=== PATIENT | female | born 1985 | race Hispanic/Latino ===

== ENCOUNTER 2018-01-09 19:50 | Emergency (ER) | payer SELFPAY ==
--- NOTE | 2018-01-09 21:42 | ER ---
Nurse's Notes [facility] Name: Sophie Thakkar Age: 32 yrs Sex: Female : 1985 Arrival Date: 01/09/2018 Time: 19:54 Bed Waiting Private MD: Diagnosis: Presentation: 01/09 20:01 Presenting complaint: Patient states: I am scheduled to have a lap band reversal and la1 gastric sleeve very soon and I am on a very particular diet that is causing me to be constipated and have to strain a lot to have a BM and now I am having rectal bleeding. Pt states last BM this morning but just 2 small hard balls. Transition of care: patient was not received from another setting of care. Onset of symptoms was January 09, 2018. Initial Sepsis Screen: Does the patient meet any 2 criteria? No. Patient's initial sepsis screen is negative. Does the patient have a suspected source of infection? No. Patient initial sepsis screen negative. Care prior to arrival: None. 20:01 Method Of Arrival: Ambulatory la1 20:01 Acuity: JERONIMO 3 la1 Historical: - Allergies: 20:03 No Known Allergies; la1 - PMHx: 20:03 None; la1 - Immunization history:: Adult Immunizations up to date. - Social history:: Smoking status: Patient/guardian denies using tobacco. Vital Signs: 20:03 BP 122 / 65; Pulse 106; Resp 19; Temp 98.2(O); Pulse Ox 97% on R/A; Weight 113.4 kg; la1 Height 5 ft. 2 in. (157.48 cm); 20:03 Body Mass Index 45.73 (113.40 kg, 157.48 cm) la1 ED Course: 19:54 Patient arrived in ED. al2 20:02 Triage completed. la1 20:04 Arm band placed on left wrist. la1 21:30 Patient's name was called from ER [employer]. No response. la1 21:41 Patient's name was called from ER [facility]. No response. Unable to locate patient. Will la1 disposition as left without being seen by a provider. Administered Medications: No medications were administered Outcome: 21:41 Patient left the ED. la1 Signatures: Anurag Elise RN RN la1 Cat Ellis
[2018-01-09 21:48] VITALS: BP 122/65; TEMP 98.2; O2SAT 97
== END 2018-01-09 21:41 | disposition left against medical advice (07) ==
LOC: ER 19:50
DX: Z53.21 Procedure and treatment not carried out due to patient leaving prior to being seen by health care provider (principal)
CPT/HCPCS: 99281

== ENCOUNTER 2018-03-24 09:43 | Emergency (ER) | payer SELFPAY ==
--- NOTE | 2018-03-24 10:13 | ER ---
Nurse's Notes [facility] Name: Sophie Thakkar Age: 32 yrs Sex: Female : 1985 Arrival Date: 03/24/2018 Time: 09:46 Bed 6 Private MD: CHECO FONTAINE Diagnosis: Foreign body in vulva and vagina Presentation: 03/24 09:53 Presenting complaint: Patient states: was having sexual intercourse this morning around sv 0300/0400 and the condom remained inside. Pt attempted to get it out but was unsuccessful. Transition of care: patient was not received from another setting of care. Onset of symptoms was March 24, 2018 at 03:00. Risk Assessment: Do you want to hurt yourself or someone else? Patient reports no desire to harm self or others. Initial Sepsis Screen: Does the patient meet any 2 criteria? No. Patient's initial sepsis screen is negative. Does the patient have a suspected source of infection? No. Patient's initial sepsis screen is negative. Care prior to arrival: None. 09:53 Method Of Arrival: Ambulatory sv 09:53 Acuity: JERONIMO 4 sv Triage Assessment: 09:53 General: Appears in no apparent distress. uncomfortable, well developed, Behavior is sv calm, cooperative, appropriate for age. Pain: Complains of pain in pelvis Pain currently is 1 out of 10 on a pain scale. EENT: No signs and/or symptoms were reported regarding the EENT system. Neuro: Level of Consciousness is awake, alert, obeys commands, Oriented to person, place, time, situation, Moves all extremities. Full function Gait is steady. Respiratory: Respiratory effort is even, unlabored, Respiratory pattern is regular, symmetrical. : Reports condom in vagina. Derm: Skin is pink, warm \T\ dry. Musculoskeletal: Range of motion: intact in all extremities. 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 - Social history:: Smoking status: Patient uses tobacco products, smokes one-half pack cigarettes per day. - Ebola Screening: : No symptoms or risks identified at this time. Screenin:04 Abuse screen: Denies threats or abuse. Denies injuries from another. Nutritional sv screening: No deficits noted. Tuberculosis screening: No symptoms or risk factors identified. Fall Risk None identified. Assessment: 10:06 Reassessment: See triage assessment. sv 10:25 Reassessment: Patient appears in no apparent distress at this time. Patient and/or sv family updated on plan of care and expected duration. Pain level reassessed. Patient is alert, oriented x 3, equal unlabored respirations, skin warm/dry/pink. Patient states symptoms have improved. Vital Signs: 10:03 BP 94 / 59; Pulse 67; Resp 18; Temp 98.3; Pulse Ox 99% ; Weight 104.33 kg; Height 5 ft. sv 2 in. (157.48 cm); Pain 1/10; 10:03 Body Mass Index 42.07 (104.33 kg, 157.48 cm) sv ED Course: 09:46 Patient arrived in ED. sb2 09:46 CHECO FONTAINE is Private Physician. sb2 09:50 Radhika Dobbins FNP-C is [facility]. snw 09:50 Ramin Coreas MD is Attending Physician. snw 09:59 Ro Lopez RN is Primary Nurse. sv 10:01 Triage completed. sv 10:04 Arm band placed on right wrist. sv 10:04 Patient has correct armband on for positive identification. Placed in gown. Bed in low sv position. Door closed. Warm blanket given. Head of bed elevated. 10:10 Assist provider with pelvic exam: Set up pelvic tray. Performed by Radhika BREWER Patient tolerated well. Patient did not have IV access during this emergency room visit. Administered Medications: No medications were administered Outcome: 10:12 Discharge ordered by . snw 10:25 Discharged to home ambulatory. sv 10:25 Condition: stable 10:25 Discharge instructions given to patient, Instructed on discharge instructions, follow up and referral plans. Demonstrated understanding of instructions, follow-up care. 10:26 Patient left the ED. sv Signatures: Ro Lopez RN RN sv Therrien, Shelly, FNP-C LEARNING PROGRAM MANAGER-Csnw Collette Zamudio sb2
--- NOTE | 2018-03-24 10:13 | EDPHYS ---
Physician Documentation [facility] Name: Sophie Thakkar Age: 32 yrs Sex: Female : 1985 Arrival Date: 03/24/2018 Time: 09:46 Bed 6 Private MD: CHECO FONTAINE ED Physician Ramin Coreas HPI: 03/24 10:15 This 32 yrs old Female presents to ER via Ambulatory with complaints of snw Foreign body In Vagina - condom. 10:15 The patient presents with foreign body. Onset: The symptoms/episode began/occurred snw suddenly, today. Associated signs and symptoms: Pertinent positives: dyspareunia. Severity of symptoms: At their worst the symptoms were mild. The patient is sexually active, uses protection during intercourse. The patient has not experienced similar symptoms in the past. The patient has not recently seen a physician. 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 - Social history:: Smoking status: Patient uses tobacco products, smokes one-half pack cigarettes per day. - Ebola Screening: : No symptoms or risks identified at this time. ROS: 10:13 Constitutional: Negative for fever, chills, and weight loss, Eyes: Negative for injury, snw pain, redness, and discharge, ENT: Negative for injury, pain, and discharge, Neck: Negative for injury, pain, and swelling, Cardiovascular: Negative for chest pain, palpitations, and edema, Respiratory: Negative for shortness of breath, cough, wheezing, and pleuritic chest pain, Abdomen/GI: Negative for abdominal pain, nausea, vomiting, diarrhea, and constipation, Back: Negative for injury and pain, MS/Extremity: Negative for injury and deformity, Skin: Negative for injury, rash, and discoloration, Neuro: Negative for headache, weakness, numbness, tingling, and seizure. 10:13 : Positive for condom in vaginal vault. Exam: 10:13 Constitutional: This is a well developed, well nourished patient who is awake, alert, snw and in no acute distress. Head/Face: Normocephalic, atraumatic. Eyes: Pupils equal round and reactive to light, extra-ocular motions intact. Lids and lashes normal. Conjunctiva and sclera are non-icteric and not injected. Cornea within normal limits. Periorbital areas with no swelling, redness, or edema. ENT: Nares patent. No nasal discharge, no septal abnormalities noted. Tympanic membranes are normal and external auditory canals are clear. Oropharynx with no redness, swelling, or masses, exudates, or evidence of obstruction, uvula midline. Mucous membranes moist. Neck: Trachea midline, no thyromegaly or masses palpated, and no cervical lymphadenopathy. Supple, full range of motion without nuchal rigidity, or vertebral point tenderness. No Meningismus. Chest/axilla: Normal chest wall appearance and motion. Nontender with no deformity. No lesions are appreciated. Cardiovascular: Regular rate and rhythm with a normal S1 and S2. No gallops, murmurs, or rubs. Normal PMI, no JVD. No pulse deficits. Respiratory: Lungs have equal breath sounds bilaterally, clear to auscultation and percussion. No rales, rhonchi or wheezes noted. No increased work of breathing, no retractions or nasal flaring. Abdomen/GI: Soft, non-tender, with normal bowel sounds. No distension or tympany. No guarding or rebound. No evidence of tenderness throughout. Back: No spinal tenderness. No costovertebral tenderness. Full range of motion. Pelvic Exam: Normal external genitalia. Speculum exam with closed cervical os, condom in vaginal vault, removed with forceps. no discharge or bleeding noted. Bimanual exam with normal adnexa, no adnexal or cervical motion tenderness. Normal uterus. Skin: Warm, dry with normal turgor. Normal color with no rashes, no lesions, and no evidence of cellulitis. MS/ Extremity: Pulses equal, no cyanosis. Neurovascular intact. Full, normal range of motion. Neuro: Awake and alert, GCS 15, oriented to person, place, time, and situation. Cranial nerves II-XII grossly intact. Motor strength 5/5 in all extremities. Sensory grossly intact. Cerebellar exam normal. Normal gait. Psych: Awake, alert, with orientation to person, place and time. Behavior, mood, and affect are within normal limits. Vital Signs: 10:03 BP 94 / 59; Pulse 67; Resp 18; Temp 98.3; Pulse Ox 99% ; Weight 104.33 kg; Height 5 ft. sv 2 in. (157.48 cm); Pain 1/10; 10:03 Body Mass Index 42.07 (104.33 kg, 157.48 cm) sv MDM: 09:56 Patient medically screened. snw 10:14 Data reviewed: vital signs, nurses notes. Data interpreted: Pulse oximetry: on room air snw is 99 %. Interpretation: normal. Counseling: I had a detailed discussion with the patient and/or guardian regarding: the historical points, exam findings, and any diagnostic results supporting the discharge/admit diagnosis, the need for outpatient follow up, to return to the emergency department if symptoms worsen or persist or if there are any questions or concerns that arise at home. Special discussion: Based on the history and exam findings, there is no indication for further emergent testing or inpatient evaluation. I discussed with the patient/guardian the need to see the OB Gyne specialist for further evaluation of the symptoms. Administered Medications: No medications were administered Disposition: 18:16 Co-signature as Attending Physician, Ramin Coreas MD. rn Disposition: 03/24/18 10:12 Discharged to Home. Impression: Foreign body in vulva and vagina. - Condition is Stable. - Discharge Instructions: Dyspareunia, Vaginal Foreign Body. - Medication Reconciliation Form, Thank You Letter, Antibiotic Education, Prescription Opioid Use form. - Follow up: Private Physician; When: 2 - 3 days; Reason: Recheck today's complaints, Continuance of care, Re-evaluation by your physician. Follow up: Emergency Department; When: As needed; Reason: Worsening of condition. - Problem is new. - Symptoms are resolved. Signatures: Ro Lopez RN RN Radhika Larios, WRAPPING MACHINE HELPER-C WRAPPING MACHINE HELPER-Csnw Ramin Coreas MD MD pattern repair person: (The following items were deleted from the chart) 10:26 10:12 03/24/2018 10:12 Discharged to Home. Impression: Foreign body in vulva and sv vagina. Condition is Stable. Forms are Medication Reconciliation Form, Thank You Letter, Antibiotic Education, Prescription Opioid Use. Follow up: Private Physician; When: 2 - 3 days; Reason: Recheck today's complaints, Continuance of care, Re-evaluation by your physician. Follow up: Emergency Department; When: As needed; Reason: Worsening of condition. Problem is new. Symptoms are resolved. snrogelio
[2018-03-24 10:47] VITALS: BP 94/59; TEMP 98.3; O2SAT 99
== END 2018-03-24 10:26 | disposition home or self-care (01) ==
LOC: ER 09:43
DX: T19.2XXA Foreign body in vulva and vagina, initial encounter (principal); F17.210 Nicotine dependence, cigarettes, uncomplicated; X58.XXXA Exposure to other specified factors, initial encounter; Y93.9 Activity, unspecified; Y92.9 Unspecified place or not applicable; Y99.9 Unspecified external cause status; Z91.040 Latex allergy status
CPT/HCPCS: 99283

== ENCOUNTER 2018-09-12 09:09 | Emergency (ER) | payer SELFPAY ==
[2018-09-12] MEDS ORDERED: ACETAMINOPHEN 500 MG TAB ONE (10:08)
[2018-09-12 10:20] LABS: Urine Amorphous Sediment 2+ /HPF (NONE SEEN); Urine Bacteria <20 /HPF (<20); Urine Culture Reflex Order NOT NEEDED; Urine RBC <5 /HPF (NONE SEEN)
[2018-09-12 10:22] LABS: Absolute Lymphocytes (CBC) 2.4 K/uL (0.7-4.9); Absolute Monocytes 0.5 K/uL (0.1-1.3); Absolute Neutrophil 4.4 K/uL (1.8-8.0); Basophils % 0.5 % (0-1.3); Eosinophils % 3.4 % (0-4.4); Hematocrit 39.4 % (36.0-45.0); MPV 8.8 fL (7.6-11.3); Monocytes % 6.9 % (3.3-12.3); RBC Red Blood Cell Count 4.83 M/uL (3.86-4.86)
[2018-09-12 10:30] LABS: Urine Blood 1+ (NEG); Urine Glucose NEGATIVE (NEG); Urine Protein NEGATIVE (NEG)
[2018-09-12 10:42] LABS: ALT/SGPT 29 U/L (12-78); AST/SGOT 13 U/L (15-37); Albumin 3.4 g/dL (3.4-5.0); Alkaline Phosphatase 69 U/L (45-117); BUN Blood Urea Nitrogen 11 mg/dL (7-18); Bicarbonate 26 mmol/L (21-32); Bilirubin Direct 0.2 mg/dL (0-0.2); Bilirubin Total 0.6 mg/dL (0.2-1.0); Glucose Level 89 mg/dL (74-106); Potassium 4.2 mmol/L (3.5-5.1); Protein, Total 7.2 g/dL (6.4-8.2); Sodium Level 139 mmol/L (136-145)
--- NOTE | 2018-09-12 10:46 | RAD REPORT ---
EXAM DESCRIPTION: US - Transvaginal Study Probe - 09/12/2018 10:30 am CLINICAL HISTORY: pelvic pain. abnml vag bleed Pelvic pain. COMPARISON: No comparisons FINDINGS: The uterus is normal in size, shape and echotexture. The uterus measures 8.0 x 4.6 x 3.7 c m. The endometrial stripe measures 5 mm, normal. Both ovaries are normal in size, shape and echotexture. The right ovary measures 2.0 x 2.0 x 1.7 cm. The left ovary measures 3.0 x 2.7 x 2.5 cm. No ovarian or parovarian lesions. No adnexal masses. Normal Doppler blood flow was demonstrated to both ovaries. No significant pelvic ascites. IMPRESSION: Unremarkable study.
[2018-09-12] MEDS ORDERED: KETOROLAC 30 MG/ML INJ ONE (11:24)
--- NOTE | 2018-09-12 11:59 | EDPHYS ---
Physician Documentation [facility] Name: Sophie Thakkar Age: 32 yrs Sex: Female : 1985 Arrival Date: 09/12/2018 Time: 09:15 Bed 5 Private MD: None, None ED Physician Bryson Finn HPI: 09/12 10:45 This 32 yrs old Female presents to ER via Ambulatory with complaints of wa Vaginal Bleeding. 10:45 The patient presents with pelvic pain, vaginal bleeding that is foul-smelling bloody wa discharge. states had a "period" that lasted 2 weeks just 2 weeks ago. has been irregular x 2 years. has a control implant in L upper arm. Onset: The symptoms/episode began/occurred 2 day(s) ago. Modifying factors: The symptoms are alleviated by nothing, the symptoms are aggravated by nothing. Associated signs and symptoms: Pertinent positives: vaginal bleeding, vaginal discharge, Pertinent negatives: diarrhea, dysuria, fever. Severity of symptoms: At their worst the symptoms were moderate, in the emergency department the symptoms are unchanged. The patient has not experienced similar symptoms in the past. The patient has not recently seen a physician. states her FLIGHT ENGINEER HELICOPTER has her scheduled for pelvic US but cannot get in till after the holidays. FLIGHT ENGINEER HELICOPTER: 09:20 LMP 09/12/2018 Historical: - Allergies: 09:20 Latex, Natural Rubber; for long periods of time; - Home Meds: 09:20 control implant-possibly implanon [Active]; ch - PMHx: 09:20 None; ch - PSHx: 09:20 ; Cholecystectomy; Gastric sleeve; - Immunization history:: Adult Immunizations up to date, Flu vaccine is up to date. - Social history:: Smoking status: Patient uses tobacco products, denies chronic smoking, but will smoke occasionally. - Ebola Screening: : Patient negative for fever greater than or equal to 101.5 degrees Fahrenheit, and additional compatible Ebola Virus Disease symptoms Patient denies exposure to infectious person Patient denies travel to an Ebola-affected area in the 21 days before illness onset No symptoms or risks identified at this time. ROS: 10:49 Positive for pelvic pain, vaginal bleeding, vaginal discharge, menstrual wa abnormality, Negative for urinary symptoms, hematuria, burning with urination, difficulty urinating. 10:49 Constitutional: Negative for fever, chills, and weight loss, Eyes: Negative for injury, pain, redness, and discharge, ENT: Negative for injury, pain, and discharge, Neck: Negative for injury, pain, and swelling, Cardiovascular: Negative for chest pain, palpitations, and edema, Respiratory: Negative for shortness of breath, cough, wheezing, and pleuritic chest pain, Back: Negative for injury and pain, MS/Extremity: Negative for injury and deformity, Skin: Negative for injury, rash, and discoloration, Neuro: Negative for headache, weakness, numbness, tingling, and seizure. 10:49 Abdomen/GI: Positive for abdominal pain, of the suprapubic area. 10:50 : Positive for vaginal bleeding, vaginal discharge, menstrual abnormality. wa Exam: 10:50 Constitutional: This is a well developed, well nourished patient who is awake, alert, wa and in no acute distress. Head/Face: Normocephalic, atraumatic. Eyes: Pupils equal round and reactive to light, extra-ocular motions intact. Lids and lashes normal. Conjunctiva and sclera are non-icteric and not injected. Cornea within normal limits. Periorbital areas with no swelling, redness, or edema. ENT: Nares patent. No nasal discharge, no septal abnormalities noted. Tympanic membranes are normal and external auditory canals are clear. Oropharynx with no redness, swelling, or masses, exudates, or evidence of obstruction, uvula midline. Mucous membranes moist. Neck: Trachea midline, no thyromegaly or masses palpated, and no cervical lymphadenopathy. Supple, full range of motion without nuchal rigidity, or vertebral point tenderness. No Meningismus. Chest/axilla: Normal chest wall appearance and motion. Nontender with no deformity. No lesions are appreciated. Cardiovascular: Regular rate and rhythm with a normal S1 and S2. No gallops, murmurs, or rubs. Normal PMI, no JVD. No pulse deficits. Respiratory: Lungs have equal breath sounds bilaterally, clear to auscultation and percussion. No rales, rhonchi or wheezes noted. No increased work of breathing, no retractions or nasal flaring. Back: No spinal tenderness. No costovertebral tenderness. Full range of motion. Skin: Warm, dry with normal turgor. Normal color with no rashes, no lesions, and no evidence of cellulitis. MS/ Extremity: Pulses equal, no cyanosis. Neurovascular intact. Full, normal range of motion. Neuro: Awake and alert, GCS 15, oriented to person, place, time, and situation. Cranial nerves II-XII grossly intact. Motor strength 5/5 in all extremities. Sensory grossly intact. Cerebellar exam normal. Normal gait. Psych: Awake, alert, with orientation to person, place and time. Behavior, mood, and affect are within normal limits. 10:50 Abdomen/GI: Inspection: abdomen appears normal, Palpation: soft, in all quadrants, mild abdominal tenderness, in the suprapubic area. Vital Signs: 09:20 BP 100 / 63; Pulse 59; Resp 16; Temp 98.4; Pulse Ox 99% on R/A; Weight 99.79 kg; Height ch 5 ft. 2 in. (157.48 cm); Pain 8/10; 10:30 BP 110 / 68; Pulse 61; Resp 18; Pulse Ox 99% on R/A; ph 11:22 BP 101 / 70; Pulse 58; Resp 18; Pulse Ox 98% on R/A; ph 12:23 BP 104 / 68; Pulse 59; Resp 18; Temp 97.6; Pulse Ox 99% on R/A; Pain 5/10; ph 09:20 Body Mass Index 40.24 (99.79 kg, 157.48 cm) ch MDM: 09:31 Patient medically screened. wa 10:50 Differential diagnosis: dysfxnal uterine bleeding. will work up. wa 11:56 Data reviewed: vital signs, nurses notes, lab test result(s), radiologic studies. Test wa interpretation: by ED physician or midlevel provider: labs noted within normal limits. pelvic US noted within nml limits. . Response to treatment: the patient's symptoms have markedly improved after treatment. ED course: improved. work up essentially negative. will have f/u with her SEWER PIPE LAYER HELPER.. 09/12 09:49 Order name: Basic Metabolic Panel; Complete Time: 10:51 wa 09/12 09:49 Order name: CBC with Diff; Complete Time: 10:51 wa 09/12 09:49 Order name: Urine Microscopic Only; Complete Time: 10:51 wa 09/12 09:49 Order name: LFT's; Complete Time: 10:51 wa 09/12 09:49 Order name: Wet Prep; Complete Time: 11:52 ct 09/12 09:49 Order name: GC (GONORR/CHLAMYDIA) Probe ct 09/12 09:49 Order name: Urine Test (obtain specimen); Complete Time: 09:57 ct 09/12 09:49 Order name: IV Saline Lock; Complete Time: 10:11 ct 09/12 10:10 Order name: Urine Dipstick--Ancillary (enter results); Complete Time: 10:51 09/12 10:14 Order name: Transvaginal Study Probe; Complete Time: 10:51 EDAK 09/12 10:23 Order name: Urine --Ancillary (enter results); Complete Time: 10:51 09/12 09:49 Order name: Labs collected and sent; Complete Time: 10:11 ct 09/12 09:49 Order name: NPO; Complete Time: 09:57 ct 09/12 09:49 Order name: Urine Dipstick-Ancillary (obtain specimen); Complete Time: 09:57 ct Administered Medications: 10:11 Drug: Tylenol 1000 mg Route: PO; ph 12:24 Follow up: Response: No adverse reaction ph 11:22 Drug: TORadol 30 mg Route: IVP; Site: right antecubital; ph 12:25 Follow up: Response: No adverse reaction ph Disposition: 09/12/18 11:59 Discharged to Home. Impression: Dysfunctional uterine bleeding, Pelvic pain. - Condition is Stable. - Prescriptions for Ibuprofen 600 mg Oral Tablet - take 1 tablet by ORAL route every 6 hours As needed take with food; 30 tablet. - Work release form, Medication Reconciliation Form, Thank You Letter, Antibiotic Education, Prescription Opioid Use form. - Follow up: Private Physician; When: 2 - 3 days; Reason: Re-evaluation by your physician. - Problem is new. - Symptoms have improved. - Notes: follow up with your SEWER PIPE LAYER HELPER for further evaluation as discussed. take tylenol and motrin for pain as needed as discussed. rerturn here immediately for rapidly worsening concerns, such as severe pain aand or bleeding Signatures: Dispatcher [employer] EDMS Krystin Conner RN RN Miriam Linares RN RN Aakash, MD MERCED Massey ct Corrections: (The following items were deleted from the chart) 10:13 09:51 Pelvis Complete+US.RAD.BRZ ordered. EDAK EDMS 12:26 11:59 09/12/2018 11:59 Discharged to Home. Impression: Dysfunctional uterine bleeding; ph Pelvic pain. Condition is Stable. Forms are Medication Reconciliation Form, Thank You Letter, Antibiotic Education, Prescription Opioid Use. Follow up: Private Physician; When: 2 - 3 days; Reason: Re-evaluation by your physician. Problem is new. Symptoms have improved. wa
--- NOTE | 2018-09-12 11:59 | ER ---
Nurse's Notes [facility] Name: Sophie Thakkar Age: 32 yrs Sex: Female : 1985 Arrival Date: 09/12/2018 Time: 09:15 Bed 5 Private MD: None, None Diagnosis: Dysfunctional uterine bleeding;Pelvic pain Presentation: 09/12 09:17 Presenting complaint: Patient states: "I was bleeding two weeks ago, then started ch bleeding again this morning. My period blood smells like , and its really slimy. the color is normal but its very slimy, and i am having braxon baugh contration. pulsing in my lower back. I have an implant but we dont use protection". Transition of care: patient was not received from another setting of care. Onset of symptoms was September 12, 2018 at 07:00. Risk Assessment: Do you want to hurt yourself or someone else? Patient reports no desire to harm self or others. Initial Sepsis Screen: Does the patient meet any 2 criteria? No. Patient's initial sepsis screen is negative. Does the patient have a suspected source of infection? No. Patient's initial sepsis screen is negative. Note triage delayed because pt needed to take a phone call. Care prior to arrival: None. 09:17 Method Of Arrival: Ambulatory 09:17 Acuity: JERONIMO 3 ch Triage Assessment: 09:20 General: Appears in no apparent distress. comfortable, Behavior is calm, cooperative, ch appropriate for age. Pain: Complains of pain in low back area Pain currently is 8 out of 10 on a pain scale. : Reports vaginal bleeding that is bright red, moderate flow. 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 - Social history:: Smoking status: Patient uses tobacco products, denies chronic smoking, but will smoke occasionally. - Ebola Screening: : Patient negative for fever greater than or equal to 101.5 degrees Fahrenheit, and additional compatible Ebola Virus Disease symptoms Patient denies exposure to infectious person Patient denies travel to an Ebola-affected area in the 21 days before illness onset No symptoms or risks identified at this time. Screenin:56 Abuse screen: Denies threats or abuse. Denies injuries from another. Nutritional ph screening: No deficits noted. Tuberculosis screening: No symptoms or risk factors identified. Fall Risk None identified. Assessment: 09:53 General: Appears in no apparent distress. comfortable, obese, well groomed, Behavior is ph calm, cooperative, appropriate for age, Reports fatigue for >3 days, Denies fever, chills. Pain: Complains of pain in suprapubic area and low back area Pain currently is 8 out of 10 on a pain scale. Quality of pain is described as crampy. Neuro: Level of Consciousness is awake, alert, obeys commands, Oriented to person, place, time, situation. Cardiovascular: Capillary refill < 3 seconds in bilateral fingers Patient's skin is warm and dry. Respiratory: Airway is patent Respiratory effort is even, unlabored, Respiratory pattern is regular, symmetrical. GI: Abdomen is round non-distended, Bowel sounds present X 4 quads. Abd is soft X 4 quads Abdomen is tender to palpation in suprapubic area Reports lower abdominal pain, Patient currently denies diarrhea, vomiting. : Reports cramping, lower back pain in suprapubic area in lower back vaginal bleeding that is bright red, moderate flow, w/ foul odor Denies burning with urination, discharge, urinary frequency, Patient is sexually active Method of control is implant. Derm: Skin is intact, is healthy with good turgor, Skin is pink, warm \\T\\ dry. Musculoskeletal: Circulation, motion, and sensation intact. Range of motion: intact in all extremities. 10:05 Reassessment: Patient appears in no apparent distress at this time. Pt taken to US via wheelchair. 11:00 Reassessment: Patient appears in no apparent distress at this time. Patient and/or ph family updated on plan of care and expected duration. Pain level reassessed. Patient is alert, oriented x 3, equal unlabored respirations, skin warm/dry/pink. 12:23 Reassessment: Patient appears in no apparent distress at this time. Patient and/or ph family updated on plan of care and expected duration. Pain level reassessed. Patient is alert, oriented x 3, equal unlabored respirations, skin warm/dry/pink. Pt d/c home w/ SO. Vital Signs: 09:20 BP 100 / 63; Pulse 59; Resp 16; Temp 98.4; Pulse Ox 99% on R/A; Weight 99.79 kg; Height ch 5 ft. 2 in. (157.48 cm); Pain 8/10; 10:30 BP 110 / 68; Pulse 61; Resp 18; Pulse Ox 99% on R/A; ph 11:22 BP 101 / 70; Pulse 58; Resp 18; Pulse Ox 98% on R/A; ph 12:23 BP 104 / 68; Pulse 59; Resp 18; Temp 97.6; Pulse Ox 99% on R/A; Pain 5/10; ph 09:20 Body Mass Index 40.24 (99.79 kg, 157.48 cm) ED Course: 09:15 Patient arrived in ED. mr 09:16 None, None is Private Physician. mr 09:19 Triage completed. ch 09:20 Arm band placed on left wrist. Patient placed in an exam room, on a stretcher. ch 09:31 Bryson Finn MD is Attending Physician. wa 09:36 Miriam Linares, JOSELIN is Primary Nurse. ph 09:56 Patient has correct armband on for positive identification. Placed in gown. Bed in low ph position. Call light in reach. Side rails up X 1. Pulse ox on. NIBP on. Warm blanket given. Pillow given. 09:57 Urine collected: clean catch specimen, cloudy, haile colored. jb1 10:00 Initial lab(s) drawn, by me, sent to lab. Inserted saline lock: 20 gauge in right ph antecubital area, using aseptic technique. Blood collected. 10:15 Patient taken to ultrasound. via wheelchair. aa4 10:28 Transvaginal Study Probe In Process Unspecified. EDMS 10:36 Ultrasound completed. Patient moved back from ultrasound. lc3 11:05 Assist provider with pelvic exam: Set up pelvic tray. Performed by Bryson Finn MD ph Specimens sent to lab. Patient tolerated well. 12:24 IV discontinued, intact, bleeding controlled, No redness/swelling at site. Pressure ph dressing applied. Administered Medications: 10:11 Drug: Tylenol 1000 mg Route: PO; ph 12:24 Follow up: Response: No adverse reaction ph 11:22 Drug: TORadol 30 mg Route: IVP; Site: right antecubital; ph 12:25 Follow up: Response: No adverse reaction ph Outcome: 11:59 Discharge ordered by . tashia 12:23 Discharged to home ambulatory, with significant other. ph 12:23 Condition: good 12:23 Discharge instructions given to patient, Instructed on discharge instructions, follow up and referral plans. medication usage, Demonstrated understanding of instructions, follow-up care, medications, Prescriptions given X 1. 12:26 Patient left the ED. ph Signatures: Dispatcher [employer] EDJohn Frank jb1 Krystin Conner RN RN ch Rivera, Mary mr Frazier, Amanda aa4 Hall, Patricia, RN RN Kelsea Herbert William, MD MD wa
[2018-09-12 12:40] VITALS: BP 104/68; TEMP 97.6; O2SAT 99
[2018-09-15 05:12] LABS: C.trachomatis RNA,TMA Not Detected (Not Detected)
== END 2018-09-12 12:26 | disposition home or self-care (01) ==
LOC: ER 09:09
DX: N93.8 Other specified abnormal uterine and vaginal bleeding (principal); Z72.0 Tobacco use; Z91.040 Latex allergy status; Z91.048 Other nonmedicinal substance allergy status
CPT/HCPCS: 36415; 76830; 80048; 80076; 81003; 81015; 81025; 85025; 87210; 87490; 87590; 96374; 99285

== ENCOUNTER 2018-11-14 10:07 | Emergency (ER) | payer SELFPAY ==
[2018-11-14 12:23] LABS: Urine Blood 2+ (NEG); Urine Glucose NEGATIVE (NEG); Urine Protein NEGATIVE (NEG); Urine Specific Gravity >1.030 (1.005-1.030)
--- NOTE | 2018-11-14 12:28 | RAD REPORT ---
EXAM DESCRIPTION: CT - Head Brain Wo Cont - 11/14/2018 12:19 pm CLINICAL HISTORY: Headache COMPARISON: None. TECHNIQUE: Computed axial tomography of the head was obtained. IV contrast was not requested. All CT scans are performed using dose optimization technique as appropriate and may include automated exposure control or mA/KV adjustment according to patient size. FINDINGS: An intracranial bleed is not seen . The ventricles are normal in caliber. No extra-axial fluid collection is noted. Fluid within the sinuses/ mastoids is not seen. IMPRESSION: No acute intracranial abnormality is seen. If patient's symptoms persist MRI of the bra in would be recommended.
[2018-11-14 12:37] LABS: Barbiturates NEGATIVE (NEGATIVE); Benzodiazepines NEGATIVE (NEGATIVE); Cocaine NEGATIVE (NEGATIVE); METHAMPHETAM NEGATIVE (NEGATIVE); Methadone NEGATIVE (NEGATIVE); Opiates NEGATIVE (NEGATIVE); Phencyclidine NEGATIVE (NEGATIVE); THC Cannibis POSITIVE (NEGATIVE)
[2018-11-14] MEDS ORDERED: NA CHLORIDE 0.9% 1,000 ML ONE (12:38)
[2018-11-14] MEDS ORDERED: KETOROLAC 30 MG/ML INJ ONE (12:38)
[2018-11-14] MEDS ORDERED: ONDANSETRON 4 MG/2 ML VIAL ONE (12:38)
[2018-11-14 12:41] LABS: Absolute Lymphocytes (CBC) 2.2 K/uL (0.7-4.9); Absolute Monocytes 0.4 K/uL (0.1-1.3); Absolute Neutrophil 4.5 K/uL (1.8-8.0); Basophils % 0.7 % (0-1.3); Hematocrit 37.9 % (36.0-45.0); Lymphocytes % 29.5 % (15.3-44.8); MPV 9.4 fL (7.6-11.3); Monocytes % 5.2 % (3.3-12.3); RBC Red Blood Cell Count 4.59 M/uL (3.86-4.86)
[2018-11-14 12:57] LABS: ALT/SGPT 32 U/L (12-78); AST/SGOT 12 U/L (15-37); Albumin 3.2 g/dL (3.4-5.0); Alkaline Phosphatase 71 U/L (45-117); BUN Blood Urea Nitrogen 11 mg/dL (7-18); Bicarbonate 26 mmol/L (21-32); Bilirubin Total 0.3 mg/dL (0.2-1.0); Glucose Level 100 mg/dL (74-106); Protein, Total 7.1 g/dL (6.4-8.2); Sodium Level 141 mmol/L (136-145)
--- NOTE | 2018-11-14 13:08 | EDPHYS ---
Physician Documentation [facility] Name: Sophie Thakkar Age: 33 yrs Sex: Female : 1985 Arrival Date: 11/14/2018 Time: 10:09 Bed 19 Private MD: ED Physician Sai Trinidad HPI: 11/14 12:02 This 33 yrs old Female presents to ER via Ambulatory with complaints of Eye roberto Pain, Headache. 12:02 The patient is experiencing blurred vision, pain, to the right eye. 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 - Social history:: Smoking status: Patient/guardian denies using tobacco. - Ebola Screening: : Patient denies exposure to infectious person Patient denies travel to an Ebola-affected area in the 21 days before illness onset. - Family history:: not pertinent. ROS: 12:02 Constitutional: Negative for fever, chills, and weight loss, ENT: Negative for injury, roberto pain, and discharge, Neck: Negative for injury, pain, and swelling, Cardiovascular: Negative for chest pain, palpitations, and edema, Respiratory: Negative for shortness of breath, cough, wheezing, and pleuritic chest pain, Back: Negative for injury and pain, : Negative for injury, bleeding, discharge, and swelling, MS/Extremity: Negative for injury and deformity, Skin: Negative for injury, rash, and discoloration, Psych: Negative for depression, anxiety, suicide ideation, homicidal ideation, and hallucinations, Allergy/Immunology: Negative for hives, rash, and allergies, Endocrine: Negative for neck swelling, polydipsia, polyuria, polyphagia, and marked weight changes, Hematologic/Lymphatic: Negative for swollen nodes, abnormal bleeding, and unusual bruising. 12:02 Eyes: Positive for 12:02 Abdomen/GI: Positive for nausea. 12:02 Neuro: Positive for dizziness, headache. Exam: 12:02 Constitutional: This is a well developed, well nourished patient who is awake, alert, roberto and in no acute distress. Head/Face: Normocephalic, atraumatic. Eyes: Pupils equal round and reactive to light, extra-ocular motions intact. Lids and lashes normal. Conjunctiva and sclera are non-icteric and not injected. Cornea within normal limits. Periorbital areas with no swelling, redness, or edema. ENT: Nares patent. No nasal discharge, no septal abnormalities noted. Tympanic membranes are normal and external auditory canals are clear. Oropharynx with no redness, swelling, or masses, exudates, or evidence of obstruction, uvula midline. Mucous membranes moist. Neck: Trachea midline, no thyromegaly or masses palpated, and no cervical lymphadenopathy. Supple, full range of motion without nuchal rigidity, or vertebral point tenderness. No Meningismus. Chest/axilla: Normal chest wall appearance and motion. Nontender with no deformity. No lesions are appreciated. Cardiovascular: Regular rate and rhythm with a normal S1 and S2. No gallops, murmurs, or rubs. Normal PMI, no JVD. No pulse deficits. Respiratory: Lungs have equal breath sounds bilaterally, clear to auscultation and percussion. No rales, rhonchi or wheezes noted. No increased work of breathing, no retractions or nasal flaring. Abdomen/GI: Soft, non-tender, with normal bowel sounds. No distension or tympany. No guarding or rebound. No evidence of tenderness throughout. Back: No spinal tenderness. No costovertebral tenderness. Full range of motion. Skin: Warm, dry with normal turgor. Normal color with no rashes, no lesions, and no evidence of cellulitis. MS/ Extremity: Pulses equal, no cyanosis. Neurovascular intact. Full, normal range of motion. Neuro: Awake and alert, GCS 15, oriented to person, place, time, and situation. Cranial nerves II-XII grossly intact. Motor strength 5/5 in all extremities. Sensory grossly intact. Cerebellar exam normal. Normal gait. Psych: Awake, alert, with orientation to person, place and time. Behavior, mood, and affect are within normal limits. 12:02 Eyes: Periorbital structures: appear normal, no acute changes, Pupils: no acute changes, equal, round, and reactive to light and accomodation, Extraocular movements: intact throughout, Conjunctiva: normal, no acute changes, Corneas: are normal, no acute changes, Sclera: no appreciated abnormality, no acute changes, Anterior chamber: normal, no acute changes, Lids and lashes: appear normal, no acute changes, funduscopic exam reveals no obvious abnormalities, no acute changes, discs that are sharp, no appreciated papilledema, no retinal detachment, no enlargement of the optic cup, no appreciated A-V knicking, no evidence of cotton wool exudatates, no flame hemorrhages, no macular valderrama red spot, no afferent papillary defect, Visual garvey: are intact, no acute changes, Nystagmus: is not appreciated. 12:02 Neck: External neck: no acute changes, Trachea: is midline with no obvious abnormalities, ROM/movement: is normal, no acute changes, Meningeal signs: are not present, Kernig's sign is negative, Brudzinski's sign is negative, nuchal rigidity, is not appreciated. Vital Signs: 10:25 BP 92 / 47; Pulse 67; Resp 14; Temp 97.9(TE); Pulse Ox 99% on R/A; Weight 124.74 kg; ss Height 5 ft. 2 in. (157.48 cm); Pain 10/10; 11:42 BP 92 / 55; Pulse 51; Resp 17; Pulse Ox 99% on R/A; tw2 12:51 BP 96 / 53; Pulse 57; Resp 17; Pulse Ox 99% on R/A; tw2 10:25 Body Mass Index 50.30 (124.74 kg, 157.48 cm) ss Visual Acuity: 10:41 Left Eye Visual acuity 20/25, ; Right Eye Visual acuity 20/30, ; Both Eyes Visual tw2 acuity 20/30; Without Lenses; MDM: 10:38 Patient medically screened. [facility] 12:05 Data reviewed: vital signs, nurses notes, lab test result(s), radiologic studies, plain roberto films. 11/14 11:29 Order name: Urine Dipstick--Ancillary (enter results); Complete Time: 13:06 11/14 11:29 Order name: Urine --Ancillary (enter results); Complete Time: 13:06 bd 11/14 12:02 Order name: CBC with Diff [facility] 11/14 12:02 Order name: Comprehensive Metabolic Panel; Complete Time: 13:06 roberto 11/14 12:02 Order name: Test, Serum roberto 11/14 12:02 Order name: UDS; Complete Time: 13:06 [facility] 11/14 12:02 Order name: CT Head Brain wo Cont; Complete Time: 13: [facility] Administered Medications: 12:30 Drug: Zofran 4 mg Route: IVP; Site: right antecubital; tw2 13:13 Follow up: Response: No adverse reaction; Nausea is decreased ss 12:33 Drug: TORadol 30 mg Route: IVP; Site: right antecubital; tw2 13:13 Follow up: Response: No adverse reaction ss 12:34 Drug: NS 0.9% 1000 ml Route: IV; Rate: 1 bolus; Site: right antecubital; tw2 13:27 Follow up: IV Status: Order to discontinue infusion; IV Intake: 250ml tw2 Disposition: 11/14/18 13:07 Discharged to Home. Impression: Ocular pain, right eye, Headache. - Condition is Stable. - Discharge Instructions: General Headache Without Cause, General Headache Without Cause, [id number]. - Prescriptions for Fioricet with Codeine 50- 325-40-30 mg Oral capsule - take 1 capsule by ORAL route every 4 hours as needed not to exceed 6 capsules per 24hrs; 20 capsule. Zofran 4 mg Oral Tablet - take 1 tablet by ORAL route every 12 hours As needed; 14 tablet. - Medication Reconciliation Form, Thank You Letter, Antibiotic Education, Prescription Opioid Use, Work release form, Family Work Release form. - Follow up: Private Physician; When: 2 - 3 days; Reason: Recheck today's complaints, Continuance of care, Re-evaluation by your physician. Follow up: Magno Monique; When: 1 - 2 days; Reason: Recheck today's complaints, Continuance of care, Re-evaluation by your physician. Follow up: Kee Lynch; When: 2 - 3 days; Reason: Recheck today's complaints, Re-evaluation by your physician. - Problem is new. - Symptoms have improved. Signatures: Dispatcher [employer] EDSai Rocha MD MD cha Smirch, Shelby, JOSELIN RN Noemi Harris RN RN tw2 Corrections: (The following items were deleted from the chart) 13:28 13:07 11/14/2018 13:07 Discharged to Home. Impression: Ocular pain, right eye; tw2 Headache. Condition is Stable. Discharge Instructions: General Headache Without Cause, General Headache Without Cause, [id number]. Prescriptions for Fioricet with Codeine 67-272-85-30 mg Oral capsule - take 1 capsule by ORAL route every 4 hours as needed not to exceed 6 capsules per 24hrs; 20 capsule, Zofran 4 mg Oral Tablet - take 1 tablet by ORAL route every 12 hours As needed; 14 tablet. and Forms are Medication Reconciliation Form, Thank You Letter, Antibiotic Education, Prescription Opioid Use. Follow up: Private Physician; When: 2 - 3 days; Reason: Recheck today's complaints, Continuance of care, Re-evaluation by your physician. Follow up: Magno Monique; When: 1 - 2 days; Reason: Recheck today's complaints, Continuance of care, Re-evaluation by your physician. Follow up: Kee Lynch; When: 2 - 3 days; Reason: Recheck today's complaints, Re-evaluation by your physician. Problem is new. Symptoms have improved. roberto
--- NOTE | 2018-11-14 13:08 | ER ---
Nurse's Notes [facility] Name: Sophie Thakkar Age: 33 yrs Sex: Female : 1985 Arrival Date: 11/14/2018 Time: 10:09 Bed 19 Private MD: Diagnosis: Ocular pain, right eye;Headache Presentation: 11/14 10:22 Presenting complaint: Patient states: fatigue, R eye pain, headache and nausea that ss began 5 days ago. Transition of care: patient was not received from another setting of care. Mechanism of Injury: No Mechanism of Injury. The patient denies any loss of vision. Onset of symptoms was November 09, 2018. Risk Assessment: Do you want to hurt yourself or someone else? Patient reports no desire to harm self or others. Initial Sepsis Screen: Does the patient meet any 2 criteria? No. Patient's initial sepsis screen is negative. Does the patient have a suspected source of infection? No. Patient's initial sepsis screen is negative. Care prior to arrival: None. 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 - Social history:: Smoking status: Patient/guardian denies using tobacco. - Ebola Screening: : Patient denies exposure to infectious person Patient denies travel to an Ebola-affected area in the 21 days before illness onset. - Family history:: not pertinent. Screenin:30 Abuse screen: Denies threats or abuse. Nutritional screening: No deficits noted. tw2 Tuberculosis screening: No symptoms or risk factors identified. Fall Risk None identified. Assessment: 10:42 General: Appears in no apparent distress. obese, Behavior is calm, cooperative, tw2 appropriate for age, Smells of marijuana. Pain: Complains of pain in headache. Neuro: Level of Consciousness is awake, alert, obeys commands, Oriented to person, place, time, situation. Cardiovascular: Heart tones S1 S2 Patient's skin is warm and dry. Respiratory: Airway Respiratory effort is even, unlabored, Respiratory pattern is regular, symmetrical, Breath sounds are clear bilaterally. GI: Abdomen is round non-distended, Bowel sounds present X 4 quads. Reports nausea. : No signs and/or symptoms were reported regarding the genitourinary system. EENT: Eyes clear. Sclera/Cornea. Derm: No signs and/or symptoms reported regarding the dermatologic system. Musculoskeletal: Range of motion: intact in all extremities. 11:33 Reassessment: Patient appears in no apparent distress at this time. No changes from tw2 previously documented assessment. Patient and/or family updated on plan of care and expected duration. Pain level reassessed. Patient is alert, oriented x 3, equal unlabored respirations, skin warm/dry/pink. Dr. Trinidad at bedside at this time. 12:51 Reassessment: Patient appears in no apparent distress at this time. No changes from tw2 previously documented assessment. Patient and/or family updated on plan of care and expected duration. Pain level reassessed. Patient is alert, oriented x 3, equal unlabored respirations, skin warm/dry/pink. 13:26 Reassessment: Patient appears in no apparent distress at this time. No changes from tw2 previously documented assessment. Patient and/or family updated on plan of care and expected duration. Pain level reassessed. Patient is alert, oriented x 3, equal unlabored respirations, skin warm/dry/pink. pt request to leave does not want to finish iv fluids at this time. Vital Signs: 10:25 BP 92 / 47; Pulse 67; Resp 14; Temp 97.9(TE); Pulse Ox 99% on R/A; Weight 124.74 kg; ss Height 5 ft. 2 in. (157.48 cm); Pain 10/10; 11:42 BP 92 / 55; Pulse 51; Resp 17; Pulse Ox 99% on R/A; tw2 12:51 BP 96 / 53; Pulse 57; Resp 17; Pulse Ox 99% on R/A; tw2 10:25 Body Mass Index 50.30 (124.74 kg, 157.48 cm) Visual Acuity: 10:41 Left Eye Visual acuity 20/25, ; Right Eye Visual acuity 20/30, ; Both Eyes Visual tw2 acuity 20/30; Without Lenses; ED Course: 10:09 Patient arrived in ED. as 10:14 Bed in low position. Call light in reach. Pulse ox on. NIBP on. tw2 10:24 Triage completed. ss 10:25 Noemi Hilton, RN is Primary Nurse. tw2 10:25 Arm band placed on right wrist. ss 10:38 Sai Trinidad MD is Attending Physician. roberto 12:16 CT completed. Patient tolerated procedure well. Patient moved to CT via wheelchair. sj Patient moved back from CT. 12:21 CT Head Brain wo Cont In Process Unspecified. EDMS 12:37 Initial lab(s) drawn, by nv, sent to lab. Urine collected: clean catch specimen, clear. 5 Inserted saline lock: 22 gauge in right antecubital area, using aseptic technique. Blood collected. 12:38 UDS Sent. 5 12:38 Comprehensive Metabolic Panel Sent. 5 12:38 CBC with Diff Sent. 5 13:07 Magno Monique MD is Referral Physician. [facility] 13:07 Kee Lynch MD is Referral Physician. [facility] 13:08 No provider procedures requiring assistance completed. tw2 13:10 Awaiting: completion of IV fluids prior to discharge. tw2 13:27 IV discontinued, intact, bleeding controlled, No redness/swelling at site. Pressure tw2 dressing applied. Administered Medications: 12:30 Drug: Zofran 4 mg Route: IVP; Site: right antecubital; tw2 13:13 Follow up: Response: No adverse reaction; Nausea is decreased ss 12:33 Drug: TORadol 30 mg Route: IVP; Site: right antecubital; tw2 13:13 Follow up: Response: No adverse reaction 12:34 Drug: NS 0.9% 1000 ml Route: IV; Rate: 1 bolus; Site: right antecubital; tw2 13:27 Follow up: IV Status: Order to discontinue infusion; IV Intake: 250ml tw2 Intake: 13:27 IV: 250ml; Total: 250ml. tw2 Outcome: 13:07 Discharge ordered by . roberto 13:27 Discharged to home ambulatory, with significant other. tw2 13:27 Condition: stable 13:27 Discharge instructions given to patient, significant other, Instructed on discharge instructions, follow up and referral plans. no drinking with medication, no driving heavy equipment, medication usage, Demonstrated understanding of instructions, follow-up care, medications, Prescriptions given X 2. 13:28 Patient left the ED. tw2 Signatures: Dispatcher [employer] EDMS Sai Trinidad, MD MD roberto Thakkar, Yola Mcfarland Shelby, RN RN Noemi Hilton RN RN [address] [facility]
[2018-11-14 13:56] VITALS: TEMP 97.9; O2SAT 99
[2018-11-14 13:58] VITALS: BP 96/53
== END 2018-11-14 13:28 | disposition home or self-care (01) ==
LOC: ER 10:07
DX: H57.11 Ocular pain, right eye (principal); R51 Headache; Z91.040 Latex allergy status
CPT/HCPCS: 36415; 70450; 80053; 80307; 81003; 81025; 84703; 85025; 96361; 96374; 96375; 99284; J2405; J7030

== ENCOUNTER 2018-11-22 09:35 | Emergency (ER) | payer SELFPAY ==
--- NOTE | 2018-11-22 10:50 | RAD REPORT ---
EXAM DESCRIPTION: RAD - Ankle Right 3 View - 11/22/2018 10:25 am CLINICAL HISTORY: Right ankle pain FINDINGS: No fracture or dislocation is seen. No bone or joint abnormality seen
--- NOTE | 2018-11-22 11:24 | ER ---
Nurse's Notes [facility] Name: Sophie Thakkar Age: 33 yrs Sex: Female : 1985 Arrival Date: 11/22/2018 Time: 09:38 Bed 8 Private MD: Diagnosis: Sprain of ankle Presentation: 11/22 10:07 Presenting complaint: Patient states: R ankle pain that radiates up leg, denies known ph injury, states, " I was getting in the car and heard a pop and then my ankle started hurting.". Transition of care: patient was not received from another setting of care. Onset of symptoms was November 22, 2018. Risk Assessment: Do you want to hurt yourself or someone else? Patient reports no desire to harm self or others. Initial Sepsis Screen: Does the patient meet any 2 criteria? No. Patient's initial sepsis screen is negative. Does the patient have a suspected source of infection? No. Patient's initial sepsis screen is negative. Care prior to arrival: None. 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 - Social history:: Smoking status: unknown. - Ebola Screening: : No symptoms or risks identified at this time. Screenin:13 Abuse screen: Denies threats or abuse. Denies injuries from another. Nutritional ph screening: No deficits noted. Tuberculosis screening: No symptoms or risk factors identified. Fall Risk None identified. Assessment: 10:14 General: Appears in no apparent distress. comfortable, well groomed, Behavior is calm, ph cooperative, appropriate for age. Pain: Complains of pain in right ankle Pain radiates to right leg. Neuro: Level of Consciousness is awake, alert, obeys commands, Oriented to person, place, time, situation. Cardiovascular: Capillary refill < 3 seconds in bilateral fingers Patient's skin is warm and dry. Pulses are palpable in right dorsalis pedis artery and left dorsalis pedis artery. Respiratory: Airway is patent Respiratory effort is even, unlabored, Respiratory pattern is regular, symmetrical. GI: No signs and/or symptoms were reported involving the gastrointestinal system. Derm: Skin is intact, is healthy with good turgor, Skin is pink, warm \\T\\ dry. Musculoskeletal: Circulation, motion, and sensation intact. Range of motion: intact in all extremities, Swelling present in right foot. Vital Signs: 10:10 BP 94 / 58; Pulse 75; Resp 18; Temp 97.4; Pulse Ox 99% on R/A; ph 11:00 BP 104 / 62; Pulse 71; Resp 18; Temp 97.9; Pulse Ox 99% on R/A; ph ED Course: 09:38 Patient arrived in ED. as 09:51 Joan Moreno FNP-C is [facility]. kb 09:51 Baltazar Aguirre MD is Attending Physician. kb 10:07 Miriam Linares RN is Primary Nurse. ph 10:10 Triage completed. ph 10:13 Arm band placed on Patient placed in an exam room, on a stretcher. ph 10:13 Patient has correct armband on for positive identification. Bed in low position. Call ph light in reach. Side rails up X 1. Door closed. Noise minimized. Warm blanket given. 10:15 No provider procedures requiring assistance completed. Patient did not have IV access ph during this emergency room visit. 10:18 X-ray completed. Portable x-ray completed in exam room. Patient tolerated procedure mh1 well. 10:18 Ankle Right 3 View XRAY In Process Unspecified. EDMS Administered Medications: No medications were administered Outcome: 11:23 Discharge ordered by . kb 11:47 Patient left the ED. ss 11:47 Discharged to home ambulatory, with crutches. ph 11:47 Condition: good 11:47 Discharge instructions given to patient, Instructed on discharge instructions, follow up and referral plans. medication usage, Demonstrated understanding of instructions, follow-up care, medications, Prescriptions given X 1. Signatures: Dispatcher [employer] EDMS Joan Moreno FNP-C FNP-Jenifer Levy [facility] Yola Garcia Shelby, RN RN Miriam Linares RN RN
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
[2018-11-22 11:59] VITALS: BP 94/58; TEMP 97.4; O2SAT 99
== END 2018-11-22 11:47 | disposition home or self-care (01) ==
LOC: ER 09:35
DX: S93.401A Sprain of unspecified ligament of right ankle, initial encounter (principal); Z91.040 Latex allergy status
CPT/HCPCS: 99283

== ENCOUNTER 2019-01-22 09:03 | Emergency (ER) | payer OTHER, SELFPAY ==
[2019-01-22 10:32] LABS: Urine Blood TRACE (NEG); Urine Glucose NEGATIVE (NEG); Urine Protein NEGATIVE (NEG)
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
--- NOTE | 2019-01-22 11:31 | RAD REPORT ---
EXAM DESCRIPTION: US - Transvaginal OB - 01/22/2019 10:56 am CLINICAL HISTORY: Abdominal pain, cramping, COMPARISON: None. FINDINGS: In the fundal portion of the endometrial cavity there is a 5 week 5 day sized normal shape d gestational sac. This is presumed to be a gestational sac. No pole or yolk sac identifiable. No endometrial hemorrhage. No myometrial mass. Uterus is normal in size. Right ovary is enlarged containing a 2.5 centimeter thin-walled anechoic simple cyst and a 2.5 centim eter heterogeneous complex cystic mass. This is most likely a hemorrhagic ovarian cyst. Ectopic pregn bhaskar is not suspected. This can be monitored on short-term sonography to evaluate for involution. No left ovarian or left adnexal abnormality. No blood or fluid in the cul de sac. IMPRESSION: Anechoic cystic structure in the fundus is believed to be a 5 week 5 day normal shaped g estational sac. There is no pole or yolk sac. Findings may simply reflect very early . Followup sonography and serial HCG values can be pe rformed as warranted. A complex 2.5 centimeter mixed solid and cystic mass of the right ovary is most likely a hemorrhagic cyst. There is an adjacent 2.5 centimeter simple right ovarian cyst. The complex cyst can be monitore d with short-term sonography.
[2019-01-22 11:47] VITALS: BP 104/58; TEMP 97.8; O2SAT 100
== END 2019-01-22 11:28 | disposition home or self-care (01) ==
LOC: ER 09:03
DX: O26.891 Other specified pregnancy related conditions, first trimester (principal); Z3A.01 Less than 8 weeks gestation of pregnancy; Z91.040 Latex allergy status; Z91.048 Other nonmedicinal substance allergy status
CPT/HCPCS: 76817; 81003; 81025

== ENCOUNTER 2019-02-22 06:27 | Emergency (ER) | payer OTHER ==
[2019-02-22 07:12] LABS: Absolute Lymphocytes (CBC) 1.7 K/uL (0.7-4.9); Absolute Monocytes 0.4 K/uL (0.1-1.3); Absolute Neutrophil 4.8 K/uL (1.8-8.0); Basophils % 0.4 % (0-1.3); Eosinophils % 1.7 % (0-4.4); Hematocrit 34.8 % (36.0-45.0); Lymphocytes % 24.3 % (15.3-44.8); MPV 8.9 fL (7.6-11.3); Monocytes % 5.7 % (3.3-12.3); RBC Red Blood Cell Count 4.15 M/uL (3.86-4.86)
[2019-02-22] MEDS ORDERED: ONDANSETRON 4 MG/2 ML VIAL ONE (07:12)
[2019-02-22] MEDS ORDERED: FAMOTIDINE 20 MG/2 ML VIAL IV ONE (07:13)
[2019-02-22] MEDS ORDERED: NA CHLORIDE 0.9% 1,000 ML ONE ×2 (07:13→08:24)
[2019-02-22 07:35] LABS: ALT/SGPT 49 U/L (12-78); AST/SGOT 13 U/L (15-37); Alkaline Phosphatase 64 U/L (45-117); BUN Blood Urea Nitrogen 7 mg/dL (7-18); Bicarbonate 23 mmol/L (21-32); Bilirubin Direct 0.1 mg/dL (0-0.2); Bilirubin Total 0.4 mg/dL (0.2-1.0); Glucose Level 89 mg/dL (74-106); Lipase 55 U/L (73-393); Potassium 3.8 mmol/L (3.5-5.1); Protein, Total 6.8 g/dL (6.4-8.2); Sodium Level 138 mmol/L (136-145)
[2019-02-22 08:59] LABS: Urine Blood TRACE (NEG); Urine Glucose NEGATIVE (NEG); Urine Protein NEGATIVE (NEG); Urine Specific Gravity 1.025 (1.005-1.030)
--- NOTE | 2019-02-22 09:07 | EDPHYS ---
Physician Documentation [facility] Name: Sophie Thakkar Age: 33 yrs Sex: Female : 1985 Arrival Date: 02/22/2019 Time: 06:28 Bed 14 Private MD: Veronica Silverman ED Physician Ramin Coreas HPI: 02/22 06:47 This 33 yrs old Female presents to ER via Ambulatory with complaints of cp Nausea/Vomiting, Abdominal Pain, 11 wks preg. 06:47 The patient presents to the emergency department with nausea and vomiting, that started cp 4 day(s) ago, and is intermittent, described as bilious. The estimated gestational age is 11 weeks. 06:47 course: care: private OB physician, Leakage of Fluid: none cp appreciated. Associated signs and symptoms: Pertinent positives: abdominal pain, Pertinent negatives: chest pain, diarrhea, fever, ruptured membranes, vaginal bleeding, vaginal discharge. FEDERAL JUDGE: 06:30 PT reports being 11 weeks . jb4 06:47 3, Living 0, Verified cp 07:05 LMP-Unknown aa5 Historical: - Allergies: 06:30 Latex, Natural Rubber; for long periods of time; jb4 - Home Meds: 06:30 Vitamin Oral [Active]; jb4 - PMHx: 06:30 "years ago I was diabetic but I lost weight"; jb4 - PSHx: 06:30 ; Cholecystectomy; Gastric sleeve; lap band; jb4 - Immunization history:: Adult Immunizations up to date. - Social history:: Smoking status: Patient/guardian denies using tobacco, Patient/guardian denies using alcohol. - Ebola Screening: : No symptoms or risks identified at this time. ROS: 06:50 Constitutional: Positive for poor PO intake, Negative for body aches, chills, fever. cp 06:50 Eyes: Negative for injury, pain, redness, and discharge. cp 06:50 ENT: Negative for drainage from ear(s), ear pain, sore throat, difficulty swallowing, difficulty handling secretions. 06:50 Cardiovascular: Negative for chest pain, edema, palpitations. 06:50 Respiratory: Negative for cough, shortness of breath, wheezing. 06:50 Abdomen/GI: Positive for abdominal pain, nausea and vomiting, Negative for diarrhea, constipation, dysphagia, hematemesis, black/tarry stool, rectal bleeding. 06:50 Back: Negative for pain at rest, pain with movement, radiated pain. 06:50 : Negative for urinary symptoms, vaginal bleeding, vaginal discharge. 06:50 Skin: Negative for cellulitis, rash. 06:50 Neuro: Negative for altered mental status, headache, weakness. 06:50 All other systems are negative. Exam: 06:57 Constitutional: The patient appears in no acute distress, alert, awake, non-toxic, well cp developed, well nourished. 06:57 Head/Face: Normocephalic, atraumatic. cp 06:57 Eyes: Periorbital structures: appear normal, Conjunctiva: normal, no exudate, no injection, Sclera: no appreciated abnormality, Lids and lashes: appear normal, bilaterally. 06:57 ENT: External ear(s): are unremarkable, Ear canal(s): are normal, clear, TM's: bulging, is not appreciated, bilaterally, dullness, bilaterally, erythema, is not appreciated, bilaterally, Nose: is normal, Mouth: Lips: moist, Oral mucosa: pink and intact, moist, Posterior pharynx: is normal, airway is patent, no erythema, no exudate. 06:57 Chest/axilla: Inspection: normal, Palpation: is normal, no crepitus, no tenderness. 06:57 Cardiovascular: Rate: normal, Rhythm: regular, Edema: is not appreciated, JVD: is not appreciated. 06:57 Respiratory: the patient does not display signs of respiratory distress, Respirations: normal, no use of accessory muscles, no retractions, no splinting, no tachypnea, labored breathing, is not present, Breath sounds: are clear throughout, no decreased breath sounds, no stridor, no wheezing. 06:57 Abdomen/GI: Inspection: abdomen appears normal, Bowel sounds: active, all quadrants, Palpation: soft, in all quadrants, mild abdominal tenderness, in the epigastric area, rebound tenderness, is not appreciated, voluntary guarding, is not appreciated, involuntary guarding, is not appreciated. 06:57 Back: pain, is absent, ROM is normal. 06:57 Skin: no rash present. 06:57 Neuro: Orientation: to person, place \\T\\ time. Mentation: is normal, Cerebellar function: is grossly normal, Motor: moves all fours, strength is normal, Sensation: is normal. Vital Signs: 06:30 BP 97 / 50; Pulse 73; Resp 20; Temp 98.6(O); Pulse Ox 98% on R/A; Weight 102.51 kg (R); jb4 Height 5 ft. 2 in. (157.48 cm) (R); Pain 5/10; 07:05 BP 92 / 46; Pulse 58; Resp 16; Pulse Ox 100% on R/A; aa5 07:43 BP 87 / 45; Pulse 55; Resp 16 S; Pulse Ox 100% on R/A; Pain 0/10; aa5 08:19 BP 82 / 44; Pulse 50; Resp 16 S; Pulse Ox 100% on R/A; Pain 0/10; aa5 09:01 BP 100 / 59; Pulse 57; Resp 18 S; Pulse Ox 100% on R/A; aa5 09:25 BP 103 / 51; Pulse 50; Resp 16 S; Temp 98.0(TE); Pulse Ox 99% on R/A; Pain 0/10; aa5 06:30 Body Mass Index 41.34 (102.51 kg, 157.48 cm) jb4 MDM: 06:33 Patient medically screened. cp 07:00 Differential diagnosis: dehydration, hyperemesis , electrolyte abnormality. cp 09:04 Data reviewed: vital signs, nurses notes, lab test result(s), radiologic studies, cp ultrasound, and as a result, I will discharge patient. 09:04 Counseling: I had a detailed discussion with the patient and/or guardian regarding: the cp historical points, exam findings, and any diagnostic results supporting the discharge/admit diagnosis, lab results, radiology results, the need for outpatient follow up, an OB/Gyne specialist, to return to the emergency department if symptoms worsen or persist or if there are any questions or concerns that arise at home. 09:04 Response to treatment: the patient's symptoms have markedly improved after treatment, cp patient is well hydrated. and as a result, I will discharge patient. 02/22 06:47 Order name: Basic Metabolic Panel; Complete Time: 07:36 cp 02/22 07:36 Interpretation: Normal except: CL 108; CRE 0.42; CA 8.4. cp 02/22 06:47 Order name: CBC with Diff; Complete Time: 07:36 cp 02/22 07:37 Interpretation: Normal except: HGB 11.7; HCT 34.8. 02/22 06:47 Order name: Creatinine for Radiology; Complete Time: 08:03 02/22 08:04 Interpretation: Normal except: CRE 0.34. 02/22 06:47 Order name: Hepatic Function; Complete Time: 08:03 02/22 08:04 Interpretation: Normal except: AST 13; ALB 3.0; GLOB 3.8; A/G 0.8. 02/22 06:47 Order name: Lipase; Complete Time: 08:03 02/22 08:04 Interpretation: LIP 55; Reviewed. 02/22 06:49 Order name: Magnesium; Complete Time: 08:03 02/22 07:10 Order name: Glucose, Ancillary Testing; Complete Time: 07:14 EDOR 02/22 07:15 Interpretation: Reviewed. 02/22 07:40 Order name: Urine Dipstick--Ancillary (enter results); Complete Time: 09:01 02/22 07:40 Order name: Urine --Ancillary (enter results); Complete Time: 09:01 02/22 07:49 Order name: 1St Trimest Single 1St Fetus EDMS 02/22 08:06 Order name: Rh Type 02/22 08:30 Order name: Rh Typing; Complete Time: 09:01 EDOR 02/22 09:01 Interpretation: Reviewed. 02/22 06:47 Order name: IV Saline Lock; Complete Time: 07:07 02/22 06:47 Order name: Labs collected and sent; Complete Time: 07:07 02/22 06:47 Order name: Urine Dipstick-Ancillary (obtain specimen); Complete Time: 07:39 02/22 06:47 Order name: Urine Test (obtain specimen); Complete Time: 07:39 02/22 06:48 Order name: Accucheck Blood Glucose; Complete Time: 07:06 02/22 08:31 Order name: PO challenge; Complete Time: 09:15 cp Administered Medications: 07:00 Drug: NS 0.9% 1000 ml Route: IV; Rate: 1 bolus; Site: right antecubital; jb4 08:17 Follow up: IV Status: Completed infusion; IV Intake: 1000ml aa5 07:01 Drug: Pepcid 20 mg Route: IVP; Site: right antecubital; jb4 07:10 Follow up: Response: No adverse reaction aa5 07:02 Drug: Zofran 4 mg Route: IVP; Site: right antecubital; jb4 07:10 Follow up: Response: No adverse reaction; Nausea is decreased aa5 08:17 Drug: NS 0.9% 1000 ml Route: IV; Rate: 1 bolus; Site: right antecubital; aa5 09:35 Follow up: IV Status: Completed infusion; IV Intake: 1000ml aa5 Point of Care Testing: Blood Glucose: 07:05 Blood Glucose: 90 mg/dL; jb4 Ranges: Critical Glucose Levels:Adult <50 mg/dl or >400 mg/dl <40 mg/dl or >180 mg/dl Disposition: 02/23 00:22 Co-signature as Attending Physician, Ramin Coeras MD. rn Disposition: 02/22/19 09:05 Discharged to Home. Impression: Nausea and vomiting, related conditions, unspecified, first trimester. - Condition is Stable. - Discharge Instructions: Abdominal Pain During , Nausea and Vomiting, Adult, First Trimester of . - Prescriptions for Pepcid 20 mg Oral Tablet - take 1 tablet by ORAL route every 12 hours for 5 days; 10 tablet. Phenergan 25 mg Rectal Suppository - insert 1 suppository by RECTAL route every 6 hours As needed; 12 suppository. promethazine 25 mg Oral Tablet - take 1 tablet by ORAL route every 6 hours As needed; 20 tablet. - Work release form, Medication Reconciliation Form, Thank You Letter, Antibiotic Education, Prescription Opioid Use form. - Follow up: Veronica Silverman; When: 1 - 2 days; Reason: Worsening of condition. - Problem is new. - Symptoms have improved. Signatures: Dispatcher [employer] EDMS Ramin Coreas MD MD rn Calderon, Audri RN RN aa5 Sai Oscar PA PA cp Bryson, James, RN RN jb4 Corrections: (The following items were deleted from the chart) 02/22 07:36 07:36 Normal except: CL 108; CRE 0.42. cp cp 07:49 07:18 Transvaginal Ob+US.RAD.BRZ ordered. EDMS EDMS 09:58 09:05 02/22/2019 09:05 Discharged to Home. Impression: Nausea and vomiting; aa5 related conditions, unspecified, first trimester. Condition is Stable. Forms are Medication Reconciliation Form, Thank You Letter, Antibiotic Education, Prescription Opioid Use. Follow up: Veronica Silverman; When: 1 - 2 days; Reason: Worsening of condition. Problem is new. Symptoms have improved. cp
--- NOTE | 2019-02-22 09:07 | ER ---
Nurse's Notes [facility] Name: Sophie Thakkar Age: 33 yrs Sex: Female : 1985 Arrival Date: 02/22/2019 Time: 06:28 Bed 14 Private MD: Veronica Silverman Diagnosis: Nausea and vomiting; related conditions, unspecified, first trimester Presentation: 02/22 06:30 Presenting complaint: Patient states: I have been having abdominal pain, nausea, and jb4 vomiting for the past 4 days, This morning when I sat up I felt a tearing sensation. 06:30 Transition of care: patient was not received from another setting of care. Onset of jb4 symptoms was February 22, 2019. Risk Assessment: Do you want to hurt yourself or someone else? Patient reports no desire to harm self or others. Initial Sepsis Screen: Does the patient meet any 2 criteria? No. Patient's initial sepsis screen is negative. Does the patient have a suspected source of infection? No. Patient's initial sepsis screen is negative. Care prior to arrival: None. 06:30 Method Of Arrival: Ambulatory jb4 06:30 Acuity: JERONIMO 3 jb4 POND SAWYER: 06:30 PT reports being 11 weeks . jb4 06:47 3, Living 0, Verified cp 07:05 LMP-Unknown aa5 Historical: - Allergies: 06:30 Latex, Natural Rubber; for long periods of time; jb4 - Home Meds: 06:30 Vitamin Oral [Active]; jb4 - PMHx: 06:30 "years ago I was diabetic but I lost weight"; jb4 - PSHx: 06:30 ; Cholecystectomy; Gastric sleeve; lap band; jb4 - Immunization history:: Adult Immunizations up to date. - Social history:: Smoking status: Patient/guardian denies using tobacco, Patient/guardian denies using alcohol. - Ebola Screening: : No symptoms or risks identified at this time. Screenin:05 Abuse screen: Denies threats or abuse. Nutritional screening: No deficits noted. aa5 Tuberculosis screening: No symptoms or risk factors identified. Fall Risk None identified. Assessment: 07:05 General: Appears comfortable, Behavior is calm, cooperative. Pain: Complains of pain in aa5 suprapubic area Pain does not radiate. Pain currently is 0 out of 10 on a pain scale. Quality of pain is described as sharp, Is intermittent. Neuro: Level of Consciousness is awake, alert, obeys commands, Oriented to person, place, time, situation. Cardiovascular: Heart tones S1 S2 present Rhythm is regular. Respiratory: Airway is patent Respiratory effort is even, unlabored, Respiratory pattern is regular, symmetrical, Breath sounds are clear bilaterally. GI: Abdomen is obese, Last BM was February 22, 2019. Bowel sounds present X 4 quads. Abd is soft and non tender X 4 quads. Reports nausea, vomiting. : Denies vaginal bleeding. EENT: No signs and/or symptoms were reported regarding the EENT system. Derm: Skin is pink, warm \\T\\ dry. Musculoskeletal: Range of motion: intact in all extremities. 07:45 Reassessment: Patient is alert, oriented x 3, equal unlabored respirations, skin aa5 warm/dry/pink. Patient denies pain at this time. US completed by Kaboodle. 08:50 Reassessment: Patient is alert, oriented x 3, equal unlabored respirations, skin aa5 warm/dry/pink. Patient denies pain at this time. Pt given water for PO challenge . 09:15 Reassessment: Patient is alert, oriented x 3, equal unlabored respirations, skin aa5 warm/dry/pink. Patient denies pain at this time. Awaiting NS bolus to complete for d/c home. . 09:40 Reassessment: Patient is alert, oriented x 3, equal unlabored respirations, skin aa5 warm/dry/pink. Patient denies pain at this time. Vital Signs: 06:30 BP 97 / 50; Pulse 73; Resp 20; Temp 98.6(O); Pulse Ox 98% on R/A; Weight 102.51 kg (R); jb4 Height 5 ft. 2 in. (157.48 cm) (R); Pain 5/10; 07:05 BP 92 / 46; Pulse 58; Resp 16; Pulse Ox 100% on R/A; aa5 07:43 BP 87 / 45; Pulse 55; Resp 16 S; Pulse Ox 100% on R/A; Pain 0/10; aa5 08:19 BP 82 / 44; Pulse 50; Resp 16 S; Pulse Ox 100% on R/A; Pain 0/10; aa5 09:01 BP 100 / 59; Pulse 57; Resp 18 S; Pulse Ox 100% on R/A; aa5 09:25 BP 103 / 51; Pulse 50; Resp 16 S; Temp 98.0(TE); Pulse Ox 99% on R/A; Pain 0/10; aa5 06:30 Body Mass Index 41.34 (102.51 kg, 157.48 cm) jb4 ED Course: 06:28 Patient arrived in ED. am2 06:28 Veronica Silverman is Private Physician. am2 06:30 Arm band placed on left wrist. jb4 06:32 Sai Oscar PA is PHCP. cp 06:32 Ramin Coreas MD is Attending Physician. cp 06:41 Jose Antonio Galvan, JOSELIN is Primary Nurse. jb4 06:42 Triage completed. jb4 07:05 Patient has correct armband on for positive identification. Bed in low position. Call aa5 light in reach. Side rails up X2. 07:49 1St Trimest Single 1St Fetus In Process Unspecified. EDMS 07:49 No provider procedures requiring assistance completed. aa5 08:55 Warm blanket given. Pillow given. em1 09:05 Veronica Silverman is Referral Physician. cp 09:40 IV discontinued, intact, bleeding controlled, No redness/swelling at site. Pressure aa5 dressing applied. Administered Medications: 07:00 Drug: NS 0.9% 1000 ml Route: IV; Rate: 1 bolus; Site: right antecubital; jb4 08:17 Follow up: IV Status: Completed infusion; IV Intake: 1000ml aa5 07:01 Drug: Pepcid 20 mg Route: IVP; Site: right antecubital; jb4 07:10 Follow up: Response: No adverse reaction aa5 07:02 Drug: Zofran 4 mg Route: IVP; Site: right antecubital; jb4 07:10 Follow up: Response: No adverse reaction; Nausea is decreased aa5 08:17 Drug: NS 0.9% 1000 ml Route: IV; Rate: 1 bolus; Site: right antecubital; aa5 09:35 Follow up: IV Status: Completed infusion; IV Intake: 1000ml aa5 Point of Care Testing: Blood Glucose: 07:05 Blood Glucose: 90 mg/dL; jb4 Ranges: Intake: 08:17 IV: 1000ml; Total: 1000ml. aa5 09:35 IV: 1000ml; Total: 2000ml. aa5 Outcome: 09:05 Discharge ordered by . cp 09:45 Discharged to home ambulatory. aa5 09:45 Condition: stable 09:45 Discharge instructions given to patient, Instructed on discharge instructions, follow up and referral plans. medication usage, Demonstrated understanding of instructions, follow-up care, medications, Prescriptions given X 3. 09:47 Patient left the ED. aa5 Signatures: Dispatcher [employer] EDID Rome Garcia em1 Treva West, RN RN aa5 Sai Oscar PA PA cp Bryson, James, RN RN jb4 Nidia Bernal am2 Corrections: (The following items were deleted from the chart) 10:23 09:58 Patient left the ED. aa5 aa5
[2019-02-22 10:15] VITALS: BP 103/51; TEMP 98; O2SAT 99
--- OUTSIDE RECORDS SUMMARY | 2019-02-22 12:45 | XMS REPORT ---
:1985 Author Organization [facility] Address [address] [place] [address] Dr. Cherry [address] [place] [id number] Care Team Providers Name Role Phone Unavailable Unavailable Unavailable Problems This patient has no known problems. Allergies, Adverse Reactions, Alerts This patient has no known allergies or adverse reactions. Medications This patient has no known medications.
--- NOTE | 2019-02-23 11:38 | RAD REPORT ---
EXAM DESCRIPTION: US - 1St Trimest Single 1St Fetus - 02/22/2019 11:45 am CLINICAL HISTORY: with abdominal pain and vomiting COMPARISON: January 22, 2019 FINDINGS: Uterus measures 10 x 8 x 9 centimeters. Gestational sac is present within the endometrium. Within this is a pole crown-rump length 3.3 centimeters. Cardiac activity 168 beats per minute . 3 x 1 centimeter subchorionic bleed Right ovary 5 x 2.9 x 3.5 centimeters. 3 centimeter right ovarian cyst paragraphs Left ovary not seen . Right and left adnexal unremarkable No significant free fluid IMPRESSION: Single live intrauterine with an estimated gestational age 10 weeks 1 day SANDRA 09/19/2019 3 x 1 centimeter subchorionic 3 centimeter right ovarian cyst. Followup ultrasound in a couple months recommended for re-evaluation
== END 2019-02-22 09:58 | disposition home or self-care (01) ==
LOC: ER 06:27
DX: O26.891 Other specified pregnancy related conditions, first trimester (principal); R11.2 Nausea with vomiting, unspecified; Z91.040 Latex allergy status
CPT/HCPCS: 36415; 76801; 80048; 80076; 81003; 81025; 82962; 83690; 83735; 85025; 86901; 96361; 96374; 96375; 99283; J2405; J7030

== ENCOUNTER 2019-04-04 08:38 | Emergency (ER) | payer OTHER ==
--- OUTSIDE RECORDS SUMMARY | 2019-04-04 08:50 | XMS REPORT ---
:1985 [facility] Address [address] [place] [address] Dr. Cherry [address] [place] [id number] Care Team Providers Name Role Phone Unavailable Unavailable Unavailable Problems This patient has no known problems. Allergies, Adverse Reactions, Alerts This patient has no known allergies or adverse reactions. Medications This patient has no known medications.
--- NOTE | 2019-04-04 09:35 | ER ---
Nurse's Notes [facility] Name: Sophie Thakkar Age: 33 yrs Sex: Female : 1985 Arrival Date: 04/04/2019 Time: 08:41 Bed 20 Private MD: Diagnosis: Sinus congestion Presentation: 04/04 08:48 Presenting complaint: Patient states: im 17 weeks and i started having nasal hj congestion 3 weeks ago and i cant take any medicine because im , now i have headache on the R side of my face, my sinuses, the back of my head and i have cough with clear phelgm; denies SOB; denies fever and chills; took tylenol yesterday; LMP 11/10/18;. Transition of care: patient was not received from another setting of care. Resp Distress? No respiratory distress is noted at this time. Onset of symptoms was April 04, 2019. Risk Assessment: Do you want to hurt yourself or someone else? Patient reports no desire to harm self or others. Initial Sepsis Screen: Does the patient meet any 2 criteria? No. Patient's initial sepsis screen is negative. Does the patient have a suspected source of infection? No. Patient's initial sepsis screen is negative. Care prior to arrival: None. 08:48 Method Of Arrival: Ambulatory 08:48 Acuity: JERONIMO 4 hj Triage Assessment: 08:52 General: Appears in no apparent distress. uncomfortable, Behavior is calm, cooperative, hj appropriate for age. Pain: Complains of pain in right cheek, right judaism, left base of the skull and nose. Respiratory: CLOCK SMITH: 08:54 [facility] 11/10/2018 Historical: - Allergies: 08:51 Latex, Natural Rubber; for long periods of time; - Home Meds: 08:51 Vitamin Oral [Active]; hj - PMHx: 08:51 "years ago I was diabetic but I lost weight"; - PSHx: 08:51 Cholecystectomy; ; lap band; gastric sleeve; hj - Immunization history:: Adult Immunizations up to date. - Social history:: Smoking status: Patient/guardian denies using tobacco, Patient/guardian denies using alcohol. - Ebola Screening: : Patient negative for fever greater than or equal to 101.5 degrees Fahrenheit, and additional compatible Ebola Virus Disease symptoms Patient denies exposure to infectious person Patient denies travel to an Ebola-affected area in the 21 days before illness onset. Screenin:52 Abuse screen: Denies threats or abuse. Denies injuries from another. Nutritional hj screening: No deficits noted. Tuberculosis screening: No symptoms or risk factors identified. Fall Risk None identified. Assessment: 08:52 Cardiovascular: Capillary refill < 3 seconds Patient's skin is warm and dry. hj Respiratory: Airway is patent Respiratory effort is even, unlabored, Respiratory pattern is regular, symmetrical. 08:52 General: Appears in no apparent distress. uncomfortable, Behavior is calm, cooperative, hj appropriate for age. Pain: Complains of pain in nose and face and left base of the skull and right judaism and right cheek. Neuro: Level of Consciousness is awake, alert, obeys commands, Oriented to person, place, time, situation, Appropriate for age. Respiratory: Airway is patent Respiratory effort is even, unlabored, Respiratory pattern is regular, symmetrical. Respiratory: Reports cough that is. GI: No signs and/or symptoms were reported involving the gastrointestinal system. : No signs and/or symptoms were reported regarding the genitourinary system. EENT: No signs and/or symptoms were reported regarding the EENT system. Derm: No signs and/or symptoms reported regarding the dermatologic system. Musculoskeletal: No signs and/or symptoms reported regarding the musculoskeletal system. Vital Signs: 08:53 BP 108 / 61; Pulse 81; Resp 18; Temp 98.0(O); Pulse Ox 100% on R/A; Weight 102.97 kg; hj Height 5 ft. 2 in. (157.48 cm); Pain 5/10; 10:01 BP 110 / 78; Pulse 80; Resp 18; Pulse Ox 100% on R/A; hj 08:53 Body Mass Index 41.52 (102.97 kg, 157.48 cm) ED Course: 08:41 Patient arrived in ED. as 08:41 Kalen Lee, JOSELIN is Primary Nurse. hj 08:45 Radhika Dobbins FNP-C is PHCP. snw 08:45 Baltazar Aguirre MD is Attending Physician. snw 08:50 Triage completed. hj 08:52 Arm band placed on right wrist. hj 08:53 Patient has correct armband on for positive identification. Bed in low position. Call hj light in reach. Side rails up X 1. 10:00 No provider procedures requiring assistance completed. Patient did not have IV access hj during this emergency room visit. Administered Medications: 09:40 Drug: ZyrTEC - Cetirizine 10 mg Route: PO; hj 09:40 Follow up: Response: No adverse reaction hj Outcome: :34 Discharge ordered by MD. de jesus 10:00 Discharged to home ambulatory. hj 10:00 Condition: stable 10:00 Discharge instructions given to patient, Instructed on discharge instructions, follow up and referral plans. medication usage, Demonstrated understanding of instructions, follow-up care, medications, Prescriptions given X 2. 10:01 Patient left the ED. Signatures: Radhika Dobbins, SPEECH COMMUNICATION INSTRUCTOR-C SPEECH COMMUNICATION INSTRUCTOR-Yola Estrada Henry RN RN hj Corrections: (The following items were deleted from the chart) 09:05 08:53 BP 108 / 61; Pulse 81bpm; Resp 18bpm; Pulse Ox 100% RA; Temp 98.0F Oral; 102.97 hj kg; Height 5 ft. 2 in.; BMI: 41.5; hj
--- NOTE | 2019-04-04 09:36 | EDPHYS ---
Physician Documentation [facility] Name: Sophie Thakkar Age: 33 yrs Sex: Female : 1985 Arrival Date: 04/04/2019 Time: 08:41 Bed 20 Private MD: ED Physician Baltazar Aguirre HPI: 04/04 09:37 This 33 yrs old Female presents to ER via Ambulatory with complaints of snw Congestion, Headache. 09:37 Onset: The symptoms/episode began/occurred gradually, and became worse 3 day(s) ago. snw Associated signs and symptoms: Pertinent positives: right facial tenderness, congestion, no fever. Modifying factors: the patient symptoms are aggravated by environment. It is unknown whether or not the patient has had similar symptoms in the past. 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 - Social history:: Smoking status: Patient/guardian denies using tobacco, Patient/guardian denies using alcohol. - Ebola Screening: : Patient negative for fever greater than or equal to 101.5 degrees Fahrenheit, and additional compatible Ebola Virus Disease symptoms Patient denies exposure to infectious person Patient denies travel to an Ebola-affected area in the 21 days before illness onset. ROS: 09:36 Constitutional: Negative for fever, chills, and weight loss, Eyes: Negative for injury, snw pain, redness, and discharge, Neck: Negative for injury, pain, and swelling, Cardiovascular: Negative for chest pain, palpitations, and edema, Respiratory: Negative for shortness of breath, cough, wheezing, and pleuritic chest pain, Abdomen/GI: Negative for abdominal pain, nausea, vomiting, diarrhea, and constipation, Back: Negative for injury and pain, : Negative for injury, bleeding, discharge, and swelling, MS/Extremity: Negative for injury and deformity, Skin: Negative for injury, rash, and discoloration, Neuro: Negative for headache, weakness, numbness, tingling, and seizure, Psych: Negative for depression, anxiety, suicide ideation, homicidal ideation, and hallucinations. 09:36 ENT: Positive for sinus congestion, sinus pain. Exam: 09:36 Constitutional: This is a well developed, well nourished patient who is awake, alert, snw and in no acute distress. Eyes: Pupils equal round and reactive to light, extra-ocular motions intact. Lids and lashes normal. Conjunctiva and sclera are non-icteric and not injected. Cornea within normal limits. Periorbital areas with no swelling, redness, or edema. ENT: Nares patent. No nasal discharge, no septal abnormalities noted. Tympanic membranes are normal and external auditory canals are clear. Oropharynx with no redness, swelling, or masses, exudates, or evidence of obstruction, uvula midline. Mucous membranes moist. Neck: Trachea midline, no thyromegaly or masses palpated, and no cervical lymphadenopathy. Supple, full range of motion without nuchal rigidity, or vertebral point tenderness. No Meningismus. Chest/axilla: Normal chest wall appearance and motion. Nontender with no deformity. No lesions are appreciated. Cardiovascular: Regular rate and rhythm with a normal S1 and S2. No gallops, murmurs, or rubs. Normal PMI, no JVD. No pulse deficits. Respiratory: Lungs have equal breath sounds bilaterally, clear to auscultation and percussion. No rales, rhonchi or wheezes noted. No increased work of breathing, no retractions or nasal flaring. Abdomen/GI: Soft, non-tender, with normal bowel sounds. No distension or tympany. No guarding or rebound. No evidence of tenderness throughout. Back: No spinal tenderness. No costovertebral tenderness. Full range of motion. Skin: Warm, dry with normal turgor. Normal color with no rashes, no lesions, and no evidence of cellulitis. MS/ Extremity: Pulses equal, no cyanosis. Neurovascular intact. Full, normal range of motion. Neuro: Awake and alert, GCS 15, oriented to person, place, time, and situation. Cranial nerves II-XII grossly intact. Motor strength 5/5 in all extremities. Sensory grossly intact. Cerebellar exam normal. Normal gait. Psych: Awake, alert, with orientation to person, place and time. Behavior, mood, and affect are within normal limits. 09:36 Head/face: Sinus tenderness, that is mild, that is moderate, is located over the right frontal sinus, right ethmoid sinus and right maxillary sinus. Vital Signs: 08:53 BP 108 / 61; Pulse 81; Resp 18; Temp 98.0(O); Pulse Ox 100% on R/A; Weight 102.97 kg; hj Height 5 ft. 2 in. (157.48 cm); Pain 5/10; 10:01 BP 110 / 78; Pulse 80; Resp 18; Pulse Ox 100% on R/A; hj 08:53 Body Mass Index 41.52 (102.97 kg, 157.48 cm) hj MDM: 08:45 Patient medically screened. snw 09:37 Data reviewed: vital signs, nurses notes. Data interpreted: Pulse oximetry: on room air snw is 100 %. Interpretation: normal. Counseling: I had a detailed discussion with the patient and/or guardian regarding: the historical points, exam findings, and any diagnostic results supporting the discharge/admit diagnosis, the need for outpatient follow up, to return to the emergency department if symptoms worsen or persist or if there are any questions or concerns that arise at home. Special discussion: Based on the history and exam findings, there is no indication for further emergent testing or inpatient evaluation. I discussed with the patient/guardian the need to see the OB Gyne specialist for further evaluation of the symptoms. I discussed with the patient/guardian the need to see the primary care provider for further evaluation of the symptoms. Administered Medications: 09:40 Drug: ZyrTEC - Cetirizine 10 mg Route: PO; 09:40 Follow up: Response: No adverse reaction Disposition: 10:06 Co-signature as Attending Physician, Baltazar Aguirre MD I agree with the assessment and kdr plan of care. Disposition: 04/04/19 09:34 Discharged to Home. Impression: Sinus congestion. - Condition is Stable. - Discharge Instructions: Sinus Headache, Sinusitis, Adult. - Prescriptions for Flonase Allergy Relief 50 mcg/actuation Nasal spray,suspension - inhale 2 spray by INTRANASAL route once daily; 1 Cartridge. Zyrtec 10 mg Oral Tablet - take 1 tablet by ORAL route once daily As needed; 20 tablet. - Medication Reconciliation Form, Thank You Letter, Antibiotic Education, Prescription Opioid Use form. - Follow up: Private Physician; When: 2 - 3 days; Reason: Recheck today's complaints, Continuance of care, Re-evaluation by your physician. Follow up: Emergency Department; When: As needed; Reason: Worsening of condition. Signatures: Baltazar Aguirre MD MD [facility] Radhika Dobbins, GEOPHYSICAL LABORATORY SUPERVISOR-C GEOPHYSICAL LABORATORY SUPERVISOR-Csnw Kalen Lee RN RN hj Corrections: (The following items were deleted from the chart) 10:01 09:34 04/04/2019 09:34 Discharged to Home. Impression: Sinus congestion. Condition is hj Stable. Forms are Medication Reconciliation Form, Thank You Letter, Antibiotic Education, Prescription Opioid Use. Follow up: Private Physician; When: 2 - 3 days; Reason: Recheck today's complaints, Continuance of care, Re-evaluation by your physician. Follow up: Emergency Department; When: As needed; Reason: Worsening of condition. snw
[2019-04-04] MEDS ORDERED: CETIRIZINE HCL 5 MG TABLET ONE (09:54)
[2019-04-04 10:24] VITALS: TEMP 98; O2SAT 100
[2019-04-04 10:26] VITALS: BP 110/78
== END 2019-04-04 10:01 | disposition home or self-care (01) ==
LOC: ER 08:38
DX: O26.892 Other specified pregnancy related conditions, second trimester (principal); R09.81 Nasal congestion; Z91.040 Latex allergy status; Z91.048 Other nonmedicinal substance allergy status
CPT/HCPCS: 99283

== ENCOUNTER 2019-04-11 21:09 | Emergency (ER) | payer OTHER ==
--- OUTSIDE RECORDS SUMMARY | 2019-04-11 21:12 | XMS REPORT ---
:1985 [facility] Address [address] [place] [address] Dr. Cherry [address] [place] [id number] Care Team Providers Name Role Phone Unavailable Unavailable Unavailable Problems This patient has no known problems. Allergies, Adverse Reactions, Alerts This patient has no known allergies or adverse reactions. Medications This patient has no known medications.
[2019-04-11 23:13] LABS: Urine Culture Reflex Order NOT NEEDED
[2019-04-11 23:17] LABS: Urine Mucus 3+ /HPF (NONE SEEN)
[2019-04-11 23:21] LABS: Urine Bacteria 20-50 /HPF (<20)
[2019-04-11 23:22] LABS: Urine RBC <5 /HPF (NONE SEEN)
--- NOTE | 2019-04-11 23:34 | ER ---
Nurse's Notes [facility] Name: Sophie Thakkar Age: 33 yrs Sex: Female : 1985 Arrival Date: 04/11/2019 Time: 21:13 Bed 13 Private MD: Diagnosis: Urinary tract infection, site not specified Presentation: 04/11 21:22 Presenting complaint: Patient states: Reports vaginal pain for 2 days that has happened aj before. 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 Transition of care: patient was not received from another setting of care. Onset of symptoms was April 11, 2019. Risk Assessment: Do you want to hurt yourself or someone else? Patient reports no desire to harm self or others. Initial Sepsis Screen: Does the patient meet any 2 criteria? No. Patient's initial sepsis screen is negative. Does the patient have a suspected source of infection? No. Patient's initial sepsis screen is negative. Care prior to arrival: None. 21:22 Method Of Arrival: Wheelchair aj 21:22 Acuity: JERONIMO 3 aj Triage Assessment: 21:24 General: Appears in no apparent distress. comfortable, Behavior is calm, cooperative, aj appropriate for age. Pain: Complains of pain in pelvis. Neuro: Level of Consciousness is awake, alert, obeys commands, Oriented to person, place, time, situation, Appropriate for age. Respiratory: Airway is patent Respiratory effort is even, unlabored, Respiratory pattern is regular, symmetrical. : Reports pain in suprapubic area. Derm: Skin is intact, is healthy with good turgor, Skin is pink, warm \\T\\ dry. normal. 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 - Social history:: Smoking status: Patient/guardian denies using tobacco. - Ebola Screening: : Patient negative for fever greater than or equal to 101.5 degrees Fahrenheit, and additional compatible Ebola Virus Disease symptoms Patient denies exposure to infectious person Patient denies travel to an Ebola-affected area in the 21 days before illness onset No symptoms or risks identified at this time. Screenin:41 Abuse screen: Denies threats or abuse. Denies injuries from another. Nutritional mg2 screening: No deficits noted. Tuberculosis screening: No symptoms or risk factors identified. Fall Risk None identified. Assessment: 22:41 General: Appears in no apparent distress. comfortable, Behavior is calm, cooperative. mg2 Pain: Complains of pain in suprapubic area Pain does not radiate. Pain currently is 5 out of 10 on a pain scale. Quality of pain is described as aching, heavy, pressure, Pain began gradually, Is intermittent. Neuro: Level of Consciousness is awake, alert, obeys commands, Oriented to person, place, time, situation. Cardiovascular: Capillary refill < 3 seconds Patient's skin is warm and dry. Respiratory: Airway is patent Respiratory effort is even, unlabored, Respiratory pattern is regular, symmetrical. GI: No signs and/or symptoms were reported involving the gastrointestinal system. : Reports pain in suprapubic area. EENT: No signs and/or symptoms were reported regarding the EENT system. Derm: Skin is intact, is healthy with good turgor, Skin is pink, warm \\T\\ dry. normal. Musculoskeletal: Circulation, motion, and sensation intact. Capillary refill < 3 seconds. 04/12 00:02 Reassessment: No changes from previously documented assessment. mg2 Vital Signs: 04/11 21:24 BP 96 / 40; Pulse 63; Resp 19; Temp 98.5; Pulse Ox 100% on R/A; Weight 102.97 kg; aj Height 5 ft. 2 in. (157.48 cm); 22:33 BP 102 / 58; Pulse 85; Resp 18; Pulse Ox 100% on R/A; mg2 04/12 00:05 BP 102 / 56; Pulse 80; Resp 18; Temp 98.5(O); Pulse Ox 100% on R/A; mg2 04/11 21:24 Body Mass Index 41.52 (102.97 kg, 157.48 cm) aj ED Course: 04/11 21:13 Patient arrived in ED. ag3 21:24 Triage completed. aj 21:24 Arm band placed on left wrist. Patient placed in an exam room. aj 21:33 Radhika Dobbins FNP-C is [facility]. snw 21:33 Rl Silverman MD is Attending Physician. snw 21:39 Vance Ledbetter, RN is Primary Nurse. mg2 22:41 No provider procedures requiring assistance completed. Patient did not have IV access mg2 during this emergency room visit. 22:43 Patient has correct armband on for positive identification. mg2 23:15 US OB Limited In Process Unspecified. EDMS Administered Medications: 23:44 Drug: Rocephin (cefTRIAXone) 1 grams Route: IM; Site: right gluteus; mg2 04/12 00:01 Follow up: Response: No adverse reaction mg2 Outcome: 04/11 23:32 Discharge ordered by MD. snw 04/12 00:06 Discharged to home ambulatory. mg2 Condition: stable Discharge instructions given to patient, Instructed on discharge instructions, follow up and referral plans. medication usage, Demonstrated understanding of instructions, follow-up care, medications, Prescriptions given X 1. 00:07 Patient left the ED. mg2 Signatures: Dispatcher [employer] EDMS Nidia Lunsford RN RN aj Therrien, Shelly, FNP-C RECORDS OFFICER-Csnw Vance Ledbetter RN RN mg2 Jocelyne Roldan ag3 Corrections: (The following items were deleted from the chart) 04/11 21:25 21:22 Presenting complaint: Patient states: Reports vaginal pain for 2 days that has aj happened before. Patient was DX with round ligament pain but is seeking second opinion. aj
--- NOTE | 2019-04-11 23:35 | EDPHYS ---
Physician Documentation [facility] Name: Sophie Thakkar Age: 33 yrs Sex: Female : 1985 Arrival Date: 04/11/2019 Time: 21:13 Bed 13 Private MD: ED Physician Rl Silverman HPI: 04/11 22:35 This 33 yrs old Female presents to ER via Wheelchair with complaints of 18 snw WEEKS , Vaginal Pain. 22:35 Onset: The symptoms/episode began/occurred suddenly, yesterday, and became worse today. snw Associated signs and symptoms: The patient has no apparent associated signs or symptoms. Modifying factors: The patient symptoms are alleviated by nothing, the patient symptoms are aggravated by activity, movement. The patient has not experienced similar symptoms in the past. The patient has been recently seen by a physician: OB, pt is high risk second to intrauterine at "43 weeks", . 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 - Social history:: Smoking status: Patient/guardian denies using tobacco. - Ebola Screening: : Patient negative for fever greater than or equal to 101.5 degrees Fahrenheit, and additional compatible Ebola Virus Disease symptoms Patient denies exposure to infectious person Patient denies travel to an Ebola-affected area in the 21 days before illness onset No symptoms or risks identified at this time. ROS: 22:35 Constitutional: Negative for fever, chills, and weight loss, Eyes: Negative for injury, snw pain, redness, and discharge, ENT: Negative for injury, pain, and discharge, Neck: Negative for injury, pain, and swelling, Cardiovascular: Negative for chest pain, palpitations, and edema, Respiratory: Negative for shortness of breath, cough, wheezing, and pleuritic chest pain, Back: Negative for injury and pain, : Negative for injury, bleeding, discharge, and swelling, MS/Extremity: Negative for injury and deformity, Skin: Negative for injury, rash, and discoloration, Neuro: Negative for headache, weakness, numbness, tingling, and seizure, Psych: Negative for depression, anxiety, suicide ideation, homicidal ideation, and hallucinations. 22:35 Abdomen/GI: Positive for abdominal pain, of the suprapubic area. Exam: 22:34 Head/Face: Normocephalic, atraumatic. Eyes: Pupils equal round and reactive to light, snw extra-ocular motions intact. Lids and lashes normal. Conjunctiva and sclera are non-icteric and not injected. Cornea within normal limits. Periorbital areas with no swelling, redness, or edema. ENT: Nares patent. No nasal discharge, no septal abnormalities noted. Tympanic membranes are normal and external auditory canals are clear. Oropharynx with no redness, swelling, or masses, exudates, or evidence of obstruction, uvula midline. Mucous membranes moist. Neck: Trachea midline, no thyromegaly or masses palpated, and no cervical lymphadenopathy. Supple, full range of motion without nuchal rigidity, or vertebral point tenderness. No Meningismus. Chest/axilla: Normal chest wall appearance and motion. Nontender with no deformity. No lesions are appreciated. Cardiovascular: Regular rate and rhythm with a normal S1 and S2. No gallops, murmurs, or rubs. Normal PMI, no JVD. No pulse deficits. Respiratory: Lungs have equal breath sounds bilaterally, clear to auscultation and percussion. No rales, rhonchi or wheezes noted. No increased work of breathing, no retractions or nasal flaring. Abdomen/GI: Soft, non-tender, with normal bowel sounds. No distension or tympany. No guarding or rebound. No evidence of tenderness throughout. + , Back: No spinal tenderness. No costovertebral tenderness. Full range of motion. Skin: Warm, dry with normal turgor. Normal color with no rashes, no lesions, and no evidence of cellulitis. MS/ Extremity: Pulses equal, no cyanosis. Neurovascular intact. Full, normal range of motion. Neuro: Awake and alert, GCS 15, oriented to person, place, time, and situation. Cranial nerves II-XII grossly intact. Motor strength 5/5 in all extremities. Sensory grossly intact. Cerebellar exam normal. Normal gait. 22:34 Constitutional: The patient appears alert, awake, anxious, uncomfortable. 22:34 Psych: Behavior/mood is anxious. Vital Signs: 21:24 BP 96 / 40; Pulse 63; Resp 19; Temp 98.5; Pulse Ox 100% on R/A; Weight 102.97 kg; aj Height 5 ft. 2 in. (157.48 cm); 22:33 BP 102 / 58; Pulse 85; Resp 18; Pulse Ox 100% on R/A; mg2 04/12 00:05 BP 102 / 56; Pulse 80; Resp 18; Temp 98.5(O); Pulse Ox 100% on R/A; mg2 04/11 21:24 Body Mass Index 41.52 (102.97 kg, 157.48 cm) aj MDM: 04/11 21:48 Patient medically screened. snw 23:33 Data reviewed: vital signs, nurses notes. Data interpreted: Pulse oximetry: on room air snw is 100 %. Interpretation: normal. Counseling: I had a detailed discussion with the patient and/or guardian regarding: the historical points, exam findings, and any diagnostic results supporting the discharge/admit diagnosis, lab results, the need for outpatient follow up, to return to the emergency department if symptoms worsen or persist or if there are any questions or concerns that arise at home. Special discussion: Based on the history and exam findings, there is no indication for further emergent testing or inpatient evaluation. I discussed with the patient/guardian the need to see the OB Gyne specialist for further evaluation of the symptoms. 04/11 22:33 Order name: Urine Culture sn 04/11 22:33 Order name: Urine Microscopic Only; Complete Time: 23:32 snw 04/11 22:54 Order name: OB Limited [facility] 04/11 23:02 Order name: Urine Culture [facility] 04/11 22:33 Order name: Urine Dipstick-Ancillary (obtain specimen); Complete Time: 22:55 snw Administered Medications: 23:44 Drug: Rocephin (cefTRIAXone) 1 grams Route: IM; Site: right gluteus; mg2 04/12 00:01 Follow up: Response: No adverse reaction mg2 Disposition: 00:39 Co-signature as Attending Physician, Rl Silverman MD. pkl Disposition: 04/11/19 23:32 Discharged to Home. Impression: Urinary tract infection, site not specified. - Condition is Stable. - Discharge Instructions: and Urinary Tract Infection, Rehydration, Adult. - Prescriptions for Macrobid 100 mg Oral Capsule - take 1 capsule by ORAL route every 12 hours for 10 days; 20 capsule. - Medication Reconciliation Form, Thank You Letter, Antibiotic Education, Prescription Opioid Use form. - Follow up: Private Physician; When: 2 - 3 days; Reason: Recheck today's complaints, Continuance of care, Re-evaluation by your physician. Follow up: Emergency Department; When: As needed; Reason: Worsening of condition. Signatures: Dispatcher [employer] Nidia Garibay, RN RN Rl Galaviz MD MD pkl Radhika Dobbins, COMPRESSOR REPAIRER-C COMPRESSOR REPAIRER-Csnw Vance Ledbetter RN RN mg2 Corrections: (The following items were deleted from the chart) 04/11 22:34 22:33 Urine Test ordered. snw liza 04/12 00:07 04/11 23:32 04/11/2019 23:32 Discharged to Home. Impression: Urinary tract infection, mg2 site not specified. Condition is Stable. Forms are Medication Reconciliation Form, Thank You Letter, Antibiotic Education, Prescription Opioid Use. Follow up: Private Physician; When: 2 - 3 days; Reason: Recheck today's complaints, Continuance of care, Re-evaluation by your physician. Follow up: Emergency Department; When: As needed; Reason: Worsening of condition. w
[2019-04-11] MEDS ORDERED: LIDOCAINE 1% MPF 2 ML AMPULE ONE (23:56)
[2019-04-11] MEDS ORDERED: CEFTRIAXONE 1000 MG/VIAL ONE (23:56)
[2019-04-12 01:32] VITALS: TEMP 98.5; O2SAT 100
[2019-04-12 01:35] VITALS: BP 102/56
--- NOTE | 2019-04-12 08:23 | RAD REPORT ---
EXAM DESCRIPTION: US - OB Limited - 04/11/2019 11:16 pm CLINICAL HISTORY: ABD PAIN Pelvic pain and pressure. COMPARISON: Transvaginal OB dated 01/22/2019 FINDINGS: Limited examination was requested. Single live intrauterine gestation is identified in cep halic position. Heart rate is 142 BPM, normal. Placenta is anterior without evidence of abruption or previa. Cervix appears long and closed measuring 4.6 cm. Amniotic fluid volume is qualitatively adrienne l.
== END 2019-04-12 00:07 | disposition home or self-care (01) ==
LOC: ER 21:09
DX: O23.42 Unspecified infection of urinary tract in pregnancy, second trimester (principal); O09.292 Supervision of pregnancy with other poor reproductive or obstetric history, second trimester; Z3A.18 18 weeks gestation of pregnancy; Z91.040 Latex allergy status
CPT/HCPCS: 76815; 81015; 87086; 87088; 96372; 99283; J2001

== ENCOUNTER 2019-04-26 16:21 | Emergency (ER) | payer OTHER ==
--- OUTSIDE RECORDS SUMMARY | 2019-04-26 16:24 | XMS REPORT ---
:1985 [facility] Address [address] [place] [address] Dr. Cherry [address] [place] [id number] Care Team Providers Name Role Phone Unavailable Unavailable Unavailable Problems This patient has no known problems. Allergies, Adverse Reactions, Alerts This patient has no known allergies or adverse reactions. Medications This patient has no known medications.
--- NOTE | 2019-04-26 18:24 | ER ---
Nurse's Notes [facility] Name: Sophie Thakkar Age: 33 yrs Sex: Female : 1985 Arrival Date: 04/26/2019 Time: 16:23 Bed 25 Private MD: Diagnosis: Fall on same level from slipping, tripping and stumbling;20 weeks gestation of Presentation: 04/26 16:29 Presenting complaint: Patient states: "I fell right onto my knees about 30 minutes ago aa5 and I am having vaginal pain". Pt reports being 20 weeks and denies abd pain. Pt also reports she is currently taking antibiotics for current UTI, reports urinary frequency. Transition of care: patient was not received from another setting of care. Onset of symptoms was April 26, 2019. Risk Assessment: Do you want to hurt yourself or someone else? Patient reports no desire to harm self or others. Initial Sepsis Screen: Does the patient meet any 2 criteria? No. Patient's initial sepsis screen is negative. Does the patient have a suspected source of infection? No. Patient's initial sepsis screen is negative. Care prior to arrival: None. 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 - Social history:: Smoking status: Patient/guardian denies using tobacco. - Ebola Screening: : No symptoms or risks identified at this time. Screenin:17 Abuse screen: Denies threats or abuse. Nutritional screening: No deficits noted. tw2 Tuberculosis screening: No symptoms or risk factors identified. Fall Risk None identified. Assessment: 17:13 General: Appears in no apparent distress. obese, Behavior is calm, cooperative, tw2 appropriate for age. Pain: Complains of pain in pelvis. Neuro: Level of Consciousness is awake, alert, obeys commands, Oriented to person, place, time, situation. Cardiovascular: Heart tones S1 S2 Capillary refill. Respiratory: Airway is patent Respiratory effort is even, unlabored, Respiratory pattern is regular, symmetrical, Breath sounds are clear bilaterally. GI: No signs and/or symptoms were reported involving the gastrointestinal system. Abdomen is obese, Bowel sounds present X 4 quads. : No signs and/or symptoms were reported regarding the genitourinary system. EENT: No signs and/or symptoms were reported regarding the EENT system. Derm: No signs and/or symptoms reported regarding the dermatologic system. Musculoskeletal: Range of motion: intact in all extremities. 17:51 Reassessment: Patient appears in no apparent distress at this time. No changes from tw2 previously documented assessment. Patient and/or family updated on plan of care and expected duration. Pain level reassessed. Patient is alert, oriented x 3, equal unlabored respirations, skin warm/dry/pink. 18:37 Reassessment: Patient appears in no apparent distress at this time. No changes from tw2 previously documented assessment. Patient and/or family updated on plan of care and expected duration. Pain level reassessed. Patient is alert, oriented x 3, equal unlabored respirations, skin warm/dry/pink. Vital Signs: 16:32 BP 96 / 46; Pulse 72; Resp 16 S; Temp 97.0(TE); Pulse Ox 98% on R/A; Weight 104.33 kg aa5 (R); Height 5 ft. 2 in. (157.48 cm) (R); Pain 8/10; 18:02 BP 103 / 61; Pulse 65; Resp 17; Pulse Ox 100% on R/A; tw2 16:32 Body Mass Index 42.07 (104.33 kg, 157.48 cm) aa5 Vitals: 17:50 Heart Tones 136 bpm, provider notified. tw2 ED Course: 16:23 Patient arrived in ED. as 16:29 Arm band placed on. aa5 16:31 Triage completed. aa5 17:16 Noemi Hilton, RN is Primary Nurse. tw2 17:16 Bed in low position. Call light in reach. Pulse ox on. NIBP on. tw2 17:23 Joan Moreno FNP-C is PHCP. kb 17:23 Baltazar Aguirre MD is Attending Physician. kb 18:36 No provider procedures requiring assistance completed. Patient did not have IV access tw2 during this emergency room visit. Administered Medications: No medications were administered Outcome: 18:24 Discharge ordered by . kb 18:36 Discharged to home ambulatory. tw2 18:36 Condition: stable 18:36 Discharge instructions given to patient, Instructed on discharge instructions, follow up and referral plans. Demonstrated understanding of instructions, follow-up care. 18:37 Patient left the ED. tw2 Signatures: Joan Moreno, AISLINNC VENEER CUTTER-Yola Meza Audri, RN RN aa5 Noemi Hilton, JOSELIN RN tw2
--- NOTE | 2019-04-26 18:24 | EDPHYS ---
Physician Documentation [facility] Name: Sophie Thakkar Age: 33 yrs Sex: Female : 1985 Arrival Date: 04/26/2019 Time: 16:23 Bed 25 Private MD: ED Physician Baltazar Aguirre HPI: 04/27 02:35 This 33 yrs old Female presents to ER via Ambulatory with complaints of Fall kb Injury, Vaginal Pain - 20 wks preg. 02:35 Details of fall: The patient fell from an upright position, while walking. Onset: The kb symptoms/episode began/occurred today. Associated injuries: The patient sustained no obvious injury. Severity of symptoms: At their worst the symptoms were mild, in the emergency department the symptoms are unchanged. The patient has not experienced similar symptoms in the past. The patient has not recently seen a physician. 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 Reports she started feeling an intermittent throbbing in vaginal area so wanted to make sure the baby was ok because she is 20 weeks . Denies any other pain including knees. 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 - Social history:: Smoking status: Patient/guardian denies using tobacco. - Ebola Screening: : No symptoms or risks identified at this time. ROS: 04/27 02:35 Constitutional: Negative for fever, chills, and weight loss, Neck: Negative for injury, kb pain, and swelling, Cardiovascular: Negative for chest pain, palpitations, and edema, Respiratory: Negative for shortness of breath, cough, wheezing, and pleuritic chest pain, Abdomen/GI: Negative for abdominal pain, nausea, vomiting, diarrhea, and constipation, Back: Negative for injury and pain, MS/Extremity: Negative for injury and deformity, Skin: Negative for injury, rash, and discoloration, Neuro: Negative for headache, weakness, numbness, tingling, and seizure. : Positive for vaginal pain, Negative for urinary symptoms, vaginal bleeding, vaginal discharge, vaginal itching. Exam: 02:35 Constitutional: This is a well developed, well nourished patient who is awake, alert, kb and in no acute distress. Head/Face: Normocephalic, atraumatic. ENT: Nares patent. No nasal discharge, no septal abnormalities noted. Tympanic membranes are normal and external auditory canals are clear. Oropharynx with no redness, swelling, or masses, exudates, or evidence of obstruction, uvula midline. Mucous membranes moist. Neck: Trachea midline, no thyromegaly or masses palpated, and no cervical lymphadenopathy. Supple, full range of motion without nuchal rigidity, or vertebral point tenderness. No Meningismus. Chest/axilla: Normal chest wall appearance and motion. Nontender with no deformity. No lesions are appreciated. Cardiovascular: Regular rate and rhythm with a normal S1 and S2. No gallops, murmurs, or rubs. Normal PMI, no JVD. No pulse deficits. Respiratory: Lungs have equal breath sounds bilaterally, clear to auscultation and percussion. No rales, rhonchi or wheezes noted. No increased work of breathing, no retractions or nasal flaring. Abdomen/GI: Soft, non-tender, with normal bowel sounds. No distension or tympany. No guarding or rebound. No evidence of tenderness throughout. Back: No spinal tenderness. No costovertebral tenderness. Full range of motion. Skin: Warm, dry with normal turgor. Normal color with no rashes, no lesions, and no evidence of cellulitis. MS/ Extremity: Pulses equal, no cyanosis. Neurovascular intact. Full, normal range of motion. Neuro: Awake and alert, GCS 15, oriented to person, place, time, and situation. Cranial nerves II-XII grossly intact. Motor strength 5/5 in all extremities. Sensory grossly intact. Cerebellar exam normal. Normal gait. Vital Signs: 04/26 16:32 BP 96 / 46; Pulse 72; Resp 16 S; Temp 97.0(TE); Pulse Ox 98% on R/A; Weight 104.33 kg aa5 (R); Height 5 ft. 2 in. (157.48 cm) (R); Pain 8/10; 18:02 BP 103 / 61; Pulse 65; Resp 17; Pulse Ox 100% on R/A; tw2 16:32 Body Mass Index 42.07 (104.33 kg, 157.48 cm) aa5 MDM: 17:23 Patient medically screened. kb 04/27 02:35 Data reviewed: vital signs, nurses notes. Data interpreted: Pulse oximetry: on room air kb is 100 %. Interpretation: normal. Counseling: I had a detailed discussion with the patient and/or guardian regarding: the historical points, exam findings, and any diagnostic results supporting the discharge/admit diagnosis, lab results, the need for outpatient follow up, an OB/Gyne specialist, to return to the emergency department if symptoms worsen or persist or if there are any questions or concerns that arise at home. 04/26 17:35 Order name: FHT's; Complete Time: 17:50 kb Administered Medications: No medications were administered Disposition: 04/26/19 18:24 Discharged to Home. Impression: Fall on same level from slipping, tripping and stumbling, 20 weeks gestation of . - Condition is Stable. - Discharge Instructions: Second Trimester of , [id number]. - Medication Reconciliation Form, Thank You Letter, Antibiotic Education, Prescription Opioid Use form. - Follow up: Emergency Department; When: As needed; Reason: Worsening of condition. Follow up: Private Physician; When: 2 - 3 days; Reason: Recheck today's complaints, Continuance of care, Re-evaluation by your physician. Addendum: 04/30/2019 08:44 Co-signature as Attending Physician, Baltazar Aguirre MD I agree with the assessment and k dr plan of care. Signatures: Joan Moreno, WATER SYSTEMS ENGINEER-C WATER SYSTEMS ENGINEER-Ckb Baltazar Aguirre MD MD [facility] Treva West RN RN aa5 Noemi Hilton RN RN tw2 Corrections: (The following items were deleted from the chart) 04/26 18:37 18:24 04/26/2019 18:24 Discharged to Home. Impression: Fall on same level from tw2 slipping, tripping and stumbling; 20 weeks gestation of . Condition is Stable. Forms are Medication Reconciliation Form, Thank You Letter, Antibiotic Education, Prescription Opioid Use. Follow up: Emergency Department; When: As needed; Reason: Worsening of condition. Follow up: Private Physician; When: 2 - 3 days; Reason: Recheck today's complaints, Continuance of care, Re-evaluation by your physician. kb
[2019-04-26 19:54] VITALS: TEMP 97
[2019-04-26 19:56] VITALS: BP 103/61; O2SAT 100
== END 2019-04-26 18:37 | disposition home or self-care (01) ==
LOC: ER 16:21
DX: O26.892 Other specified pregnancy related conditions, second trimester (principal); W01.0XXA Fall on same level from slipping, tripping and stumbling without subsequent striking against object, initial encounter; Y93.01 Activity, walking, marching and hiking; Y92.9 Unspecified place or not applicable; Z3A.20 20 weeks gestation of pregnancy; Z91.040 Latex allergy status; Z91.048 Other nonmedicinal substance allergy status
CPT/HCPCS: 99283

== ENCOUNTER 2019-07-08 20:08 | Emergency (ER) | payer OTHER ==
--- NOTE | 2019-07-08 21:17 | EDPHYS ---
Physician Documentation [facility] Name: Sophie Thakkar Age: 33 yrs Sex: Female : 1985 Arrival Date: 07/08/2019 Time: 20:12 Bed 15 Private MD: ED Physician Shen Ernandez HPI: 07/08 20:30 This 33 yrs old Female presents to ER via Ambulatory with complaints of Leg snw Pain. 20:30 The patient presents with pain, that is acute. Context: The problem was sustained at snw home, resulted from increased weight, the patient can fully bear weight, Problem is a result from a previous injury: pt has had a clot to lateral leg in the past, L\\T\\D sent pt down for eval. Onset: The symptoms/episode began/occurred gradually. Associated signs and symptoms: Pertinent positives: pain. Severity of symptoms: At their worst the symptoms were mild. The patient has experienced a previous episode. It is unknown whether or not the patient has recently seen a physician. pt 30 weeks IUP. 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 - Social history:: Smoking status: Patient/guardian denies using tobacco. - Ebola Screening: : No symptoms or risks identified at this time. ROS: 20:30 Constitutional: Negative for fever, chills, and weight loss, Eyes: Negative for injury, snw pain, redness, and discharge, ENT: Negative for injury, pain, and discharge, Neck: Negative for injury, pain, and swelling, Cardiovascular: Negative for chest pain, palpitations, and edema, Respiratory: Negative for shortness of breath, cough, wheezing, and pleuritic chest pain, Abdomen/GI: Negative for abdominal pain, nausea, vomiting, diarrhea, and constipation, Back: Negative for injury and pain, : Negative for injury, bleeding, discharge, and swelling, Skin: Negative for injury, rash, and discoloration, Neuro: Negative for headache, weakness, numbness, tingling, and seizure. 20:30 MS/extremity: Positive for pain, of the right leg. Exam: 20:29 Constitutional: This is a well developed, well nourished patient who is awake, alert, snw and in no acute distress. Head/Face: Normocephalic, atraumatic. Eyes: Pupils equal round and reactive to light, extra-ocular motions intact. Lids and lashes normal. Conjunctiva and sclera are non-icteric and not injected. Cornea within normal limits. Periorbital areas with no swelling, redness, or edema. ENT: Nares patent. No nasal discharge, no septal abnormalities noted. Tympanic membranes are normal and external auditory canals are clear. Oropharynx with no redness, swelling, or masses, exudates, or evidence of obstruction, uvula midline. Mucous membranes moist. Neck: Trachea midline, no thyromegaly or masses palpated, and no cervical lymphadenopathy. Supple, full range of motion without nuchal rigidity, or vertebral point tenderness. No Meningismus. Chest/axilla: Normal chest wall appearance and motion. Nontender with no deformity. No lesions are appreciated. Cardiovascular: Regular rate and rhythm with a normal S1 and S2. No gallops, murmurs, or rubs. Normal PMI, no JVD. No pulse deficits. Respiratory: Lungs have equal breath sounds bilaterally, clear to auscultation and percussion. No rales, rhonchi or wheezes noted. No increased work of breathing, no retractions or nasal flaring. Abdomen/GI: Soft, non-tender, with normal bowel sounds. No distension or tympany. No guarding or rebound. No evidence of tenderness throughout. Back: No spinal tenderness. No costovertebral tenderness. Full range of motion. Skin: Warm, dry with normal turgor. Normal color with no rashes, no lesions, and no evidence of cellulitis. Neuro: Awake and alert, GCS 15, oriented to person, place, time, and situation. Cranial nerves II-XII grossly intact. Motor strength 5/5 in all extremities. Sensory grossly intact. Cerebellar exam normal. Normal gait. Psych: Awake, alert, with orientation to person, place and time. Behavior, mood, and affect are within normal limits. 20:29 Musculoskeletal/extremity: Extremities: grossly normal except: ROM: no acute changes, Perfusion: the patient is normally perfused throughout, pink, warm, Perfusion: the extremity is warm, with brisk capillary refill, varicosities noted to right lateral leg, pt concerned for thrombus, Sensation intact. Vital Signs: 20:22 BP 114 / 65; Pulse 91; Resp 16; Temp 98.1; Pulse Ox 100% on R/A; Weight 113.4 kg; la1 Height 5 ft. 2 in. (157.48 cm); 21:33 BP 95 / 49; Pulse 87; Resp 16; Pulse Ox 98% on R/A; rv 20:22 Body Mass Index 45.73 (113.40 kg, 157.48 cm) la1 MDM: 20:23 Patient medically screened. snw 21:17 Data reviewed: vital signs, nurses notes. Data interpreted: Pulse oximetry: on room air snw is 100 %. Interpretation: normal. Counseling: I had a detailed discussion with the patient and/or guardian regarding: the historical points, exam findings, and any diagnostic results supporting the discharge/admit diagnosis, radiology results, the need for outpatient follow up, to return to the emergency department if symptoms worsen or persist or if there are any questions or concerns that arise at home. Special discussion: Based on the history and exam findings, there is no indication for further emergent testing or inpatient evaluation. I discussed with the patient/guardian the need to see the OB Gyne specialist for further evaluation of the symptoms. I discussed with the patient/guardian the need to see the primary care provider for further evaluation of the symptoms. 07/08 20:28 Order name: US Extremity Venous Unilateral Ltd snw Administered Medications: 21:25 Drug: Tylenol 500 mg Route: PO; rv 21:33 Follow up: Response: Medication administered at discharge. rv Disposition: 22:51 Co-signature as Attending Physician, Shen Ernandez MD. gs Disposition: 07/08/19 21:17 Discharged to Home. Impression: Varicose veins of right lower extremities with pain, state, incidental. - Condition is Stable. - Discharge Instructions: Varicose Veins, Before Baby Comes Home, Heat Therapy. - Medication Reconciliation Form, Thank You Letter, Antibiotic Education, Prescription Opioid Use form. - Follow up: Private Physician; When: 2 - 3 days; Reason: Recheck today's complaints, Continuance of care, Re-evaluation by your physician. Follow up: Emergency Department; When: As needed; Reason: Worsening of condition. Signatures: Dispatcher [employer] EDMS Radhika Dobbins, AFFIRMATIVE ACTION SPECIALIST-C AFFIRMATIVE ACTION SPECIALIST-Csnw Anurag Elise RN RN la1 Shen Ernandez MD MD Chino Lorenz, JOSELIN RN rv Corrections: (The following items were deleted from the chart) 21:34 21:17 07/08/2019 21:17 Discharged to Home. Impression: Varicose veins of right lower rv extremities with pain; state, incidental. Condition is Stable. Forms are Medication Reconciliation Form, Thank You Letter, Antibiotic Education, Prescription Opioid Use. Follow up: Private Physician; When: 2 - 3 days; Reason: Recheck today's complaints, Continuance of care, Re-evaluation by your physician. Follow up: Emergency Department; When: As needed; Reason: Worsening of condition. snw
--- NOTE | 2019-07-08 21:17 | ER ---
Nurse's Notes [facility] Name: Sophie Thakkar Age: 33 yrs Sex: Female : 1985 Arrival Date: 07/08/2019 Time: 20:12 Bed 15 Private MD: Diagnosis: Varicose veins of right lower extremities with pain; state, incidental Presentation: 07/08 20:21 Presenting complaint: Patient states: I am 30weeks and there is a bump on my la1 lower right leg, In the past I have had a clot in that area but I am not sure. Transition of care: patient was not received from another setting of care. Onset of symptoms was July 08, 2019. Risk Assessment: Do you want to hurt yourself or someone else? Patient reports no desire to harm self or others. Initial Sepsis Screen: Does the patient meet any 2 criteria? No. Patient's initial sepsis screen is negative. Does the patient have a suspected source of infection? No. Patient's initial sepsis screen is negative. Care prior to arrival: None. 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 - Social history:: Smoking status: Patient/guardian denies using tobacco. - Ebola Screening: : No symptoms or risks identified at this time. Screenin:47 Abuse screen: Denies threats or abuse. Denies injuries from another. Nutritional rv screening: No deficits noted. Tuberculosis screening: No symptoms or risk factors identified. Fall Risk None identified. Assessment: 20:46 General: Appears in no apparent distress. comfortable, Behavior is calm, cooperative. rv Pain: Complains of pain in right leg. Neuro: Level of Consciousness is awake, alert, obeys commands, Oriented to person, place, time, situation. Cardiovascular: Patient's skin is warm and dry. Respiratory: Airway is patent. GI: No signs and/or symptoms were reported involving the gastrointestinal system. : No signs and/or symptoms were reported regarding the genitourinary system. EENT: No signs and/or symptoms were reported regarding the EENT system. Derm: Bruising that is dark purple, on right knee. Musculoskeletal: Swelling absent Reports pain in right leg. 21:32 Reassessment: Patient appears in no apparent distress at this time. Patient and/or rv family updated on plan of care and expected duration. Pain level reassessed. Patient is alert, oriented x 3, equal unlabored respirations, skin warm/dry/pink. ultrasound was done at bedside and negative for DVT. Radhika explained it to the patient and family. patient agreed. dischraged. Vital Signs: 20:22 BP 114 / 65; Pulse 91; Resp 16; Temp 98.1; Pulse Ox 100% on R/A; Weight 113.4 kg; la1 Height 5 ft. 2 in. (157.48 cm); 21:33 BP 95 / 49; Pulse 87; Resp 16; Pulse Ox 98% on R/A; rv 20:22 Body Mass Index 45.73 (113.40 kg, 157.48 cm) la1 ED Course: 20:12 Patient arrived in ED. cf2 20:22 Triage completed. la1 20:23 Radhika Dobbins F[facility]-C [facility]. snw 20:23 Shen Ernandez MD is Attending Physician. snw 20:23 Arm band placed on right wrist. la1 20:28 Chino Lorenz, JOSELIN is Primary Nurse. rv 20:47 Patient has correct armband on for positive identification. Bed in low position. Call rv light in reach. Side rails up X 1. Pulse ox on. NIBP on. 21:34 No provider procedures requiring assistance completed. Patient did not have IV access rv during this emergency room visit. 21:44 US Extremity Venous Unilateral Ltd In Process Unspecified. EDMS Administered Medications: 21:25 Drug: Tylenol 500 mg Route: PO; rv 21:33 Follow up: Response: Medication administered at discharge. rv Outcome: 21:17 Discharge ordered by . snw 21:34 Discharged to home ambulatory, with family. rv 21:34 Condition: good 21:34 Discharge instructions given to patient, Instructed on discharge instructions, follow up and referral plans. Demonstrated understanding of instructions, follow-up care. 21:34 Patient left the ED. rv Signatures: Dispatcher [employer] EDMS Radhika Dobbins, GUIDANCE CONSULTANT-C GUIDANCE CONSULTANT-Csnw Anurag Elise RN RN la1 Chino Lorenz RN RN rv Ajit Vallecillo2
[2019-07-08] MEDS ORDERED: ACETAMINOPHEN 500 MG TAB ONE (21:25)
[2019-07-08 21:41] VITALS: TEMP 98.1
[2019-07-08 21:42] VITALS: BP 95/49; O2SAT 98
--- NOTE | 2019-07-09 07:13 | RAD REPORT ---
EXAM DESCRIPTION: US - Extremity Venous Uni Ltd - 07/08/2019 9:44 pm CLINICAL HISTORY: Right leg pain and swelling COMPARISON: None. TECHNIQUE: Real-time sonographic evaluation of the right lower extremity deep venous systems was per formed. FINDINGS: Normal compressibility, flow augmentation, phasic flow and spontaneous flow are identified in the right lower extremity common femoral, superficial femoral, popliteal and posterior tibial vei ns. No intraluminal filling defects seen. Non thrombosed varicose veins are present in the area of sw elling IMPRESSION: No DVT in the right lower extremity.
== END 2019-07-08 21:34 | disposition home or self-care (01) ==
LOC: ER 20:08
DX: O26.893 Other specified pregnancy related conditions, third trimester (principal); I83.811 Varicose veins of right lower extremity with pain
CPT/HCPCS: 93971; 99283

== ENCOUNTER 2019-09-05 19:41 | Emergency (ER) | payer OTHER ==
--- OUTSIDE RECORDS SUMMARY | 2019-09-05 19:44 | XMS REPORT ---
:1985 [facility] [address] [place] [address] Care Team Providers Name Role Phone Unavailable Unavailable Unavailable Payers Payer Name Policy Type Policy Number Effective Date Expiration Date Problems This patient has no known problems. Allergies, Adverse Reactions, Alerts Allergy Allergy Status Severity Reaction(s) Onset Inactive Treating Comments Name Type Date Date Clinician latex DA Active LA 2019-07 00:00:0 0 No Known DA Active U 2019-06 00:00:0 0 latex DA Active LA 2019-06 00:00:0 0 Medications This patient has no known medications. Results Test Description Test Time Test Comments Text Results Atomic Results Result Comments [facility] 2019-08-31 RUN DATE: THIRD 17:54:00 09/04/19 [facility] PAGE 1 RUN TIME: 721 TRIMESTER Specimen Inquiry RUN USER : INTERFACE PATIENT: WALTER ROSE LOC: KRISTEN U #: [id number] AGE/SX: ROOM: [facility] RE08/16/19REG DR: Junior Tapia MD : 89 BED: A DIS: 08/26/19 STATUS: DIS IN TLOC: SPEC #: [id number] RECD: 08/22/19 STATUS: ALICIA LISA # : [id number] [place]: 08/22/19- [facility] DR: Junior Tapia MD ENTERED: 08/27/19 SP TYPE: PLACIII OTHR DR: ORDERED: LEVEL V SURGICA CODES: [id number] - PLACENTA, NOS PROCEDURES: LEVEL V SURGICA (Incomplete) TISSUES: PLACENTA, NOS - PLACENTA CLINICAL HISTORY 33 year old, 36 weeks, [id number], section, history of demise, decreased FM, oligo (wpd) FINAL DIAGNOSIS Placenta, section: - placenta with third trimester morphology (370 gms), mean placental weight at 36 weeks - 457 gms (placenta is somewhat small for dates, approximately the 10th percentile for weight at 36 weeks) - mild chronic deciduitis - mural fibrin deposition involving chorionic stem blood vessels, no occlusive thrombi identified - see comment - trivascular umbilical cord and membranes - free of inflammation COMMENT: The presence of mural fibrin deposition involving a chorionic stem blood vessel is a nonspecific finding by itself but could be seen as a component of vascular malperfusion. vascular malperfusion can be associated with intrauterine growth restriction, poor outcome, demise, and neural developmental sequelae. vascular malperfusion is the most recent term applied to a group of placental lesions indicating reduced or absent perfusion of the villous parenchyma by the fetus. The most common etiology of malperfusion is umbilical cord obstruction leading to stasis, ischemia and in some cases thrombosis. Other contributing factors may include maternal diabetes, cardiac insufficiency, or hyperviscosity and inherited or acquired thrombophilias. CPT code(s): 56283 pkg/wpd CONTINUED ON NEXT PAGE RUN DATE: 09/04/19 [facility] PAGE 2 RUN TIME: 721 Specimen Inquiry RUN USER: INTERFACE SPEC #: [id number] PATIENT: WALTER ROSE #[id number] (Continued) GROSS DESCRIPTION The specimen was received in a container, labeled with the patient's name, unit number and designated "placenta". The following attributes are observed: Cord insertion: 2 cm from margin Cord length: 48 cm Number of vessels: 3 Cord color: Dorado Other cord findings : Slightly edematous; less than 12 twists per 10 cm surface findings: Steel blue, wrinkled, glistening with focal subchorionic fibrin deposition Vasculature: Displays unremarkable blood vasculature Membranes rupture site: Marginal Membrane color: Dorado Other membrane findings: Thickened The trimmed placental weight: 370 gm Disk measurement: 18.0 x 16.0 x 3.5 cm in greatest dimension Accessory lobes: None Maternal surface: Lobulated and intact Parenchyma: Red, beefy, and spongy with peripheral fibrosis Parenchyma lesions: None Cassettes: A1 through A4 jm/wpd 08/28/19 @ 0800 MICROSCOPIC DESCRIPTION The placenta is composed of small vascular villi. A stem villous blood vessel contains mural fibrin deposition. No occlusive thrombi are identified. The trivascular umbilical cord and membranes are free of inflammation. mae/patricia 08/31/19 Signed Lucero Vazquez 08/31/19 1754 END OF REPORT HGB HCT 2019-08-24 07:11:00 Test Item Value Reference Range Comments HEMOGLOBIN (test code=HGB) 7.4 g/dL 10.7-13.9 HEMATOCRIT (test code=HCT) 24.6 % 32.1-42.1 CBC W/AUTO [id number] 05:50:00 Test Item Value Reference Range Comments WHITE BLOOD CELL (test code=WBC) 10.9 K/mm3 6.6-12.1 RED BLOOD CELL (test code=RBC) 2.89 M/mm3 3.45-5.01 HEMOGLOBIN (test code=HGB) 7.3 g/dL 10.7-13.9 HEMATOCRIT (test code=HCT) 23.7 % 32.1-42.1 MEAN CELL VOLUME (test code=MCV) 82 fL 84.1-94.8 MEAN CELL HGB (test code=MCH) 25.3 pg 27-35 MEAN CELL HGB CONCETRATION (test code=MCHC) 30.8 gm/dL 32.2-34.1 RED CELL DISTRIBUTION WIDTH (test code=RDW) 13.9 % 12.4-16.5 PLATELET COUNT (test code=PLT) 172 K/mm3 133-385 IMMATURE PLATELET FRACTION (test code=IPF) 0.0 % 0.0-10.8 MEAN PLATELET VOLUME (test code=MPV) 9.7 fl 9.1-12.7 NEUTROPHIL % (test code=NT%) 72.7 % 56.5-79.4 LYMPHOCYTE % (test code=LY%) 18.2 % 14.3-34.3 MONOCYTE % (test code=MO%) 7.2 % 5.1-10.4 EOSINOPHIL % (test code=EO%) 0.3 % 0.1-3.0 BASOPHIL % (test code=BA%) 0.1 % 0.1-1.0 NEUTROPHIL # (test code=NT#) 7.9 K/mm3 LYMPHOCYTE # (test code=LY#) 2.0 K/mm3 MONOCYTE # (test code=MO#) 0.8 K/mm3 EOSINOPHIL # (test code=EO#) 0.03 K/mm3 BASOPHIL # (test code=BA#) 0.0 K/mm3 RBC MORPHOLOGY REQUIRED (test code=RBCM) NORMAL NORMAL PLATELET MORPHOLOGY REQUIRED (test code=PLTMR) NORMAL NORMAL CBC W/AUTO [id number] 05:30:00 Test Item Value Reference Range Comments WHITE BLOOD CELL (test code=WBC) 9.4 K/mm3 6.6-12.1 RED BLOOD CELL (test code=RBC) 3.50 M/mm3 3.45-5.01 HEMOGLOBIN (test code=HGB) 8.7 g/dL 10.7-13.9 HEMATOCRIT (test code=HCT) 28.5 % 32.1-42.1 MEAN CELL VOLUME (test code=MCV) 81 fL 84.1-94.8 MEAN CELL HGB (test code=MCH) 24.9 pg 27-35 MEAN CELL HGB CONCETRATION (test code=MCHC) 30.5 gm/dL 32.2-34.1 RED CELL DISTRIBUTION WIDTH (test code=RDW) 13.9 % 12.4-16.5 PLATELET COUNT (test code=PLT) 189 K/mm3 133-385 IMMATURE PLATELET FRACTION (test code=IPF) 0.0 % 0.0-10.8 MEAN PLATELET VOLUME (test code=MPV) 9.5 fl 9.1-12.7 NEUTROPHIL % (test code=NT%) 69.1 % 56.5-79.4 LYMPHOCYTE % (test code=LY%) 19.9 % 14.3-34.3 MONOCYTE % (test code=MO%) 7.1 % 5.1-10.4 EOSINOPHIL % (test code=EO%) 0.7 % 0.1-3.0 BASOPHIL % (test code=BA%) 0.3 % 0.1-1.0 NEUTROPHIL # (test code=NT#) 6.5 K/mm3 LYMPHOCYTE # (test code=LY#) 1.9 K/mm3 MONOCYTE # (test code=MO#) 0.7 K/mm3 EOSINOPHIL # (test code=EO#) 0.07 K/mm3 BASOPHIL # (test code=BA#) 0.0 K/mm3 RBC MORPHOLOGY REQUIRED (test code=RBCM) NORMAL NORMAL PLATELET MORPHOLOGY REQUIRED (test code=PLTMR) NORMAL NORMAL AMNISURE (ROM) [id number] 01:29:00 Test Item Value Reference Range Comments AMNISURE (ROM) TEST (test code=AMNI) NON-RUPTURED NON-RUPTURE : *Amnisure QC OK? YESAMNISURE (ROM) [id number] 01:19:00 Test Item Value Reference Range Comments AMNISURE (ROM) TEST (test code=AMNI) NON-RUPTURED NON-RUPTURE : *Amnisure QC OK? YESRAPID PLASMA [id number] 18:09:00 Test Item Value Reference Range Comments RAPID PLASMA REAGIN (test code=RPR) NON-REACT IS CONSENT FORM SIGNED FOR HIV TESTING? YAG HEPATITIS B [id number] 18:09: 00 Test Item Value Reference Range Comments AG HEPATITIS B SURFACE (test code=HBSAG) NONREACTIVE NONREACTIVE IS CONSENT FORM SIGNED FOR HIV TESTING? YAB HEPATITIS C [id number] 18:09: 00 Test Item Value Reference Range Comments AB HEPATITIS C (test code=HCVAB) NONREACTIVE NONREACTIVE SIGNAL TO CUTOFF (test code=CUTOFF) <0.02 <0.80 IS CONSENT FORM SIGNED FOR HIV TESTING? YAB [id number] 18:09:00 Test Item Value Reference Range Comments AB TREPONEMA (test code=TREPAB) NONREACTIVE NONREACTIVE IS CONSENT FORM SIGNED FOR HIV TESTING? YAB HIV 1 18:09:00 Test Item Value Reference Range Comments AB HIV 1 2 (test NONREACTIVE NONREACTIVE Done by Ranberry 4th code=MYG24YN) Gen HIV Ag/Ab Combo Screen IS CONSENT FORM SIGNED FOR HIV TESTING? YRAPID PLASMA [id number] 17:45:00 Test Item Value Reference Range Comments RAPID PLASMA REAGIN (test code=RPR) NON-REACT IS CONSENT FORM SIGNED FOR HIV TESTING? YAG HEPATITIS B [id number] 17:45: 00 Test Item Value Reference Range Comments AG HEPATITIS B SURFACE (test code=HBSAG) NONREACTIVE NONREACTIVE IS CONSENT FORM SIGNED FOR HIV TESTING? YAB HEPATITIS C [id number] 17:45: 00 Test Item Value Reference Range Comments AB HEPATITIS C (test code=HCVAB) NONREACTIVE SIGNAL TO CUTOFF (test code=CUTOFF) <0.80 IS CONSENT FORM SIGNED FOR HIV TESTING? YAB [id number] 17:45:00 Test Item Value Reference Range Comments AB TREPONEMA (test code=TREPAB) NONREACTIVE NONREACTIVE IS CONSENT FORM SIGNED FOR HIV TESTING? YAB HIV 1 17:45:00 Test Item Value Reference Range Comments AB HIV 1 2 (test code=QLS74TW) NONREACTIVE IS CONSENT FORM SIGNED FOR HIV TESTING? YCBC W/AUTO [id number] 15:54:00 Test Item Value Reference Range Comments WHITE BLOOD CELL (test code=WBC) 10.0 K/mm3 6.6-12.1 RED BLOOD CELL (test code=RBC) 3.56 M/mm3 3.45-5.01 HEMOGLOBIN (test code=HGB) 9.0 g/dL 10.7-13.9 HEMATOCRIT (test code=HCT) 29.0 % 32.1-42.1 MEAN CELL VOLUME (test code=MCV) 82 fL 84.1-94.8 MEAN CELL HGB (test code=MCH) 25.3 pg 27-35 MEAN CELL HGB CONCETRATION (test code=MCHC) 31.0 gm/dL 32.2-34.1 RED CELL DISTRIBUTION WIDTH (test code=RDW) 13.7 % 12.4-16.5 PLATELET COUNT (test code=PLT) 188 K/mm3 133-385 IMMATURE PLATELET FRACTION (test code=IPF) 0.0 % 0.0-10.8 MEAN PLATELET VOLUME (test code=MPV) 10.3 fl 9.1-12.7 NEUTROPHIL % (test code=NT%) 71.1 % 56.5-79.4 LYMPHOCYTE % (test code=LY%) 18.6 % 14.3-34.3 MONOCYTE % (test code=MO%) 8.0 % 5.1-10.4 EOSINOPHIL % (test code=EO%) 1.0 % 0.1-3.0 BASOPHIL % (test code=BA%) 0.2 % 0.1-1.0 NEUTROPHIL # (test code=NT#) 7.1 K/mm3 LYMPHOCYTE # (test code=LY#) 1.9 K/mm3 MONOCYTE # (test code=MO#) 0.8 K/mm3 EOSINOPHIL # (test code=EO#) 0.10 K/mm3 BASOPHIL # (test code=BA#) 0.0 K/mm3 RBC MORPHOLOGY REQUIRED (test code=RBCM) NORMAL NORMAL PLATELET MORPHOLOGY REQUIRED (test code=PLTMR) NORMAL NORMAL - US PREG UT [id number] 13:50:00 Patient Name: WALTER ROSE Unit No: [id number] EXAMS: CPT CODE: [id number] US PREG UT TRANSVAGINAL [address] [facility] [address], [place] [address] BIOPHYSICAL PROFILE ULTRASOUND REPORT Pat. Name: WALTER ROSE Pat. No: [id number] Study Date: 12:07pm , Age: 01 1985, 33 Pregnancies: 4, Para 2LMP: Unknown GA by 1st: 34w5d GA Selected: 34w5d (From Known E) SANDRA: 09/19/2019 Referring MD: Junior Tapia Manager In Training: Noy Campos RDMS CPT4: USPRUTTRVG Admitting MD: Junior Tapia Hist/Ind: 5TH SCAN DFM Cervical Length: 3.8 cm Heart Rate: 159 bpm Amniotic Fluid Index: 12.0cm (08.0-24.9) Q1: 2.1cm Q2: 6.5cm Q3: 0.0cm Q4: 3.4cm Biophysical Profile: 05/03 Breathin Tone: 2 Movement: 2 AFV : 2 CLINICAL SUMMARY Type of Gestation: Hawkins Intrauterine pregnancyin vertex presentation. motion and organs seen: heart motion seen Placental location: Anterior Placental maturity : Grade 2 There is no evidence of placenta previa. Amniotic fluid volume is normal. Uterus and adnexa: No significant abnormality is seen. Katerina Escobar M.D. Electronic Signature 08/13/2019 01:50pm at 1350 Reported and signed by: Katerina Escobar MD CC: Junior Tapia MD Technologist: Noy Campos RDMS Probe: [id number] Trnscrbd D/ (1356) Wily Orig Print D/T: S: 08/16/2019 (1507) The [facility] NAME: WALTER ROSE JOSE F Radiology Department PHYS: Junior Modi MD [address] : 1985 AGE: 33 SEX: F [place], [place] [address]VSRZ NO: [id number] LOC: EduBRITTANIT PHONE #: [phone] EXAM DATE: 08/13/2019 STATUS: REG RCR FAX #: [phone] RAD NO: Page 1 Signed Report Patient Name: WALTER ROSE Unit No: [id number] EXAMS: CPT CODE: [id number] US PREGUT TRANSVAGINAL [address]7725 < Continued> The [facility] NAME: ROSEWALTER KOHLER Radiology Department PHYS: Junior Modi MD [address] : 1985 AGE: 33 SEX: F [place] [address] : EduLDT PHONE #: [phone] EXAM DATE: 08/13/2019 STATUS: REG RCR FAX #: [phone] RAD NO: Page 2 Signed Report- US FET BIO PH [place] W/O [id number] 13:50:00 Patient Name: WALTER ROSE Unit No: [id number] EXAMS: CPT CODE: [id number] US FET BIO PH [place] W/O NST [address] [facility] [address], [place] [address] BIOPHYSICAL PROFILE ULTRASOUND REPORT Pat. Name: WALTER ROSE Pat. No: [id number] Study Date: 08/13/2019 12:07pm , Age: 01 1985, 33 Pregnancies: 4, Para 2LMP: Unknown GA by 1st: 34w5d GA Selected: 34w5d (From Known E) SANDRA: 09/19/2019 Referring MD: Junior Tapia Manager In Training: Noy Campos RDMS CPT4: USBPPWONST Admitting MD: Junior Tapia Hist/Ind: 5TH SCAN DFM Cervical Length: 3.8 cm Heart Rate: 159 bpm Amniotic Fluid Index: 12.0cm (08.0-24.9) Q1: 2.1cm Q2: 6.5cm Q3: 0.0cm Q4: 3.4cm Biophysical Profile: 05/03 Breathin Tone : 2 Movement: 2 AFV: 2 CLINICAL SUMMARY Type of Gestation: Hawkins Intrauterine pregnancyin vertex presentation. motion and organs seen: heart motion seen Placental location: Anterior Placental maturity : Grade 2 There is no evidence of placenta previa. Amniotic fluid volume is normal. Uterus and adnexa: No significant abnormality is seen. Katerina Escobar M.D. Electronic Signature 08/13/2019 01:50pm at 1350 Reported and signed by: Katerina Escobar MD CC: Junior Tapia MD Technologist: Noy Campos RDMS Probe: Trnscrbd D/ (1350) t.SDR.NMG Orig Print D /T: S: 08/13/2019 (6267) The [facility] NAME: WALTER ROSE KOHLER Radiology Department PHYS: Junior Modi MD [address] : 1985 AGE : 33 SEX: F [place], [place] [address]PIDW NO: [id number] LOC: EduLDT PHONE #: [phone] EXAM DATE: 08/13/2019 STATUS: REG RCR FAX #: [phone] RAD NO: Page 1 Signed Report Patient Name: WALTER ROSE Unit No: [id number] EXAMS: CPT CODE: [id number] US FET BIO PH [place] W/O NST [address] <Continued> The [facility] NAME: WALTER ROSE KOHLER Radiology Department PHYS: Junior Modi MD [address] : 1985 AGE: 33 SEX: F [place], [place] [address] : EduLDT PHONE #: [phone] EXAM DATE: 08/13/2019 STATUS: REG RCR FAX #: [phone] RAD NO: Page 2 Signed Report- US FET BIO PH [place] W/O [id number] 08:39:00 Patient Name: WALTER ROSE Unit No: [id number] EXAMS: CPT CODE: [id number] US FET BIO PH [place] W/O NST [address] [facility] [address], [place] [address] BIOPHYSICAL PROFILE ULTRASOUND REPORT Pat. Name: WALTER ROSE Pat. No: [id number] Study Date: 08/09/2019 7:50am , Age: 01 1985, 33 Pregnancies: 4, Para 2 LMP: Unknown GA by 1st: 34w1d GA Selected: 34w1d (From First S) SANDRA: 2018 Referring MD: Junior Tapia Manager In Training: Ro Le RDMS CPT4: USBPPWONST Admitting MD: Junior Tapia Hist/Ind: DFM SCAN 3 - Cervical Length: 3.6 cm Heart Rate: 141 bpm Amniotic Fluid Index: 13.2cm (08.1-24.8) Q1: 1.0cm Q2: 5.3cm Q3: 1.8cm Q4: 5.1cm Biophysical Profile: 05/03 Breathin Tone: 2 Movement: 2 AFV: 2 CLINICAL SUMMARY Type of Gestation: Hawkins Intrauterine pregnancyin vertex presentation. motion and organs seen: heart motion seen body and limb movements observed tone noted breathing movements observed Placental location: Anterior Placental maturity : Grade 2 There is no evidence of placenta previa. Amniotic fluid volume is normal. Thank you for allowing us to participate in the care of this patient. Beau Farfan M.D. Electronic Signature 2018 08:39am at 0839 Reported and signed by: Beau Farfan MD [facility] NAME: HEIDI ROSE Radiology Department PHYS: Junior Modi MD [address] : 1985 AGE: 33 SEX: F [place], [place] [address] [facility] PHONE #: [phone] EXAM DATE: 08/09/2019 STATUS: REG RCR FAX #: [phone] RAD NO: Page 1 Signed Report (CONTINUED) Patient Name: WALTER ROSE Unit No: [id number] EXAMS: CPT CODE : [id number] US FET BIO PH [place] W/O NST [address] <Continued> CC: Junior Tapia MD Technologist: Ro Le RDMS Probe: Trnscrbd D/ (0839) t.SDR.YOS Orig Print D/T: S: 08/09/2019 (0839) The [facility] NAME: WALTER ROSE Radiology Department PHYS: Junior Modi MD [address] : 1985 AGE: 33 SEX: F [place], [place] [address]RIRY NO: [id number] LOC: EduLDT PHONE #: [phone] EXAM DATE: 08/09/2019 STATUS: REG RCR FAX #: [phone] RAD NO: Page 2 Signed Report Patient Name: WALTER ROSE Unit No: [id number] EXAMS: CPT CODE: [id number] US FET BIO PH [place] W/O NST [address] < Continued> The [facility] NAME: WALTER ROSE Radiology Department PHYS: Junior Modi MD [address] : 1985 AGE: 33 SEX: F [place] [id number] : EduLDT PHONE #: [phone] EXAM DATE: 08/09/2019 STATUS: REG RCR FAX #: [phone] RAD NO: Page 3 Signed ReportAB [id number] 15:51:00 Test Item Value Reference Range Comments AB TREPONEMA (test code=TREPAB) NONREACTIVE NONREACTIVE PLEASE CALL DR.HAIDAR SHARMA W/RESULTS NO NUMBER PROVIDEDAB HIV 1 15 :51:00 Test Item Value Reference Range Comments AB HIV 1 2 (test NONREACTIVE NONREACTIVE Done by Ranberry 4th code=OWW46YJ) Gen HIV Ag/Ab Combo Screen PLEASE CALL DR.HAIDAR SHARMA W/RESULTS NO NUMBER PROVIDEDAB [id number] 15 :39:00 Test Item Value Reference Range Comments AB TREPONEMA (test code=TREPAB) NONREACTIVE NONREACTIVE PLEASE CALL DR.HAIDAR SHARMA W/RESULTS NO NUMBER PROVIDEDAB HIV 1 15 :39:00 Test Item Value Reference Range Comments AB HIV 1 2 (test code=RPD93KH) NONREACTIVE PLEASE CALL DR.HAIDAR SHARMA W/RESULTS NO NUMBER PROVIDEDCBC W/AUTO [id number] 14:37:00 Test Item Value Reference Range Comments WHITE BLOOD CELL (test code=WBC) 8.8 K/mm3 6.6-12.1 RED BLOOD CELL (test code=RBC) 3.79 M/mm3 3.45-5.01 HEMOGLOBIN (test code=HGB) 9.8 g/dL 10.7-13.9 HEMATOCRIT (test code=HCT) 31.8 % 32.1-42.1 MEAN CELL VOLUME (test code=MCV) 84 fL 84.1-94.8 MEAN CELL HGB (test code=MCH) 25.9 pg 27-35 MEAN CELL HGB CONCETRATION (test code=MCHC) 30.8 gm/dL 32.2-34.1 RED CELL DISTRIBUTION WIDTH (test code=RDW) 13.4 % 12.4-16.5 PLATELET COUNT (test code=PLT) 194 K/mm3 133-385 IMMATURE PLATELET FRACTION (test code=IPF) 0.0 % 0.0-10.8 MEAN PLATELET VOLUME (test code=MPV) 10.2 fl 9.1-12.7 NEUTROPHIL % (test code=NT%) 75.2 % 56.5-79.4 LYMPHOCYTE % (test code=LY%) 16.5 % 14.3-34.3 MONOCYTE % (test code=MO%) 6.2 % 5.1-10.4 EOSINOPHIL % (test code=EO%) 0.8 % 0.1-3.0 BASOPHIL % (test code=BA%) 0.3 % 0.1-1.0 NEUTROPHIL # (test code=NT#) 6.6 K/mm3 LYMPHOCYTE # (test code=LY#) 1.5 K/mm3 MONOCYTE # (test code=MO#) 0.6 K/mm3 EOSINOPHIL # (test code=EO#) 0.07 K/mm3 BASOPHIL # (test code=BA#) 0.0 K/mm3 RBC MORPHOLOGY REQUIRED (test code=RBCM) NORMAL NORMAL PLATELET MORPHOLOGY REQUIRED (test code=PLTMR) NORMAL NORMAL PLEASE CALL DR.HAIDAR SHARMA W/RESULTS NO NUMBER PROVIDEDDRUGS OF ABUSE [id number] 18:41:00 Test Item Value Reference Range Comments UR COCAINE (test code=COCAU) NEGATIVE NEGATIVE DETECTION CUT OFF: 150 ng/mL UR CANNABINOIDS (test code=CANU) NEGATIVE NEGATIVE DETECTION CUT OFF: 50 ng/ mL UR AMPHETAMINE (test code=AMPHU) NEGATIVE NEGATIVE DETECTION CUT OFF: 500 ng/mL UR BARBITURATE QUAL (test NEGATIVE NEGATIVE DETECTION CUT OFF: 200 code=BARBQLU) ng/mL UR BENZODIAZEPINE (test NEGATIVE NEGATIVE DETECTION CUT OFF: 150 code=BENZU) ng/mL UR OPIATES QUAL (test NEGATIVE NEGATIVE DETECTION CUT OFF: 100 code=OPIAQLU) ng/mL UR PHENCYCLIDINE (PCP) (test NEGATIVE NEGATIVE DETECTION CUT OFF: 25 ng/mL code=PHENCU) URINALYSIS [id number] 18:10:00 Test Item Value Reference Range Comments UA COLOR (test code=COLU) YELLOW YELLOW UA APPEARANCE (test code=APPU) CLEAR CLEAR UA GLUCOSE DIPSTICK (test code=DGLUU) NEGATIVE NEG UA BILIRUBIN DIPSTICK (test code=BILU) NEGATIVE NEG UA KETONE DIPSTICK (test code=KETU) NEGATIVE NEG UA SPECIFIC GRAVITY (test code=SGU) 1.010 1.001-1.035 UA BLOOD DIPSTICK (test code=VANI) 1+ NEG UA PH DIPSTICK (test code=PIYUSH) 6.0 5-9 UA PROTEIN DIPSTICK (test code=PROU) NEGATIVE NEG UA UROBILINIOGEN DIPSTICK (test code=URO) NEGATIVE mg/dL NEG UA NITRITE DIPSTICK (test code=JUAQUIN) NEG NEG UA LEUKOCYTE ESTERASE DIPSTICK (test NEG NEG code=LEUU) UA WBC (test code=WBCU) 0-2 #/hpf NONE SEEN UA RBC (test code=RBCU) 0-2 #/hpf NONE SEEN UA EPITHELIAL CELLS (test code=EPIU) RARE #/HPF RARE-FEW UA BACTERIA (test code=BACU) RARE /HPF RARE-FEW UA MUCUS (test code=MUCU) RARE NONE SEEN URINE SAMPLE: CLEAN CATCH- US PREG UT [id number] 17:54:00 Patient Name: WALTER ROSE Unit No: [id number] EXAMS: CPT CODE: [id number] US PREG UT TRANSVAGINAL [address] [facility] [address], [place] [address] BIOPHYSICAL PROFILE ULTRASOUND REPORT Pat. Name: WALTER ROSE Pat. No: [id number] Study Date: 08/04/2019 4:30pm , Age: 01 1985, 33 Pregnancies: 4, Para 2 LMP: Unknown GA by 1st: 33w3d GA Selected: 33w3d (From Known E) SANDRA: 09/19/2019 Referring MD: Junior Tapia Manager In Training: Aashish Lovelace RDMS CPT4: USPRUTTRVG Admitting MD: Junior Tapia Hist/Ind: Decreased FM BPP Scan #2 Cervical Length: 4.0 cm Heart Rate:139 bpm Amniotic Fluid Index: 13.8cm (08.2-24.6) Q1: 6.9cm Q2: 4.9cm Q3: 2.0cm Q4: 0.0cm Biophysical Profile: 05/03 Breathin Tone: 2 Movement: 2 AFV: 2 CLINICAL SUMMARY Type of Gestation: Hawkins Intrauterine in vertex presentation. motion and organs seen: somatic activity observed body and limb movements seen Regular cardiac rhythm observed Placental location: Anterior Placental maturity : Grade 2 There is no evidence of placenta previa. Amniotic fluid volume is normal. Uterus and adnexa: No significant abnormality is seen. Thank you for allowing us to participate in the care of this patient. Nita Saleh M.D. --- Electronic Signature 08/04/2019 05:54pm at 1752 Reported and signed by: Lizbet Saleh MD [facility] NAME: WALTER ROSE Radiology Department PHYS: Junior Modi MD [address] : 1985 AGE: 33 SEX: F [place] [address] LOC: Ariel.DENI PHONE #: [phone] EXAM DATE: 08/04/2019 STATUS: DEP ER FAX #: [phone] RAD NO: Page 1 Signed Report(CONTINUED) Patient Name: WALTER ROSE Unit No: [id number] EXAMS: CPT CODE: [id number] US PREG UT TRANSVAGINAL [address] <Continued> CC : Junior Tapia MD Technologist: Aashish Lovelace RDMS Probe: [id number] Trnscrbd D/ (877) tCHRISTOPHE Orig Print D/T: S: 08/07/2019 (1522) [facility] NAME: WALTER ROSE JOSE F Radiology Department PHYS: Junior Modi MD [address] : 1985 AGE: 33 SEX: F [place] [id number] LOC: EduDENI PHONE #: EXAM DATE: 08/04/2019 STATUS: DEP ER FAX #: RAD NO: Page 2 Signed Report Patient Name: WALTER ROSE Unit No: [id number] EXAMS: CPT CODE: [id number] US PREG UT TRANSVAGINAL [address]706 <Continued> [facility] NAME: WALTER ROSE Radiology Department PHYS: Junior Modi MD [address] : 1985 AGE: 33 SEX: F [place] [address] LOC: EduDENI PHONE #: [phone] EXAM DATE: 08/04/2019 STATUS: DEP ER FAX #: [phone] RAD NO: Page 3 Signed Report- US FET BIO PH [place] W/O [id number] 17:54:00 Patient Name: WALTER ROSE Unit No: [id number] EXAMS: CPT CODE: [id number] US FET BIO PH [place] W/O NST [address] [facility] [address] [place] [address] BIOPHYSICAL PROFILE ULTRASOUND REPORT Pat. Name: WALTER ROSE Pat. No: [id number] Study Date: 08/04/2019 4:30pm , Age: 01 1985, 33 Pregnancies: 4, Para 2 LMP: Unknown GA by 1st: 33w3d GA Selected: 33w3d (From Known E) SANDRA: 09/19/2019 Referring MD: Junior Tapia M.D. Manager In Training: Aashish Lovelace RDMS CPT4: [id number] Hist/Ind: Decreased BPP Scan #2 Cervical Length: 4.0 cm Heart Rate: 139 bpm Amniotic Fluid Index: 13.8cm (08.2-24.6) Q1: 6.9cm Q2: 4.9cm Q3: 2.0cm Q4: 0.0cm Biophysical Profile: 8/8Breathin Tone: 2 Movement: 2 AFV: 2 CLINICAL SUMMARY Type of Gestation: Hawkins Intrauterine in vertex presentation. motion and organs seen: somatic activity observed body and limb movements seen Regular cardiac rhythm observed Placental location:Anterior Placental maturity : Grade 2 There is no evidence of placenta previa. Amniotic fluid volume is normal. Uterus and adnexa: No significant abnormality is seen. Thank you forallowing us to participate in the care of this patient. Nita Saleh M.D. Electronic Signature 08/04/2019 05:54pm at 2675 Reported and signed by: Lizbet Saleh MD [facility] NAME: WALTER ROSE Radiology Department PHYS: Jade Levin III, MD [address] : 1985 AGE: 33 SEX: F [place], [place] [address] LOC: EduDENI PHONE #: [phone] EXAM DATE: 08/04/2019 STATUS: REG ER FAX #: [phone] RAD NO: Page 1 Signed Report (CONTINUED) Patient Name: WALTER ROSE Unit No: [id number] EXAMS: CPT CODE: [id number] US FET BIO PH [place] W/O NST 08560 <Continued& gt; CC: Junior Tapia MD; Jade Faustin III, MD Technologist: Aashish Lovelace RDMS Probe: Trnscrbd D/ (7080) t.SDR.CER Orig Print D/T: S: 08/04/2019 (1754) The [facility] NAME: WALTER ROSE Radiology Department PHYS: Jade Levin III, MD [address] : 1985 AGE: 33 SEX: F [place] [address] LOC: EduDENI PHONE #: [phone] EXAM DATE: 08/04/2019 STATUS: REG ER FAX #: [phone] NO: Page 2 Signed Report Patient Name: WALTER ROSE Unit No: [id number] EXAMS: CPT CODE: [id number] FET BIO PH [place] W/O NST [address] <Continued > The [facility] NAME: WALTER ROSE Radiology Department PHYS: Jade Levin III, MD [address] : 1985 AGE: 33 SEX: F [place] [address] LOC: EduDENI PHONE #: [phone] EXAM DATE: 08/04 STATUS: REG ER FAX #: [phone] RAD NO: Page 3 Signed Report- DUP VEIN [id number] 23:45:00 Patient Name: WALTER ROSE Unit No: [id number] EXAMS : CPT CODE: [id number] DUP VEIN [place] [address] PROCEDURE: BILATERAL LOWER EXTREMITY VENOUS ULTRASOUND DATED 07/24/2019. INDICATION: Bilateral lower extremity swelling. COMPARISON: None. TECHNIQUE: Sonographic evaluation of the bilateral lower extremity veins was performed using high resolution B-mode, pulse and color Doppler imaging. FINDINGS: RIGHT: The common femoral , femoral, popliteal and visualized calf veins appear patent with normal compressibility, augmentation and color flow. Normal venous waveforms. The saphenofemoral junction is unremarkable. LEFT: The common femoral, femoral , popliteal and visualized calf veins appear patent with normal compressibility , augmentation and color flow.Normal venous waveforms. The saphenofemoral junction is unremarkable. IMPRESSION: 1. No sonographic evidence of acute lower extremity deep venous thrombosis. SL:131 at 2345 Reported and signed by: Brody Luo MD CC: Junior Tapia MD; Santiago Austin MD Technologist: Ania Verde RDMS, RVT Probe: Trnscrbd D/ (3038) MargaDMM Orig Print D/T: S: 07/24/2019 (1547) [facility] NAME: WALTER ROSE Radiology Department PHYS: Santiago Henriquez MD [address] : 1985 AGE: 33 SEX: F [place] [address] LOC: EduERS PHONE #: EXAM DATE: 07/24/2019 STATUS: DEP ER FAX #: [phone] RAD NO: Page 1 Signed Report Patient Name: WALTER ROSE Unit No: [id number] EXAMS: CPTCODE : [id number] DUP VEIN [place] [address] <Continued> The [facility] NAME: WALTER ROSE Radiology Department PHYS: Santiago Pastrana MD [address] : 1985 AGE: 33 SEX: F [place] [address] LOC: EduERS PHONE #: [phone] EXAM DATE: 07/24/2019 STATUS: DEP ER FAX #: [phone] RAD NO: Page 2 Signed ReportUA RFLX MICR CULT IF [id number] 21:32:00 Test Item Value Reference Range Comments UA COLOR (test code=COLU) YELLOW YELLOW UA APPEARANCE (test code=APPU) CLEAR CLEAR UA GLUCOSE DIPSTICK (test code=DGLUU) NEGATIVE NEGATIVE UA BILIRUBIN DIPSTICK (test code=BILU) NEGATIVE NEGATIVE UA KETONE DIPSTICK (test code=KETU) NEGATIVE NEGATIVE UA SPECIFIC GRAVITY (test code=SGU) <=1.005 1.001-1.035 UA BLOOD DIPSTICK (test code=VANI) TRACE NEGATIVE UA PH DIPSTICK (test code=PIYUSH) 6.5 5-9 UA PROTEIN DIPSTICK (test code=PROU) NEGATIVE NEGATIVE UA UROBILINIOGEN DIPSTICK (test code=URO) 0.2 EU/dL <=1.0 UA NITRITE DIPSTICK (test code=JUAQUIN) NEGATIVE NEGATIVE UA LEUKOCYTE ESTERASE DIPSTICK (test code=LEUU) NEG NEGATIVE UA WBC (test code=WBCU) 0-2 #/hpf NONE SEEN UA RBC (test code=RBCU) 0-2 #/hpf NONE SEEN UA EPITHELIAL CELLS (test code=EPIU) FEW #/hpf NONE SEEN UA BACTERIA (test code=BACU) RARE #/hpf NONE SEEN UA MUCUS (test code=MUCU) 1+ NONE SEEN Indication for culture: Flank PainPROTHROMBIN [id number] 21:00:00 Test Item Value Reference Range Comments PROTHROMBIN TIME PATIENT (test code=PTP) 10.2 secs 10.4-12.4 THROMBOPLASTIN TIME [id number] 21:00:00 Test Item Value Reference Range Comments THROMBOPLASTIN TIME PARTIAL (test code=PTT) 28.0 secs 22-38 [id number] 21:00:00 Test Item Value Reference Range Comments FIBRINOGEN (test code=FIB) 565 mg/dL 309-518 D-DIMER [id number] 21:00:00 Test Item Value Reference Range Comments D-DIMER QUANT (test 336 ng/mLDDU <255 code=DDIMER) Reference Range in : <570 ng/ml A positive test does not provide a definitive diagnosis ofDVT and indicates the need for follow up clinical studies. The predictive value of a negative test is 98% for rulingout DVT. COMPREHENSIVE METABOLIC [id number] 20:38:00 Test Item Value Reference Range Comments SODIUM (test code=NA) 137 mEq/L 135-145 POTASSIUM (test code=K) 4.3 mEq/L 3.5-5.0 CHLORIDE (test code=CL) 105 mEq/L 100-115 CARBON DIOXIDE (test code=CO2) 25 mEq/L 22-31 ANION GAP (test code=GAP) 11.50 10-20 GLUCOSE (test code=GLU) 83 mg/dL 65-110 BLOOD UREA NITROGEN (test code=BUN) 10 mg/dL 7-18 GLOMERULAR FILTRATION RATE (test code=GFR) 144 ml/min >60 CREATININE (test code=CREAT) 0.5 mg/dL 0.5-1.0 TOTAL PROTEIN (test code=PROT) 6.4 gm/dL 6.3-8.2 ALBUMIN (test code=ALB) 2.2 gm/dL 3.4-4.8 CALCIUM (test code=CA) 8.4 mg/dL 8.4-10.2 BILIRUBIN TOTAL (test code=BILT) 0.2 mg/dL 0.2-1.0 SGOT/AST (test code=AST) 16 units/L 15-37 SGPT/ALT (test code=ALT) 35 units/L 12-78 ALKALINE PHOSPHATASE TOTAL (test code=ALKP) 78 units/L 46-116 CBC W/AUTO [id number] 20:23:00 Test Item Value Reference Range Comments WHITE BLOOD CELL (test code=WBC) 9.7 K/mm3 6.6-12.1 RED BLOOD CELL (test code=RBC) 3.71 M/mm3 3.45-5.01 HEMOGLOBIN (test code=HGB) 9.8 g/dL 10.7-13.9 HEMATOCRIT (test code=HCT) 31.2 % 32.1-42.1 MEAN CELL VOLUME (test code=MCV) 84 fL 84.1-94.8 MEAN CELL HGB (test code=MCH) 26.4 pg 27-35 MEAN CELL HGB CONCETRATION (test code=MCHC) 31.4 gm/dL 32.2-34.1 RED CELL DISTRIBUTION WIDTH (test code=RDW) 13.2 % 12.4-16.5 PLATELET COUNT (test code=PLT) 187 K/mm3 133-385 IMMATURE PLATELET FRACTION (test code=IPF) 0.0 % 0.0-10.8 MEAN PLATELET VOLUME (test code=MPV) 10.2 fl 9.1-12.7 NEUTROPHIL % (test code=NT%) 69.2 % 56.5-79.4 LYMPHOCYTE % (test code=LY%) 21.0 % 14.3-34.3 MONOCYTE % (test code=MO%) 7.4 % 5.1-10.4 EOSINOPHIL % (test code=EO%) 1.0 % 0.1-3.0 BASOPHIL % (test code=BA%) 0.3 % 0.1-1.0 NEUTROPHIL # (test code=NT#) 6.7 K/mm3 LYMPHOCYTE # (test code=LY#) 2.0 K/mm3 MONOCYTE # (test code=MO#) 0.7 K/mm3 EOSINOPHIL # (test code=EO#) 0.10 K/mm3 BASOPHIL # (test code=BA#) 0.0 K/mm3 RBC MORPHOLOGY REQUIRED (test code=RBCM) NORMAL NORMAL PLATELET MORPHOLOGY REQUIRED (test code=PLTMR) NORMAL NORMAL CANNABINOIDS CONFIRMATION [id number] 12:33:00 Test Item Value Reference Range Comments DRUG CONFIRMATION BY GC/MS (test POSITIVE NEGATIVE Drug(s) Identified: code=DRUGCON) carboxy-thc amount 94 ng/mL GC/MS Cutoff: 0. - US PREG UT [id number] 13:17:00 Patient Name: WALTER ROSE Unit No: [id number] EXAMS: CPT CODE: [id number] US PREG UT TRANSVAGINAL [address] [facility] [address], [place] [address] LIMITED OBSTETRICAL ULTRASOUND REPORT --- Pat. Name: WALTER ROSE Pat. No: [id number] Study Date: 05/21 12:12pm , Age: 01 1985, 33 Pregnancies: 4, Para 2 LMP: Unknown GA Selected: 22w5d (From Known E) SANDRA: 09/19/2019 Referring MD: Jade Faustin Manager In Training: Paramjit Kohli RDMS, RVT CPT4: USPRUTTRVG Admitting MD: Jade Faustin Hist/Ind: SCAN 1 22.5 WEEKS VAGINAL PAIN/LESTER CERVICAL LENGTH ----- Cervical Length: 4.3 cm Heart Rate: 142 bpm Amniotic Fluid Index: 10.9cm (09.8- 21.7) Q1: 1.6cm Q2: 3.8cm Q3: 2.8cm Q4: 2.7cm CLINICAL SUMMARY Type of Gestation: Hawkins Intrauterine in vertex presentation. motion and organs seen: heart motion seen Placental location: Anterior Placental maturity : Grade 1 There is no evidence of placenta previa. Amniotic fluid volume is normal. Uterus and adnexa: No significant abnormality is seen. Katerina Escobar M.D. ----- Electronic Signature 05/21/2019 01:17pm at 1317 Reported and signed by: Katerina Escobar MD CC: Jade Faustin III, MD Technologist: Paramjit Kohli RDMS, RVT Probe: [id number] Trnscrbd D/ (1317) MargaNMG Orig Print D/T: S: 05/22/2019 (1506) The [facility] NAME : ROSEWALTER Radiology Department PHYS: Jade Levin III, MD [address] : 1985 AGE: 33 SEX: [place], [place] [address] LOC: EduDENI PHONE #: [phone] EXAM DATE: 05/21/2019 STATUS: DEP ER FAX #: [phone] RAD NO: Page 1Signed Report Patient Name: WALTER ROSE Unit No: [id number] EXAMS: CPT CODE: [id number] [facility] TRANSVAGINAL [address] <Continued> The [facility] NAME: WALTER ROSE Radiology Department PHYS: Jade Levin III, MD [address] : 1985 AGE: 33 SEX: [place], [place] [address] LOC: EduDENI PHONE #: [phone] EXAM DATE: 05/21/2019 STATUS: DEP ER FAX #: [phone] RAD NO: Page 2 Signed Report- US [id number] 13:17:00 Patient Name: WALTER ROSE Unit No: [id number] EXAMS: CPT CODE: [id number] [place] L[place] [address] [facility] [address] [place], [place] [address] LIMITED OBSTETRICAL ULTRASOUND REPORT Pat. Name: WALTER ROSE Pat. No: [id number] Study Date: 05/21/2019 12:12pm , Age: 01 1985, 33 Pregnancies: 4, Para 2 LMP: Unknown GA Selected: 22w5d (From Known E) SANDRA: 09/19/2019 Referring MD: JADE FAUSTIN Manager In Training: Paramjit Kohli RDMS, T CPT4: USPREGLTD Admitting MD : JADE FAUSTIN Hist/Ind: SCAN 1 22.5 WEEKS VAGINAL PAIN/LESTER CERVICAL LENGTH Cervical Length: 4.3 cm Heart Rate: 142 bpm Amniotic Fluid Index: 10.9cm (09.8-21.7) Q1: 1.6cm Q2: 3.8cm Q3: 2.8cm Q4: 2.7cm CLINICAL SUMMARY Type of Gestation: Hawkins Intrauterine in vertex presentation. motion and organs seen: heart motion seen Placental location: Anterior Placental maturity : Grade 1 There is no evidence of placenta previa. Amniotic fluid volume is normal. Uterus and adnexa: No significant abnormality is seen. Katerina Escobar M.D. Electronic Signature 05/21/2019 01:17pm at 1317 Reported and signed by: Katerina Escobar MD CC: Jade Faustin III, MD Technologist: Paramjit Kohli RDMS, RVT Probe: Trnscrbd D/ (0217) t.SDR.NMG Orig Print D/T: S: 05/21/2019 ( 9200) The [facility] NAME: WALTER ROSE Radiology Department PHYS: Jade Levin III, MD [address] : 1985 AGE: 33 SEX: [place] [address] LOC: EduDENI PHONE #: EXAM DATE: 05/21/2019STATUS: REG ER FAX #: [phone] RAD NO: Page 1 Signed Report Patient Name: WALTER ROSE Unit No : [id number] EXAMS: CPT CODE: [id number] LTD [address] <Continued> The [facility] NAME: WALTER ROSE Radiology Department PHYS: Jade Levin III, MD [address] : 1985 AGE: 33 SEX: [place] [address] LOC: EduDENI PHONE #: [phone] EXAM DATE: 05/21/2019 STATUS: REG ER FAX#: [phone] RAD NO: Page 2 Signed ReportDRUGS OF ABUSE [id number] 12:31:00 Test Item Value Reference Range Comments UR COCAINE (test code=COCAU) NEGATIVE NEGATIVE DETECTION CUT OFF: 150 ng/mL UR CANNABINOIDS (test code=CANU) POSITIVE NEGATIVE RESULTS CALLED TO JESÚS.READ BACK & CONFIRMED? [facility] [place]. DETECTION CUT OFF: 50 ng/mL UR AMPHETAMINE (test code=AMPHU) NEGATIVE NEGATIVE DETECTION CUT OFF: 500 ng/mL UR BARBITURATE QUAL (test NEGATIVE NEGATIVE DETECTION CUT OFF: 200 code=BARBQLU) ng/mL UR BENZODIAZEPINE (test NEGATIVE NEGATIVE DETECTION CUT OFF: 150 code=BENZU) ng/mL UR OPIATES QUAL (test NEGATIVE NEGATIVE DETECTION CUT OFF: 100 code=OPIAQLU) ng/mL UR PHENCYCLIDINE (PCP) (test NEGATIVE NEGATIVE DETECTION CUT OFF: 25 ng/mL code=PHENCU) URINALYSIS [id number] 12:17:00 Test Item Value Reference Range Comments UA COLOR (test code=COLU) YELLOW YELLOW UA APPEARANCE (test code=APPU) CLEAR CLEAR UA GLUCOSE DIPSTICK (test code=DGLUU) NEGATIVE NEG UA BILIRUBIN DIPSTICK (test code=BILU) NEGATIVE NEG UA KETONE DIPSTICK (test code=KETU) NEGATIVE NEG UA SPECIFIC GRAVITY (test code=SGU) 1.017 1.001-1.035 UA BLOOD DIPSTICK (test code=VANI) 1+ NEG UA PH DIPSTICK (test code=PIYUSH) 6.0 5-9 UA PROTEIN DIPSTICK (test code=PROU) NEGATIVE NEG UA UROBILINIOGEN DIPSTICK (test code=URO) NEGATIVE mg/dL NEG UA NITRITE DIPSTICK (test code=JUAQUIN) NEG NEG UA LEUKOCYTE ESTERASE DIPSTICK (test NEG NEG code=LEUU) UA WBC (test code=WBCU) 0-2 #/hpf NONE SEEN UA RBC (test code=RBCU) 0-2 #/hpf NONE SEEN UA EPITHELIAL CELLS (test code=EPIU) RARE #/HPF RARE-FEW UA BACTERIA (test code=BACU) FEW /HPF RARE-FEW UA MUCUS (test code=MUCU) 1+ NONE SEEN URINE SAMPLE: CLEAN CATCH
[2019-09-05] MEDS ORDERED: KETOROLAC 30 MG/ML INJ ONE (20:32)
[2019-09-05] MEDS ORDERED: ACETAMINOPHEN 500 MG TAB ONE (20:32)
[2019-09-05 20:50] LABS: Absolute Lymphocytes (CBC) 2.1 K/uL (0.7-4.9); Basophils % 0.3 % (0-1.3); Hematocrit 28.3 % (36.0-45.0); MPV 7.3 fL (7.6-11.3); RBC Red Blood Cell Count 3.69 M/uL (3.86-4.86)
[2019-09-05 21:01] LABS: ALT/SGPT 22 U/L (12-78); AST/SGOT 10 U/L (15-37); Albumin 2.8 g/dL (3.4-5.0); Alkaline Phosphatase 99 U/L (45-117); BUN Blood Urea Nitrogen 19 mg/dL (7-18); Bicarbonate 25 mmol/L (21-32); Bilirubin Direct < 0.1 mg/dL (0-0.2); Bilirubin Total 0.3 mg/dL (0.2-1.0); Glucose Level 85 mg/dL (74-106); Protein, Total 7.5 g/dL (6.4-8.2); Sodium Level 143 mmol/L (136-145)
[2019-09-05 21:56] LABS: Urine Bacteria 20-50 /HPF (<20); Urine Culture Reflex Order REFLEXED; Urine Mucus 2+ /HPF (NONE SEEN)
[2019-09-05] MEDS ORDERED: NA CHLORIDE 0.9% 1,000 ML ONE (21:56)
[2019-09-05] MEDS ORDERED: CEFTRIAXONE/SWI 1gm 1 GM/10 ML SYR ONE (22:55)
--- NOTE | 2019-09-05 22:58 | EDPHYS ---
Physician Documentation [facility] Name: Sophie Thakkar Age: 33 yrs Sex: Female : 1985 Arrival Date: 09/05/2019 Time: 19:44 Bed 14 Private MD: ED Physician Bryson Finn HPI: 09/05 21:44 This 33 yrs old Female presents to ER via Wheelchair with complaints of C wa SECTION PROBLEM. 21:44 The patient presents with abdominal pain right lower quadrant. Onset: The wa symptoms/episode began/occurred 2 day(s) ago. The symptoms do not radiate. Associated signs and symptoms: none. The symptoms are described as achy. Modifying factors: The symptoms are alleviated by nothing, the symptoms are aggravated by movement, pressure. Severity of pain: At its worst the pain was moderate in the emergency department the pain is unchanged. The patient has not experienced similar symptoms in the past. The patient has not recently seen a physician. s/p 2 weeks ago. states out of pain meds. area pain worse, especially to the right side. denies fever, dysuria or vomiting. Historical: - Allergies: 20:04 Latex, Natural Rubber; for long periods of time; ak1 - Home Meds: 20:04 Vitamin Oral [Active]; ak1 - PMHx: 20:04 "years ago I was diabetic but I lost weight"; ak1 - PSHx: 20:04 ; lap band; Cholecystectomy; gastric sleeve; ak1 - Immunization history:: Adult Immunizations unknown. - Social history:: Smoking status: Patient/guardian denies using tobacco. - Ebola Screening: : No symptoms or risks identified at this time. - Family history:: not pertinent. - Hospitalizations: : No recent hospitalization is reported. ROS: 21:47 Constitutional: Negative for fever, chills, and weight loss, Eyes: Negative for injury, wa pain, redness, and discharge, ENT: Negative for injury, pain, and discharge, Neck: Negative for injury, pain, and swelling, Cardiovascular: Negative for chest pain, palpitations, and edema, Respiratory: Negative for shortness of breath, cough, wheezing, and pleuritic chest pain, Back: Negative for injury and pain, MS/Extremity: Negative for injury and deformity, Skin: Negative for injury, rash, and discoloration, Neuro: Negative for headache, weakness, numbness, tingling, and seizure. 21:47 Abdomen/GI: Positive for abdominal pain, of the right lower quadrant and left lower quadrant. 21:47 All other systems are negative. 21:47 : Positive for vaginal bleeding. wa Exam: 21:48 Constitutional: This is a well developed, well nourished patient who is awake, alert, wa and in no acute distress. Head/Face: Normocephalic, atraumatic. Eyes: Pupils equal round and reactive to light, extra-ocular motions intact. Lids and lashes normal. Conjunctiva and sclera are non-icteric and not injected. Cornea within normal limits. Periorbital areas with no swelling, redness, or edema. ENT: Nares patent. No nasal discharge, no septal abnormalities noted. Tympanic membranes are normal and external auditory canals are clear. Oropharynx with no redness, swelling, or masses, exudates, or evidence of obstruction, uvula midline. Mucous membranes moist. Neck: Trachea midline, no thyromegaly or masses palpated, and no cervical lymphadenopathy. Supple, full range of motion without nuchal rigidity, or vertebral point tenderness. No Meningismus. Chest/axilla: Normal chest wall appearance and motion. Nontender with no deformity. No lesions are appreciated. Cardiovascular: Regular rate and rhythm with a normal S1 and S2. No gallops, murmurs, or rubs. Normal PMI, no JVD. No pulse deficits. Respiratory: Lungs have equal breath sounds bilaterally, clear to auscultation and percussion. No rales, rhonchi or wheezes noted. No increased work of breathing, no retractions or nasal flaring. Back: No spinal tenderness. No costovertebral tenderness. Full range of motion. Skin: Warm, dry with normal turgor. Normal color with no rashes, no lesions, and no evidence of cellulitis. MS/ Extremity: Pulses equal, no cyanosis. Neurovascular intact. Full, normal range of motion. Neuro: Awake and alert, GCS 15, oriented to person, place, time, and situation. Cranial nerves II-XII grossly intact. Motor strength 5/5 in all extremities. Sensory grossly intact. Cerebellar exam normal. Normal gait. 21:48 Abdomen/GI: Inspection: scar(s), are noted in the scar in the suprapubic area, well-healing. no redness. no exudate. no dehisence . Vital Signs: 19:59 BP 122 / 71; Pulse 66; Resp 16; Temp 98.7; Pulse Ox 99% on R/A; Weight 117.93 kg (R); ak1 Height 5 ft. 2 in. (157.48 cm) (R); Pain 6/10; 20:30 BP 101 / 52; Pulse 63; Resp 19; Temp 98(O); Pulse Ox 99% ; Pain 4/10; fu 21:49 BP 96 / 48; Pulse 55; Pulse Ox 100% on R/A; Pain 5/10; fu 22:30 BP 125 / 60; Pulse 50; Resp 18; Pulse Ox 97% on R/A; Pain 4/10; fu 19:59 Body Mass Index 47.55 (117.93 kg, 157.48 cm) ak1 MDM: 20:01 Patient medically screened. mo 21:50 Differential diagnosis: urinary tract infection, s/p . will r/o abscess with mo CT scan. check labs. pain control. reassess. Data reviewed: vital signs, nurses notes. 22:51 Test interpretation: by ED physician or midlevel provider: labs noted for anemia at wa 9.1/28.3. UA noted for UTI. CT ad/pelvis: no abscess. noted hematomas in surgical cut areas. R lower pole of kidney mass. increase colonic stool burden. Response to treatment: the patient's symptoms have markedly improved after treatment. ED course: significant improvement in pt;s pain with toradol. discussed findings. states has began moving her bowels well so do not need stool softener. Abx given. will d/c with pain meds and abx. will have f/u with urology for R renal pole mass. 09/05 20:13 Order name: Basic Metabolic Panel; Complete Time: 21:52 mo 09/05 20:13 Order name: CBC with Diff; Complete Time: 21:52 mo 09/05 20:13 Order name: Hepatic Function; Complete Time: 21:53 09/05 20:13 Order name: Urine Microscopic Only; Complete Time: 22:46 mo 09/05 20:15 Order name: CT Abd/Pelvis - IV Contrast Only 09/05 21:57 Order name: Urine Culture [facility] 09/05 20:13 Order name: IV Saline Lock; Complete Time: 20:33 mo 09/05 20:13 Order name: Labs collected and sent; Complete Time: 20:33 mo Administered Medications: 20:45 Drug: TORadol 30 mg Route: IVP; Site: right antecubital; fu 21:08 Follow up: Response: Pain is decreased fu 20:45 Drug: Tylenol 1000 mg Route: PO; fu 21:08 Follow up: Response: Pain is decreased fu 21:56 Drug: NS 0.9% 1000 ml Route: IV; Rate: 1 bolus; Site: right antecubital; fu 22:58 Drug: Rocephin - (cefTRIAXone) 1 grams Route: IVPB; Infused Over: 30 mins; Site: right fu antecubital; Disposition: 09/05/19 22:57 Discharged to Home. Impression: Abdominal and pelvic pain, urinary tract infection, right renal mass. - Condition is Stable. - Discharge Instructions: Urinary Tract Infection, Adult, Uhql-jw-Skke. - Prescriptions for Keflex 500 mg Oral Capsule - take 1 capsule by ORAL route every 8 hours for 5 days; 15 capsule. Ibuprofen 600 mg Oral Tablet - take 1 tablet by ORAL route every 6 hours As needed take with food; 30 tablet. - Medication Reconciliation Form, Thank You Letter, Antibiotic Education, Prescription Opioid Use form. - Follow up: Jacinda Morgan MD; When: 1 week; Reason: for evaluation of a mass on your right kidney. - Problem is new. - Symptoms have improved. - Notes: take antibiotics for UTI. take the ibuprofen written for you with 2 extra-strength tylenol as needed 3 times a day for pain. see your doctor for reevaluation of your wound within 2 days. follow up with the urologist Dr. Morgan by calling for appointment. you have a mass on your right kidney that needs to be assessed to make sure it is not cancer Signatures: Dispatcher [employer] [facility] Deann Padilla RN RN ak1 Bryson Finn MD MD mo Attila Hinds RN RN fu Corrections: (The following items were deleted from the chart) 23:28 22:57 09/05/2019 22:57 Discharged to Home. Impression: Abdominal and pelvic pain; fu urinary tract infection; right renal mass. Condition is Stable. Forms are Medication Reconciliation Form, Thank You Letter, Antibiotic Education, Prescription Opioid Use. Follow up: Jacinda Morgan; When: 1 week; Reason: for evaluation of a mass on your right kidney. Problem is new. Symptoms have improved. wa
--- NOTE | 2019-09-05 22:58 | ER ---
Nurse's Notes [facility] Name: Sophie Thakkar Age: 33 yrs Sex: Female : 1985 Arrival Date: 09/05/2019 Time: 19:44 Bed 14 Private MD: Diagnosis: Abdominal and pelvic pain;urinary tract infection;right renal mass Presentation: 09/05 20:00 Presenting complaint: Patient states: right lower quadrant pain 14 days post ak1 at [facility]. pt c/o vaginal bleeding. pt stated she is out of pain medication and she has been unable to reach her [employer]. Transition of care: patient was not received from another setting of care. Onset of symptoms is unknown. Risk Assessment: Do you want to hurt yourself or someone else? Patient reports no desire to harm self or others. Initial Sepsis Screen: Does the patient meet any 2 criteria? No. Patient's initial sepsis screen is negative. Does the patient have a suspected source of infection? No. Patient's initial sepsis screen is negative. Care prior to arrival: None. 20:00 Method Of Arrival: Wheelchair ak1 20:00 Acuity: JERONIMO 3 ak1 Triage Assessment: 20:04 General: Appears in no apparent distress. ak1 Historical: - Allergies: 20:04 Latex, Natural Rubber; for long periods of time; ak1 - Home Meds: 20:04 Vitamin Oral [Active]; ak1 - PMHx: 20:04 "years ago I was diabetic but I lost weight"; ak1 - PSHx: 20:04 ; lap band; Cholecystectomy; gastric sleeve; ak1 - Immunization history:: Adult Immunizations unknown. - Social history:: Smoking status: Patient/guardian denies using tobacco. - Ebola Screening: : No symptoms or risks identified at this time. - Family history:: not pertinent. - Hospitalizations: : No recent hospitalization is reported. Screenin:01 Abuse screen: Denies threats or abuse. Nutritional screening: No deficits noted. fu Tuberculosis screening: No symptoms or risk factors identified. Fall Risk None identified. Assessment: 20:14 General: Appears in no apparent distress. Behavior is calm, cooperative, appropriate fu for age, Reports feeling ill for 8 days ago.. Denies fever, chills. General: Reports. Pain: Complains of pain in lower abdominal pain Pain does not radiate. Pain currently is 10 out of 10 on a pain scale. Quality of pain is described as burning, Pain began Tuesday last week. Is intermittent, Alleviated by repositioning. Pain:. Neuro: Level of Consciousness is awake, alert, obeys commands, Oriented to person, place, time, situation. Cardiovascular: Denies nausea, vomiting. Respiratory: Airway is patent Breath sounds are clear bilaterally. GI: Patient currently denies nausea, vomiting. : Reports vaginal bleeding that is bright red, moderate flow. Derm: Reports post c- section in [facility] last Aug 22, 2019. incision site is healing pinkish in color, no drainage noted. Musculoskeletal: No signs and/or symptoms reported regarding the musculoskeletal system. 20:45 Reassessment: Patient appears in no apparent distress at this time. Patient and/or fu family updated on plan of care and expected duration. Pain level reassessed. Patient is alert, oriented x 3, equal unlabored respirations, skin warm/dry/pink. patient stated pain is less when lying still.. 21:55 Reassessment: Patient appears in no apparent distress at this time. Patient and/or fu family updated on plan of care and expected duration. Pain level reassessed. Patient is alert, oriented x 3, equal unlabored respirations, skin warm/dry/pink. Patient states feeling better. Patient states symptoms have improved. Vital Signs: 19:59 BP 122 / 71; Pulse 66; Resp 16; Temp 98.7; Pulse Ox 99% on R/A; Weight 117.93 kg (R); ak1 Height 5 ft. 2 in. (157.48 cm) (R); Pain 6/10; 20:30 BP 101 / 52; Pulse 63; Resp 19; Temp 98(O); Pulse Ox 99% ; Pain 4/10; fu 21:49 BP 96 / 48; Pulse 55; Pulse Ox 100% on R/A; Pain 5/10; fu 22:30 BP 125 / 60; Pulse 50; Resp 18; Pulse Ox 97% on R/A; Pain 4/10; fu 19:59 Body Mass Index 47.55 (117.93 kg, 157.48 cm) ak1 ED Course: 19:44 Patient arrived in ED. ag3 19:59 Arm band placed on Patient notified of wait time. ak1 20:01 Aakash, Bryson, MD is Attending Physician. wa 20:02 Triage completed. ak1 20:12 Attila Hinds, RN is Primary Nurse. fu 20:20 Inserted saline lock: 20 gauge in right antecubital area, using aseptic technique. ds4 Blood collected. 20:29 Radiology exam delayed due to lab results not completed at this time. (BUN/Creatinine) nj IV insertion attempt and/or patient not having appropriate IV at this time. 20:33 Basic Metabolic Panel Sent. ds4 20:33 CBC with Diff Sent. ds4 20:33 Hepatic Function Sent. ds4 21:35 Urine Microscopic Only Sent. fu 21:41 CT Abd/Pelvis - IV Contrast Only In Process Unspecified. EDMS 22:02 Patient has correct armband on for positive identification. Bed in low position. Call fu light in reach. Side rails up X2. 22:55 Jacinda Morgan MD is Referral Physician. wa 23:25 No provider procedures requiring assistance completed. IV discontinued, bleeding fu controlled, Pressure dressing applied. Administered Medications: 20:45 Drug: TORadol 30 mg Route: IVP; Site: right antecubital; fu 21:08 Follow up: Response: Pain is decreased fu 20:45 Drug: Tylenol 1000 mg Route: PO; fu 21:08 Follow up: Response: Pain is decreased fu 21:56 Drug: NS 0.9% 1000 ml Route: IV; Rate: 1 bolus; Site: right antecubital; fu 22:58 Drug: Rocephin - (cefTRIAXone) 1 grams Route: IVPB; Infused Over: 30 mins; Site: right fu antecubital; Outcome: 22:57 Discharge ordered by . wa 23:25 Discharged to home via wheelchair, with family. fu 23:25 Condition: good 23:25 Discharge instructions given to patient, Instructed on discharge instructions, follow up and referral plans. Demonstrated understanding of instructions, follow-up care, medications, Prescriptions given X 2. 23:28 Patient left the ED. fu Signatures: Dispatcher [employer] EDMS Torito Brock ds4 Deann Padilla, RN RN Avelino Molina William, MD MD wi Attila Hinds, JOSELIN OLIVERA Jocelyne Roldan [facility]
[2019-09-06 08:11] VITALS: TEMP 98
[2019-09-06 08:14] VITALS: BP 125/60; O2SAT 97
--- NOTE | 2019-09-06 10:30 | RAD REPORT ---
EXAM DESCRIPTION: Abdomen Pelvis W Contrast CLINICAL HISTORY: Lower abdominal pain. Recent section 2 weeks ago. TECHNIQUE: CT scan of the abdomen and pelvis was performed with intravenous contrast. 5 mm axial arterial phase images of the abdomen were obtained along with coronal and sagittal reforma tted images. 5 mm venous phase axial images of the abdomen and pelvis were obtained along with coronal and sagitta l reformatted images. DOSE OPTIMIZATION: This facility uses dose optimization techniques as appropriate to perform exams, including at least one of the following techniques: 1. Automated exposure control. 2. Adjustment of the mA and/or kV according to patient size (this includes techniques or standardized protocols for targeted exams where dose is matched to the indication/reason for exam, i.e. extremiti es or head). 3. Use of iterative reconstructive technique. INTRAVENOUS CONTRAST: Not documented. Please refer to medical record. COMPARISON: None. FINDINGS: Lung Bases: Normal. 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 Spleen: Normal. Pancreas: Normal. Gallbladder: Surgically absent. Adrenal Glands: Normal. Kidneys: There is an exophytic solid-appearing mass arising from the lower pole of the right kidney measuring 2.4 x 2.0 x 1.8 cm. This demonstrates a density of 69 Hounsfield units arterial phase image and a density of 59 Hounsfiel d units on the venous phase images. Malignancy should be considered. Nonemergent urological consultation recommended. A dedicated CT urog chasidy may be of benefit. Retroperitoneal Structures: Normal. Bowel Survey: There is evidence of previous gastric sleeve procedure. There is increased stool within the ascending and transverse colon. The distal ileum is unremarkable. The appendix is unremarkable. Uterus and Adnexa: There is evidence of recent section. Urinary Bladder: Normal. Peritoneal Cavity: Normal. Mesenteric Structures: Normal. Abdominal Wall: There is evidence of intramuscular hematomas involving the inferior aspect of the rectus abdominis mu scles bilaterally at the level of section. On the right the intramuscular hematoma measures 3.2 x 4.8 x 4.4 cm in maximal AP, transverse, longit udinal dimensions. On the left the intramuscular hematoma measures 3.2 x 6.0 x 4.9 cm in maximal AP, transverse, longitu dinal dimensions respectively. There is a small loculated fluid collection within the subcutaneous fat of the level of sect ion on the right measuring 1.7 x 6.0 x 3.1 cm. This likely represents a soft tissue hematoma. Bony Structures: No suspicious lesions. There is severe bilateral facet arthropathy at L5-S1. IMPRESSION: 1. Intramuscular hematomas are identified within the rectus abdominis muscles at the lev el of section. 2. Small soft tissue hematoma on the right at the level of recent section. 3. Increased stool within the ascending and transverse colon. 4. Solid-appearing right renal mass. Malignancy should be considered. Nonemergent Urological consulta tion recommended. Electronically signed by: Jered Leija MD 09/05/2019 10:21 PM HI TEACHER Due to temporary technical issues with the PACS/Fluency reporting system, reports are being signed by the in house radiologist as a courtesy to ensure prompt reporting. The interpreting radiologist is f ully responsible for the content of the report.
== END 2019-09-05 23:28 | disposition home or self-care (01) ==
LOC: ER 19:41
DX: O86.20 Urinary tract infection following delivery, unspecified (principal); N28.89 Other specified disorders of kidney and ureter; Z91.040 Latex allergy status; Z91.048 Other nonmedicinal substance allergy status
CPT/HCPCS: 87088; 85025; 87086; 80048; 36415; 80076; 81015; 74177; 96375; 96374; 99284; Q9967; J0696; J7030

== ENCOUNTER 2020-10-21 06:07 | Emergency (ER) | payer OTHER, SELFPAY ==
--- OUTSIDE RECORDS SUMMARY | 2020-10-21 06:10 | XMS REPORT | Continuity of Care Document ---
:1985 Author Organization [facility] t Address [address] [place] [address] Care Team Providers Name Role Phone Dax Silverman MD Attending Clinician Ultrasound, Mfm Attending Clinician Unavailable Doctor Unassigned, Name Attending Clinician Unavailable Cipriano Melchor MD Attending Clinician Payers Payer Name Policy Type Policy Number Effective Date Expiration Date S ource Problems This patient has no known problems. Allergies, Adverse Reactions, Alerts Allergy Allergy Status Severity Reaction(s) Onset Inactive Treating Comm ents Source Name Type Date Date Clinician latex DA Active [place] 2018-09 [facility] [place] No Known DA Active U 2018-09 [facility] Allergie 0-03 [facility] [place] latex DA Active HI 2018-09 [facility] 0[facility] [place] Medications This patient has no known medications. Procedures This patient has no known procedures. Encounters Start End Encounter Admission Attending Care Care Encounter Source Date/Time Date/Time Type Type Clinicians Facility Department ID 2019-05-08 2019-05-08 Routine Veronica Silverman [id number] 15:17:40 16:08:51 Dax Davis 350.1.13.10 Visit Martinez 4.2.7.2.686 Professio [id number] [address] 2019-05-04 2019-05-04 Human Resource Professional Garret, [facility] [[email or web address]] [id number] 14:17:30 15:17:30 Visit Adc Mfm Ryan 350.1.13.10 [place] 4.2.7.2.686 Professio [phone] [address] 2019-05-04 2019-05-04 Orders Doctor MATTIE [id number] 00:00:00 00:00:00 Only Unassigned, ROXY 350.1.13.10 [place] [facility] 4.2.7.2.686 [phone] [id number] 2019-05-02 2019-05-02 Telephone Silverman Veronica [facility] [[email or web address]] 1.2.840.114 [id number] 00:00:00 00:00:00 Cam Ryan 350.1.13.10 [place] 4.2.7.2.686 Professio [id number] [address] 2019-04-18 2019-04-18 [facility] MARTINA Melchor 1.2.840.114 [id number] 13:01:44 23:59:00 Encounter Kaila Holguin 350.1.13.10 Cipriano [facility] 4.2.7.2.686 [id number] Results Test Description Test Time Test Comments Results Result [facility] e Comments [facility] 2019-08-31 TRIMESTER 17:54:00 --------RUN DATE: 09/04/19 [facility] PAGE 1 RUN TIME: 721 Specimen Inquiry RUN USER: INTERFACE --------PATIENT: WALTER ROSE LOC: KRISTEN U #: [id number] AGE/SX: 33/F ROOM: [facility] RE08/16/19REG DR: Junior Tapia MD : 89 BED: A DIS: 08/26/19 STATUS: DIS IN TLOC: -------- SPEC #: [id number] RECD: 08/22/19 STATUS: ALICIA LISA #: [id number] [place]: 08/22/19- [facility] DR: Junior Tapia MD ENTERED: 08/27/19 SP TYPE: PLACIII OTHR : ORDERED: LEVEL V SURGICA CODES: OL5637 - PLACENTA, NOS PROCEDURES: LEVEL V SURGICA (Incomplete) TISSUES: PLACENTA, NOS - PLACENTA CLINICAL HISTORY 33 year old, 36 weeks, [id number], section, history of demise, decreased FM, oligo [...] and inherited or acquired thrombophilias. CPT code(s): 09140 pkg/wpd 08/31/19 CONTINUED ON NEXT PAGE --------RUN DATE: 09/04/19 [facility] PAGE 2 RUN TIME: 721 Specimen Inquiry RUN USER: INTERFACE --------SPEC #: [id number] PATIENT: WALTER ROSE JOSE F #[id number] (Continued) GROSS DESCRIPTION The specimen was received in a container, labeled with the patient's name, unit number and designated "placenta". The following attributes are observed: Cord insertion: 2 cm from margin Cord length: 48 cm Number of vessels: 3 Cord color: Dorado Other cord findings: Slightly edematous; less than 12 twists per [...] mae/patricia 08/31/19 Signed Lucero Vazquez 08/31/19 1754 -------- END OF REPORT HGB HCT 2019-08-24 07:11:00 Test Item Value Reference Range Interpretation Comme nts HEMOGLOBIN (test code = HGB) 7.4 g/dL 10.7-13.9 L HEMATOCRIT (test code = HCT) 24.6 % 32.1-42.1 L CBC W/AUTO [id number] 05:50:00 Test Item Value Reference Range Interpretation Comments WHITE BLOOD CELL (test code = WBC) 10.9 K/mm3 6.6-12.1 N RED BLOOD CELL (test code = RBC) 2.89 M/mm3 3.45-5.01 L HEMOGLOBIN (test code = HGB) 7.3 g/dL 10.7-13.9 L HEMATOCRIT (test code = HCT) 23.7 % 32.1-42.1 L MEAN CELL VOLUME (test code = MCV) 82 fL 84.1-94.8 L MEAN CELL HGB (test code = MCH) 25.3 pg 27-35 L MEAN CELL HGB CONCETRATION (test 30.8 gm/dL 32.2-34.1 L code = MCHC) RED CELL DISTRIBUTION WIDTH (test 13.9 % 12.4-16.5 N code = RDW) PLATELET COUNT (test code = PLT) 172 K/mm3 133-385 N IMMATURE PLATELET FRACTION (test 0.0 % 0.0-10.8 N code = IPF) MEAN PLATELET VOLUME (test code = 9.7 fl 9.1-12.7 N MPV) NEUTROPHIL % (test code = NT%) 72.7 % 56.5-79.4 N LYMPHOCYTE % (test code = LY%) 18.2 % 14.3-34.3 N MONOCYTE % (test code = MO%) 7.2 % 5.1-10.4 N EOSINOPHIL % (test code = EO%) 0.3 % 0.1-3.0 N BASOPHIL % (test code = BA%) 0.1 % 0.1-1.0 N NEUTROPHIL # (test code = NT#) 7.9 K/mm3 LYMPHOCYTE # (test code = LY#) 2.0 K/mm3 MONOCYTE # (test code = MO#) 0.8 K/mm3 EOSINOPHIL # (test code = EO#) 0.03 K/mm3 BASOPHIL # (test code = BA#) 0.0 K/mm3 RBC MORPHOLOGY REQUIRED (test code NORMAL NORMAL = RBCM) PLATELET MORPHOLOGY REQUIRED (test NORMAL NORMAL code = PLTMR) CBC W/AUTO [id number] 05:30:00 Test Item Value Reference Range Interpretation Comments WHITE BLOOD CELL (test code = WBC) 9.4 K/mm3 6.6-12.1 N RED BLOOD CELL (test code = RBC) 3.50 M/mm3 3.45-5.01 N HEMOGLOBIN (test code = HGB) 8.7 g/dL 10.7-13.9 L HEMATOCRIT (test code = HCT) 28.5 % 32.1-42.1 L MEAN CELL VOLUME (test code = MCV) 81 fL 84.1-94.8 L MEAN CELL HGB (test code = MCH) 24.9 pg 27-35 L MEAN CELL HGB CONCETRATION (test 30.5 gm/dL 32.2-34.1 L code = MCHC) RED CELL DISTRIBUTION WIDTH (test 13.9 % 12.4-16.5 N code = RDW) PLATELET COUNT (test code = PLT) 189 K/mm3 133-385 N IMMATURE PLATELET FRACTION (test 0.0 % 0.0-10.8 N code = IPF) MEAN PLATELET VOLUME (test code = 9.5 fl 9.1-12.7 N MPV) NEUTROPHIL % (test code = NT%) 69.1 % 56.5-79.4 N LYMPHOCYTE % (test code = LY%) 19.9 % 14.3-34.3 N MONOCYTE % (test code = MO%) 7.1 % 5.1-10.4 N EOSINOPHIL % (test code = EO%) 0.7 % 0.1-3.0 N BASOPHIL % (test code = BA%) 0.3 % 0.1-1.0 N NEUTROPHIL # (test code = NT#) 6.5 K/mm3 LYMPHOCYTE # (test code = LY#) 1.9 K/mm3 MONOCYTE # (test code = MO#) 0.7 K/mm3 EOSINOPHIL # (test code = EO#) 0.07 K/mm3 BASOPHIL # (test code = BA#) 0.0 K/mm3 RBC MORPHOLOGY REQUIRED (test code NORMAL NORMAL = RBCM) PLATELET MORPHOLOGY REQUIRED (test NORMAL NORMAL code = PLTMR) AMNISURE (ROM) [id number] 01:29:00 Test Item Value Reference Range Interpretation Comments AMNISURE (ROM) TEST (test code = NON-RUPTURED NON-RUPTURE AMNI) : *Amnisure QC OK? YESAMNISURE (ROM) [id number] 01:19:00 Test Item Value Reference Range Interpretation Comments AMNISURE (ROM) TEST (test code = NON-RUPTURED NON-RUPTURE AMNI) : *Amnisure QC OK? YESRAPID PLASMA [id number] 18:09:00 Test Item Value Reference Range Interpretation Comments RAPID PLASMA REAGIN (test code = RPR) NON-REACT IS CONSENT FORM SIGNED FOR HIV TESTING? YAG HEPATITIS B [id number] 18:09:00 Test Item Value Reference Range Interpretation Comments AG HEPATITIS B SURFACE (test code NONREACTIVE NONREACTIVE = HBSAG) IS CONSENT FORM SIGNED FOR HIV TESTING? YAB HEPATITIS C [id number] 18:09:00 Test Item Value Reference Range Interpretation Comments AB HEPATITIS C (test code = NONREACTIVE NONREACTIVE HCVAB) SIGNAL TO CUTOFF (test code = <0.02 <0.80 N CUTOFF) IS CONSENT FORM SIGNED FOR HIV TESTING? YAB [id number] 18:09:00 Test Item Value Reference Range Interpretation Comments AB TREPONEMA (test code = TREPAB) NONREACTIVE NONREACTIVE IS CONSENT FORM SIGNED FOR HIV TESTING? YAB HIV 1 18:09:00 Test Item Value Reference Range Interpretation Comments AB HIV 1 2 (test NONREACTIVE NONREACTIVE Done by Cristina Wrayaur code = [id number]) 4th Gen HIV Ag/Ab Combo Screen IS CONSENT FORM SIGNED FOR HIV TESTING? YRAPID PLASMA [id number] 17:45:00 Test Item Value Reference Range Interpretation Comments RAPID PLASMA REAGIN (test code = RPR) NON-REACT IS CONSENT FORM SIGNED FOR HIV TESTING? YAG HEPATITIS B [id number] 17:45:00 Test Item Value Reference Range Interpretation Comments AG HEPATITIS B SURFACE (test code NONREACTIVE NONREACTIVE = HBSAG) IS CONSENT FORM SIGNED FOR HIV TESTING? YAB HEPATITIS C [id number] 17:45:00 Test Item Value Reference Range Interpretation Comments AB HEPATITIS C (test code = HCVAB) NONREACTIVE SIGNAL TO CUTOFF (test code = CUTOFF) <0.80 IS CONSENT FORM SIGNED FOR HIV TESTING? YAB [id number] 17:45:00 Test Item Value Reference Range Interpretation Comments AB TREPONEMA (test code = TREPAB) NONREACTIVE NONREACTIVE IS CONSENT FORM SIGNED FOR HIV TESTING? YAB HIV 1 17:45:00 Test Item Value Reference Range Interpretation Comments AB HIV 1 2 (test code = [id number]) NONREACTIVE IS CONSENT FORM SIGNED FOR HIV TESTING? YCBC W/AUTO [id number] 15:54:00 Test Item Value Reference Range Interpretation Comments WHITE BLOOD CELL (test code = WBC) 10.0 K/mm3 6.6-12.1 N RED BLOOD CELL (test code = RBC) 3.56 M/mm3 3.45-5.01 N HEMOGLOBIN (test code = HGB) 9.0 g/dL 10.7-13.9 L HEMATOCRIT (test code = HCT) 29.0 % 32.1-42.1 L MEAN CELL VOLUME (test code = MCV) 82 fL 84.1-94.8 L MEAN CELL HGB (test code = MCH) 25.3 pg 27-35 L MEAN CELL HGB CONCETRATION (test 31.0 gm/dL 32.2-34.1 L code = MCHC) RED CELL DISTRIBUTION WIDTH (test 13.7 % 12.4-16.5 N code = RDW) PLATELET COUNT (test code = PLT) 188 K/mm3 133-385 N IMMATURE PLATELET FRACTION (test 0.0 % 0.0-10.8 N code = IPF) MEAN PLATELET VOLUME (test code = 10.3 fl 9.1-12.7 N MPV) NEUTROPHIL % (test code = NT%) 71.1 % 56.5-79.4 N LYMPHOCYTE % (test code = LY%) 18.6 % 14.3-34.3 N MONOCYTE % (test code = MO%) 8.0 % 5.1-10.4 N EOSINOPHIL % (test code = EO%) 1.0 % 0.1-3.0 N BASOPHIL % (test code = BA%) 0.2 % 0.1-1.0 N NEUTROPHIL # (test code = NT#) 7.1 K/mm3 LYMPHOCYTE # (test code = LY#) 1.9 K/mm3 MONOCYTE # (test code = MO#) 0.8 K/mm3 EOSINOPHIL # (test code = EO#) 0.10 K/mm3 BASOPHIL # (test code = BA#) 0.0 K/mm3 RBC MORPHOLOGY REQUIRED (test code NORMAL NORMAL = RBCM) PLATELET MORPHOLOGY REQUIRED (test NORMAL NORMAL code = PLTMR) - US PREG UT [id number] 13:50:00 Patient Name: WALTER ROSE Unit No: [id number] EXAMS: CPT CODE: [id number] US PREG UT TRANSVAGINAL [address] [facility] [address] [place], [place] [address] BIOPHYSICAL PROFILE ULTRASOUND REPORT Pat. Name: WALTER ROSE Pat. No: [id number] Study Date: 08/13/2019 12:07pm , Age: 01 1985, 33 Pregnancies: 4, Para 2LMP: Unknown GA by 1st: 34w5d GA Selected: 34w5d (From Known E) SANDRA: 09/19/2019 Referring MD: Junior Tapia Buckler And Lacer: Noy Campos RDMS CPT4: USPRUTTRVG Admitting MD: [...] CC: Junior Tapia MD Technologist: Noy Campos [facility] Probe: [id number] Trnscrbd D/ (1350) t.SDR.NMG Orig Print D/T: S: 08/16/2019 (3797) [facility] NAME: ROSEWALTER KOHLER Radiology Department PHYS: Junior Modi MD [address] : 1985 AGE: 33 SEX: F [place], [place] [address]ZREZ NO: [id number] LOC: KEIT PHONE #: [phone] EXAM DATE: 08/13/2019 STATUS: REG RCR FAX #: [phone] RAD NO: Page 1 Signed Report Patient Name: WALTER ROSE Unit No: [id number] EXAMS: CPT CODE: [id number] US PREGUT TRANSVAGINAL 91367 <Continued> [facility] NAME: ROSEWALTER KOHLER Radiology Department PHYS: Junior Modi MD [address] : 1985 AGE: 33 SEX: F [place] [address] LOC: KEIT PHONE #: [phone] EXAM DATE: 08/13/2019 STATUS: REG RCR FAX #: [phone] RAD NO: Page 2 Signed Report- US FET BIO PH HI W/O [id number] 13:50:00 Patient Name: WALTER ROSE Unit No: [id number] EXAMS: CPT CODE: [id number] US FET BIO PH HI W/O NST [address] [address] [place], [place] [address] BIOPHYSICAL PROFILE ULTRASOUND REPORT Pat. Name: WALTER ROSE Pat. No: [id number] Study Date: 08/13/2019 12:07pm , Age: 01 1985, 33 Pregnancies: 4, Para 2LMP: Unknown GA by 1st: 34w5d GA Selected: 34w5d (From Known E) SANDRA: 09/19/2019 Referring MD: Junior Tapia Buckler And Lacer: Noy Campos RDMS CPT4: USBPPWONST Admitting MD: [...] Noy Campos RDMS Probe: Trnscrbd D/ (1350) HalinaG Orig Print D/T: S: 08/13/2019 (1350) [facility] [place] NAME: WALTER ROSE Radiology Department PHYS: Junior Modi MD [address] : 1985 AGE: 33 SEX: F [place] [address] LOC: EduBRITTANIT PHONE #: [phone] EXAM DATE: 08/13/2019 STATUS: REG RCR FAX #: [phone] RAD NO: Page 1 Signed Report Patient Name: WALTER ROSE Unit No: [id number] EXAMS: CPT CODE: [id number] US FET B IO PH HI W/O NST [address] <Continued> [facility] [place] NAME: WALTER ROSE KOHLER Radiology Department PHYS: Junior Modi MD [address] : 1985 AGE: 33 SEX: F [place] [address] : EduLDT PHONE #: [phone] EXAM DATE: 08/13/2019 STATUS: REG RCR FAX #: [phone] RAD NO: Page 2 Signed Report- US FET BIO PH HI W/O [id number] 08:39:00 Patient Name: WALTER ROSE Unit No: [id number] EXAMS: CPT CODE: [id number] US FET BIO PH HI W/O NST [address] [address] [place], [place] [address] BIOPHYSICAL PROFILE ULTRASOUND REPORT Pat. Name: WALTER ROSE Pat. No: [id number] Study Date: 08/09/2019 7:50am , Age: 01 1985, 33 Pregnancies: 4, Para 2 LMP: Unknown GA by 1st: 34w1d GA Selected: 34w1d (From First S) SANDRA: 09/19/2019 Referring MD: Junior Tapia Buckler And Lacer: Ro Le RDMS CPT4: USBPPWONST Admitting MD: Junior Tapia Hist/Ind: DFM SCAN 3 Cervical Length: 3.6 cm Heart Rate: 141 [...] this patient. Beau Farfan M.D. Electronic Signature 08/09/2019 08:39am at 0839 Reported and signed by: Beau Farfan MD [facility] NAME: ROLDAN ROSETRIXIE Radiology Department PHYS: Junior Modi MD [address] : 1985 AGE: 33 SEX: F [place], [place] [address] LOC: EduLDT PHONE #: [phone] EXAM DATE: 08/09/2019 S TATUS: REG RCR FAX #: [phone] RAD NO: Page 1 Signed Report (CONTINUED) Patient Name: WALTER ROSE Unit No: [id number] EXAMS: CPT CODE: [id number] US FET BIO PH HI W/O NST 49[address] <Continued> CC: Junior Tapia MD Technologist: Ro Le RDMS Probe: Trnscrbd D/ (0839) t.SDR.YOS Orig Print D/T: S: 08/09/2019 (0839) [facility] NAME: WALTER ROSEZA Radiology Department PHYS: Junior Modi MD [address] : 1985 AGE: 33 SEX: F [place], [place] [address]CFAL NO: [id number] LOC: EduLDT PHONE #: [phone] EXAM DATE: 08/09/2019 STATUS: REG RCR FAX #: [phone] RAD NO: Page 2 Signed Report Patient Name: WALTER ROSE Unit No: [id number] EXAMS: CPT CODE: [id number] US FET BIO PH HI W/O NST 80478 <Continued> [facility] NAME: WALTER ROSE JOSE F Radiology Department PHYS: Junior Modi MD [address] : 1985 AGE: 33 SEX: F [place] [address] LOC: EduLDT PHONE #: [phone] EXAM DATE: 08/09/2019 STATUS: REG RCR FAX #: [phone] RAD NO: Page 3 Signed ReportAB [id number] 15:51:00 Test Item Value Reference Range Interpretation Comments AB TREPONEMA (test code = TREPAB) NONREACTIVE NONREACTIVE PLEASE CALL DR.HAIDAR SHARMA W/RESULTS NO NUMBER PROVIDEDAB HIV 1 15:51:00 Test Item Value Reference Range Interpretation Comments AB HIV 1 2 (test NONREACTIVE NONREACTIVE Done by Cristina Clifton code = [id number]) 4th Gen HIV Ag/Ab Combo Screen PLEASE CALL DR.HAIDAR SHARMA W/RESULTS NO NUMBER PROVIDEDAB [id number] 15:39:00 Test Item Value Reference Range Interpretation Comments AB TREPONEMA (test code = TREPAB) NONREACTIVE NONREACTIVE PLEASE CALL DR.HAIDAR SHARMA W/RESULTS NO NUMBER PROVIDEDAB HIV 1 15:39:00 Test Item Value Reference Range Interpretation Comments AB HIV 1 2 (test code = XTX69ST) NONREACTIVE PLEASE CALL DR.HAIDAR SHARMA W/RESULTS NO NUMBER PROVIDEDCBC W/AUTO [id number] 14:37:00 Test Item Value Reference Range Interpretation Comments WHITE BLOOD CELL (test code = WBC) 8.8 K/mm3 6.6-12.1 N RED BLOOD CELL (test code = RBC) 3.79 M/mm3 3.45-5.01 N HEMOGLOBIN (test code = HGB) 9.8 g/dL 10.7-13.9 L HEMATOCRIT (test code = HCT) 31.8 % 32.1-42.1 L MEAN CELL VOLUME (test code = MCV) 84 fL 84.1-94.8 L MEAN CELL HGB (test code = MCH) 25.9 pg 27-35 L MEAN CELL HGB CONCETRATION (test 30.8 gm/dL 32.2-34.1 L code = MCHC) RED CELL DISTRIBUTION WIDTH (test 13.4 % 12.4-16.5 N code = RDW) PLATELET COUNT (test code = PLT) 194 K/mm3 133-385 N IMMATURE PLATELET FRACTION (test 0.0 % 0.0-10.8 N code = IPF) MEAN PLATELET VOLUME (test code = 10.2 fl 9.1-12.7 N MPV) NEUTROPHIL % (test code = NT%) 75.2 % 56.5-79.4 N LYMPHOCYTE % (test code = LY%) 16.5 % 14.3-34.3 N MONOCYTE % (test code = MO%) 6.2 % 5.1-10.4 N EOSINOPHIL % (test code = EO%) 0.8 % 0.1-3.0 N BASOPHIL % (test code = BA%) 0.3 % 0.1-1.0 N NEUTROPHIL # (test code = NT#) 6.6 K/mm3 LYMPHOCYTE # (test code = LY#) 1.5 K/mm3 MONOCYTE # (test code = MO#) 0.6 K/mm3 EOSINOPHIL # (test code = EO#) 0.07 K/mm3 BASOPHIL # (test code = BA#) 0.0 K/mm3 RBC MORPHOLOGY REQUIRED (test code NORMAL NORMAL = RBCM) PLATELET MORPHOLOGY REQUIRED (test NORMAL NORMAL code = PLTMR) PLEASE CALL DR.HAIDAR SHARMA W/RESULTS NO NUMBER PROVIDEDDRUGS OF ABUSE SCREEN 2019-08-04 18:41:00 Test Item Value Reference Range Interpretation Comments UR COCAINE (test code = NEGATIVE NEGATIVE DETE CTION CUT OFF: COCAU) 150 ng/mL UR CANNABINOIDS (test NEGATIVE NEGATIVE DETECT ION CUT OFF: code = CANU) 50 ng/mL UR AMPHETAMINE (test code NEGATIVE NEGATIVE DE TECTION CUT OFF: = AMPHU) 500 ng/mL UR BARBITURATE QUAL (test NEGATIVE NEGATIVE DE TECTION CUT OFF: code = BARBQLU) 200 ng/mL UR BENZODIAZEPINE (test NEGATIVE NEGATIVE DETE CTION CUT OFF: code = BENZU) 150 ng/mL UR OPIATES QUAL (test NEGATIVE NEGATIVE DETECT ION CUT OFF: code = OPIAQLU) 100 ng/mL UR PHENCYCLIDINE (PCP) NEGATIVE NEGATIVE DETEC TION CUT OFF: (test code = PHENCU) 25 ng/m L URINALYSIS [id number] 18:10:00 Test Item Value Reference Range Interpretation Comments UA COLOR (test code = COLU) YELLOW YELLOW UA APPEARANCE (test code = CLEAR CLEAR APPU) UA GLUCOSE DIPSTICK (test code NEGATIVE NEG = DGLUU) UA BILIRUBIN DIPSTICK (test NEGATIVE NEG code = BILU) UA KETONE DIPSTICK (test code NEGATIVE NEG = KETU) UA SPECIFIC GRAVITY (test code 1.010 1.001-1.035 N = SGU) UA BLOOD DIPSTICK (test code = 1+ NEG A VNAI) UA PH DIPSTICK (test code = 6.0 5-9 PIYUSH) UA PROTEIN DIPSTICK (test code NEGATIVE NEG = PROU) UA UROBILINIOGEN DIPSTICK NEGATIVE mg/dL NEG (test code = URO) UA NITRITE DIPSTICK (test code NEG NEG = JUAQUIN) UA LEUKOCYTE ESTERASE DIPSTICK NEG NEG (test code = LEUU) UA WBC (test code = WBCU) 0-2 #/hpf NONE SEEN UA RBC (test code = RBCU) 0-2 #/hpf NONE SEEN UA EPITHELIAL CELLS (test code RARE #/HPF RARE-FEW = EPIU) UA BACTERIA (test code = BACU) RARE /HPF RARE-FEW UA MUCUS (test code = MUCU) RARE NONE SEEN URINE SAMPLE: CLEAN CATCH- US PREG UT [id number] 17:54:00 Patient Name: WALTER ROSE Unit No: [id number] EXAMS: CPT CODE: [id number] US PREG UT TRANSVAGINAL [address] [facility] [address] [address] BIOPHYSICAL PROFILE ULTRASOUND REPORT Pat. Name: WALTER ROSE Pat. No: [id number] Study Date: 08/04/2019 4:30pm , Age: 01 1985, 33 Pregnancies: 4, Para 2 LMP: Unknown GA by 1st: 33w3d GA Selected: 33w3d (From Known E) SANDRA: 09/19/2019 Referring MD: Junior Tapia Buckler And Lacer: Aashish Lovelace RDMS CPT4: USPRUTTRVG Admitting MD: [...] Saleh M.D. Electronic Signature 08/04/2019 05:54pm at 1754 Reported and signed by: Lizbet Saleh MD The [facility] NAME: WALTER ROSE Radiology Department PHYS: Junior Modi MD [address] : 1985 AGE: 33 SEX: F [place], [place] [address] LOC: EduDENI PHONE #: [phone] EXAM DATE: 08/04/2019 STATUS: DEP ER FAX #: [phone] RAD NO: Page 1 Signed Report(CONTINUED) Patient Name: WALTER ROSE Unit No: [id number] EXAMS: CPT CODE: [id number] US PREG UT TRANSVAGINAL [address] <Continued> CC: Junior Tapia MD Technologist: Aashish Lovelace RDMS Probe: [id number] Trnscrbd D/ (1757) MargaCER Orig Print D/T: S: 08/07/2019 (9071) [facility] NAME: WALTER ROSE Radiology De partment PHYS: Junior Modi MD [address] : 1985 AGE: 33 SEX: [place] [address] LOC: EduDENI PHONE #: [phone] EXAM DATE: 08/04/2019 STATUS: DEP ER FAX #: [phone] RAD NO: Page 2 Signed Report Patient Name: WALTER ROSE Unit No: [id number] EXAMS: CPT CODE: [id number] US PREG UT TRANSVAGINAL [address] <Continued> [facility] NAME: WALTER ROSE Radiology Department PHYS: Junior Modi MD [address] : 1985 AGE: 33 SEX: F [place] [address] LOC: EduDENI PHONE #: [phone] EXAM DATE: 08/04/2019 STATUS: DEP ER FAX #: [phone] RAD NO: Page 3 Signed Report- US FET BIO PH HI W/O [id number] 17:54:00 Patient Name: WALTER ROSE Unit No: [id number] EXAMS: CPT CODE: [id number] US FET BIO PH HI W/O NST [address] [id number] [place], [place] [address] BIOPHYSICAL PROFILE ULTRASOUND REPORT Pat. Name: WALTER ROSE Pat. No: [id number] Study Date: 08/04/2019 4:30pm , Age: 01 1985, 33 Pregnancies: 4, Para 2 LMP: Unknown GA by 1st: 33w3d GA Selected: 33w3d (From Known E) SANDRA: 09/19/2019 Referring MD: Junior Tapia M.D. Buckler And Lacer: Aashish Lovelace RDMS CPT4: USBPPWONST Hist/Ind: Decreased FM BPP Scan #2 Cervical [...] Saleh M.D. Electronic Signature 08/04/2019 05:54pm at 1754 Reported and signed by: Lizbet Saleh MD [facility] NAME: ROSEWALTER Radiology Department PHYS: Jade Levin III, MD [address] : 1985 AGE: 33 SEX: F [place], [place] [address] LOC: F.DENI PHONE #: [phone] EXAM DATE: 08/04/2019 STATUS: REG ER FAX #: [phone] RAD NO: Page 1 Signed Report (CONTINUED) Patient Name: WALTER ROSE Unit No: [id number] EXAMS: CPT CODE: [id number] US FET BIO PH HI W/O NST 87411 <Continued> CC: Junior Tapia MD; Jade Faustin III, MD Technologist: Aashish Lovelace RDMS Probe: Trnscrbd D/ (6311) t.SDR.CER Orig Print D/T: S: 08/04/2019 (2713) [facility] NAME: WALTER ROSE Radiology Department PHYS: Jade Levin III, MD [address] : 1985 AGE: 33 SEX: F [place] [address] LOC: EduDENI PHONE #: [phone] EXAM DATE: 08/04/2019 STATUS: REG ER FAX #: [phone] NO: Page 2 Signed Report Patient Name: WALTER ROSE Unit No: [id number] EXAMS: CPT CODE: [id number] FET BIO PH HI W/O NST 37137 <Continued> [facility] NAME: WALTER ROSE Radiology Department PHYS: Jade Levin III, MD [address] : 1985 AGE: 33 SEX: F [place] [address] LOC: EduDENI PHONE #: [phone] EXAM DATE: 08/04/2019 STATUS: REG ER FAX #: [phone] RAD NO: Page 3 Signed Report- DUP VEIN [id number] 23:45:00 Patient Name: WALTER ROSE Unit No: [id number] EXAMS: CPT CODE: [id number] DUP VEIN IRENA [address] PROCEDURE: BILATERAL LOWER EXTREMITY VENOUS ULTRASOUND DATED 07/24/2019. INDICATION: Bilateral lower extremity swelling. COMPARISON: None. TECHNIQUE: Sonographic evaluation of the bilateral lower extremity veins was performed using high resolution B-mode, pulse and color Doppler imaging. FINDINGS: RIGHT: The common femoral, femoral, popliteal and visualized calf veins appear patent with normal compressibility, augmentation and color flow. Normal venous waveforms. The saphenofemoral junction is unremarkable. LEFT: The common femoral, femoral, popliteal and visualized calf veins appear patent with normal compressibility, augmentation and color flow.Normal venous waveforms. The saphenofemoral junction is unremarkable. IMPRESSION: 1. No sonographic evidence of acute lower extremity deep venous thrombosis. SL:131 at 2345 Reported and signed by: Brody Luo MD CC: Junior Tapia MD; Santiago [place] MD Technologist: Ania Verde RDMS, T Probe: Trnscrbd D/ (2180) t.SDR.DMM Orig Print D/T: S: 07/24/2019 (6622) [facility] NAME: WALTER ROSE Radiology Department PHYS: Santiago Ball MD [address] : 1985 AGE: 33 SEX: F [place] [address] LOC: TASHA PHONE #: [phone] EXAM DATE: 07/24/2019 STATUS: [facility] ER FAX #: [phone] RAD NO: Page 1 Signed Report Patient Name: WALTER ROSE Unit No: [id number] EXAMS: CPTCODE: [id number] DUP VEIN IRENA [address] <Continued> The [facility] NAME: WALTER ROSE Radiology Department PHYS: Santiago Pennington MD [address] : 1985 AGE: 33 SEX: F [place] [address] LOC: TASHA PHONE #: [phone] EXAM DATE: 07/24/2019 STATUS: DEP ER FAX #: [phone] RAD NO: Page 2 Signed ReportUA RFLX MICR CULT IF [id number] 21:32:00 Test Item Value Reference Range Interpretation Comments UA COLOR (test code = COLU) YELLOW YELLOW UA APPEARANCE (test code = APPU) CLEAR CLEAR UA GLUCOSE DIPSTICK (test code = NEGATIVE NEGATIVE DGLUU) UA BILIRUBIN DIPSTICK (test code = NEGATIVE NEGATIVE BILU) UA KETONE DIPSTICK (test code = NEGATIVE NEGATIVE KETU) UA SPECIFIC GRAVITY (test code = <= 1.005 1.001-1.035 N SGU) UA BLOOD DIPSTICK (test code = TRACE NEGATIVE A VANI) UA PH DIPSTICK (test code = PIYUSH) 6.5 5-9 UA PROTEIN DIPSTICK (test code = NEGATIVE NEGATIVE PROU) UA UROBILINIOGEN DIPSTICK (test 0.2 EU/dL <=1.0 code = URO) UA NITRITE DIPSTICK (test code = NEGATIVE NEGATIVE JUAQUIN) UA LEUKOCYTE ESTERASE DIPSTICK NEG NEGATIVE (test code = LEUU) UA WBC (test code = WBCU) 0-2 #/hpf NONE SEEN UA RBC (test code = RBCU) 0-2 #/hpf NONE SEEN UA EPITHELIAL CELLS (test code = FEW #/hpf NONE SEEN EPIU) UA BACTERIA (test code = BACU) RARE #/hpf NONE SEEN UA MUCUS (test code = MUCU) 1+ NONE SEEN Indication for culture: Flank PainPROTHROMBIN [id number] 21:00:00 Test Item Value Reference Range Interpretation Comments PROTHROMBIN TIME PATIENT (test code 10.2 secs 10.4-12.4 L = PTP) THROMBOPLASTIN TIME [id number] 21:00:00 Test Item Value Reference Range Interpretation Comments THROMBOPLASTIN TIME PARTIAL (test 28.0 secs 22-38 N code = PTT) [id number] 21:00:00 Test Item Value Reference Range Interpretation Comments FIBRINOGEN (test code = FIB) 565 mg/dL 309-518 H D-DIMER [id number] 21:00:00 Test Item Value Reference Range Interpretation Comments D-DIMER QUANT 336 ng/mLDDU <255 H (test code = Refere nce DDIMER) Range in : &lt ;570 ng/ml A positive test d oes not provide a defin itive diagnosis ofDVT and indicates the n eed for follow up clini vasu studies. The pr edictive value of a nega tive test is 98% for rulingout DVT. COMPREHENSIVE METABOLIC [id number] 20:38:00 Test Item Value Reference Range Interpretation Comments SODIUM (test code = NA) 137 mEq/L 135-145 N POTASSIUM (test code = K) 4.3 mEq/L 3.5-5.0 N CHLORIDE (test code = CL) 105 mEq/L 100-115 N CARBON DIOXIDE (test code = CO2) 25 mEq/L 22-31 N ANION GAP (test code = GAP) 11.50 10-20 N GLUCOSE (test code = GLU) 83 mg/dL 65-110 N BLOOD UREA NITROGEN (test code = 10 mg/dL 7-18 N BUN) GLOMERULAR FILTRATION RATE (test 144 ml/min >60 N code = GFR) CREATININE (test code = CREAT) 0.5 mg/dL 0.5-1.0 N TOTAL PROTEIN (test code = PROT) 6.4 gm/dL 6.3-8.2 N ALBUMIN (test code = ALB) 2.2 gm/dL 3.4-4.8 L CALCIUM (test code = CA) 8.4 mg/dL 8.4-10.2 N BILIRUBIN TOTAL (test code = BILT) 0.2 mg/dL 0.2-1.0 N SGOT/AST (test code = AST) 16 units/L 15-37 N SGPT/ALT (test code = ALT) 35 units/L 12-78 N ALKALINE PHOSPHATASE TOTAL (test 78 units/L 46-116 N code = ALKP) CBC W/AUTO [id number] 20:23:00 Test Item Value Reference Range Interpretation Comments WHITE BLOOD CELL (test code = WBC) 9.7 K/mm3 6.6-12.1 N RED BLOOD CELL (test code = RBC) 3.71 M/mm3 3.45-5.01 N HEMOGLOBIN (test code = HGB) 9.8 g/dL 10.7-13.9 L HEMATOCRIT (test code = HCT) 31.2 % 32.1-42.1 L MEAN CELL VOLUME (test code = MCV) 84 fL 84.1-94.8 L MEAN CELL HGB (test code = MCH) 26.4 pg 27-35 L MEAN CELL HGB CONCETRATION (test 31.4 gm/dL 32.2-34.1 L code = MCHC) RED CELL DISTRIBUTION WIDTH (test 13.2 % 12.4-16.5 N code = RDW) PLATELET COUNT (test code = PLT) 187 K/mm3 133-385 N IMMATURE PLATELET FRACTION (test 0.0 % 0.0-10.8 N code = IPF) MEAN PLATELET VOLUME (test code = 10.2 fl 9.1-12.7 N MPV) NEUTROPHIL % (test code = NT%) 69.2 % 56.5-79.4 N LYMPHOCYTE % (test code = LY%) 21.0 % 14.3-34.3 N MONOCYTE % (test code = MO%) 7.4 % 5.1-10.4 N EOSINOPHIL % (test code = EO%) 1.0 % 0.1-3.0 N BASOPHIL % (test code = BA%) 0.3 % 0.1-1.0 N NEUTROPHIL # (test code = NT#) 6.7 K/mm3 LYMPHOCYTE # (test code = LY#) 2.0 K/mm3 MONOCYTE # (test code = MO#) 0.7 K/mm3 EOSINOPHIL # (test code = EO#) 0.10 K/mm3 BASOPHIL # (test code = BA#) 0.0 K/mm3 RBC MORPHOLOGY REQUIRED (test code NORMAL NORMAL = RBCM) PLATELET MORPHOLOGY REQUIRED (test NORMAL NORMAL code = PLTMR) CANNABINOIDS CONFIRMATION [id number] 12:33:00 Test Item Value Reference Range Interpretation Comments DRUG CONFIRMATION BY POSITIVE NEGATIVE A Drug(s) Identified: GC/MS (test code = carboxy-t hc amount DRUGCON) 94 ng/mL GC/MS Cutoff: 0. - US PREG UT [id number] 13:17:00 Patient Name: WALTER ROSE Unit No: [id number] EXAMS: CPT CODE: [id number] US PREG UT TRANSVAGINAL [address] [facility] [address], [place] [address] LIMITED OBSTETRICAL ULTRASOUND REPORT Pat. Name: WALTER ROSE Pat. No: [id number] Study Date: 05/21/2019 12:12pm , Age: 01 1985, 33 Pregnancies: 4, Para 2 LMP: Unknown GA Selected: 22w5d (From Known E) SANDRA: 09/19/2019 Referring MD: Jade Faustin Buckler And Lacer: Paramjit Kohli RDMS, RVT CPT4: [facility] RUTTRVG Admitting MD: Jade Faustin Hist/Ind: SCAN 1 [...] MD Technologist: Paramjit Kohli RDMS, RVT Probe: [id number] Trnscrbd D/ (1312) Wily Orig Print D/T: S: 05/22/2019 (1507) [facility] [place] NAME: WALTER ROSE Radiology Department PHYS: Jade Levin III, MD [address] 1985 AGE: 33 SEX: F [place] [address] LOC: EduDENI PHONE #: [phone] EXAM DATE: 05/21/2019 STATUS: DEP ER FAX #: [phone] RAD NO: Page 1Signed Report Patient Name: WALTER ROSE Unit No: [id number] EXAMS: CPT CODE: [id number] US PREG UT TRANSVAGINAL [address] <Continued> [facility] [place] NAME: WALTER ROSE Radiology Department PHYS: Jade Levin III, MD [address] : 1985 AGE: 33 SEX: F [place] [address] LOC: EduDENI PHONE #: [phone] EXAM DATE: 05/21/2019 STATUS: DEP ER FAX #: [phone] RAD NO: Page 2 Signed Report- US [id number] 13:17:00 Patient Name: WALTER ROSE Unit No: [id number] EXAMS: CPT CODE: [id number] [place] LTD [address] [facility] [address], [place] [address] LIMITED OBSTETRICAL ULTRASOUND REPORT Pat. Name: WALTER ROSE Pat. No: [id number] Study Date: 05/21/2019 12:12pm , Age: 01 1985, 33 Pregnancies: 4, Para 2 LMP: Unknown GA Selected: 22w5d (From Known E) SANDRA: 09/19/2019 Referring MD: JADE FAUSTIN Buckler And Lacer: Paramjit Kohli RDMS, RVT CPT4: [facility] REGLTD Admitting MD: JADE FAUSTIN Hist/Ind: SCAN 1 22.5 WEEKS [...] Paramjit Kohli RDMS, RVT Probe: Trnscrbd D/ (1317) Lopez.NMG Orig Print D/T: S: 05/21/2019 (1317) The [facility] NAME: WALTER ROSE Radiology Department PHYS: Jade Levin III, MD [address] : 1985 AGE: 33 SEX: [place], [place] [address] LOC: EduDENI PHONE #: [phone] EXAM DATE: 05/21/2019STATUS: REG ER FAX #: [phone] RAD NO: Page 1 Signed Report Patient Name: WALTER ROSE Unit No: [id number] EXAMS: CPT CODE: [id number] [place] L[place] [address] <Continued> [facility] NAME: WALTER ROSE Radiology Department PHYS: Jade Levin III, MD [address] : 1985 AGE: 33 SEX: [place], [place] [address] LOC: EduDENI PHONE #: [phone] EXAM DATE: 05/21/2019 STATUS: REG ER FAX#: [phone] RAD NO: Page 2 Signed ReportDRUGS OF ABUSE SCREEN 2019-05-21 12:31:00 Test Item Value Reference Range Interpretation Comments UR COCAINE (test code = NEGATIVE NEGATIVE DETE CTION CUT OFF: COCAU) 150 ng/mL UR CANNABINOIDS (test POSITIVE NEGATIVE A RESULT S CALLED TO code = CANU) JESÚS.READ B ACK & CONFIRMED? [facility] 05/21 1231. DETECTION CUT OFF: 50 ng/mL UR AMPHETAMINE (test code NEGATIVE NEGATIVE DE TECTION CUT OFF: = AMPHU) 500 ng/mL UR BARBITURATE QUAL (test NEGATIVE NEGATIVE DE TECTION CUT OFF: code = BARBQLU) 200 ng/mL UR BENZODIAZEPINE (test NEGATIVE NEGATIVE DETE CTION CUT OFF: code = BENZU) 150 ng/mL UR OPIATES QUAL (test NEGATIVE NEGATIVE DETECT ION CUT OFF: code = OPIAQLU) 100 ng/mL UR PHENCYCLIDINE (PCP) NEGATIVE NEGATIVE DETEC TION CUT OFF: (test code = PHENCU) 25 ng/m L URINALYSIS [id number] 12:17:00 Test Item Value Reference Range Interpretation Comments UA COLOR (test code = COLU) YELLOW YELLOW UA APPEARANCE (test code = CLEAR CLEAR APPU) UA GLUCOSE DIPSTICK (test code NEGATIVE NEG = DGLUU) UA BILIRUBIN DIPSTICK (test NEGATIVE NEG code = BILU) UA KETONE DIPSTICK (test code NEGATIVE NEG = KETU) UA SPECIFIC GRAVITY (test code 1.017 1.001-1.035 N = SGU) UA BLOOD DIPSTICK (test code = 1+ NEG A VANI) UA PH DIPSTICK (test code = 6.0 5-9 PIYUSH) UA PROTEIN DIPSTICK (test code NEGATIVE NEG = PROU) UA UROBILINIOGEN DIPSTICK NEGATIVE mg/dL NEG (test code = URO) UA NITRITE DIPSTICK (test code NEG NEG = JUAQUIN) UA LEUKOCYTE ESTERASE DIPSTICK NEG NEG (test code = LEUU) UA WBC (test code = WBCU) 0-2 #/hpf NONE SEEN UA RBC (test code = RBCU) 0-2 #/hpf NONE SEEN UA EPITHELIAL CELLS (test code RARE #/HPF RARE-FEW = EPIU) UA BACTERIA (test code = BACU) FEW /HPF RARE-FEW UA MUCUS (test code = MUCU) 1+ NONE SEEN URINE SAMPLE: CLEAN CATCH
[2020-10-21] MEDS ORDERED: ONDANSETRON 4 MG/2 ML VIAL ONE (06:42)
[2020-10-21 06:45] LABS: Absolute Lymphocytes (CBC) 1.6 K/uL (0.7-4.9); Basophils % 0.3 % (0-1.3); Hematocrit 40.5 % (36.0-45.0); Lymphocytes % 7.3 % (15.3-44.8); RBC Red Blood Cell Count 5.88 M/uL (3.86-4.86)
[2020-10-21 06:54] LABS: Albumin 3.7 g/dL (3.4-5.0); Bilirubin Direct 0.1 mg/dL (0-0.2); Bilirubin Total 0.5 mg/dL (0.2-1.0); Potassium 3.9 mmol/L (3.5-5.1); Protein, Total 8.7 g/dL (6.4-8.2)
--- NOTE | 2020-10-21 07:02 | RAD REPORT ---
EXAM DESCRIPTION: RAD - Chest Single View - 10/21/2020 6:50 am CLINICAL HISTORY: COUGH COMPARISON: Two view chest July 2016 TECHNIQUE: AP portable chest image was obtained 10/21/2020 6:50 am . FINDINGS: Lung volumes are low. Lung garvey are clear. No failure or volume overload suspected. Hear t and vasculature are normal. No measurable pleural effusion and no pneumothorax. No acute bony abnor mality seen. No acute aortic findings suspected. IMPRESSION: No acute cardiopulmonary process. No significant change from comparison.
[2020-10-21 07:28] LABS: Platelet Estimate ADEQ
[2020-10-21 07:29] LABS: Blood Morphology Comment NOTED (NOT SEEN)
[2020-10-21] MEDS ORDERED: PIPER/TAZO/NS 3.375gm 3.375 GM/100 ML BAG ONE (07:35)
[2020-10-21 07:56] LABS: SARS-COV-2 RT PCR NEGATIVE (NEGATIVE)
[2020-10-21] MEDS ORDERED: FAMOTIDINE 20 MG/2 ML VIAL IV ONE (09:19)
[2020-10-21] MEDS ORDERED: NA CHLORIDE 0.9% 1,000 ML ONE ×2 (09:19→10:21)
[2020-10-21 10:01] LABS: Urine Blood 3+ (NEG); Urine Glucose NEGATIVE (NEG); Urine Protein 1+ (NEG); Urine Specific Gravity >1.030 (1.005-1.030); Urine pH 5.5 (5.0-7.0)
--- NOTE | 2020-10-21 10:07 | RAD REPORT ---
EXAM DESCRIPTION: CT - Abdomen Pelvis W Contrast - 10/21/2020 9:41 am CLINICAL HISTORY: ABD PAIN COMPARISON: Abdomen Pelvis W Contrast dated 09/05/2019 TECHNIQUE: Biphasic, helical CT imaging of the abdomen and pelvis was performed following 100 ml non -ionic IV contrast. No oral contrast administered. All CT scans are performed using dose optimization technique as appropriate and may include automated exposure control or mA/KV adjustment according to patient size. FINDINGS: No suspicious findings in the lung bases. The liver, spleen, and pancreas show no suspicious findings. Cholecystectomy clips are present. No bi liary tree dilatation. Symmetric renal function is seen with no hydronephrosis or suspicious renal mass. No pyelonephritis i dentified. In the anterior lower pole right kidney partially exophytic 2.4 centimeter mass is identif ied. Attenuation is similar to the adjacent parenchyma. This matches the August 2019 study. This co uld be an atypical cyst with high protein content. A solid mass is not excluded. The absence of growt h since August 2019 would favor a benign etiology. No bladder abnormalities. No adrenal abnormaliti es. No dilated bowel loops or bowel wall thickening. No free air, free fluid or inflammatory stranding. No hernia, mass or bulky lymphadenopathy. No suspicious bony findings. IMPRESSION: Contrast enhanced CT abdomen and pelvis showing no acute or emergent finding. Small solid mass versus atypical cyst in the lower pole right kidney not clearly different back to 2018. Follow-up outpatient ultrasound may be helpful to try to differentiate atypical cyst fro m solid mass.
--- NOTE | 2020-10-21 10:17 | ER ---
Nurse's Notes [facility] Name: Sophie Thakkar Age: 35 yrs Sex: Female : 1985 Arrival Date: 10/21/2020 Time: 06:14 Bed 5 Private MD: Diagnosis: Vomiting;Diarrhea, unspecified;Abdominal tenderness;Elevated white blood cell count Presentation: 10/21 06:16 Chief complaint: EMS states: ABDOMINAL PAIN WITH NAUSEA AND VOMITING FOR ABOUT TWO rv HOURS DYNAMICS AX SOLUTION ARCHITECT. WITH DIARRHEA. ALSO COMPLAINING OF SOB, 98% ON ROOM AIR. Coronavirus screen: Client denies travel out of the [place] in the last 14 days. At this time, the client does not indicate any symptoms associated with coronavirus-19. Ebola Screen: No symptoms or risks identified at this time. Initial Sepsis Screen: Does the patient meet any 2 criteria? No. Patient's initial sepsis screen is negative. Does the patient have a suspected source of infection? No. Patient's initial sepsis screen is negative. Risk Assessment: Do you want to hurt yourself or someone else? Patient reports no desire to harm self or others. Onset of symptoms was October 21, 2020 at 04:00. 06:16 Method Of Arrival: EMS: [facility] rv 06:16 Acuity: JERONIMO 3 rv Triage Assessment: 06:19 General: Appears uncomfortable, ill, Behavior is calm, cooperative. Pain: Complains of rv pain in abdomen. EENT: No signs and/or symptoms were reported regarding the EENT system. Neuro: Level of Consciousness is awake, alert, obeys commands, Oriented to person, place, time, situation. Cardiovascular: Patient's skin is warm and dry. Respiratory: Reports shortness of breath at rest Breath sounds are clear bilaterally. Onset: The symptoms/episode began/occurred just prior to arrival, the patient has mild shortness of breath. GI: Abdomen is round non-distended, Pt is actively vomiting bile, Bowel sounds present X 4 quads. Derm: Skin is intact. 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 - Social history:: Smoking status: Patient reports the use of cigarette tobacco products, unknown amount. Screenin:20 Abuse screen: Denies threats or abuse. Denies injuries from another. Nutritional rv screening: No deficits noted. Tuberculosis screening: No symptoms or risk factors identified. Fall Risk None identified. Assessment: 06:20 Cardiovascular: Patient's skin is warm and dry. Rhythm is regular. Respiratory: Airway rv is patent Respiratory effort is even, unlabored. 06:44 Reassessment: mother updated- [phone]. mg2 07:36 Reassessment: Patient appears in no apparent distress at this time. Patient and/or tw2 family updated on plan of care and expected duration. Pain level reassessed. Patient is alert, oriented x 3, equal unlabored respirations, skin warm/dry/pink. Patient states feeling better. Patient states symptoms have improved. 11:29 Reassessment: Patient appears in no apparent distress at this time. Patient and/or tw2 family updated on plan of care and expected duration. Pain level reassessed. Patient is alert, oriented x 3, equal unlabored respirations, skin warm/dry/pink. Patient states feeling better. Patient states symptoms have improved. Vital Signs: 06:16 BP 106 / 37; Pulse 91; Resp 18; Temp 98.7; Pulse Ox 100% ; Weight 129.27 kg; Height 5 rv ft. 3 in. (160.02 cm); 09:07 BP 99 / 71; Pulse 87; Resp 17; Pulse Ox 99% on R/A; tw2 11:29 BP 100 / 88; Pulse 82; Resp 17; Pulse Ox 100% on R/A; tw2 06:16 Body Mass Index 50.48 (129.27 kg, 160.02 cm) rv ED Course: 06:14 Patient arrived in ED. cl3 06:18 Triage completed. rv 06:19 Emory Centeno MD is Attending Physician. ps1 06:20 Arm band placed on right wrist. Patient placed in the treatment room, on a stretcher, rv Patient notified of wait time. 06:21 Vance Ledbetter, JOSELIN is Primary Nurse. mg2 06:21 Patient has correct armband on for positive identification. Pulse ox on. NIBP on. rv 06:21 No provider procedures requiring assistance completed. Maintain EMS IV. Dressing mg2 intact. Good blood return noted. Site clean \\T\\ dry. Gauge \\T\\ site: 20 \\T\\LAC. 06:50 CXR XRAY In Process Unspecified. EDMS 07:04 Primary Nurse role handed off by Vance Ledbetter, RN tw2 07:04 Noemi Hilton RN is Primary Nurse. tw2 07:22 Radiology exam delayed due to test not completed at this time. md1 07:49 Attending Physician role handed off by Emory Centeno MD roberto 07:49 Sai Trinidad MD is Attending Physician. roberto 08:39 Radiology exam delayed due to test not completed at this time. md1 09:41 CT Abd/Pelvis - IV Contrast Only In Process Unspecified. EDMS 10:16 Dominik Lr MD is Referral Physician. roberto 10:17 David Saleh MD is Referral Physician. roberto 10:32 Awaiting: completion of IV fluids PRIOR to discharge per Dr. Trinidad. tw2 11:29 IV discontinued, intact, bleeding controlled, No redness/swelling at site. Pressure tw2 dressing applied. Administered Medications: 06:30 Drug: Zofran (Ondansetron) 4 mg Route: IVP; Site: left antecubital; mg2 07:32 Follow up: Response: No adverse reaction; Nausea is decreased tw2 07:20 Drug: Zosyn 3.375 grams Route: IVPB; Infused Over: 60 mins; Site: left antecubital; tw2 08:57 Follow up: Response: No adverse reaction; IV Status: Completed infusion; IV Intake: tw2 100ml 09:06 Drug: Pepcid 20 mg Route: IVP; Site: left antecubital; tw2 09:07 Follow up: Response: No adverse reaction tw2 09:07 Drug: NS 0.9% 1000 ml Route: IV; Rate: 1 bolus; Site: left antecubital; tw2 11:19 Follow up: Response: No adverse reaction; IV Status: Completed infusion; IV Intake: tw2 1000ml 10:16 Drug: NS 0.9% 1000 ml Route: IV; Rate: 1 bolus; Site: left antecubital; tw2 11:28 Follow up: Response: No adverse reaction; IV Status: Completed infusion; IV Intake: tw2 1000ml 11:23 Not Given (Patient Refused): morphine 2 mg IVP once; (PAIN>8) RASS on ADMN: Combtv4, tw2 Very Agttd3, Agttd2, Rstlss1, AlertClm0, Drwsy-1, LtSdtn-2, ModSdtn-3, DpSdtn-4, UnArsble-5 x2 11:24 Not Given (Patient Refused): Zofran (Ondansetron) 4 mg IVP once; over 2 minutes tw2 Point of Care Testing: Blood Glucose: 06:22 Blood Glucose: 181 mg/dL; mg2 Ranges: Intake: 08:57 IV: 100ml; Total: 100ml. tw2 11:19 IV: 1000ml; Total: 1100ml. tw2 11:28 IV: 1000ml; Total: 2100ml. tw2 Outcome: 10:17 Discharge ordered by . roberto 11:29 Discharged to home ambulatory. tw2 11:29 Condition: stable 11:29 Discharge instructions given to patient, Instructed on discharge instructions, follow up and referral plans. no drinking with medication, no driving heavy equipment, medication usage, Demonstrated understanding of instructions, follow-up care, medications, Prescriptions given X 3. 11:30 Patient left the ED. tw2 Signatures: Dispatcher [employer] EDMS Sai Trinidad MD MD cha Wise, Tara RN RN tw2 Emory Centeno MD MD ps1 Gardose, Michele, RN RN mg2 Chino Lorenz RN Ericka Talbert cl3 Pao Guzman
--- NOTE | 2020-10-21 10:17 | EDPHYS ---
Physician Documentation [facility] Name: Sophie Thakkar Age: 35 yrs Sex: Female : 1985 Arrival Date: 10/21/2020 Time: 06:14 Bed 5 Private MD: ED Physician Sai Trinidad HPI: 10/21 06:23 This 35 yrs old Female presents to ER via EMS with complaints of Breathing ps1 Difficulty. 06:23 patient states that she was tested for COVID 2 weeks ago and was negative. Last 24 ps1 hours has a cough, NVD. No fever. Presented tachycardic. No hypoxia. Has non-specific abdominal pain. Actively vomiting in room. . 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 - Social history:: Smoking status: Patient reports the use of cigarette tobacco products, unknown amount. ROS: 06:23 Eyes: Negative for injury, pain, redness, and discharge, ENT: Negative for injury, ps1 pain, and discharge, MS/Extremity: Negative for injury and deformity, Skin: Negative for injury, rash, and discoloration, Neuro: Negative for headache, weakness, numbness, tingling, and seizure. 06:23 Constitutional: Positive for body aches, chills, fatigue. 06:23 Respiratory: Positive for cough, shortness of breath. 06:23 Abdomen/GI: Positive for abdominal pain, nausea, vomiting, and diarrhea. Exam: 06:23 Head/Face: Normocephalic, atraumatic. Eyes: Pupils equal round and reactive to light, ps1 extra-ocular motions intact. Lids and lashes normal. Conjunctiva and sclera are non-icteric and not injected. ENT: Nares patent. No nasal discharge, no septal abnormalities noted. Tympanic membranes are normal and external auditory canals are clear. Oropharynx with no redness, swelling, or masses, exudates, or evidence of obstruction, uvula midline. Mucous membranes moist. 06:23 Constitutional: The patient appears anxious, obese. 06:23 Cardiovascular: Rate: tachycardic, Rhythm: regular. 06:23 Respiratory: the patient does not display signs of respiratory distress, Respirations: normal. 06:23 Abdomen/GI: Inspection: abdomen appears normal, Palpation: abdomen is soft and non-tender, emesis/gastric contents smell of bile. Vital Signs: 06:16 BP 106 / 37; Pulse 91; Resp 18; Temp 98.7; Pulse Ox 100% ; Weight 129.27 kg; Height 5 rv ft. 3 in. (160.02 cm); 09:07 BP 99 / 71; Pulse 87; Resp 17; Pulse Ox 99% on R/A; tw2 11:29 BP 100 / 88; Pulse 82; Resp 17; Pulse Ox 100% on R/A; tw2 06:16 Body Mass Index 50.48 (129.27 kg, 160.02 cm) rv MDM: 06:27 Patient medically screened. ps1 08:35 Differential diagnosis: pneumonia, reactive airway disease. Antibiotic administration: roberto Not indicated. The patient's Wells Deep Vein Thrombosis Score was calculated as follows: Total Score: 0-2 Pts- Low Risk. The patient's pulmonary embolism risk score was calculated as follows: Total Score: 0-2 points. This patient was found to be at low risk for a pulmonary embolism by using the Well's assessment criteria. Immunization status:. Data reviewed: vital signs, nurses notes, lab test result(s), radiologic studies, CT scan, plain films. Data interpreted: timber deadener: rate is 91 beats/min, rhythm is regular, Pulse oximetry: on room air is 100 %. Test interpretation: by ED physician or midlevel provider: plain radiologic studies. 10/21 06:23 Order name: Basic Metabolic Panel; Complete Time: 06:55 ps1 10/21 06:23 Order name: CBC with Diff; Complete Time: 08:33 ps1 10/21 06:23 Order name: Hepatic Function; Complete Time: 06:55 ps1 10/21 06:23 Order name: Lipase; Complete Time: 06:55 ps1 10/21 06:23 Order name: CXR XRAY; Complete Time: 07:08 ps1 10/21 06:23 Order name: CT Abd/Pelvis - IV Contrast Only; Complete Time: 10:15 ps1 10/21 06:32 Order name: Glucose, Ancillary Testing; Complete Time: 06:42 EDMS 10/21 06:56 Order name: Manual Differential; Complete Time: 08:33 EDMS 10/21 07:56 Order name: COVID-19/FLU A+B; Complete Time: 08:33 EDMS 10/21 09:28 Order name: Urine Dipstick--Ancillary (enter results); Complete Time: 10:15 bd 10/21 09:28 Order name: Urine --Ancillary (enter results); Complete Time: 10:15 10/21 06:23 Order name: IV Saline Lock; Complete Time: 06:30 ps1 10/21 06:23 Order name: Labs collected and sent; Complete Time: 06:30 ps1 10/21 08:33 Order name: Urine Test (obtain specimen); Complete Time: 08:57 roberto Administered Medications: 06:30 Drug: Zofran (Ondansetron) 4 mg Route: IVP; Site: left antecubital; mg2 07:32 Follow up: Response: No adverse reaction; Nausea is decreased tw2 07:20 Drug: Zosyn 3.375 grams Route: IVPB; Infused Over: 60 mins; Site: left antecubital; tw2 08:57 Follow up: Response: No adverse reaction; IV Status: Completed infusion; IV Intake: tw2 100ml 09:06 Drug: Pepcid 20 mg Route: IVP; Site: left antecubital; tw2 09:07 Follow up: Response: No adverse reaction tw2 09:07 Drug: NS 0.9% 1000 ml Route: IV; Rate: 1 bolus; Site: left antecubital; tw2 11:19 Follow up: Response: No adverse reaction; IV Status: Completed infusion; IV Intake: tw2 1000ml 10:16 Drug: NS 0.9% 1000 ml Route: IV; Rate: 1 bolus; Site: left antecubital; tw2 11:28 Follow up: Response: No adverse reaction; IV Status: Completed infusion; IV Intake: tw2 1000ml 11:23 Not Given (Patient Refused): morphine 2 mg IVP once; (PAIN>8) RASS on ADMN: Combtv4, tw2 Very Agttd3, Agttd2, Rstlss1, AlertClm0, Drwsy-1, LtSdtn-2, ModSdtn-3, DpSdtn-4, UnArsble-5 x2 11:24 Not Given (Patient Refused): Zofran (Ondansetron) 4 mg IVP once; over 2 minutes tw2 Point of Care Testing: Blood Glucose: 06:22 Blood Glucose: 181 mg/dL; mg2 Ranges: Critical Glucose Levels:Adult <50 mg/dl or >400 mg/dl <40 mg/dl or >180 mg/dl Disposition: 10/21/20 10:17 Discharged to Home. Impression: Vomiting, Diarrhea, unspecified, Abdominal tenderness, Elevated white blood cell count. - Condition is Stable. - Discharge Instructions: Abdominal Pain, Adult, Chronic Diarrhea, Diarrhea, Adult, Nausea and Vomiting, Adult, Abdominal Pain, Adult, Vpws-fy-[id number], Diarrhea, Adult, [id number]. - Prescriptions for Bentyl 20 mg Oral Tablet - take 1 tablet by ORAL route every 6 hours As needed; 20 tablet. Pepcid 20 mg Oral Tablet - take 1 tablet by ORAL route every 12 hours for 10 days; 20 tablet. Zofran 4 mg Oral Tablet - take 1 tablet by ORAL route every 12 hours As needed; 20 tablet. - Medication Reconciliation Form, Thank You Letter, Antibiotic Education, Prescription Opioid Use, Family Work Release form. - Follow up: Private Physician; When: 2 - 3 days; Reason: Recheck today's complaints, Continuance of care, Re-evaluation by your physician. Follow up: Dominik Lr; When: 2 - 3 days; Reason: Recheck today's complaints, Re-evaluation by your physician. Follow up: David Saleh MD; When: 1 week; Reason: Recheck today's complaints, Continuance of care, Re-evaluation by your physician. - Problem is new. - Symptoms have improved. 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 EDMS EDMS 10:16 06:24 Influenza Screen (A \\T\\ B)+BA.LAB.BRZ ordered. EDWV EDMS 11:30 10:17 10/21/2020 10:17 Discharged to Home. Impression: Vomiting; Diarrhea, unspecified; tw2 Abdominal tenderness; Elevated white blood cell count. Condition is Stable. Discharge Instructions: Abdominal Pain, Adult, Chronic Diarrhea, Diarrhea, Adult, Nausea and Vomiting, Adult, Abdominal Pain, Adult, [id number], Diarrhea, Adult, Oflp-cy-Jzek. Prescriptions for Bentyl 20 mg Oral Tablet - take 1 tablet by ORAL route every 6 hours As needed; 20 tablet, Pepcid 20 mg Oral Tablet - take 1 tablet by ORAL route every 12 hours for 10 days; 20 tablet, Zofran 4 mg Oral Tablet - take 1 tablet by ORAL route every 12 hours As needed; 20 tablet. and Forms are Medication Reconciliation Form, Thank You Letter, Antibiotic Education, Prescription Opioid Use. Follow up: Private Physician; When: 2 - 3 days; Reason: Recheck today's complaints, Continuance of care, Re-evaluation by your physician. Follow up: Dominik Lr; When: 2 - 3 days; Reason: Recheck today's complaints, Re-evaluation by your physician. Follow up: David Saleh; When: 1 week; Reason: Recheck today's complaints, Continuance of care, Re-evaluation by your physician. Problem is new. Symptoms have improved. roberto
[2020-10-21 11:35] VITALS: TEMP 98.7
[2020-10-21 11:37] VITALS: BP 100/88; O2SAT 100
== END 2020-10-21 11:30 | disposition home or self-care (01) ==
LOC: ER 06:07
DX: R11.2 Nausea with vomiting, unspecified (principal); R19.7 Diarrhea, unspecified; D72.829 Elevated white blood cell count, unspecified; F17.210 Nicotine dependence, cigarettes, uncomplicated; Z20.822 Contact with and (suspected) exposure to COVID-19; Z91.040 Latex allergy status; Z91.048 Other nonmedicinal substance allergy status
CPT/HCPCS: 0240U; 36415; 71045; 74177; 80048; 80076; 81003; 81025; 82947; 83690; 85025; 96361; 96365; 96366; 96375; 99284; J2405; J2543; J7030; Q9967

== ENCOUNTER 2022-08-26 14:05 | Emergency (ER) | payer OTHER, SELFPAY ==
--- OUTSIDE RECORDS SUMMARY | 2022-08-26 14:10 | XMS REPORT | Continuity of Care Document ---
:1985 Author Organization [facility] t Address [address] [place] [address] Care Team Providers Name Role Phone ANNAMARIE, TITI Primary Care Physician Unavailable Tatyana Adame MD Attending Clinician TATYANA ADAME Attending Clinician Unavailable Only, Tessa Test Attending Clinician Unavailable Gramm Leatha CANTU Attending Clinician Doctor Unassigned, [place] Attending Clinician Unavailable Radiology Attending Clinician Unavailable RADIOLOGY Attending Clinician Unavailable BRENNAN RITCHIE Attending Clinician Unavailable Brennan Ritchie MD Attending Clinician Ultrasound, Adc Mfm Attending Clinician Unavailable Kaila Melchor MD Attending Clinician TATYANA ADAME Admitting Clinician Unavailable Tatyana Adame MD Admitting Clinician Payers Payer Name Policy Type Policy Number Effective Date Expiration Date S vega [facility] ELSIE [id number] 2019 2019 00:00:00 00:00:00 Problems Condition Condition Condition Status Onset Resolution Last Treating Co mments Source Name Details Category Date Date Treatment Clinician Date Neck mass Neck mass Disease Active 2020-09 Overview: Univers 1-30 Formattin ity of 00:00: g of this [place] 00 note Medical might be Branch different from the original. Added automatic ally from request for surgery [id number] Vomiting Vomiting Disease Active Unive rs or nausea or nausea 5-15 ity of of of 00:00: [place] 00 [facility] Branch History of History of Disease Active 2019- U nivers smoking smoking 5-15 ity of 00:00: [place] 00 Medical Branch Obesity, Obesity, Disease Active Unive rs Class III, Class III, 5-15 it y of BMI BMI 00:00: [place] 40-49.9 40-49.9 00 Medical (morbid (morbid Branch obesity) obesity) History of History of Disease Active 2018- U nivers diabetes diabetes 5-15 ity of mellitus mellitus 00:00: [place] 00 Medical Branch History of History of Disease Active U nivers bariatric bariatric 5-15 ity of surgery surgery 00:00: [place] 00 Medical Branch Prior Prior Disease Active 2019-0 Univers 5-15 [place]y of [place] demise 00 Medical [place] Previous Previous Disease Active 2018-0 Unive rs 5-15 ity of section section 00:00: [place] 00 Medical Branch History of History of Disease Active 2018-0 U nivers 5-15 ity of delivery delivery 00:00: [place] 00 Medical Branch Hypokalemi Hypokalemi Disease Active 2015- U nivers a a 2-01 ity of 00:00: [place] 00 Medical Branch Intractabl Intractabl Disease Active 2015- U nivers e nausea e nausea 2-01 ity of and and 00:00: [place] vomiting vomiting 00 Medica l Branch Intractabl Intractabl Disease Active 2016-0 U nivers e vomiting e vomiting 1-31 it y of 00:00: [place] 00 Medical Branch Allergies, Adverse Reactions, Alerts Allergy Allergy Status Severity Reaction(s) Onset Inactive Treating Comm ents Source Name Type Date Date Clinician Niru Doveri Active Intraven ty to 6-28 ous adverse 00:00: reaction 00 to drug latex DA Active DC 2018-09 [facility] 1[facility]18 [facility] [place] No Known DA Active U 2018-09 [facility] Allergie 0-03 [facility] s 00:[facility]: [facility] 00 l of [place] latex DA Active DC 2018-09 [facility] 0-03 [facility] 00:[facility]: [facility] 00 l of [place] Flagyl Propensi Active 2017-09 ty to 05 adverse 00:00: reaction 00 to drug Adhesive Propensi Active Rash Univer s ty to 02-01 ity of adverse 00:00: [place] reaction 00 Medical s Branch ADHESIVE Drug Active Rash Univers Class 02-01 ity of 00:00: [place] 00 Medical Branch LATEX DRUG Active Rash Univers INGREDI 02-01 ity of 00:00: [place] 00 Medical Branch Latex Propensi Active Rash Univers ty to 02-01 ity of adverse 00:00: [place] reaction 00 Medical s Branch Social History Social Habit Start Date Stop Date Quantity Comments Source History SDOH University o f Alcohol Frequency [place] M edical Branch History [facility] o f Alcohol Std [place] Medical Drinks Branch History [facility] o f Alcohol Binge [place] Medic al Branch Exposure to Not sure [place] of SARS-CoV-2 [place] Medical (event) Branch Alcohol intake 2021-09-04 2021-09-04 Current University of 00:00:00 00:00:00 non-drinker of [facility] alcohol (finding) Branch Alcohol Comment 2019-02-06 2019-02-06 rare Universit y of 00:00:00 00:00:00 [facility] Tobacco use and 2019-02-06 2019-02-06 Never used Universit y of exposure 00:00:00 00:00:00 [facility] History of 2019-01-12 Cigarette Smoker Universi ty of tobacco use 00:00:00 [facility] Sex [birth year] At [birth year] Universit y of 00:00:00 00:00:00 [facility] Smoking Status Start Date Stop Date Source Former smoker 2019-02-06 00:00:00 2019-02-06 00:00:00 Universi ty of [facility] Medications Ordered Filled Start Stop Current Ordering Indication Dosage Frequency Signature Comments Components Source Medication Medication Date Date Medication? Clinician (SIG) Name Name APPLY A No [id number] THIN LAYER 7-08 TO AFFECTED 00:00: AREA(S) AND 00 RUB IN WELL TWICE DAILY. 2020-09 Yes Take by Univer s vit 2-06 mouth. ity of calc,iron,f 17:03: [facility] 27 Medical ( Branch VITAMIN ORAL) 2020-09 Yes Take by Univer s vit 2-06 mouth. ity of calc,iron,f 17:03: [facility] 27 Medical ( Branch VITAMIN ORAL) ibuprofen 2020-09 Yes [id number] 800mg Take 1 Univers 800 mg 2-06 tablet by ity of tablet 00:00: mouth [place] 00 every 6 Medical (six) Branch hours as needed for Pain (scale 1-3). acetaminoph 2020-09 Yes [id number] 650mg Take 1 Univers en (TYLENOL 2-06 tablet by ity of 8 HOUR) 650 00:00: mouth [place] mg CR 00 every 8 Medical tablet (eight) Branch hours as needed for Pain. ibuprofen 2020-09 Yes [id number] 800mg Take 1 Univers 800 mg 2-06 tablet by ity of tablet 00:00: mouth [place] 00 every 6 Medical (six) Branch hours as needed for Pain (scale 1-3). acetaminoph 2020-09 Yes [id number] 650mg Take 1 Univers en (TYLENOL 2-06 tablet by ity of 8 HOUR) 650 00:00: mouth [place] mg CR 00 every 8 Medical tablet (eight) Branch hours as needed for Pain. cetirizine 0 Yes 10mg Take 10 mg U nivers 10 mg 7-10 by mouth ity of tablet 00:00: daily. [address] Branch fluticasone Yes TAKE 2 Univ ers propionate 7-10 SPRAYS IN ity of 50 00:00: EACH [place] mcg/actuati 00 NOSTRIL Medic al on nasal EVERY DAY Branch spray cetirizine 2018-0 Yes 10mg Take 10 mg U nivers 10 mg 7-10 by mouth ity of tablet 00:00: daily. [address] fluticasone Yes TAKE 2 Univ ers propionate 7-10 SPRAYS IN ity of 50 00:00: EACH [place] mcg/actuati 00 NOSTRIL Medic al on nasal EVERY DAY Branch spray metoclopram Yes 10mg Take 1 Univ ers cleve HCl 10 5-22 tablet by ity of mg tablet 00:00: mouth [place] 00 every 6 Medical (six) Branch hours as needed for Nausea and Vomiting (N/V). metoclopram 2019-0 Yes 10mg Take 1 Univ ers cleve HCl 10 5-22 tablet by ity of mg tablet 00:00: mouth [place] 00 every 6 Medical (six) Branch hours as needed for Nausea and Vomiting (N/V). clindamycin 2019-0 No 1mg HCl 300 mg 4-01 capsule 00:00: 00 clindamycin 2019-0 No 1mg HCl 300 mg 4-01 capsule 00:00: 00 Xulane 150 2019-0 No 1mcg/24 mcg-35 1-02 hr mcg/24 hr 00:00: transdermal 00 patch Xulane 150 2019-0 No 1mcg/24 mcg-35 1-02 hr mcg/24 hr 00:00: transdermal 00 patch clindamycin 2018-1 No 1mg HCl 300 mg 1-08 capsule 00:00: 00 clindamycin 2018-1 No 1mg HCl 300 mg 1-08 capsule 00:00: 00 Flagyl 500 2018-0 No 1mg mg tablet 9 00:00: 00 Flagyl 500 2017-0 No 1mg mg tablet 9 00:00: 00 Flagyl 500 2017-0 No 1mg mg tablet 3- 00:00: 00 Flagyl 500 2017-0 No 1mg mg tablet 3- 00:00: 00 Flagyl 500 2016-0 No 1mg mg tablet 3 00:00: 00 Flagyl 500 2016-0 No 1mg mg tablet 3 00:00: 00 Flagyl 500 2015-0 No 1mg mg tablet 6- 00:00: 00 Flagyl 500 2015-0 No 1mg mg tablet 6 00:00: 00 fluconazole 2016-0 No 1mg 150 mg 6-29 tablet 00:00: 00 fluconazole 2016-0 No 1mg 150 mg 6-29 tablet 00:00: 00 azithromyci 2016-0 No 2mg n 500 mg 1-11 tablet 00:00: 00 azithromyci 2016-0 No 2mg n 500 mg 1-11 tablet 00:00: 00 Flagyl 500 2016-0 No 1mg mg tablet 1- 00:00: 00 Flagyl 500 2016-0 No 1mg mg tablet 1- 00:00: 00 Vital Signs Vital Name Observation Time Observation Value Comments Source Systolic blood 2021-09-04 20:22:00 106 mm[Hg] Univer sity of pressure [facility] Diastolic blood 2021-09-04 20:22:00 71 mm[Hg] Unive rsity of pressure [facility] Heart rate 2021-09-04 20:22:00 73 /min Universi ty [facility] Body temperature 2021-09-04 20:22:00 36.17 Katie Univ ersity of [facility] Respiratory rate 2021-09-04 20:22:00 18 /min [facility] Body height 2021-09-04 20:22:00 157.5 cm Universi ty [facility] Body weight 2021-09-04 20:22:00 130.908 kg Universi [facility] BMI 2021-09-04 20:22:00 52.79 kg/m2 [facility] Oxygen saturation in 2021-09-04 20:22:00 95 /min [facility] Arterial blood by [facility] Pulse oximetry Branch BP Systolic 2022-04-02 11:30:00 110 mm[Hg] BP Diastolic 2022-04-02 11:30:00 74 mm[Hg] Weight Measured 2022-04-02 11:30:00 273.80 pounds Height Measured 2022-04-02 11:30:00 62.50 inches Body Temperature 2022-04-02 11:30:00 98.60 degrees Heart Rate 2022-04-02 11:30:00 71.00 /min Respiratory Rate 2022-04-02 11:30:00 BP Systolic 2022-03-30 09:49:00 113 mm[Hg] BP Diastolic 2022-03-30 09:49:00 75 mm[Hg] Weight Measured 2022-03-30 09:49:00 270.80 pounds Height Measured 2022-03-30 09:49:00 62.50 inches Body Temperature 2022-03-30 09:49:00 98.00 degrees Heart Rate 2022-03-30 09:49:00 68.00 /min Respiratory Rate 2022-03-30 09:49:00 16.00 /min BP Systolic 2019-12-17 13:38:00 106 mm[Hg] BP Diastolic 2019-12-17 13:38:00 68 mm[Hg] Weight Measured 2019-12-17 13:38:00 298.00 pounds Height Measured 2019-12-17 13:38:00 62.50 inches Body Temperature 2019-12-17 13:38:00 98.00 degrees Heart Rate 2019-12-17 13:38:00 79.00 /min Respiratory Rate 2019-12-17 13:38:00 BP Systolic 2018-12-25 15:14:00 99 mm[Hg] BP Diastolic 2018-12-25 15:14:00 69 mm[Hg] Weight Measured 2018-12-25 15:14:00 219.10 pounds Height Measured 2018-12-25 15:14:00 62.50 inches Body Temperature 2018-12-25 15:14:00 98.00 degrees Heart Rate 2018-12-25 15:14:00 67.00 /min Respiratory Rate 2018-12-25 15:14:00 BP Systolic 2018-09-27 16:10:00 110 mm[Hg] BP Diastolic 2018-09-27 16:10:00 77 mm[Hg] Weight Measured 2018-09-27 16:10:00 215.20 pounds Height Measured 2018-09-27 16:10:00 62.50 inches Body Temperature 2018-09-27 16:10:00 97.90 degrees Heart Rate 2018-09-27 16:10:00 65.00 /min Respiratory Rate 2018-09-27 16:10:00 BP Diastolic 2018-07-31 16:23:00 59 mm[Hg] Weight Measured 2018-07-31 16:23:00 217.40 pounds Height Measured 2018-07-31 16:23:00 62.50 inches Body Temperature 2018-07-31 16:23:00 98.20 degrees Heart Rate 2018-07-31 16:23:00 75.00 /min Respiratory Rate 2018-07-31 16:23:00 BP Systolic 2018-07-31 16:23:00 95 mm[Hg] BP Systolic 2018-06-15 16:58:00 98 mm[Hg] BP Diastolic 2018-06-15 16:58:00 47 mm[Hg] Weight Measured 2018-06-15 16:58:00 222.20 pounds Height Measured 2018-06-15 16:58:00 62.50 inches Body Temperature 2018-06-15 16:58:00 98.60 degrees Heart Rate 2018-06-15 16:58:00 84.00 /min Respiratory Rate 2018-06-15 16:58:00 BP Systolic 2018-02-02 16:10:00 91 mm[Hg] BP Diastolic 2018-02-02 16:10:00 60 mm[Hg] Weight Measured 2018-02-02 16:10:00 248.40 pounds Height Measured 2018-02-02 16:10:00 62.50 inches Body Temperature 2018-02-02 16:10:00 98.10 degrees Heart Rate 2018-02-02 16:10:00 77.00 /min Respiratory Rate 2018-02-02 16:10:00 BP Systolic 2017-12-20 16:22:00 98 mm[Hg] BP Diastolic 2017-12-20 16:22:00 67 mm[Hg] Weight Measured 2017-12-20 16:22:00 266.40 pounds Height Measured 2017-12-20 16:22:00 62.50 inches Body Temperature 2017-12-20 16:22:00 98.10 degrees Heart Rate 2017-12-20 16:22:00 86.00 /min Respiratory Rate 2017-12-20 16:22:00 BP Systolic 2017-08-03 09:12:00 103 mm[Hg] BP Diastolic 2017-08-03 09:12:00 63 mm[Hg] Weight Measured 2017-08-03 09:12:00 267.40 pounds Height Measured 2017-08-03 09:12:00 62.50 inches Body Temperature 2017-08-03 09:12:00 98.50 degrees Heart Rate 2017-08-03 09:12:00 65.00 /min Respiratory Rate 2017-08-03 09:12:00 19.00 /min BP Systolic 2017-04-20 11:33:00 92 mm[Hg] BP Diastolic 2017-04-20 11:33:00 58 mm[Hg] Weight Measured 2017-04-20 11:33:00 252.80 pounds Height Measured 2017-04-20 11:33:00 62.50 inches Body Temperature 2017-04-20 11:33:00 98.20 degrees Heart Rate 2017-04-20 11:33:00 70.00 /min Respiratory Rate 2017-04-20 11:33:00 Procedures This patient has no known procedures. Plan of Care Planned Activity Planned Date Details Comments Source Goal Plan of Care Note [code = 84444-4] Goal Plan of Care Note [code = 58230-2] Goal Plan of Care Note [code = 30619-7] Goal Plan of Care Note [code = 70013-6] Goal Plan of Care Note [code = 23840-6] Goal Plan of Care Note [code = 67478-7] Goal Plan of Care Note [code = 24719-2] Goal Plan of Care Note [code = 48520-7] Goal Plan of Care Note [code = 34466-8] Goal Plan of Care Note [code = 39319-1] Goal Plan of Care Note [code = 24260-0] Goal Plan of Care Note [code = 20555-5] Goal Plan of Care Note [code = 58022-1] Goal Plan of Care Note [code = 24995-5] Goal Plan of Care Note [code = 00232-7] Goal Plan of Care Note [code = 72280-1] Goal Plan of Care Note [code = 99761-2] Goal Plan of Care Note [code = 59895-9] Goal Plan of Care Note [code = 68749-5] Goal Plan of Care Note [code = 64070-4] Goal Plan of Care Note [code = 90623-7] Goal Plan of Care Note [code = 53514-8] Goal Plan of Care Note [code = 63266-3] Goal Plan of Care Note [code = 01056-6] Goal Plan of Care Note [code = 85417-6] Goal Plan of Care Note [code = 17156-8] Goal Plan of Care Note [code = 52101-5] Goal Plan of Care Note [code = 17668-1] Goal Plan of Care Note [code = 13460-1] Goal Plan of Care Note [code = 96521-3] Goal Plan of Care Note [code = 35944-1] Goal Plan of Care Note [code = 22317-9] Goal Plan of Care Note [code = 09128-5] Goal Plan of Care Note [code = 62901-9] Goal Plan of Care Note [code = 23851-8] Goal Plan of Care Note [code = 95104-9] Goal Plan of Care Note [code = 86738-6] Goal Plan of Care Note [code = 87064-7] Goal Plan of Care Note [code = 45330-6] Goal Plan of Care Note [code = 18933-6] Goal Plan of Care Note [code = 37691-3] Goal Plan of Care Note [code = 54445-4] Goal Plan of Care Note [code = 81457-1] Goal Plan of Care Note [code = 28500-2] Goal Plan of Care Note [code = 84597-1] Goal Plan of Care Note [code = 67852-6] Goal Plan of Care Note [code = 12868-1] Goal Plan of Care Note [code = 12056-9] Goal Plan of Care Note [code = 26254-3] Encounters Start End Encounter Admission Attending Care Care Encounter Source Date/Time Date/Time Type Type Clinicians Facility Department ID 2022-04-02 2022-04-02 Outpatient [id number] 00:00:00 00:00:00 Visit [id number] 038-4c8b-a -nx03-6e2 u57-4q4zoq tpgrjmo4d bdfc3a 2022-03-30 2022-03-30 Outpatient [id number] 00:00:00 00:00:00 Visit 85fa-4740 5fa-4740-a -u83r-tij [id number] [id number] 2021-09-04 2021-09-04 [facility] [id number] [facility] 14:07:27 15:00:35 Visit Tatyana EUBANKS 350.1.13.10 benita Benoit 4.2.7.2.686 Az mckeon [facility] [phone] Ok dic[address] 2021-09-04 2021-09-04 Outpatient Ryan ADAME [facility] [id number] [facility] 14:00:00 15:00:35 TATYANA vergara [facility] 2021-09-04 2021-09-04 [facility] [id number] [facility] 14:00:00 14:00:00 TATYANA vergara [facility] 2021-09-04 2021-09-04 Telephone [facility] [id number] Univers 00:00:00 00:00:00 Tatyana EUBANKS 350.1.13.10 i ty of [place] [phone] Ok dical NAL [address] [facility] 2021-08-31 2021-08-31 Outpatient R [facility] GIORGIO [id number] Univers 12:46:00 17:03:00 TATYANA vergara [facility] 2021-08-31 2021-08-31 Hospital [facility] 1.2.840.114 [id number] Univers 12:46:00 17:03:00 Encounter Tatyana EUBANKS 350.1.13.10 ity of [place] 4[place]2.7.2.[place] SUR[place]ICAL [id number] [facility] [address] 2021-08-31 2021-08-31 Surgery [facility] 1.2.156.326 [id number] Univers 14:15:00 16:10:00 Tatyana EUBANKS 350.1.13.10 i ty of [place] 4.2.7.2.[place] [id number] [facility] 020 Branch 2021-08-28 2021-08-28 Laboratory Only, Adc Test [facility] 1.2.840. 114 [id number] Univers 10:48:44 11:03:44 Only Tatyana Adame 350.1.13.10 ity of [place] 4.2.[place] [id number] [facility] 353 Branch 2021-08-28 2021-08-28 [facility] [id number] Univers 08:30:00 08:30:00 TATYANA vergara [facility] 2021-08-25 2021-08-25 Prep [facility] 1.2.840.114 [id number] Univers 00:00:00 00:00:00 Surgery Leatha EUBANKS 350.1.13.10 ity of [place] 4.[place].2.[place] [id number] Ok dical NAL [address] [facility] 2021-08-18 2021-08-18 Office [facility] 1.2.099.871 [id number] Univers 13:35:01 14:22:15 Visit Tatyana RAIMUNDO 350.1.13.10 i ty of [place] 4.2.7.2.686 [place] [facility] [phone] Ok dical NAL 188 [facility] 2021-08-18 2021-08-18 Outpatient R DEEP, [facility] [id number] Univers 13:15:00 14:22:15 TATYANA vergara [facility] 2021-08-18 2021-08-18 Outpatient R DEEP, [facility] [id number] Univers 13:15:00 14:22:15 TATYANA ursula [facility] 2021-08-18 2021-08-18 Outpatient R DEEP, [facility] [id number] Univers 13:15:00 13:15:00 TATYANA vergara [facility] 2021-08-18 2021-08-18 Orders Doctor PHELPS 1.2.840.114 [id number] Univers 00:00:00 00:00:00 Only Unassigned, ROXY 350.1.13.10 ity of [place] [facility] 4.2.7.2.686 Jacinto as [id number] [facility] [address] [place] 2021-07-27 2021-07-27 Orders Doctor MATTIE 1.2.840.114 [id number] Univers 00:00:00 00:00:00 Only Unassigned, ROXY 350.1.13.10 ity of [place] [facility] 4.2.7.2.686 Jacinto as [phone] [facility] [address] [place] 2021-07-23 2021-07-23 Hospital Radiology [facility] 1.2.840.114 [id number] Univers 13:52:13 23:59:00 Encounter RAIMUNDO 350.1.13.10 [place]y of [place] 4.2.[place].2.[place] KEMP [id number] [facility] [address] 2021-07-23 2021-07-23 Outpatient R RADIOLOGY [facility] [id number] Univers 13:47:32 13:51:00 ity of [facility] 2021-07-23 2021-07-23 Hospital Radiology [facility] 1.2.840.114 [id number] Univers 13:30:00 13:51:00 Encounter [place] 350.1.13.10 [facility]y [facility] 4.2.7.2.[place] [id number] [facility] [address] 2021-07-23 2021-07-23 Orders Doctor MATTIE 1.2.840.114 [id number] Univers 00:00:00 00:00:00 Only Unassigned, ROXY 350.1.13.10 ity of [place] [facility] 4.2.7.2.686 Jacinto as [id number] [facility] [address] Branch 2019-06-06 2019-06-06 Outpatient R BRENNAN RITCHIE [facility] [id number] Univers 16:15:00 16:15:00 ity of 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 Ultrasound, Adc [facility] 1.2 .840.114 [id number] Univers 14:17:30 15:17:30 Visit Herrera Brennanjesusita Verduzco [place] 350.1.13.10 ity of [place] 4.2.7.2.[place] Profess[place] [id number] [address] 2019-05-04 2019-05-04 [employer] Sales Representative Ultrasound, [facility] 1.2.840.114 [id number] 14:17:30 15:17:30 Visit Adc [facility] [place] 350.1.13.10 [place] 4.2.7.2.[address] Professio [phone] [address] 2019-05-04 2019-05-04 Orders Doctor MATTIE 1.2.840.114 [id number] Univers 00:00:00 00:00:00 Only Unassigned, ROXY 350.1.13.10 ity of [place] [facility] 4.2.7.2.686 Jacinto as [phone] [facility] [address] [place] 2019-05-04 2019-05-04 Orders Doctor MATTIE 1.2.840.114 [id number] 00:00:00 00:00:00 Only Unassigned, ROXY 350.1.13.10 [place] [facility] 4.2.7.2.686 [id number] [facility] [facility] 2019-05-02 2019-05-02 Telephone Brennan Ritchie [facility] 1.2.840.114 [id number] Univers 00:00:00 00:00:00 [place] 350.1.13.10 i ty of [place] [phone] Ok dical [address] 2019-05-02 2019-05-02 Telephone Brennan Ritchie [facility] 1.2.840.114 [id number] 00:00:00 00:00:00 [place] 350.1.13.10 [place] 4.2.7.2.686 Professio [phone] [address] 2019-04-18 2019-04-18 [facility] RuizMARTINA 1.2.840.114 [id number] [facility] 13:01:44 23:59:00 Encounter Kaila Holguin 350.1.13.10 ity of [facility] 4.2.7.2.686 [place] as [id number] [address] 2019-04-18 2019-04-18 [facility] 1.2.840.114 [id number] 13:01:44 23:59:00 Encounter Kaila Holguin 350.1.13.10 [facility] 4.2.7.2.686 [id number] Results Test Description Test Time Test Comments Results Result Comments Source [facility]ENS DNA PANEL 2022-03-31 12:57:32 Test Item Value Reference Range Interpretation Comme nts DALTON SPECIES (test code = NEGATIVE NEGATIVE ) G. VAGINALIS (test code = NEGATIVE NEGATIVE ) T. VAGINALIS (test code = NEGATIVE NEGATIVE U NLESS OTHERWISE INDICATED, ALL ) TESTING PERFORM ED ATCLINICAL PATHOLOGY [facility], [facility]. [address] [place] [address] LABORATORY DIRE CTOR: MIREYA PEDRAZA M.D. [place] NUMBER [id number] [facility] [place]. [id number] VAGINAL PATHOGENS DNA [id number] 00:00:00 Test Item Value Reference Range Interpretation Comments DALTON SPECIES (test code = ) NEGATIVE G. VAGINALIS (test code = ) NEGATIVE T. VAGINALIS (test code = ) NEGATIVE PLACENTA THIRD [id number] 17:54:00 RUN DATE: 09/04/19 [facility] - Laboratory PAGE 1 RUN TIME: 721 Specimen Inquiry RUN USER: INTERFACE --PATIENT: WALTER ROSE LOC: KRISTEN U #: [id number] AGE/SX: ROOM: [facility] RE08/16/19REGDR: Junior Tapia MD : 89 BED: A DIS: 08/26/19 STATUS: DIS IN TLOC: SPEC #: [id number] RECD: 08/22/19 STATUS: ALICIA GONZALEZ #: [id number] [place]: 08/22/19- [facility] DR: Junior Tapia MD ENTERED: 08/27/19SP TYPE: PLACIII OTHR DR: ORDERED: LEVEL V SURGICA CODES: [id number] - PLACENTA, NOS PROCEDURES: LEVEL VSURGICA (Incomplete) TISSUES: PLACENTA, NOS - PLACENTA CLINICAL HISTORY 33 year old, 36 weeks, [id number], section, history of demise, decreased FM, oligo (wpd) FINAL DIAGNOSIS Placenta, section: - placenta with third trimester morphology (370 gms), mean placental weight at 36 weeks - 457 gms (placenta is somewhat small for dates, approximately the 10th percentile for weight at 36 weeks) - mild chronic deciduitis - mural fibrin deposition involving chorionic stem blood vessels,no occlusive thrombi identified - see comment - [...] and inherited or acquired thrombophilias. CPT code(s): 10778 pkg/wpd 08/31/19 CONTINUED ON NEXT PAGE RUN DATE: 09/04/19 [facility] PAGE 2 RUN TIME: 721 Specimen Inquiry RUN USER: INTERFACE SPEC #: [id number] PATIENT: WALTER ROSE #[id number] (Continued) GROSS DESCRIPTION The specimen was received [...] Parenchyma lesions: None Cassettes: A1 through A4 ramos/wpd 08/28/19 @ 0800 MICROSCOPIC DESCRIPTION The placenta is composed of small vascular villi. A stem villous blood vessel contains mural fibrin deposition. No occlusive thrombi are identified. The trivascular umbilical cord and membranes are free of inflammation. mae/wpd 08/31/19 Signed TaylorLucero 08/31/19 1754 ----- ------- END OF REPORT HGB [id number] 07:11:00 Test Item Value Reference Range Interpretation Comments HEMOGLOBIN (test code = HGB) 7.4 g/dL 10.7-13.9 L HEMATOCRIT (test code = HCT) 24.6 % 32.1-42.1 L CBC W/AUTO [id number] 05:50:00 Test Item Value Reference Range Interpretation [...] NORMAL NORMAL code = PLTMR) CBC W/AUTO [id number] 05:30:00 Test Item Value Reference Range Interpretation [...] NORMAL NORMAL code = PLTMR) AMNISURE (ROM) [id number] 01:29:00 Test Item Value Reference Range Interpretation Comments AMNISURE (ROM) TEST (test code = NON-RUPTURED NON-RUPTURE AMNI) : *Amnisure QC OK? YESAMNISURE (ROM) [id number] 01:19:00 Test Item Value Reference Range Interpretation Comments AMNISURE (ROM) TEST (test code = NON-RUPTURED NON-RUPTURE AMNI) : *Amnisure QC OK? YESRAPID PLASMA [id number] 18:09:00 Test Item Value Reference Range Interpretation Comments RAPID PLASMA REAGIN (test code = RPR) NON-REACT IS CONSENT FORM SIGNED FOR HIV TESTING? YAG HEPATITIS B [id number] 18:09:00 Test Item Value Reference Range Interpretation Comments AG HEPATITIS B SURFACE (test code NONREACTIVE NONREACTIVE = HBSAG) IS CONSENT FORM SIGNED FOR HIV TESTING? YAB HEPATITIS C [id number] 18:09:00 Test Item Value Reference Range Interpretation Comments AB HEPATITIS C (test code = NONREACTIVE NONREACTIVE HCVAB) SIGNAL TO CUTOFF (test code = <0.02 <0.80 N CUTOFF) IS CONSENT FORM SIGNED FOR HIV TESTING? YAB [id number] 18:09:00 Test Item Value Reference Range Interpretation Comments AB TREPONEMA (test code = TREPAB) NONREACTIVE NONREACTIVE IS CONSENT FORM SIGNED FOR HIV TESTING? YAB HIV 1 18:09:00 Test Item Value Reference Range Interpretation Comments AB HIV 1 2 (test NONREACTIVE NONREACTIVE Done by [facility] code = [id number]) 4th Gen HIV Ag/Ab Combo Screen IS CONSENT FORM SIGNED FOR HIV TESTING? YRAPID PLASMA [id number] 17:45:00 Test Item Value Reference Range Interpretation Comments RAPID PLASMA REAGIN (test code = RPR) NON-REACT IS CONSENT FORM SIGNED FOR HIV TESTING? YAG HEPATITIS B [id number] 17:45:00 Test Item Value Reference Range Interpretation Comments AG HEPATITIS B SURFACE (test code NONREACTIVE NONREACTIVE = HBSAG) IS CONSENT FORM SIGNED FOR HIV TESTING? YAB HEPATITIS C [id number] 17:45:00 Test Item Value Reference Range Interpretation Comments AB HEPATITIS C (test code = HCVAB) NONREACTIVE SIGNAL TO CUTOFF (test code = CUTOFF) <0.80 IS CONSENT FORM SIGNED FOR HIV TESTING? YAB [id number] 17:45:00 Test Item Value Reference Range Interpretation Comments AB TREPONEMA (test code = TREPAB) NONREACTIVE NONREACTIVE IS CONSENT FORM SIGNED FOR HIV TESTING? YAB HIV 1 17:45:00 Test Item Value Reference Range Interpretation Comments AB HIV 1 2 (test code = NER06LJ) NONREACTIVE IS CONSENT FORM SIGNED FOR HIV TESTING? YCBC W/AUTO [id number] 15:54:00 Test Item Value Reference Range Interpretation [...] code = PLTMR) - US PREG UT [id number] 13:50:00 Patient Name: WALTER ROSE Unit No: [id number] EXAMS: CPT CODE: [id number] US PREG UT TRANSVAGINAL [address] [facility] [address] [address] BIOPHYSICAL PROFILE ULTRASOUNDREPORT Pat. Name: WALTER ROSE Pat. No: [id number] Study Date: 08/13/2019 12:07pm , Age: 01 1985, 33 Pregnancies: 4, Para 2 LMP: Unknown GA by 1st: 34w5d GA Selected: 34w5d (From Known E) SANDRA: 09/19/2019 Referring MD: Junior Tapia Medical Office Coordinator: Noy Campos RDMS CPT4: USPRUTTRVG Admitting MD: Junior Tapia Hist/Ind: 5TH SCAN DFM Cervical Length: 3.8 cm Heart Rate: 159 bpm Amniotic Fluid Index: 12.0cm (08.0- 24.9) Q1: 2.1cm Q2: 6.5cm Q3: 0.0cm Q4: 3.4cm Biophysical Profile: 05/03 Breathin Tone: 2 Movement: 2 AFV: 2 CLINICAL SUMMARY Type of Gestation: Hawkins Intrauterine in vertex presentation. motion and organs seen: heart motion seen Placental location: Anterior Placental maturity : Grade 2 There is no evidence of placenta previa.Amniotic fluid volume is normal. Uterus and adnexa: No significant abnormality is seen. Katerina avery M.D. Electronic Signature 08/13/2019 01:50pm at 1350 Reported and signed by: Katerina Escobar MD CC: Junior Tapia MD Technologist: Noy Campos RDMS Probe: [id number] Trnscrbd D/ (2350) HalinaG Orig Print D/T: S: 08/16/2019 (7615) [facility] NAME: WALTER ROSE Radiology Department PHYS: Junior Modi MD [address] : 1985 AGE: 33 SEX: [place] [address] LOC: EduLDT PHONE #: [phone] EXAM DATE: 08/13/2019 STATUS: REG RCR FAX #: [phone] RAD NO: Page 1 Signed Report Patient Name: WALTER ROSE Unit No: [id number] EXAMS: CPT CODE: [id number] US PREG UT TRANSVAGINAL [address] (Continued) [facility] NAME: WALTER ROSE Radiology Department PHYS: Junior Modi MD [address] : 1985 AGE: 33 SEX: [place] [address] LOC: EduLDT PHONE #: [phone] EXAM DATE: 08/13/2019STATUS: REG RCR FAX #: [phone] RAD NO: Page 2 Signed Report- US FET BIO PH LA W/O [id number] 13:50:00 Patient Name: WALTER ROSE Unit No: [id number] EXAMS: CPT CODE: [id number] US FET BIO PH LA W/O NST [address] [address] BIOPHYSICAL PROFILE ULTRASOUND REPORT Pat. Name: WALTER ROSE Pat. No: [id number] Study Date: 08/13/2019 12:07pm , Age: 01 1985, 33 Pregnancies: 4, Para 2 LMP: Unknown GA by 1st: 34w5d GA Selected: 34w5d (From Known E) SANDRA: 09/19/2019 Referring MD: Junior Tapia Medical Office Coordinator: Noy Campos RDMS CPT4: USBPPWONST Admitting MD: Junior Tapia Hist/Ind: 5TH SCAN DFM Cervical Length: 3.8 cm Heart Rate: 159 bpm Amniotic Fluid Index: 12.0cm (08.0- 24.9) Q1: 2.1cm Q2: 6.5cm Q3: 0.0cm Q4: [...] Technologist: Noy Campos RDMS Probe: Trnscrbd D/ (7920) Wily Orig Print D/T: S: 08/13/2019 (1690) [facility] NAME: WALTER ROSE KOHLER Radiology Department PHYS: Junior Modi MD [address] : 1985 AGE: 33 SEX: F [place], [place] [address] LOC: EduLDT PHONE #: [phone] EXAM DATE: 08/13/2019 STATUS: REG RCR FAX #: [phone] RADNO: Page 1 Signed Report Patient Name: WALTER ROSE Unit No: [id number] EXAMS: CPT CODE: [id number] US FET BIO PH LA W/O NST [address] (Continued) [facility] NAME: WALTER ROSE Radiology Department PHYS: Junior Modi MD [address] : 1985 AGE: 33 SEX: F [place] [address] LOC: EduLDT PHONE #: [phone] EXAM DATE: 08/13/2019 STATUS: REG RCR FAX #: [phone] RAD NO: Page 2 Signed Report- US FET BIO PH LA W/O [id number] 08:39:00 Patient Name: WALTER ROSE Unit No: [id number] EXAMS: CPT CODE: [id number] US FET BIO PH LA W/O NST [address] [address] [place], [place] [address] BIOPHYSICAL PROFILE ULTRASOUNDREPORT Pat. Name: WALTER ROSE Pat. No: [id number] Study Date: 08/09/2019 7:50am , Age: 01 1985, 33 Pregnancies: 4, Para 2 LMP: Unknown GA by 1st: 34w1d GA Selected: 34w1d (From First S) SANDRA: 09/19/2019 Referring MD: Junior Tapia Medical Office Coordinator: Ro Le RDMS CPT4: USBPPWONST Admitting MD: Junior Tapia Hist/Ind: DFM SCAN 3 Cervical Length: 3.6 cm Heart Rate: 141 bpm Amniotic Fluid Index: 13.2cm (08.1- 24.8) Q1: 1.0cm Q2: 5.3cmQ3: 1.8cm Q4: 5.1cm Biophysical Profile: 05/03 Breathin Tone: 2 Movement: 2 AFV: 2 CLINICAL SUMMARY Type of Gestation: SingletonIntrauterine in vertex presentation. motion and organs seen: heart motion seenFetal body and limb movements observed tone noted breathing movements observed Placental location: Anterior Placental maturity : Grade 2 There is no evidence of placenta previa. Amniotic fluid volume is normal. Thank you for allowing us to participate in the care of this patient. Beau Farfan M.D. Electronic Signature 08/09/2019 08:39am at 0839 Reported and signed by: Beau Farfan MD [facility] NAME: ROSEWALTER Radiology Department PHYS: Junior Modi MD [address] : 1985 AGE: 33 SEX: F [place], [place] [address] LOC: EduLDPhoebe PHONE #: [phone] EXAM DATE: 08/09/2019 STATUS: REG RCR FAX #: [phone] RAD NO: Page 1 Signed Report (CONTINUED) PatientName: WALTER ROSE Unit No: [id number] EXAMS: CPT CODE: [id number] US FET BIO PH LA W/O NST [address] (Continued) CC: Junior Tapia MD Technologist: Ro Le RDMS Probe: Trnscrbd D/ (0839) Suha Orig Print D/T: S: 08/09/2019 (0839) [facility] NAME: WALTER ROSE Radiology Department PHYS: Junior Modi MD [address] : 1985 AGE: 33 S EX: F [place] [address] LOC: EduLDT PHONE #: [phone] EXAM DATE: 08/09/2019 STATUS: REG RCR FAX #: [phone] RAD NO: Page 2 Signed Report Patient Name: WALTER ROSE Unit No: [id number] EXAMS: CPT CODE: [id number] [facility] BIO PH LA W/O NST [address] (Continued) [facility] NAME: WALTER ROSE Radiology Department PHYS: Junior Modi MD [address] : 1985 AGE: 33 SEX: F [place], [place] [address] LOC: EduLDT PHONE #: [phone] EXAM DATE: 08/09/2019 STATUS: REG RCR FAX #: [phone] RAD NO: Page 3 Signed ReportAB TREPONEMA 2019-08-06 15:51:00 Test Item Value Reference Range Interpretation Comments AB TREPONEMA (test code = TREPAB) NONREACTIVE NONREACTIVE PLEASE CALL DR.HAIDAR SHARMA W/RESULTS NO NUMBER PROVIDEDAB HIV 1 15:51:00 Test Item Value Reference Range Interpretation Comments AB HIV 1 2 (test NONREACTIVE NONREACTIVE Done by [facility] code = [id number]) 4th Gen HIV Ag/Ab Combo Screen PLEASE CALL DR.HAIDAR SHARMA W/RESULTS NO NUMBER PROVIDEDAB [id number] 15:39:00 Test Item Value Reference Range Interpretation Comments AB TREPONEMA (test code = TREPAB) NONREACTIVE NONREACTIVE PLEASE CALL DR.HAIDAR SHARMA W/RESULTS NO NUMBER PROVIDEDAB HIV 1 15:39:00 Test Item Value Reference Range Interpretation Comments AB HIV 1 2 (test code = FSQ70MX) NONREACTIVE PLEASE CALL DR.HAIDAR SHARMA W/RESULTS NO NUMBER [facility] W/AUTO [id number] 14:37:00 Test Item Value Reference Range Interpretation [...] code = PHENCU) 25 ng/m L URINALYSIS [id number] 18:10:00 Test Item Value Reference Range Interpretation [...] URINE SAMPLE: CLEAN CATCH- US PREG UT [id number] 17:54:00 Patient Name: WALTER ROSE Unit No: [id number] EXAMS: CPT CODE: [id number] US PREG PA TRANSVAGINAL [address] [facility] [address] [place], [place] [address] BIOPHYSICAL PROFILE ULTRASOUND REPORT Pat. Name: WALTER ROSE Pat. No: [id number] Study Date: 08/04/2019 4:30pm , Age: 01 1985, 33 Pregnancies: 4,Para 2 LMP: Unknown GA by 1st: 33w3d GA Selected: 33w3d (From Known E) SANDRA: 09/19/2019 Referring MD:Junior Tapia Medical Office Coordinator: Aashish Lovelace RDMS CPT4: USPRUTTRVG Admitting MD: Junior Tapia Hist/Ind: Decreased FM BPP Scan #2 Cervical Length: 4.0 cm Heart Rate: 139 bpm Amniotic Fluid Index: 13.8cm (08.2- 24.6) Q1: 6.9cm Q2:4.9cm Q3: 2.0cm Q4: 0.0cm Biophysical Profile: 05/03 Breathin Tone: 2 Movement: 2 AFV: 2 CLINICAL SUMMARY Type of Gestation: Hawkins Intrauterine in vertex presentation. motion and organs seen: somatic activity observed body and limb movements seen Regular cardiac rhythm observed Placental location:Anterior Placental maturity : Grade 2 There is no evidence of placenta previa. Amniotic fluid volumeis normal. Uterus and adnexa: No significant abnormality is seen. Thank you for allowing us to participate in the care of this patient. Nita Saleh M.D. Electronic Signature 08/04/2019 05:54pm at 1754 Reported and signed by: Lizbet Saleh MD [facility] NAME: ROSEWALTER KOHLER Radiology Department PHYS: Junior Modi MD [address] : 1985 AGE: 33 SEX: F [place] [address] LOC: EduDENI PHONE #: [phone] EXAM DATE: 08/04/2019 STATUS: DEP ER FAX #: [phone] RAD NO: Page 1 Signed Report (CONTINUED) Patient Name: WALTER ROSE Unit No: [id number] EXAMS: CPT CODE: [id number] US PREG UT TRANSVAGINAL [address] (Continued) CC: Junior Tapia MD Technologist: Aashish Lovelace, [facility] Probe: [id number] Trnscrbd D/ (1754) t.CER Orig Print D/T: S: 08/07/2019 (1522) [facility] NAME: ROSEWALTER Radiology Department PHYS: Junior Modi MD [address] : 1985 AGE: 33 SEX: F [place] [address] LOC: EduDENI PHONE #: [phone] EXAM DATE: 08/04/2019 STATUS: DEP ER FAX #: [phone] RAD NO: Page 2 Signed Report Patient Name: WALTER ROSE Unit No: [id number] EXAMS: CPT CODE: [id number] US PREG UT TRANSVAGINAL [address] (Continued) [facility] NAME: WALTER ROSE [facility] Radiology Department PHYS: Junior Mdoi MD [address] : 1985 AGE: 33 SEX: [place] [address] LOC: LEWIS PHONE #: [phone] EXAM DATE: 08/04/2019 STATUS: DEP ER FAX #: [phone] RAD NO: Page 3 Signed Report- US FET BIO PH LA W/O [id number] 17:54:00 Patient Name: WALTER ROSE Unit No: [id number] EXAMS: CPT CODE: [id number] US FET BIO PH LA W/O NST [address] [facility] [address] [place], [place] [address] BIOPHYSICAL PROFILE ULTRASOUND REPORT Pat. Name: Gia ROSE. No: [id number] Study Date: 08/04/2019 4:30pm , Age: 01 1985, 33 Pregnancies: 4, Para 2 LMP: Unknown GA by 1st: 33w3d GA Selected: 33w3d (From Known E) SANDRA: 09/19/2019 Referring MD: Junior Tapia M.D. Medical Office Coordinator: Aashish Lovelace RDMS CPT4: USBPPWONST Hist/Ind: Decreased [...] Reported and signed by: Lizbet Saleh MD [facility] NAME: WALTER ROSE Radiology Department PHYS: Jade Levin III, MD [address] : 1985 AGE: 33 SEX: [place] [address] LOC: LEWIS PHONE #: [phone] EXAM DATE: 08/04/2019 STATUS: REG ER FAX #: [phone] RAD NO: Page 1 Signed Report (CONTINUED) Patient Name: WALTER ROSE Unit No: [id number] EXAMS: CPT CODE: [id number] FET BIO PH LA W/O NST [address] (Continued) CC: Junior Tapia MD; Jade Faustin III, MD Technologist: Aashish Sosa RDMS Probe: Trnscrbd D/ (1753) Hayde Orig Print D/T: S: 08/04/2019 (1753)[facility] NAME: WALTER ROSE Radiology Department PHYS: Jade Levin III, MD [address] : 1985 AGE: 33 SEX: F [place], [place] [address] LOC: EduDENI PHONE #: [phone] EXAM DATE: 08/04/2019 STATUS: REG ER FAX #: [phone] RAD NO: Page 2 Signed Report Patient Name: WALTER ROSE Unit No: [id number] EXAMS: CPT CODE: [id number] US FET BIO PH LA W/O NST [address]388 (Continued) [facility] NAME: WALTER ROSE Radiology Department PHYS: Jade Levin III, MD [address] : 1985 AGE: 33 SEX: [place] [address] ACCT NO: [place] [id number] LOC: EduDENI PHONE #: [phone] EXAM DATE: 08/04/2019 STATUS: REG ER FAX #: [phone] RAD NO: Page 3 Signed Report- DUP VEIN [id number] 23:45:00 Patient Name: WALTER ROSE Unit No: [id number] EXAMS: CPT CODE: [id number] [facility] VEIN [place]RE[place] [address] PROCEDURE: BILATERAL LOWER EXTREMITY VENOUS ULTRASOUND DATED [...] flow. Normal venous waveforms. The saphenofemoral junction isunremarkable. IMPRESSION: 1. No sonographic evidence of acute lower extremity deep venous thrombosis. SL:131 at 6864 Reported and signed by: Brody Luo MD CC: Junior Tapia MD; Santiago Austin MD Technologist: Ania Verde RDMS, RVT Probe: Trnscrbd D/ (5643) t.SDR.DMM Orig Print D/T: S: 07/24/2019 (2349) [facility] NAME: WALTER ROSE Radiology Department PHYS: Santiago Pastrana MD [address] : 1985 AGE: 33 SEX: F [place], [place] [address] LOC: TASHA PHONE #: [phone] EXAM DATE: 07/24/2019 STATUS: DEP ER FAX #: [phone] RAD NO: Page 1 Signed Report P atient Name: WALTER ROSE Unit No: [id number] EXAMS: CPT CODE: [id number] DUP VEIN IRENA [address] (Continued) [facility] NAME: WALTER ROSE Radiology Department PHYS: Santiago Pastrana MD [address] : 1985 AGE: 33 SEX: F [place], [place] [address] LOC: EduERS PHONE #: [phone] EXAM DATE: 07/24/2019 STATUS: DEP ER FAX #: [phone] RAD NO: Page 2Signed ReportUA RFLX MICR CULT IF [id number] 21:32:00 Test Item Value Reference Range Interpretation [...] NONE SEEN Indication for culture: Flank PainPROTHROMBIN [id number] 21:00:00 Test Item Value Reference Range Interpretation Comments PROTHROMBIN TIME PATIENT (test code 10.2 secs 10.4-12.4 L = PTP) THROMBOPLASTIN TIME [id number] 21:00:00 Test Item Value Reference Range Interpretation Comments THROMBOPLASTIN TIME PARTIAL (test 28.0 secs 22-38 N code = PTT) [id number] 21:00:00 Test Item Value Reference Range Interpretation Comments FIBRINOGEN (test code = FIB) 565 mg/dL 309-518 H D-DIMER [id number] 21:00:00 Test Item Value Reference Range Interpretation Comments D-DIMER QUANT 336 ng/mLDDU <255 H Reference Ran ge in (test code = : <570 DDIMER) ng/ml A positive test d oes not provide a defin itive diagnosis ofDVT and indicates the n eed for follow up clini vasu studies. The pr edictive value of a nega tive test is 98% for rulingout DVT. COMPREHENSIVE METABOLIC [id number] 20:38:00 Test Item Value Reference Range Interpretation [...] 46-116 N code = ALKP) CBC W/AUTO [id number] 20:23:00 Test Item Value Reference Range Interpretation [...] NORMAL NORMAL code = PLTMR) CANNABINOIDS CONFIRMATION [id number] 12:33:00 Test Item Value Reference Range Interpretation Comments DRUG CONFIRMATION BY POSITIVE NEGATIVE A Drug(s) Identified: GC/MS (test code = carboxy-t hc amount DRUGCON) 94 ng/mL GC/MS Cutoff: 0. - US PREG UT [id number] 13:17:00 Patient Name: WALTER ROSE Unit No: [id number] EXAMS: CPT CODE: [id number] US PREG UT [id number] [facility] [address] [place], [place] [address] LIMITED OBSTETRICAL ULTRASOUND REPORT Pat. Name: WALTER ROSE Pat. No: [id number] Study Date: 05/21/2019 12:12pm , Age: 01 1985, 33 Pregnancies: 4, Para 2 LMP: Unknown GA Selected: 22w5d (From Known E) SANRDA: 09/19/2019 Referring MD: Jade Faustin Medical Office Coordinator: Paramjit Kohli RDMS, T CPT4: USPRUTTRVG Admitting MD: Jade Faustin Hist/Ind: [...] MD Technologist: Paramjit Kohli RDMS, RVT Probe: [id number] Trnscrbd D/ (1317) Lopez.NMG Orig Print D/T: S: 05/22/2019 (1501) [facility] NAME: ROSEWALTER Radiology Department PHYS: Jade Levin III, MD [address] : 1985 AGE: 33 SEX: F [place], [place] [address] LOC: LEWIS PHONE #: [phone] EXAM DATE: 05/21/2019 STATUS: DEP ER FAX #: [phone] RAD NO: Page 1 Signed Report Patient Name: WALTER ROSE Unit No: [id number] EXAMS: CPT CODE: [id number] US PREG UT TRANSVAGINAL [address] (Continued) [facility] NAME: WALTER ROSE Radiology Department PHYS: Jade Levin III, MD [address] : 1985 AGE: 33 SEX: [place] [id number] LOC: LEWIS PHONE #: [phone] EXAM DATE: 05/21/2019 STATUS: DEP ER FAX #: [phone] RAD NO: Page 2 Signed Report- US [id number] 13:17:00 Patient Name: WALTER ROSE Unit No: [id number] EXAMS: CPT CODE: [id number] [place] [address] [facility] [address] [place], [place] [address] LIMITED OBSTETRICAL ULTRASOUND REPORT ------ Pat. Name: WALTER ROSE Pat. No: [id number] Study Date: 05/21/2019 12:12pm , Age: 01 1985, 33 Pregnancies: 4, Para 2 LMP: Unknown GA Selected: 22w5d (From Known E) SANDRA: 09/19/2019 Referring MD: JADE FAUSTIN Medical Office Coordinator: Paramjit Kohli RDMS, T CPT4: USPREGLTD Admitting MD: JADE FAUSTIN Hist/Ind: SCAN 1 22.5 WEEKS VAGINALPAIN/LESTER CERVICAL LENGTH Cervical Length: 4.3 cm Heart Rate: 142 bpm Amniotic Fluid Index: 10.9cm (09.8- 21.7) Q1: 1.6cm Q2: 3.8cm Q3: 2.8cm Q4: 2.7cm CLINICAL SUMMARY Type of Gestation: Hawkins Intrauterine in vertex presentation. motion and organs seen: heart motion seen Placental location: Anterior Placental maturity : Grade 1There is no evidence of placenta previa. Amniotic fluid volume is normal. Uterus and adnexa: No significant abnormality is seen. Katerina Escobar M.D. Electronic Signature 05/21/2019 01:17pm at 1317 Reported and signed by:Katerina Escobar MD CC: Jade Faustin III, MD Technologist: Paramjit Kohli RDMS, RVT Probe: Trnscrbd D/ (1567) t.ALIDA.NMG Orig Print D/T: S: 05/21/2019 (7462) [facility] NAME: ROSEWALTER Radiology Department PHYS: Jade Levin III, MD [address] : 1985 AGE: 33SEX: [place] [address] LOC: EduDENI PHONE #: [phone] EXAM DATE: 05/21/2019 STATUS: REG ER FAX #: [phone] RAD NO: Page 1 Signed Report Patient Name: WALTER ROSE Unit No: [id number] EXAMS: CPT CODE: [id number] LTD [address] (Continued) [facility] NAME: ROSEWALTER Radiology Department PHYS: Jade Levin III, MD [address] : 1985 AGE: 33 SEX: [place] [address] LOC: EduDENI PHONE #: [phone] EXAM DATE: 05/21/2019 STATUS: REG ER FAX #: [phone] RAD NO: Page 2 Signed ReportDRUGS OF ABUSE [id number] 12:31:00 Test Item Value Reference Range Interpretation Comments UR COCAINE (test code = NEGATIVE NEGATIVE DETE CTION CUT OFF: COCAU) 150 ng/mL UR CANNABINOIDS (test POSITIVE NEGATIVE A RESULT S CALLED TO code = CANU) JESÚS.READ B ACK & CONFIRMED? [facility] [place]. DETECTION CUT OFF: 50 ng/mL [...] code = PHENCU) 25 ng/m L URINALYSIS [id number] 12:17:00 Test Item Value Reference Range Interpretation [...] MUCU) 1+ NONE SEEN URINE SAMPLE: CLEAN CATCHHCG, [id number] 00:00:00 Test Item Value Reference Range Interpretation Comments HCG, QUANTITATIVE (test code = <5 MIU/ML 2506) VAGINAL PATHOGENS DNA [id number] 00:00:00 Test Item Value Reference Range Interpretation Comments DALTON SPECIES (test code = ) NEGATIVE G. VAGINALIS (test code = 52296) POSITIVE T. VAGINALIS (test code = 14327) NEGATIVE HCG, [id number] 00:00:00 Test Item Value Reference Range Interpretation Comments HCG, QUANTITATIVE (test code = <5 MIU/ML 2506) HCG, [id number] 00:00:00 Test Item Value Reference Range Interpretation Comments HCG, QUANTITATIVE (test code = <5 MIU/ML 2506) HCG, [id number] 00:00:00 Test Item Value Reference Range Interpretation Comments HCG, QUANTITATIVE (test code = <5 MIU/ML 2506) VAGINAL PATHOGENS DNA [id number] 00:00:00 Test Item Value Reference Range Interpretation Comments DALTON SPECIES (test code = 83239) NEGATIVE G. VAGINALIS (test code = 01379) POSITIVE T. VAGINALIS (test code = 88302) NEGATIVE VAGINAL PATHOGENS DNA [id number] 00:00:00 Test Item Value Reference Range Interpretation Comments DALTON SPECIES (test code = 67801) NEGATIVE G. VAGINALIS (test code = 38644) POSITIVE T. VAGINALIS (test code = 33413) NEGATIVE VAGINAL PATHOGENS DNA [id number] 00:00:00 Test Item Value Reference Range Interpretation Comments DALTON SPECIES (test code = 36236) NEGATIVE G. VAGINALIS (test code = 80007) POSITIVE T. VAGINALIS (test code = 10484) NEGATIVE PAP TEST, THINPREP, [id number] 00:00:00 Test Item Value Reference Range Interpretation Comments SOURCE: (test code = Cervical/Endocervical 8001) SLIDES: (test code = 1 8011) LMP: (test code = 06/01/2018 8021) SPECIMEN ADEQUACY: (NOTE) (test code = 45279) INTERPRETATION: (test NO EPITHELIAL code = 99764) ABNORMALITY SEE BELOW OTHER COMMENTS: (test (NOTE) code = 8081) SITE SAFETY REPRESENTATIVE: Shreya (test code = 8101) JUNIOR Galicia(ASCP)IAC LOCATION: (test code (NOTE) = 90629) CPT: (test code = (NOTE) 8140) PAP TEST, THINPREP, [id number] 00:00:00 Test Item Value Reference Range Interpretation Comments SOURCE: (test code = Cervical/Endocervical 8001) SLIDES: (test code = 1 8011) LMP: (test code = 06/01/2018 8021) SPECIMEN ADEQUACY: (NOTE) (test code = 72197) INTERPRETATION: (test NO EPITHELIAL code = 30594) ABNORMALITY SEE BELOW OTHER COMMENTS: (test (NOTE) code = 8081) SITE SAFETY REPRESENTATIVE: Shreya (test code = 8101) JUNIOR Galicia(ASCP)IAC LOCATION: (test code (NOTE) = 33735) CPT: (test code = (NOTE) 8140) VAGINAL PATHOGENS DNA [id number] 00:00:00 Test Item Value Reference Range Interpretation Comments DALTON SPECIES (test code = 42639) NEGATIVE G. VAGINALIS (test code = 74898) POSITIVE T. VAGINALIS (test code = 35804) NEGATIVE HPV HIGH RISK WITH GENOTYPE, [id number] 00:00:00 Test Item Value Reference Range Interpretation Comments HPV HIGH RISK INTERP (test code = NEGATIVE 33763) HPV 16 (test code = 36339) NEGATIVE HPV 18 (test code = 45912) NEGATIVE HPV, HR, OTHER GENOTYPES (test code NEGATIVE = 82514) HIV AB/AG COMBO RFLX [id number] 00:00:00 Test Item Value Reference Range Interpretation Comments HIV 1/2 4TH GEN, RFLX CONF (test NON-REACTIVE code = 3514) GC AND CHLAMYDIA AMPLIFIED, [id number] 00:00:00 Test Item Value Reference Range Interpretation Comments GONORRHEA, TMA (test code = 43180) NEGATIVE CHLAMYDIA, TMA (test code = 38496) NEGATIVE [id number] 00:00:00 Test Item Value Reference Range Interpretation Comments RPR RESULT (test code = NON-REACTIVE 3501) RPR TITER (test code = 3500) NOT INDIC. TITER [id number] 00:00:00 Test Item Value Reference Range Interpretation Comments RPR RESULT (test code = NON-REACTIVE 3501) RPR TITER (test code = 3500) NOT INDIC. TITER HEPATITIS PROFILE (A,B,C)2018-06-16 00:00:00 Test Item Value Reference Range Interpretation Comments HEPATITIS A TOTAL AB (test code REACTIVE = 2725) HEPATITIS B SURF AG (test code = NON-REACTIVE 2739) HEP B CORE TOTAL AB (test code = NON-REACTIVE 2729) HEPATITIS B SURFACE AB (test REACTIVE code = 2737) HEPATITIS C ANTIBODY (test code NON-REACTIVE = 4675) INTERPRETATION HEPATITIS A: (NOTE) (test code = 2552) INTERPRETATION HEPATITIS B: (NOTE) (test code = 92233) INTERPRETATION HEPATITIS C: (NOTE) (test code = 85974) HEPATITIS A IgM [REFLEX]2018-06-16 00:00:00 Test Item Value Reference Range Interpretation Comments HEPATITIS A IgM (test code = NON-REACTIVE 2727) VAGINAL PATHOGENS DNA [id number] 00:00:00 Test Item Value Reference Range Interpretation Comments DALTON SPECIES (test code = ) NEGATIVE G. VAGINALIS (test code = ) POSITIVE T. VAGINALIS (test code = ) NEGATIVE HIV AB/AG COMBO RFLX [id number] 00:00:00 Test Item Value Reference Range Interpretation Comments HIV 1/2 4TH GEN, RFLX CONF (test NON-REACTIVE code = 3514) HPV HIGH RISK WITH GENOTYPE, [id number] 00:00:00 Test Item Value Reference Range Interpretation Comments HPV HIGH RISK INTERP (test code = NEGATIVE 61891) HPV 16 (test code = 11658) NEGATIVE HPV 18 (test code = 14533) NEGATIVE HPV, HR, OTHER GENOTYPES (test code NEGATIVE = 40211) [id number] 00:00:00 Test Item Value Reference Range Interpretation Comments RPR RESULT (test code = NON-REACTIVE 3501) RPR TITER (test code = 3500) NOT INDIC. TITER [id number] 00:00:00 Test Item Value Reference Range Interpretation Comments RPR RESULT (test code = NON-REACTIVE 3501) RPR TITER (test code = 3500) NOT INDIC. TITER GC AND CHLAMYDIA AMPLIFIED, [id number] 00:00:00 Test Item Value Reference Range Interpretation Comments GONORRHEA, TMA (test code = 58350) NEGATIVE CHLAMYDIA, TMA (test code = 88301) NEGATIVE HEPATITIS PROFILE (A,B,C)2018-06-16 00:00:00 Test Item Value Reference Range Interpretation Comments HEPATITIS A TOTAL AB (test code REACTIVE = 2725) HEPATITIS B SURF AG (test code = NON-REACTIVE 2739) HEP B CORE TOTAL AB (test code = NON-REACTIVE 2729) HEPATITIS B SURFACE AB (test REACTIVE code = 2737) HEPATITIS C ANTIBODY (test code NON-REACTIVE = 4675) INTERPRETATION HEPATITIS A: (NOTE) (test code = 2552) INTERPRETATION HEPATITIS B: (NOTE) (test code = 25937) INTERPRETATION HEPATITIS C: (NOTE) (test code = 15808) HEPATITIS A IgM [REFLEX]2018-06-16 00:00:00 Test Item Value Reference Range Interpretation Comments HEPATITIS A IgM (test code = NON-REACTIVE 2728) HERPES SIMPLEX CULTURE AND TYPING [ADDED]2017-12-23 00:00:00 Test Item Value Reference Range Interpretation Comments SPECIMEN SOURCE (test code (NOTE) = 01222) HERPES CULTURE (test code NEGATIVE = 3533) HERPES SIMPLEX TYPE I TEST NOT PERFORMED (test code = 98058) HERPES SIMPLEX TYPE II TEST NOT PERFORMED (test code = 20574) HERPES SIMPLEX CULTURE AND TYPING [ADDED]2017-12-23 00:00:00 Test Item Value Reference Range Interpretation Comments SPECIMEN SOURCE (test code (NOTE) = 89409) HERPES CULTURE (test code NEGATIVE = 3533) HERPES SIMPLEX TYPE I TEST NOT PERFORMED (test code = 98100) HERPES SIMPLEX TYPE II TEST NOT PERFORMED (test code = 92103) VAGINAL PATHOGENS DNA [id number] 00:00:00 Test Item Value Reference Range Interpretation Comments DALTON SPECIES (test code = ) NEGATIVE G. VAGINALIS (test code = 67385) POSITIVE T. VAGINALIS (test code = 63488) NEGATIVE VAGINAL PATHOGENS DNA [id number] 00:00:00 Test Item Value Reference Range Interpretation Comments DALTON SPECIES (test code = 82863) NEGATIVE G. VAGINALIS (test code = 33487) POSITIVE T. VAGINALIS (test code = 87870) NEGATIVE [id number] 00:00:00 Test Item Value Reference Range Interpretation Comments RPR RESULT (test code = NON-REACTIVE 3501) RPR TITER (test code = 3500) NOT INDIC. TITER [id number] 00:00:00 Test Item Value Reference Range Interpretation Comments RPR RESULT (test code = NON-REACTIVE 3501) RPR TITER (test code = 3500) NOT INDIC. TITER HIV AB/AG COMBO RFLX [id number] 00:00:00 Test Item Value Reference Range Interpretation Comments HIV 1/2 4TH GEN, RFLX CONF (test NON-REACTIVE code = 3514) GC AND CHLAMYDIA, AMPLIFIED, [id number] 00:00:00 Test Item Value Reference Range Interpretation Comments GONORRHEA, TMA (test code = 20863) NEGATIVE CHLAMYDIA, TMA (test code = 34152) NEGATIVE [id number] 00:00:00 Test Item Value Reference Range Interpretation Comments RPR RESULT (test code = NON-REACTIVE 3501) RPR TITER (test code = 3500) NOT INDIC. TITER [id number] 00:00:00 Test Item Value Reference Range Interpretation Comments RPR RESULT (test code = NON-REACTIVE 3501) RPR TITER (test code = 3500) NOT INDIC. TITER HIV AB/AG COMBO RFLX [id number] 00:00:00 Test Item Value Reference Range Interpretation Comments HIV 1/2 4TH GEN, RFLX CONF (test NON-REACTIVE code = 3514) GC AND CHLAMYDIA, AMPLIFIED, [id number] 00:00:00 Test Item Value Reference Range Interpretation Comments GONORRHEA, TMA (test code = 96841) NEGATIVE CHLAMYDIA, TMA (test code = 07315) NEGATIVE HCG, [id number] 00:00:00 Test Item Value Reference Range Interpretation Comments HCG, QUANTITATIVE (test code = <5 MIU/ML 2506) HCG, [id number] 00:00:00 Test Item Value Reference Range Interpretation Comments HCG, QUANTITATIVE (test code = <5 MIU/ML 2506) HCG, [id number] 00:00:00 Test Item Value Reference Range Interpretation Comments HCG, QUANTITATIVE (test code = <5 MIU/ML 2506) HCG, [id number] 00:00:00 Test Item Value Reference Range Interpretation Comments HCG, QUANTITATIVE (test code = <5 MIU/ML 2506) PAP TEST, THINPREP, [id number] 00:00:00 Test Item Value Reference Range Interpretation Comments SOURCE: (test code = Cervical/Endocervical 8001) SLIDES: (test code = 1 8011) LMP: (test code = 8021) SPECIMEN ADEQUACY: (NOTE) (test code = 58631) INTERPRETATION: (test NO EPITHELIAL code = 97464) ABNORMALITY SEE BELOW OTHER COMMENTS: (test (NOTE) code = 8081) SITE SAFETY REPRESENTATIVE: Uzma Huffman (test code = 8101) BautistaCT(ASCP)IAC QC TECHNOLOGIST: GIA (test code = 8111) JUNIOR SAMSON(ASCP)IAC LOCATION: (test code (NOTE) = 83007) CPT: (test code = (NOTE) 8140) PAP TEST, THINPREP, [id number] 00:00:00 Test Item Value Reference Range Interpretation Comments SOURCE: (test code = Cervical/Endocervical 8001) SLIDES: (test code = 1 8011) LMP: (test code = 8021) SPECIMEN ADEQUACY: (NOTE) (test code = 93568) INTERPRETATION: (test NO EPITHELIAL code = 83409) ABNORMALITY SEE BELOW OTHER COMMENTS: (test (NOTE) code = 8081) SITE SAFETY REPRESENTATIVE: Uzma Huffman (test code = 8101) LilyCT(ASCP)IAC QC TECHNOLOGIST: GIA (test code = 8111) JUNIOR SAMSON(ASCP)IAC LOCATION: (test code (NOTE) = 61582) CPT: (test code = (NOTE) 8140) GC AND CHLAMYDIA AMPLIFIED, [id number] 00:00:00 Test Item Value Reference Range Interpretation Comments GONORRHEA, TMA (test code = 60293) NEGATIVE CHLAMYDIA, TMA (test code = 24957) NEGATIVE LIPID [id number] 00:00:00 Test Item Value Reference Range Interpretation Comments CHOLESTEROL (test code = 2210) 166 MG/DL TRIGLYCERIDES (test code = 2232) 79 MG/DL HDL CHOLESTEROL (test code = 2220) 44 MG/DL CALC LDL CHOL (test code = 2237) 106 MG/DL RISK RATIO LDL/HDL (test code = 2.41 RATIO 2238) GC AND CHLAMYDIA AMPLIFIED, [id number] 00:00:00 Test Item Value Reference Range Interpretation Comments GONORRHEA, TMA (test code = 73982) NEGATIVE CHLAMYDIA, TMA (test code = 06284) NEGATIVE CBC W/AUTO [id number] 00:00:00 Test Item Value Reference Range Interpretation Comments WBC (test code = 1001) 9.1 K/UL RBC (test code = 1002) 4.96 M/UL HEMOGLOBIN (test code = 1003) 13.0 G/DL HEMATOCRIT (test code = 1004) 40.1 % MCV (test code = 1005) 80.8 fL MCH (test code = 1006) 26.2 PG MCHC (test code = 1007) 32.4 G/DL RDW (test code = 1038) 14.9 % NEUTROPHILS (test code = 1008) 66.8 % LYMPHOCYTES (test code = 1010) 23.9 % MONOCYTES (test code = 1011) 5.6 % EOSINOPHILS (test code = 1012) 3.3 % BASOPHILS (test code = 1013) 0.4 % PLATELET COUNT (test code = 1015) 214 K/UL CBC W/AUTO [id number] 00:00:00 Test Item Value Reference Range Interpretation Comments WBC (test code = 1001) 9.1 K/UL RBC (test code = 1002) 4.96 M/UL HEMOGLOBIN (test code = 1003) 13.0 G/DL HEMATOCRIT (test code = 1004) 40.1 % MCV (test code = 1005) 80.8 fL MCH (test code = 1006) 26.2 PG MCHC (test code = 1007) 32.4 G/DL RDW (test code = 1038) 14.9 % NEUTROPHILS (test code = 1008) 66.8 % LYMPHOCYTES (test code = 1010) 23.9 % MONOCYTES (test code = 1011) 5.6 % EOSINOPHILS (test code = 1012) 3.3 % BASOPHILS (test code = 1013) 0.4 % PLATELET COUNT (test code = 1015) 214 K/UL HPV HIGH RISK WITH GENOTYPE, [id number] 00:00:00 Test Item Value Reference Range Interpretation Comments HPV HIGH RISK INTERP (test code = NEGATIVE 38488) HPV 16 (test code = 31330) NEGATIVE HPV 18 (test code = 97064) NEGATIVE HPV, HR, OTHER GENOTYPES (test code NEGATIVE = 83952) HEMOGLOBIN [id number] 00:00:00 Test Item Value Reference Range Interpretation Comments HEMOGLOBIN A1c (test code = 41190) 5.5 % HEMOGLOBIN [id number] 00:00:00 Test Item Value Reference Range Interpretation Comments HEMOGLOBIN A1c (test code = 23813) 5.5 % THYROID II PROFILE (T3U, T4, T7, TSH)2017-04-21 00:00:00 Test Item Value Reference Range Interpretation Comments T3 UPTAKE (test code = 2817) 30.4 % T4 (THYROXINE) (test code = 5.9 UG/DL 2819) CALCULATED T7 (FTI) (test code = 1.79 2820) TSH (test code = 2821) 3.100 UIU/ML HIV AB/AG COMBO RFLX [id number] 00:00:00 Test Item Value Reference Range Interpretation Comments HIV 1/2 4TH GEN, RFLX CONF (test NON-REACTIVE code = 3514) HEPATITIS B SURFACE [id number] 00:00:00 Test Item Value Reference Range Interpretation Comments HEPATITIS B SURFACE AB (test code = REACTIVE 2737) [id number] 00:00:00 Test Item Value Reference Range Interpretation Comments RPR RESULT (test code = NON-REACTIVE 3501) RPR TITER (test code = 3500) NOT INDIC. TITER [id number] 00:00:00 Test Item Value Reference Range Interpretation Comments RPR RESULT (test code = NON-REACTIVE 3501) RPR TITER (test code = 3500) NOT INDIC. TITER RUBELLA ANTIBODY [id number] 00:00:00 Test Item Value Reference Range Interpretation Comments RUBELLA ANTIBODY SCREEN (test code 376 IU/ML = 4600) RUBELLA IgG INTERP (test code = REACTIVE 81508) HEPATITIS C REFLEX [id number] 00:00:00 Test Item Value Reference Range Interpretation Comments HEPATITIS C ANTIBODY (test code NON-REACTIVE = 4675) LIPID [id number] 00:00:00 Test Item Value Reference Range Interpretation Comments CHOLESTEROL (test code = 2210) 166 MG/DL TRIGLYCERIDES (test code = 2232) 79 MG/DL HDL CHOLESTEROL (test code = 2220) 44 MG/DL CALC LDL CHOL (test code = 2237) 106 MG/DL RISK RATIO LDL/HDL (test code = 2.41 RATIO 2238) CBC W/AUTO [id number] 00:00:00 Test Item Value Reference Range Interpretation Comments WBC (test code = 1001) 9.1 K/UL RBC (test code = 1002) 4.96 M/UL HEMOGLOBIN (test code = 1003) 13.0 G/DL HEMATOCRIT (test code = 1004) 40.1 % MCV (test code = 1005) 80.8 fL MCH (test code = 1006) 26.2 PG MCHC (test code = 1007) 32.4 G/DL RDW (test code = 1038) 14.9 % NEUTROPHILS (test code = 1008) 66.8 % LYMPHOCYTES (test code = 1010) 23.9 % MONOCYTES (test code = 1011) 5.6 % EOSINOPHILS (test code = 1012) 3.3 % BASOPHILS (test code = 1013) 0.4 % PLATELET COUNT (test code = 1015) 214 K/UL CBC W/AUTO [id number] 00:00:00 Test Item Value Reference Range Interpretation Comments WBC (test code = 1001) 9.1 K/UL RBC (test code = 1002) 4.96 M/UL HEMOGLOBIN (test code = 1003) 13.0 G/DL HEMATOCRIT (test code = 1004) 40.1 % MCV (test code = 1005) 80.8 fL MCH (test code = 1006) 26.2 PG MCHC (test code = 1007) 32.4 G/DL RDW (test code = 1038) 14.9 % NEUTROPHILS (test code = 1008) 66.8 % LYMPHOCYTES (test code = 1010) 23.9 % MONOCYTES (test code = 1011) 5.6 % EOSINOPHILS (test code = 1012) 3.3 % BASOPHILS (test code = 1013) 0.4 % PLATELET COUNT (test code = 1015) 214 K/UL HEMOGLOBIN [id number] 00:00:00 Test Item Value Reference Range Interpretation Comments HEMOGLOBIN A1c (test code = 76280) 5.5 % HPV HIGH RISK WITH GENOTYPE, [id number] 00:00:00 Test Item Value Reference Range Interpretation Comments HPV HIGH RISK INTERP (test code = NEGATIVE 03049) HPV 16 (test code = 71409) NEGATIVE HPV 18 (test code = 39876) NEGATIVE HPV, HR, OTHER GENOTYPES (test code NEGATIVE = 53057) HEMOGLOBIN [id number] 00:00:00 Test Item Value Reference Range Interpretation Comments HEMOGLOBIN A1c (test code = 23390) 5.5 % THYROID II PROFILE (T3U, T4, T7, TSH)2017-04-21 00:00:00 Test Item Value Reference Range Interpretation Comments T3 UPTAKE (test code = 2817) 30.4 % T4 (THYROXINE) (test code = 5.9 UG/DL 2819) CALCULATED T7 (FTI) (test code = 1.79 2820) TSH (test code = 2821) 3.100 UIU/ML HIV AB/AG COMBO RFLX [id number] 00:00:00 Test Item Value Reference Range Interpretation Comments HIV 1/2 4TH GEN, RFLX CONF (test NON-REACTIVE code = 3514) HEPATITIS B SURFACE [id number] 00:00:00 Test Item Value Reference Range Interpretation Comments HEPATITIS B SURFACE AB (test code = REACTIVE 2737) [id number] 00:00:00 Test Item Value Reference Range Interpretation Comments RPR RESULT (test code = NON-REACTIVE 3501) RPR TITER (test code = 3500) NOT INDIC. TITER [id number] 00:00:00 Test Item Value Reference Range Interpretation Comments RPR RESULT (test code = NON-REACTIVE 3501) RPR TITER (test code = 3500) NOT INDIC. TITER RUBELLA ANTIBODY [id number] 00:00:00 Test Item Value Reference Range Interpretation Comments RUBELLA ANTIBODY SCREEN (test code 376 IU/ML = 4600) RUBELLA IgG INTERP (test code = REACTIVE 66700) HEPATITIS C REFLEX [id number] 00:00:00 Test Item Value Reference Range Interpretation Comments HEPATITIS C ANTIBODY (test code NON-REACTIVE = 4675) GC AND CHLAMYDIA, AMPLIFIED, [id number] 00:00:00 Test Item Value Reference Range Interpretation Comments GONORRHEA, TMA (test code = 91383) NEGATIVE CHLAMYDIA, TMA (test code = 80588) NEGATIVE GC AND CHLAMYDIA, AMPLIFIED, [id number] 00:00:00 Test Item Value Reference Range Interpretation Comments GONORRHEA, TMA (test code = 35943) NEGATIVE CHLAMYDIA, TMA (test code = 77340) NEGATIVE HEPATITIS PROFILE (A,B,C)2016-11-26 00:00:00 Test Item Value Reference Range Interpretation Comments HEPATITIS A TOTAL AB (test code REACTIVE = 2725) HEPATITIS B SURF AG (test code = NON-REACTIVE 2739) HEP B CORE TOTAL AB (test code = NON-REACTIVE 2729) HEPATITIS B SURFACE AB (test REACTIVE code = 2737) HEPATITIS C ANTIBODY (test code NON-REACTIVE = 4675) INTERPRETATION HEPATITIS A: (NOTE) (test code = 2552) INTERPRETATION HEPATITIS B: (NOTE) (test code = 69683) INTERPRETATION HEPATITIS C: (NOTE) (test code = 23980) [id number] 00:00:00 Test Item Value Reference Range Interpretation Comments RPR RESULT (test code = NON-REACTIVE 3501) RPR TITER (test code = 3500) NOT INDIC. TITER [id number] 00:00:00 Test Item Value Reference Range Interpretation Comments RPR RESULT (test code = NON-REACTIVE 3501) RPR TITER (test code = 3500) NOT INDIC. TITER HIV AB/AG COMBO RFLX [id number] 00:00:00 Test Item Value Reference Range Interpretation Comments HIV 1/2 4TH GEN, RFLX CONF (test NON-REACTIVE code = 3514) HEPATITIS A IgM [REFLEX]2016-11-26 00:00:00 Test Item Value Reference Range Interpretation Comments HEPATITIS A IgM (test code = NON-REACTIVE 2728) HEPATITIS PROFILE (A,B,C)2016-11-26 00:00:00 Test Item Value Reference Range Interpretation Comments HEPATITIS A TOTAL AB (test code REACTIVE = 2725) HEPATITIS B SURF AG (test code = NON-REACTIVE 2739) HEP B CORE TOTAL AB (test code = NON-REACTIVE 2729) HEPATITIS B SURFACE AB (test REACTIVE code = 2737) HEPATITIS C ANTIBODY (test code NON-REACTIVE = 4675) INTERPRETATION HEPATITIS A: (NOTE) (test code = 2552) INTERPRETATION HEPATITIS B: (NOTE) (test code = 47044) INTERPRETATION HEPATITIS C: (NOTE) (test code = 04520) [id number] 00:00:00 Test Item Value Reference Range Interpretation Comments RPR RESULT (test code = NON-REACTIVE 3501) RPR TITER (test code = 3500) NOT INDIC. TITER [id number] 00:00:00 Test Item Value Reference Range Interpretation Comments RPR RESULT (test code = NON-REACTIVE 3501) RPR TITER (test code = 3500) NOT INDIC. TITER HIV AB/AG COMBO RFLX [id number] 00:00:00 Test Item Value Reference Range Interpretation Comments HIV 1/2 4TH GEN, RFLX CONF (test NON-REACTIVE code = 3514) HEPATITIS A IgM [REFLEX]2016-11-26 00:00:00 Test Item Value Reference Range Interpretation Comments HEPATITIS A IgM (test code = NON-REACTIVE 8397) VAGINAL PATHOGENS DNA [id number] 00:00:00 Test Item Value Reference Range Interpretation Comments DALTON SPECIES (test code = 73857) POSITIVE G. VAGINALIS (test code = 12179) POSITIVE T. VAGINALIS (test code = 71931) NEGATIVE VAGINAL PATHOGENS DNA [id number] 00:00:00 Test Item Value Reference Range Interpretation Comments DALTON SPECIES (test code = 44201) POSITIVE G. VAGINALIS (test code = 00243) POSITIVE T. VAGINALIS (test code = 53123) NEGATIVE VAGINAL PATHOGENS DNA [id number] 00:00:00 Test Item Value Reference Range Interpretation Comments DALTON SPECIES (test code = 80096) NEGATIVE G. VAGINALIS (test code = 01802) NEGATIVE T. VAGINALIS (test code = 30130) NEGATIVE VAGINAL PATHOGENS DNA [id number] 00:00:00 Test Item Value Reference Range Interpretation Comments DALTON SPECIES (test code = 54487) NEGATIVE G. VAGINALIS (test code = 32238) NEGATIVE T. VAGINALIS (test code = 01204) NEGATIVE TEST, [id number] 00:00:00 Test Item Value Reference Range Interpretation Comments TEST, SERUM (test code = NEGATIVE 2507) TEST, [id number] 00:00:00 Test Item Value Reference Range Interpretation Comments TEST, SERUM (test code = NEGATIVE 2507) TEST, [id number] 00:00:00 Test Item Value Reference Range Interpretation Comments TEST, SERUM (test code = NEGATIVE 2507) TEST, [id number] 00:00:00 Test Item Value Reference Range Interpretation Comments TEST, SERUM (test code = NEGATIVE 2507) GC AND CHLAMYDIA, AMPLIFIED, [id number] 00:00:00 Test Item Value Reference Range Interpretation Comments GONORRHEA, AMPLIFIED (test code = NEGATIVE 15630) CHLAMYDIA, AMPLIFIED (test code = POSITIVE 85252) GC AND CHLAMYDIA, AMPLIFIED, [id number] 00:00:00 Test Item Value Reference Range Interpretation Comments GONORRHEA, AMPLIFIED (test code = NEGATIVE 37663) CHLAMYDIA, AMPLIFIED (test code = POSITIVE 20075) VAGINAL PATHOGENS DNA [id number] 00:00:00 Test Item Value Reference Range Interpretation Comments DALTON SPECIES (test code = ) NEGATIVE G. VAGINALIS (test code = 41091) POSITIVE T. VAGINALIS (test code = 80484) NEGATIVE VAGINAL PATHOGENS DNA [id number] 00:00:00 Test Item Value Reference Range Interpretation Comments DALTON SPECIES (test code = ) NEGATIVE G. VAGINALIS (test code = 61345) POSITIVE T. VAGINALIS (test code = 79262) NEGATIVE CHLAMYDIA, AMPLIFIED, [id number] 00:00:00 Test Item Value Reference Range Interpretation Comments CHLAMYDIA, AMPLIFIED (test code = NEGATIVE 08809) GC, AMPLIFIED, [id number] 00:00:00 Test Item Value Reference Range Interpretation Comments GONORRHEA, AMPLIFIED (test code = NEGATIVE 50849) HEPATITIS PROFILE (A,B,C)2015-08-01 00:00:00 Test Item Value Reference Range Interpretation Comments HEPATITIS A TOTAL AB (test code REACTIVE = 2725) HEPATITIS B SURF AG (test code = NON-REACTIVE 2739) HEP B CORE TOTAL AB (test code = NON-REACTIVE 2729) HEPATITIS B SURFACE AB (test REACTIVE code = 2737) HEPATITIS C ANTIBODY (test code NON-REACTIVE = 4675) INTERPRETATION HEPATITIS A: (NOTE) (test code = 2552) INTERPRETATION HEPATITIS B: (NOTE) (test code = 71048) INTERPRETATION HEPATITIS C: (NOTE) (test code = 64803) TRICHOMONAS, URINE, [id number] 00:00:00 Test Item Value Reference Range Interpretation Comments TRICHOMONAS, URINE, AMP (test code = NEGATIVE 70546) HIV AB/AG COMBO RFLX [id number] 00:00:00 Test Item Value Reference Range Interpretation Comments HIV AB/AG COMBO RFLX CONF (test NON-REACTIVE code = 3514) [id number] 00:00:00 Test Item Value Reference Range Interpretation Comments RPR RESULT (test code = NON-REACTIVE 3501) RPR TITER (test code = 3500) NOT INDIC. TITER [id number] 00:00:00 Test Item Value Reference Range Interpretation Comments RPR RESULT (test code = NON-REACTIVE 3501) RPR TITER (test code = 3500) NOT INDIC. TITER HEPATITIS A IgM [REFLEX]2015-08-01 00:00:00 Test Item Value Reference Range Interpretation Comments HEPATITIS A IgM (test code = NON-REACTIVE 2728) CHLAMYDIA, AMPLIFIED, [id number] 00:00:00 Test Item Value Reference Range Interpretation Comments CHLAMYDIA, AMPLIFIED (test code = NEGATIVE 52793) GC, AMPLIFIED, [id number] 00:00:00 Test Item Value Reference Range Interpretation Comments GONORRHEA, AMPLIFIED (test code = NEGATIVE 83427) HEPATITIS PROFILE (A,B,C)2015-08-01 00:00:00 Test Item Value Reference Range Interpretation Comments HEPATITIS A TOTAL AB (test code REACTIVE = 2725) HEPATITIS B SURF AG (test code = NON-REACTIVE 2739) HEP B CORE TOTAL AB (test code = NON-REACTIVE 2729) HEPATITIS B SURFACE AB (test REACTIVE code = 2737) HEPATITIS C ANTIBODY (test code NON-REACTIVE = 4675) INTERPRETATION HEPATITIS A: (NOTE) (test code = 2552) INTERPRETATION HEPATITIS B: (NOTE) (test code = 67385) INTERPRETATION HEPATITIS C: (NOTE) (test code = 67531) TRICHOMONAS, URINE, [id number] 00:00:00 Test Item Value Reference Range Interpretation Comments TRICHOMONAS, URINE, AMP (test code = NEGATIVE 76753) HIV AB/AG COMBO RFLX [id number] 00:00:00 Test Item Value Reference Range Interpretation Comments HIV AB/AG COMBO RFLX CONF (test NON-REACTIVE code = 3514) [id number] 00:00:00 Test Item Value Reference Range Interpretation Comments RPR RESULT (test code = NON-REACTIVE 3501) RPR TITER (test code = 3500) NOT INDIC. TITER [id number] 00:00:00 Test Item Value Reference Range Interpretation Comments RPR RESULT (test code = NON-REACTIVE 3501) RPR TITER (test code = 3500) NOT INDIC. TITER HEPATITIS A IgM [REFLEX]2015-08-01 00:00:00 Test Item Value Reference Range Interpretation Comments HEPATITIS A IgM (test code = NON-REACTIVE 2728)
--- NOTE | 2022-08-26 15:49 | RAD REPORT ---
EXAM DESCRIPTION: US - [facility] - 08/26/2022 3:19 pm CLINICAL HISTORY: PAIN Leg swelling and edema. COMPARISON: [facility] dated 07/08/2019 FINDINGS: Right lower extremity venous system was interrogated with Doppler technique. Normal flow, compressibility and augmentation was noted. There is no DVT present. IMPRESSION: No evidence of right lower extremity deep venous thrombosis.
--- NOTE | 2022-08-26 16:10 | RAD REPORT ---
EXAM DESCRIPTION: RAD - Hip Right 2 View - 08/26/2022 3:29 pm CLINICAL HISTORY: PAIN COMPARISON: No comparisons FINDINGS: Mild arthritic changes affect the right hip. No fracture, dislocation or AVN.
--- NOTE | 2022-08-26 16:45 | RAD REPORT ---
EXAM DESCRIPTION: RAD - Foot Right 3 View - 08/26/2022 3:29 pm CLINICAL HISTORY: PAIN COMPARISON: No comparisons FINDINGS: Mild soft tissue swelling is evident. No fracture or dislocation seen.
[2022-08-26] MEDS ORDERED: IBUPROFEN 400 MG TAB ONE (17:22)
--- NOTE | 2022-08-26 17:30 | EDPHYS ---
Physician Documentation [facility] Name: Sophie Thakkar Age: 36 yrs Sex: Female : 1985 Arrival Date: 08/26/2022 Time: 14:06 Bed DIS3 Private MD: Florinda Skinner ED Physician Sai Trinidad HPI: 08/26 14:35 This 36 yrs old Female presents to ER via Ambulatory with complaints of Leg cp Pain, right foot swelling. 14:35 The patient presents with pain, that is chronic. The complaints affect the right foot. cp Treatment prior to arrival includes: no previous treatment. 14:35 Onset: The symptoms/episode began/occurred 1 year(s) ago. Associated signs and cp symptoms: Pertinent positives: right hip pain. 14:35 Modifying factors: the symptoms are aggravated by weight bearing. cp Historical: - Allergies: 14:26 Latex, Natural Rubber; for long periods of time; ld1 - PMHx: 14:26 "years ago I was diabetic but I lost weight"; ld1 - PSHx: 14:26 None; ld1 - Immunization history:: Adult Immunizations up to date, Client reports having NOT received the Covid vaccine. - Social history:: Smoking status: Patient denies any tobacco usage or history of. Patient/guardian denies using alcohol. ROS: 14:40 MS/extremity: Positive for pain, swelling, tenderness, of the right foot, Negative for cp injury or acute deformity, decreased range of motion. 14:40 Constitutional: Negative for body aches, chills, fever, poor PO intake. cp 14:40 Cardiovascular: Negative for chest pain, edema, palpitations. 14:40 Respiratory: Negative for cough, shortness of breath, wheezing. 14:40 Abdomen/GI: Negative for abdominal pain, nausea, vomiting, and diarrhea. 14:40 Neuro: Negative for altered mental status, dizziness, headache, weakness. 14:40 All other systems are negative. Exam: 14:45 Constitutional: The patient appears in no acute distress, alert, awake, non-toxic, well cp developed, well nourished, obese, uncomfortable. 14:45 Head/Face: Normocephalic, atraumatic. cp 14:45 Eyes: Periorbital structures: appear normal, Conjunctiva: normal, no exudate, no injection, Sclera: no appreciated abnormality, Lids and lashes: appear normal, bilaterally. 14:45 ENT: External ear(s): are unremarkable, Nose: is normal, Mouth: Lips: moist, Oral mucosa: moist, Posterior pharynx: Airway: no evidence of obstruction, patent. 14:45 Chest/axilla: Inspection: normal. 14:45 Cardiovascular: Rate: bradycardic, Rhythm: regular, Edema: is not appreciated. 14:45 Respiratory: the patient does not display signs of respiratory distress, Respirations: normal, no use of accessory muscles, no retractions, labored breathing, is not present, Breath sounds: are clear throughout, no decreased breath sounds, no stridor, no wheezing. 14:45 Abdomen/GI: Exam negative for discomfort, distension, guarding, Inspection: abdomen appears normal. 14:45 Musculoskeletal/extremity: Extremities: grossly normal except: noted in the right foot: pain, swelling, tenderness, noted in the right hip: pain, tenderness, no evidence of decreased ROM, ROM: full active range of motion, in the right foot and right leg, Pulses: noted to be 2+ in the right dorsalis pedis artery, the right leg and right foot Sensation intact. 14:45 Neuro: Orientation: to person, place \\T\\ time. Mentation: is normal. 14:45 Skin: cellulitis, is not appreciated, no rash present. cp Vital Signs: 14:25 BP 116 / 89; Pulse 59; Resp 18; Temp 98.6(TE); Pulse Ox 98% on R/A; Weight 122.47 kg; ld1 Height 5 ft. 2 in. (157.48 cm); Pain 6/10; 14:25 Body Mass Index 49.38 (122.47 kg, 157.48 cm) ld1 MDM: 14:07 Patient medically screened. [facility] 15:00 Differential diagnosis: closed fracture, contusion, dvt, cellulitis. cp 17:15 Data reviewed: vital signs, nurses notes, radiologic studies, plain films, ultrasound. cp 17:30 Counseling: I had a detailed discussion with the patient and/or guardian regarding: the cp historical points, exam findings, and any diagnostic results supporting the discharge/admit diagnosis, radiology results, the need for outpatient follow up, a family practitioner, to return to the emergency department if symptoms worsen or persist or if there are any questions or concerns that arise at home. 17:30 Response to treatment: the patient's symptoms have mildly improved after treatment, and cp as a result, I will discharge patient. 08/26 14:30 Order name: Extremity Venous Uni Ltd US; Complete Time: 16:59 ld1 08/26 17:00 Interpretation: Report reviewed. cp 08/26 14:30 Order name: XRAY Hip RIGHT 2 view; Complete Time: 16:59 ld1 08/26 17:00 Interpretation: Report reviewed. cp 08/26 14:30 Order name: XRAY Foot RIGHT 3 View; Complete Time: 16:59 ld1 08/26 17:01 Interpretation: Report reviewed. cp Administered Medications: 17: Drug: Ibuprofen 800 mg Route: PO; iw Disposition Summary: 08/26/22 17:30 Discharge Ordered Location: Home cp Problem: an ongoing problem cp Symptoms: have improved cp Condition: Stable cp Diagnosis - Pain in right foot cp - Pain in right hip cp Followup: cp - With: Joshua Jane DPM - When: 1 week - Reason: Recheck today's complaints Discharge Instructions: - Discharge Summary Sheet cp - Hip Pain cp - Foot Pain cp Forms: - Medication Reconciliation Form cp - Thank You Letter cp - Antibiotic Education cp - Prescription Opioid Use cp Prescriptions: - Diclofenac Sodium 75 mg Oral Tablet Sustained Release - take 1 tablet by ORAL route 2 times per day; 30 tablet; Refills: 0, Product cp Selection Permitted - methocarbamol 500 mg Oral Tablet - take 1 tablet by ORAL route 3 times per day for 5 days; 15 tablet; Refills: 0, cp Product Selection Permitted Addendum: 08/29/2022 08:00 Co-signature as Attending Physician, Sai Trinidad MD I agree with the assessment and c ernandez plan of care. Signatures: Dispatcher [employer] Sai Soto MD MD cha Williams, Irene RN JOSELIN iw Sai Oscar PA PA cp Marietta Pool RN RN ld1 Alize Wise FNP RN ORTHO jh7 Corrections: (The following items were deleted from the chart) 08/27 17:30 08/26 14:40 MS/extremity: Positive for erythema, pain, paresthesias, swelling, cp tenderness, warmth, of the right foot, cp 08/27 17:08/26 14:45 Constitutional: The patient appears in no acute distress, alert, awake, cp non-toxic, well developed, well nourished, uncomfortable, cp 08/27 17:32 08/26 14:45 Musculoskeletal/extremity: Extremities: noted in the right foot: erythema, cp pain, swelling, tenderness, amputation deformity of right great toe, mild drainage from amputation site, noted in the right lower leg: pain, tenderness, weak, palpable right dorsalis pedis pulse. the right foot numbness, cp 08/27 17:08/26 14:35 The patient presents with pain, that is acute, cp cp 08/27 17:08/26 14:35 Onset: The symptoms/episode began/occurred 1 week(s) ago, cp cp 08/27 17:33 08/26 14:35 Associated signs and symptoms: Pertinent positives: calf tenderness, cp swelling, warmth, Pertinent negatives fever, vomiting, cp
--- NOTE | 2022-08-26 17:30 | ER ---
Nurse's Notes [facility] Name: Sophie Thakkar Age: 36 yrs Sex: Female : 1985 Arrival Date: 08/26/2022 Time: 14:06 Bed DIS3 Private MD: Florinda Skinner Diagnosis: Pain in right foot;Pain in right hip Presentation: 08/26 14:25 Chief complaint: Patient states: Right foot pain - red and swollen. Reports pain to ld1 right foot for 1 year. Coronavirus screen: At this time, the client does not indicate any symptoms associated with coronavirus-19. Ebola Screen: No symptoms or risks identified at this time. Initial Sepsis Screen: Does the patient meet any 2 criteria? No. Patient's initial sepsis screen is negative. Does the patient have a suspected source of infection? No. Patient's initial sepsis screen is negative. Risk Assessment: Do you want to hurt yourself or someone else? Patient reports no desire to harm self or others. Onset of symptoms was August 26, 2022. 14:25 Method Of Arrival: Ambulatory ld1 14:25 Acuity: JERONIMO 3 ld1 Triage Assessment: 14:26 General: Appears in no apparent distress. comfortable, Behavior is calm, cooperative, ld1 appropriate for age. Pain: Complains of pain in right foot Pain does not radiate. Pain currently is 7 out of 10 on a pain scale. EENT: No signs and/or symptoms were reported regarding the EENT system. Neuro: Level of Consciousness is awake, alert, obeys commands, Oriented to person, place, time, situation. Cardiovascular: Capillary refill < 3 seconds Patient's skin is warm and dry. Respiratory: Airway is patent Respiratory effort is even, unlabored. GI: Abdomen is round non-distended. : No signs and/or symptoms were reported regarding the genitourinary system. Derm: No signs and/or symptoms reported regarding the dermatologic system. Historical: - Allergies: 14:26 Latex, Natural Rubber; for long periods of time; ld1 - PMHx: 14:26 "years ago I was diabetic but I lost weight"; ld1 - PSHx: 14:26 None; ld1 - Immunization history:: Adult Immunizations up to date, Client reports having NOT received the Covid vaccine. - Social history:: Smoking status: Patient denies any tobacco usage or history of. Patient/guardian denies using alcohol. Vital Signs: 14:25 BP 116 / 89; Pulse 59; Resp 18; Temp 98.6(TE); Pulse Ox 98% on R/A; Weight 122.47 kg; ld1 Height 5 ft. 2 in. (157.48 cm); Pain 6/10; 14:25 Body Mass Index 49.38 (122.47 kg, 157.48 cm) ld1 ED Course: 14:06 Patient arrived in ED. am2 14:06 Florinda Skinner is Private Physician. am2 14:07 [facility] j[facility] 14:07 Sai Trinidad MD is Attending Physician. 7 14:26 Triage completed. ld1 14:26 Arm band placed on right wrist. ld1 14:32 Sai Oscar PA is PHCP. jh7 15:14 Extremity Venous Uni Ltd US In Process Unspecified. EDMS 15:31 XRAY Hip RIGHT 2 view In Process Unspecified. EDMS 15:31 XRAY Foot RIGHT 3 View In Process Unspecified. EDMS 17:17 Zuleima Kohli, RN is Primary Nurse. iw 17:29 Joshua Jane DPM is Referral Physician. cp Administered Medications: 17:22 Drug: Ibuprofen 800 mg Route: PO; iw Outcome: 17:30 Discharge ordered by MD. cp 17:41 Patient left the ED. iw Signatures: Dispatcher [employer] EDMS Zuleima Kohli RN JOSELIN iw Sai Oscar PA PA cp Nidia Bernal am2 Marietta Pool RN RN ld1 Alize Wise FNP [employer] [facility]
[2022-08-26 18:04] VITALS: BP 116/89; TEMP 98.6; O2SAT 98
== END 2022-08-26 17:41 | disposition home or self-care (01) ==
LOC: ER 14:05
DX: M79.671 Pain in right foot (principal); M25.551 Pain in right hip; Z91.040 Latex allergy status; Z91.048 Other nonmedicinal substance allergy status
CPT/HCPCS: 93971; 99283

== ENCOUNTER 2023-01-21 10:05 | Emergency (ER) | payer OTHER ==
--- OUTSIDE RECORDS SUMMARY | 2023-01-21 10:11 | XMS REPORT | Continuity of Care Document ---
:1985 Author Organization [facility] t Address [address] [place] [address] [address] [place] [address] Care Team Providers Name Role Phone Ronnie Shelley Primary Care Physician [phone] Jarrett BOYKIN Attending Clinician Unavailable Jarrett Mitchell Attending Clinician RADIOLOGY Attending Clinician Unavailable Radiology Attending Clinician Unavailable Doctor Unassigned, [place] Attending Clinician Unavailable Tatyana Adame MD Attending Clinician TATYANA ADAME Attending Clinician Unavailable Only, Adc Test Attending Clinician Unavailable Leatha David Attending Clinician BRENNAN RITCHIE Attending Clinician Unavailable Brennan Ritchie MD Attending Clinician Ultrasound, Adc Mfm Attending Clinician Unavailable Kaila Melchor MD Attending Clinician TITI DE LUNA Admitting Clinician Unavailable TATYANA ADAME Admitting Clinician Unavailable Tatyana Adame MD Admitting Clinician Payers Payer Name Policy Type Policy Number Effective Date Expiration Date S vega [place] [employer] [id number] 2022 00:00:00 [facility] STAR [id number] 2019 2019 00:00:00 00:00:00 Problems Condition Condition Condition Status Onset Resolution Last Treating Co mments Source Name Details Category Date Date Treatment Clinician Date Neck mass Neck mass Disease Active 2020-09 Overview: Univers 1-30 Formattin ity of 00:00: g of this [place] 00 note Medical might be Branch different from the original. Added automatic ally from request for surgery [id number] History of History of Disease Active U nivers diabetes diabetes 5-15 ity of mellitus mellitus 00:00: [place] 00 Medical Branch History of History of Disease Active U nivers bariatric bariatric 5-15 ity of surgery surgery 00:00: [place] 00 Medical Branch Prior Prior Disease Active Univers 5-15 ity of with with 00:00: ken demise demise 00 Medical Branch Previous Previous Disease Active Unive rs 5-15 ity of section section 00:00: [place] 00 Medical Branch History of History of Disease Active U nivers 5-15 ity of delivery delivery 00:00: [place] 00 Medical Branch Vomiting Vomiting Disease Active Unive rs or nausea or nausea 5-15 ity of of of 00:00: [place] 00 [facility] Branch History of History of Disease Active U nivers smoking smoking 5-15 ity of 00:00: [place] 00 Medical Branch Obesity, Obesity, Disease Active Unive rs Class III, Class III, 5-15 it y of BMI BMI 00:00: [place] 40-49.9 40-49.9 00 Medical (morbid (morbid Branch obesity) obesity) Hypokalemi Hypokalemi Disease Active U nivers a a 2-01 ity of 00:00: [place] 00 Medical Branch Intractabl Intractabl Disease Active U nivers e nausea e nausea 2-01 ity of and and 00:00: [place] vomiting vomiting 00 Medica l Branch Intractabl Intractabl Disease Active U nivers e vomiting e vomiting 1-31 it y of 00:00: [place] 00 Medical Branch Allergies, Adverse Reactions, Alerts Allergy Allergy Status Severity Reaction(s) Onset Inactive Treating Comm ents Source Name Type Date Date Clinician Niru - Propensi Active 0 Intraven ty to 6-28 ous adverse 00:00: reaction 00 to drug latex DA Active SD 2018- [facility]18 [facility] [place] No Known DA Active U 2018- [facility] Allergie 0-03 [facility] 00:[facility] [place] latex DA Active SD 2018- [facility] 0-03 [facility] 00:[facility] [place] Flagyl Propensi Active 2017- ty to 1-05 adverse 00:00: reaction 00 to drug Adhesive Propensi Active Rash 2018-0 Univer s ty to 5-09 ity of adverse 00:00: [place] reaction 00 Medical s Branch ADHESIVE Drug Active Rash 2018-0 Univers Class 5-09 ity of 00:00: [place] 00 Medical Branch LATEX DRUG Active Rash 2018-0 Univers INGREDI 5-09 ity of 00:00: [place] 00 Medical Branch Latex Propensi Active Rash 2018-0 Univers ty to 5-09 ity of adverse 00:00: [place] reaction 00 Medical s Branch Adhesive Propensi Active Rash 2018-0 Univer s ty to 5-09 ity of adverse 00:00: [place] reaction 00 Medical s Branch Social History Social Habit Start Date Stop Date Quantity Comments Source History SDOH University o f Alcohol Frequency [facility] edical Branch History SDHI University o f Alcohol Std [place] Medical Drinks Branch History [facility] o f Alcohol Binge [place] Medic al Branch Exposure to 2022-11-13 2022-11-23 Not sure University of SARS-CoV-2 00:00:00 20:23:00 [place] Medical (event) Branch Alcohol intake 2021-09-04 2021-09-04 Current University of 00:00:00 00:00:00 non-drinker of [facility] alcohol (finding) Branch Alcohol Comment 2019-02-06 2019-02-06 rare Universit y of 00:00:00 00:00:00 [place] [facility] Tobacco use and 2019-02-06 2019-02-06 Smokeless tobacco Un iversity of exposure 00:00:00 00:00:00 non-user [facility] History of 2019-01-12 Cigarette Smoker Universi ty of tobacco use 00:00:00 [facility] Sex [birth year] At [birth year] Universit y of 00:00:00 00:00:00 [facility] Smoking Status Start Date Stop Date Source Ex-smoker 2019-02-06 00:00:00 2019-02-06 00:00:00 Universi ty of [place] [facility] Medications Ordered Filled Start Stop Current Ordering Indication Dosage Frequency Signature Comments Components Source Medication Medication Date Date Medication? Clinician (SIG) Name Name methylpredn No 125mg 125 mg, U nivers isolone sod 11-24 Intramuscu i ty of succ 05:00: 04:14 lar, ONCE, [place] (SOLU-MEDRO 00 :00 1 dose, On Me dical L) Tue Branch injection 11/23/22 at 125 mg 2300, LEONARD predniSONE Yes [id number] 1 PO BID x Univers 20 mg -28 4 days ity of tablet 00:00: [address] APPLY A No [id number] THIN LAYER 7-08 TO AFFECTED 00:00: AREA(S) AND 00 RUB IN WELL TWICE DAILY. 2020-09 Yes Take by [facility] [employer] vit 2-06 mouth. ity of calc,iron,f 17:03: [place] [address] Medical ( Branch VITAMIN ORAL) 2020-09 Yes Take by [facility] [employer] vit 2-06 mouth. ity of calc,iron,f 17:03: [place] [address] Medical ( Branch VITAMIN ORAL) 2020-09 Yes Take by [facility] [employer] vit 2-06 mouth. ity of calc,iron,f 17:03: [place] [address] Medical ( Branch VITAMIN ORAL) 2020-09 Yes Take by [facility] [employer] vit 2-06 mouth. ity of calc,iron,f 17:03: [place] [address] Medical ( Branch VITAMIN ORAL) 2020-09 Yes Take by [facility] [employer] vit 2-06 mouth. ity of calc,iron,f 17:03: [place] [address] Medical ( Branch VITAMIN ORAL) ibuprofen 2020-09 Yes [id number] 800mg Take 1 Univers 800 mg 2-06 tablet by ity of tablet 00:00: mouth [place] 00 every 6 Medical (six) Branch hours as needed for Pain (scale 1-3). acetaminoph 2020-09 Yes [id number] 650mg Take 1 Univers en (TYLENOL 2-06 tablet by ity of 8 HOUR) 650 00:00: mouth [place] mg CR 00 every 8 Medical tablet (eight) Branch hours as needed for Pain. ibuprofen 2020-09 Yes [id number] 800mg Take 1 Univers 800 mg 2-06 tablet by ity of tablet 00:00: mouth [place] 00 every 6 Medical (six) Branch hours as needed for Pain (scale 1-3). acetaminoph 2020-09 Yes [id number] 650mg Take 1 Univers en (TYLENOL 2-06 tablet by ity of 8 HOUR) 650 00:00: mouth [place] mg CR 00 every 8 Medical tablet (eight) Branch hours as needed for Pain. ibuprofen 2020-09 Yes [id number] 800mg Take 1 Univers 800 mg 2-06 tablet by ity of tablet 00:00: mouth [place] 00 every 6 Medical (six) Branch hours as needed for Pain (scale 1-3). acetaminoph 2020-09 Yes [id number] 650mg Take 1 Univers en (TYLENOL 2-06 tablet by ity of 8 HOUR) 650 00:00: mouth [place] mg CR 00 every 8 Medical tablet (eight) Branch hours as needed for Pain. ibuprofen 2020-09 Yes [id number] 800mg Take 1 Univers 800 mg 2-06 tablet by ity of tablet 00:00: mouth [place] 00 every 6 Medical (six) Branch hours as needed for Pain (scale 1-3). acetaminoph 2020-09 Yes [id number] 650mg Take 1 Univers en (TYLENOL 2-06 tablet by ity of 8 HOUR) 650 00:00: mouth [place] mg CR 00 every 8 Medical tablet (eight) Branch hours as needed for Pain. ibuprofen 2020-09 Yes [id number] 800mg Take 1 Univers 800 mg 2-06 tablet by ity of tablet 00:00: mouth [place] 00 every 6 Medical (six) Branch hours as needed for Pain (scale 1-3). acetaminoph 2020-09 Yes [id number] 650mg Take 1 Univers en (TYLENOL 2-06 tablet by ity of 8 HOUR) 650 00:00: mouth [place] mg CR 00 every 8 Medical tablet (eight) Branch hours as needed for Pain. cetirizine 2019-0 Yes 10mg Take 10 mg U nivers 10 mg 7-10 by mouth ity of tablet 00:00: daily. Medical Branch fluticasone 2018-0 Yes TAKE 2 Univ ers propionate 7-10 SPRAYS IN ity of 50 00:00: EACH [place] mcg/actuati NOSTRIL Medic al on nasal EVERY DAY Branch spray cetirizine Yes 10mg Take 10 mg U nivers 10 mg 7-10 by mouth ity of tablet 00:00: daily. [place] Medical Branch fluticasone Yes TAKE 2 Univ ers propionate 7-10 SPRAYS IN ity of 50 00:00: EACH [place] mcg/actuati NOSTRIL Medic al on nasal EVERY DAY Branch spray cetirizine Yes 10mg Take 10 mg U nivers 10 mg 7-10 by mouth ity of tablet 00:00: daily. [place] Medical Branch fluticasone Yes TAKE 2 Univ ers propionate 7-10 SPRAYS IN ity of 50 00:00: EACH [place] mcg/actuati NOSTRIL Medic al on nasal EVERY DAY Branch spray cetirizine Yes 10mg Take 10 mg U nivers 10 mg 7-10 by mouth ity of tablet 00:00: daily. [place] Medical Branch fluticasone Yes TAKE 2 Univ ers propionate 7-10 SPRAYS IN ity of 50 00:00: EACH [place] mcg/actuati NOSTRIL Medic al on nasal EVERY DAY Branch spray cetirizine 0 Yes 10mg Take 10 mg U nivers 10 mg 7-10 by mouth ity of tablet 00:00: daily. [place] Medical Branch fluticasone Yes TAKE 2 Univ ers propionate 7-10 SPRAYS IN ity of 50 00:00: EACH [place] mcg/actuati NOSTRIL Medic al on nasal EVERY DAY Branch spray metoclopram 0 Yes 10mg Take 1 Univ ers cleve HCl 10 5-22 tablet by ity of mg tablet 00:00: mouth [place] [id number] every 6 Medical (six) Branch hours as needed for Nausea and Vomiting (N/V). metoclopram 2019-0 Yes 10mg Take 1 Univ ers cleve HCl 10 5-22 tablet by ity of mg tablet 00:00: mouth [place] [address] every 6 Medical (six) Branch hours as [...] Flagyl 500 2018-0 No 1mg mg tablet 06-15 00:00: 00 Flagyl 500 2018-0 No 1mg mg tablet 06-15 00:00: 00 Flagyl 500 2018-0 No 1mg mg tablet 3 00:00: 00 Flagyl 500 2017-0 No 1mg mg tablet 12-24 00:00: 00 Flagyl 500 2016-0 No 1mg mg tablet 11-25 00:00: 00 Flagyl 500 2016-0 No 1mg mg tablet 11-25 00:00: 00 Flagyl 500 2015-0 No 1mg mg tablet 6 00:00: 00 Flagyl 500 2015-0 No 1mg mg tablet 6 00:00: 00 fluconazole 2016-0 No 1mg 150 mg 6-29 tablet 00:00: 00 fluconazole 2016-0 No 1mg 150 mg 6-29 tablet 00:00: 00 azithromyci 2015-0 No 2mg n 500 mg 1-11 tablet 00:00: 00 azithromyci 2016-0 No 2mg n 500 mg 11 tablet 00:00: 00 Flagyl 500 2015-0 No 1mg mg tablet 10-01 00:00: 00 Flagyl 500 2015-0 No 1mg mg tablet 10-01 00:00: 00 Vital Signs Vital Name Observation Time Observation Value Comments Source Systolic blood 2022-11-24 02:26:00 113 mm[Hg] Univer sity of pressure [place] [facility] Diastolic blood 2022-11-24 02:26:00 60 mm[Hg] Unive rsity of pressure [facility] Heart rate 2022-11-24 02:26:00 77 /min Universi ty of [place] [facility] [place] Body temperature 2022-11-24 02:26:00 37.11 Katie Univ ersity of [place] [facility] Respiratory rate 2022-11-24 02:26:00 18 /min Univ ersity of [place] [facility] [place] Body height 2022-11-24 02:26:00 162.6 cm Universi ty of [place] [facility] [place] Body weight 2022-11-24 02:26:00 123.514 kg Universi ty of [place] [facility] [place] BMI 2022-11-24 02:26:00 46.74 kg/m2 Universi ty of [place] [facility] Oxygen saturation in 2022-11-24 02:26:00 100 /min [facility] Arterial blood by [facility] Pulse oximetry Branch Systolic blood 2021-09-04 20:22:00 106 mm[Hg] Univer sity of pressure [facility] Diastolic blood 2021-09-04 20:22:00 71 mm[Hg] Unive rsity of pressure [facility] Heart rate 2021-09-04 20:22:00 73 /min Universi ty of [place] [facility] [place] Body temperature 2021-09-04 20:22:00 36.17 Katie Univ ersity of [facility] Branch Respiratory rate 2021-09-04 20:22:00 18 /min Univ ersity of [place] [facility] [place] Body height 2021-09-04 20:22:00 157.5 cm Universi ty of [place] [facility] Body weight 2021-09-04 20:22:00 130.908 kg Universi ty of [place] [facility] [place] BMI 2021-09-04 20:22:00 52.79 kg/m2 Universi ty of [place] [facility] Oxygen saturation in 2021-09-04 20:22:00 95 /min University of Arterial blood by [facility] Pulse oximetry Branch BP Systolic 2022-04-02 11:30:00 [...] 70.00 /min Respiratory Rate 2017-04-20 11:33:00 Procedures Procedure Date / Time Performed Performing Clinician Sour e RAPID STREP SCREEN 2022-11-24 02:34:00 Jarrett Boykin [facility] FOR GROUP A Medical Branch COVID-19 (ID NOW 2022-11-24 02:34:00 Jarrett Boykin [facility] RAPID TESTING) Medical Branch NOTICE OF PRIVACY 2022-11-24 02:15:39 Doctor Unassigned, No [facility] [place] PRACTICES Name Medical Branch CONSENT/REFUSAL FOR 2022-11-24 02:15:18 Doctor Unassigned, No Un iversity of [place] DIAGNOSIS AND Name Medical Branch TREATMENT DEXA AXIAL (HIP AND 2022-09-08 16:51:00 [facility] Branch CONSENT/REFUSAL FOR 2022-09-08 16:34:51 Doctor Unassigned, No Un iversity of [place] DIAGNOSIS AND Name Medical Branch TREATMENT Plan of Care Planned Activity Planned Date Details Comments Source Goal Plan of Care Note [code = 64627-1] Goal Plan of Care Note [code = 32421-2] Goal Plan of Care Note [code = 75900-3] Goal Plan of Care Note [code = 41345-3] Goal Plan of Care Note [code = 47624-9] Goal Plan of Care Note [code = 70880-4] Goal Plan of Care Note [code = 17176-4] Goal Plan of Care Note [code = 64099-4] Goal Plan of Care Note [code = 93128-6] Goal Plan of Care Note [code = 22644-8] Goal Plan of Care Note [code = 64118-0] Goal Plan of Care Note [code = 71174-1] Goal Plan of Care Note [code = 93429-5] Goal Plan of Care Note [code = 59171-9] Goal Plan of Care Note [code = 72387-3] Goal Plan of Care Note [code = 51927-6] Goal Plan of Care Note [code = 67816-3] Goal Plan of Care Note [code = 94230-7] Goal Plan of Care Note [code = 73730-7] Goal Plan of Care Note [code = 76577-5] Goal Plan of Care Note [code = 93061-4] Goal Plan of Care Note [code = 12322-7] Goal Plan of Care Note [code = 27442-7] Goal Plan of Care Note [code = 54819-6] Goal Plan of Care Note [code = 00699-1] Goal Plan of Care Note [code = 88399-4] Goal Plan of Care Note [code = 45710-0] Goal Plan of Care Note [code = 60279-1] Goal Plan of Care Note [code = 14783-6] Goal Plan of Care Note [code = 26134-4] Goal Plan of Care Note [code = 86578-4] Goal Plan of Care Note [code = 81221-8] Goal Plan of Care Note [code = 67149-3] Goal Plan of Care Note [code = 18827-8] Goal Plan of Care Note [code = 17316-9] Goal Plan of Care Note [code = 61470-2] Goal Plan of Care Note [code = 92647-7] Goal Plan of Care Note [code = 23960-3] Goal Plan of Care Note [code = 53453-9] Goal Plan of Care Note [code = 54249-5] Goal Plan of Care Note [code = 92125-0] Goal Plan of Care Note [code = 06267-6] Goal Plan of Care Note [code = 02744-3] Goal Plan of Care Note [code = 31929-2] Goal Plan of Care Note [code = 63875-7] Goal Plan of Care Note [code = 66716-0] Goal Plan of Care Note [code = 53599-7] Goal Plan of Care Note [code = 64618-9] Goal Plan of Care Note [code = 85898-7] Encounters Start End Encounter Admission Attending Care Care Encounter Source Date/Time Date/Time Type Type Clinicians Facility Department ID 2022-11-23 2022-11-23 Emergency X Jarrett BOYKIN [facility] ERT [id number] Univers 20:37:00 22:29:00 ity of [place] [facility] 2022-11-23 2022-11-23 Emergency Jarrett Boykin [facility] 1.2.840.114 [id number] Univers 20:37:00 22:29:00 Alma RAIMUNDO [id number] i ty of [place] 4.2.7.2.686 [facility] [id number] [facility] 084 Branch 2022-09-08 2022-09-08 Outpatient R RADIOLOGY [facility] [id number] Univers 10:36:09 23:59:00 ity of [place] [facility] 2022-09-08 2022-09-08 Hospital Radiology [facility] 1.2.840.114 [id number] Univers 10:10:00 23:59:00 Encounter ANGLEMARC[place] [id number] ity of [place] 4.2.7.2.686 [facility] [id number] [facility] 800 Branch 2022-09-08 2022-09-08 Orders Doctor PHELPS 1.2.840.114 [id number] Univers 00:00:00 00:00:00 Only Unassigned, ROXY 350.1.13.10 ity of [place] [facility] 4.2.7.2.686 [facility] [id number] [facility] 009 Branch 2022-04-02 2022-04-02 Outpatient [id number] 00:00:00 00:00:00 Visit [id number] [id number] 2022-03-30 2022-03-30 Outpatient [id number] 00:00:00 00:00:00 Visit [id number] [id number] 2021-09-04 2021-09-04 Office [facility] [id number] [id number] Univers 14:07:27 15:00:35 Visit Tatyana EUBANKS 350.1.13.10 i ty [place] 4.2.[place].2.686 [place] [id number] Fl dical NAL [address] [place] [address] 2021-09-04 2021-09-04 Outpatient R [facility] [id number] Univers 14:00:00 15:00:35 [facility] 2021-09-04 2021-09-04 Outpatient R [facility] [id number] Univers 14:00:00 14:00:00 [facility] 2021-09-04 2021-09-04 Telephone [facility] 1.2.840.114 [id number] Univers 00:00:00 00:00:00 Tatyana JUANMARCOS 350.1.13.10 i ty [place] 4[place]2.[place].2.686 [place] [id number] Fl dical NAL [address] [place] [address] 2021-08-31 2021-08-31 Outpatient R [facility] GIORGIO [id number] Univers 12:46:00 17:03:00 TATYANA [facility] 2021-08-31 2021-08-31 [facility] 1.2.840.114 [id number] Univers 12:46:00 17:03:00 Encounter Tatyana EUBANKS 350.1.13.10 ity of [place] 4.2.7.2.686 [place]ICAL [id number] [facility] 071 Branch 2021-08-31 2021-08-31 Surgery Deep [facility] 1.2.403.128 [id number] Univers 14:15:00 16:10:00 Tatyana RAIMUNDO 350.1.13.10 i ty [place] 4.2.7.2.686 [place] [id number] [facility] 020 Branch 2021-08-28 2021-08-28 Laboratory Only, Adc Test [facility] 1.2.840. 114 [id number] Univers 10:48:44 11:03:44 Only Tatyana Adame 350.1.13.10 it[place]2.7.2.[place] [id number] [facility] 353 [place] 2021-08-28 2021-08-28 Outpatient R DEEP [facility] [id number] Univers 08:30:00 08:30:00 TATYANA [facility] 2021-08-25 2021-08-25 Prep For [facility] 1.2.840.114 [id number] Univers 00:00:00 00:00:00 Surgery Leatha Qureshi RAIMUNDO 350.1.13.10 [place]y [place] [id number] Fl dical NAL 204 [facility] 2021-08-18 2021-08-18 [facility] 1.2.935.851 [id number] Univers 13:35:01 14:22:15 Visit Tatyana RAIMUNDO 350.1.13.10 i ty [place] 4[place]2.[place].2.[place] [id number] Fl dical NAL 188 [facility] 2021-08-18 2021-08-18 Outpatient R DEEP [facility] [id number] Univers 13:15:00 14:22:15 TATYANA [facility] 2021-08-18 2021-08-18 Outpatient R DEEP [facility] [id number] Univers 13:15:00 14:22:15 TATYANA [facility] 2021-08-18 2021-08-18 Outpatient R DEEP, [facility] [id number] Univers 13:15:00 13:15:00 TATYANA [facility] 2021-08-18 2021-08-18 Orders Doctor MATTIE 1.2.840.114 [id number] Univers 00:00:00 00:00:00 Only Unassigned, ROXY 350.1.13.10 ity of [place] [facility] 4.2.7.2.686 [place] as [id number] [address] 2021-07-27 2021-07-27 Orders Doctor MATTIE 1.2.840.114 [id number] Univers 00:00:00 00:00:00 Only Unassigned, ROXY 350.1.13.10 ity of [place] [facility]OSPITAL 4.2.7.2.686 [place] as [id number] [address] 2021-07-23 2021-07-23 Hospital Radiology [facility] 1.2.840.114 [id number] Univers 13:52:13 23:59:00 Encounter [place] 350.1.13.10 ity of [place] 4.2.7.2.686 [place] [id number] [place] [address] [place] 2021-07-23 2021-07-23 Outpatient R RADIOLOGY [facility] [id number] Univers 13:47:32 13:51:00 ity of [place] [facility] 2021-07-23 2021-07-23 Hospital Radiology [facility] 1.2.840.114 [id number] Univers 13:30:00 13:51:00 Encounter [place] 350.1.13.10 ity of [place] 4.2.7.2.686 [place] [id number] [place] [address] [place] 2021-07-23 2021-07-23 Orders Doctor MATTIE 1.2.840.114 [id number] Univers 00:00:00 00:00:00 Only Unassigned, ROXY 350.1.13.10 ity of [place] [facility] 4.2.7.2.686 [place] as [id number] [address] 2019-06-06 2019-06-06 Outpatient R BRENNAN RITCHIE [facility] [id number] [facility] 16:15:00 16:15:00 ity of [facility] 2019-05-08 2019-05-08 Routine Brennan Ritchie [facility] 1.2.106.328 [id number] [facility] 15:17:40 16:08:51 [place] 350.1.13.10 ity of Visit [place] 4.2.7.2.686 [place] Profess[place] [id number] [address] 2019-05-08 2019-05-08 Routine Brennan Ritchie [facility] 1.2.314.546 [id number] 15:17:40 16:08:51 [place] 350.1.13.10 Visit [place] 4.2.7.2.686 Professio [id number] [address] 2019-05-04 2019-05-04 Ladle Mechanic Ultrasound, [facility] 1.2 .840.114 [id number] [facility] 14:17:30 15:17:30 Visit Brennan Ritchie [place] 350.1.13.10 ity of [place] 4.2.7.2.686 [place] [id number] [address] 2019-05-04 2019-05-04 Ladle Mechanic Ultrasound, [facility] 1.2.840.114 [id number] 14:17:30 15:17:30 Visit Adc [facility] [place] 350.1.13.10 [place] 4.2.7.2.686 Professio [id number] [address] 2019-05-04 2019-05-04 Orders Doctor MATTIE 1.2.840.114 [id number] Univers 00:00:00 00:00:00 Only Unassigned, ROXY 350.1.13.10 ity of [place] [facility] 4.2.7.2.686 [place] as [id number] [address] 2019-05-04 2019-05-04 Orders Doctor MATTIE 1.2.840.114 [id number] 00:00:00 00:00:00 Only Unassigned, [place] 350.1.13.10 [place] [facility] 4.2.7.[id number] [facility] 2019-05-02 2019-05-02 Telephone Brennan Ritchie [facility] 1.2.840.114 [id number] [facility] 00:00:00 00:00:00 [place] 350.1.13.10 i ty of [place] 4.2.[place].2.[place] [id number] Fl dical [facility] 134 [facility] 2019-05-02 2019-05-02 Telephone Brennan Ritchie [facility] 1.2.840.114 [id number] 00:00:00 00:00:00 [place] 350.1.13.10 [place] 4.2.7.2.686 Professio [id number] [address] 2019-04-18 2019-04-18 [facility] 1.2.840.114 [id number] [facility] 13:01:44 23:59:00 Encounter Kaila Holguin 350.1.13.10 ity brittanie [facility] 4.2.7.2.686 [place] [id number] [address] 2019-04-18 2019-04-18 [facility] 1.2.840.114 [id number] 13:01:44 23:59:00 Encounter Kaila Holguin 350.1.13.10 [facility] 4.2.7.2.686 [id number] Results Test Description Test Time Test Comments Results Result Comments Source VAGINAL PATHOGENS DNA PANEL 2022-03-31 12:57:32 Test Item Value Reference Range Interpretation Comme nts DALTON SPECIES (test code = NEGATIVE NEGATIVE ) G. VAGINALIS (test code = NEGATIVE NEGATIVE ) T. VAGINALIS (test code = NEGATIVE NEGATIVE U NLESS OTHERWISE INDICATED, ALL ) TESTING PERFORM ED ATCLINICAL PATHOLOGY LABOR [facility] [address] [facility] [place] [address] LABORATORY DIRE CTOR: MIREYA PEDRAZA M.D. CLIA NUMBER [id number] COMMUNITY [facility] [place] [id number] VAGINAL PATHOGENS DNA [id number] 00:00:00 Test Item Value Reference Range Interpretation Comments DALTON SPECIES (test code = ) NEGATIVE G. VAGINALIS (test code = 08763) NEGATIVE T. VAGINALIS (test code = 98777) NEGATIVE PLACENTA THIRD [id number] 17:54:00 RUN DATE: 09/04/19 [facility] PAGE 1 RUN TIME: 721 Specimen Inquiry RUN USER: INTERFACE --PATIENT: WALTER ROSE LOC: KRISTEN U #: [id number] AGE/SX: 33/F ROOM: [facility] RE08/16/19REG DR: Junior Tapia MD : 87 BED: A DIS: 08/26/19 STATUS: DIS IN TLOC: SPEC #: [id number] RECD: 08/22/19 STATUS: ALICIA GONZALEZ #: [id number] LAY[place]: 08/22/19- SUBM DR: Junior Tapia MD ENTERED: 08/27/19 SP TYPE: PLACIII OTHR DR: ORDERED: LEVEL V SURGICA CODES: QT6286 - PLACENTA, NOS PROCEDURES: LEVEL V SURGICA (Incomplete) TISSUES: PLACENTA, NOS - PLACENTA CLINICAL HISTORY 33 year old, 36 weeks, K4L5S9P7, section, history of demise, decreased FM, oligo (wpd) FINAL DIAGNOSIS Placenta, section: - placenta with third trimester morphology (370 gms), mean placental weight at 36weeks - 457 gms (placenta is somewhat small [...] and inherited or acquired thrombophilias. CPT code(s): 64688 pkg/wpd 08/31/19 CONTINUED ON NEXT PAGE RUN DATE: 09/04/19 [facility] PAGE 2 RUN TIME: 721 Specimen Inquiry RUN USER: INTERFACE SPEC #: [id number] PATIENT: WALTER ROSE #[id number] (Continued) GROSS DESCRIPTION The specimen was received [...] identified. The trivascular umbilical cord and membranes arefree of inflammation. mae/patricia 08/31/19 Signed Lucero Vazquez 08/31/19 1754 -- END OFREPORT HGB [id number] 07:11:00 Test Item Value Reference Range Interpretation Comments HEMOGLOBIN (test code = HGB) 7.4 g/dL 10.7-13.9 L HEMATOCRIT (test code = HCT) 24.6 % 32.1-42.1 L CBC W/AUTO [id number] 05:50:00 Test Item Value Reference Range Interpretation [...] NORMAL NORMAL code = PLTMR) CBC W/AUTO [id number] 05:30:00 Test Item Value Reference Range Interpretation [...] NORMAL NORMAL code = PLTMR) AMNISURE (ROM) [id number] 01:29:00 Test Item Value Reference Range Interpretation Comments AMNISURE (ROM) TEST (test code = NON-RUPTURED NON-RUPTURE AMNI) : *Amnisure QC OK? YESAMNISURE (ROM) [id number] 01:19:00 Test Item Value Reference Range Interpretation Comments AMNISURE (ROM) TEST (test code = NON-RUPTURED NON-RUPTURE AMNI) : *Amnisure QC OK? YESRAPID PLASMA [id number] 18:09:00 Test Item Value Reference Range Interpretation Comments RAPID PLASMA REAGIN (test code = RPR) NON-REACT IS CONSENT FORM SIGNED FOR HIV TESTING? YAG HEPATITIS B [id number] 18:09:00 Test Item Value Reference Range Interpretation Comments AG HEPATITIS B SURFACE (test code NONREACTIVE NONREACTIVE = HBSAG) IS CONSENT FORM SIGNED FOR HIV TESTING? YAB HEPATITIS C [id number] 18:09:00 Test Item Value Reference Range Interpretation Comments AB HEPATITIS C (test code = NONREACTIVE NONREACTIVE HCVAB) SIGNAL TO CUTOFF (test code = <0.02 <0.80 N CUTOFF) IS CONSENT FORM SIGNED FOR HIV TESTING? YAB [id number] 18:09:00 Test Item Value Reference Range Interpretation Comments AB TREPONEMA (test code = TREPAB) NONREACTIVE NONREACTIVE IS CONSENT FORM SIGNED FOR HIV TESTING? YAB HIV 1 18:09:00 Test Item Value Reference Range Interpretation Comments AB HIV 1 2 (test NONREACTIVE NONREACTIVE [facility] code = [id number]) 4th Gen HIV Ag/Ab Combo Screen IS CONSENT FORM SIGNED FOR HIV TESTING? YRAPID PLASMA [id number] 17:45:00 Test Item Value Reference Range Interpretation Comments RAPID PLASMA REAGIN (test code = RPR) NON-REACT IS CONSENT FORM SIGNED FOR HIV TESTING? YAG HEPATITIS B [id number] 17:45:00 Test Item Value Reference Range Interpretation Comments AG HEPATITIS B SURFACE (test code NONREACTIVE NONREACTIVE = HBSAG) IS CONSENT FORM SIGNED FOR HIV TESTING? YAB HEPATITIS C [id number] 17:45:00 Test Item Value Reference Range Interpretation Comments AB HEPATITIS C (test code = HCVAB) NONREACTIVE SIGNAL TO CUTOFF (test code = CUTOFF) <0.80 IS CONSENT FORM SIGNED FOR HIV TESTING? YAB [id number] 17:45:00 Test Item Value Reference Range Interpretation Comments AB TREPONEMA (test code = TREPAB) NONREACTIVE NONREACTIVE IS CONSENT FORM SIGNED FOR HIV TESTING? YAB HIV 1 17:45:00 Test Item Value Reference Range Interpretation Comments AB HIV 1 2 (test code = JTG41EV) NONREACTIVE IS CONSENT FORM SIGNED FOR HIV TESTING? YCBC W/AUTO [id number] 15:54:00 Test Item Value Reference Range Interpretation [...] code = PLTMR) - US PREG UT [id number] 13:50:00 Patient Name: WALTER ROSE Unit No: [id number] EXAMS: CPT CODE: [id number] US PREG UT TRANSVAGINAL [address] [facility] [address], [place] [address] BIOPHYSICAL PROFILE ULTRASOUND REPORT Pat. Name: WALTER ROSE Pat. No: [id number] Study Date: 08/13/2019 12:07pm , Age: 01 1985, 33 Pregnancies: 4, Para 2 LMP: Unknown GA by 1st: 34w5d GA Selected: 34w5d (From Known E) SANDRA: 09/19/2019 Referring MD: Junior Tapia Emergency Vehicle Dispatcher: Noy Campos RDMS CPT4: USPRUTTRVG Admitting MD: [...] Tapia MD Technologist: Noy Campos RDMS Probe: [id number] Trnscrbd D/ (1350) Wily Orig Print D/T: S: 08/16/2019 (1505) [facility] NAME: ROSEWALTER Radiology Department PHYS: Junior Modi MD [address] : 1985 AGE: 33 SEX: F [place], [place] [address] LOC: KEI PHONE #: [phone] EXAM DATE: 08/13/2019 STATUS: REG RCR FAX #: [phone] RAD NO: Page 1 Signed Report Patient Name: WALTER ROSE Unit No: [id number] EXAMS: CPT CODE: [id number] PREG UT TRANSVAGINAL 18260 (Continued) [facility] NAME: ROSEWALTER KOHLER Radiology Department PHYS: Junior Modi MD [address] : 1985 AGE: 33 SEX: Ari[place], [place] [address] LOC: DEANNE PHONE #: [phone] EXAM DATE: 08/13/2019 STATUS: DANII MALCOLM FAX #: [phone] RAD NO: Page 2 Signed Report- US FET BIO PH RI W/O [id number] 13:50:00 Patient Name: WALTER ROSE Unit No: [id number] EXAMS: CPT CODE: [id number] US FET BIO PH RI W/O NST [address] [facility] [address] [place], [place] [address] BIOPHYSICAL PROFILE ULTRASOUND REPORT Pat. Name: WALTER ROSE Pat. No: [id number] Study Date: 08/13/2019 12:07pm , Age: 01 1985, 33 Pregnancies: 4, Para 2 LMP: Unknown GA by 1st: 34w5d GA Selected: 34w5d (From Known E) SANDRA: 09/19/2019 Referring MD: Junior Tapia Emergency Vehicle Dispatcher: Noy Campos RDMS CPT4: USBPPWONST Admitting MD: [...] Noy Campos RDMS Probe: Trnscrbd D/ (1350) t.MUSAR.NMG Orig Print D/T: S: 08/13/2019 (1350) [facility] NAME: ROSEWALTER KOHLER Radiology Department PHYS: Junior Simmons MD [address] : 1985 AGE: 33 SEX: F [place] [address] LOC: EduCHENTE PHONE #: [phone] EXAM DATE: 08/13/2019 STATUS: REG RCR FAX #: [phone] RAD NO:Page 1 Signed Report Patient Name: WALTER ROSE Unit No: [id number] EXAMS: CPT CODE: [id number] FET BIO PH RI W/O NST 25220 (Continued) [facility] NAME: ROSEWALTER KOHLER Radiology Department PHYS: Junior Modi MD [address] : 1985 AGE: 33 SEX: F [place] [address] LOC: Ariel.LDT PHONE #: [phone] EXAM DATE: 08/13/2019 STATUS: DANII RCR FAX #: [phone] RAD NO: Page 2 Signed Report- US FET BIO PH RI W/O NST 2019-08-09 08:39:00 Patient Name: WALTER ROSE Unit No: [id number] EXAMS: CPT CODE: [id number] US FET BIO PH RI W/O NST [address] [facility] [address], [place] [address] BIOPHYSICAL PROFILE ULTRASOUND REPORT Pat. Name: WALTER ROSE Pat. No: [id number] Study Date: 08/09/2019 7:50am , Age: 01 1985, 33 Pregnancies: 4, Para 2 LMP: Unknown GA by 1st: 34w1d GA Selected: 34w1d (From First S) SANDRA: 09/19/2019 Referring MD: Junior Tapia Emergency Vehicle Dispatcher: Ro Le RDMS CPT4: USBPPWONST Admitting MD: Junior Tapia Hist/Ind: DFM SCAN 3 Cervical Length: 3.6 cm Heart Rate: 141 bpm Amniotic Fluid Index: 13.2cm (08.1- 24.8) Q1: 1.0cm Q2: 5.3cm Q3: 1.8cm Q4: [...] Reported and signed by: Beau Farfan MD [facility] NAME: WALTER ROSE Radiology Department PHYS: Junior Modi MD [address] : 1985 AGE: 33 SEX: F [place] [address] LOC: EduLDT PHONE #: [phone] EXAMDATE: 08/09/2019 STATUS: REG RCR FAX #: [phone] RAD NO: Page 1 Signed Report (CONTINUED) Patient Name: WALTER ROSE Unit No: [id number] EXAMS: CPT CODE: [id number] FET BIO PH RI W/O NST 13044 (Continued) CC: Junior Tapia MD Technologist: Ro Le RDMS Probe: Trnscrbd D/ (0839) LauraS Orig Print D/T: S: 08/09/2019 (0839) [facility] NAME: WALTER ROSE KOHLER Radiology Department PHYS: Junior Modi MD [address] : 1985 AGE: 33 SEX: [place] [address] LOC: EduLDT PHONE #: [phone] EXAM DATE: 08/09/2019 STATUS: REG RCR FAX #: [phone] RAD NO: Page 2 Signed Report Patient Name: WALTER ROSE Unit No: [id number] EXAMS: CPT CODE: [id number] US FET BIO PH RI W/O NST 74884 (Continued) [facility] NAME: WALTER ROSE Radiology Department PHYS: Junior Modi MD [address] : 1985 AGE: 33 SEX: F [place], [place] [address] LOC: EduLDT PHONE #: [phone] EXAM DATE: 08/09/2019 STATUS: REG RCR FAX #: [phone] RAD NO: Page 3 Signed ReportAB TREPONEMA 2019-08-06 15:51:00 Test Item Value Reference Range Interpretation Comments AB TREPONEMA (test code = TREPAB) NONREACTIVE NONREACTIVE PLEASE CALL DR.HAIDAR SHARMA W/RESULTS NO NUMBER PROVIDEDAB HIV 1 15:51:00 Test Item Value Reference Range Interpretation Comments AB HIV 1 2 (test NONREACTIVE NONREACTIVE Done by [facility] code = [id number]) 4th Gen HIV Ag/Ab Combo Screen PLEASE CALL DR.HAIDAR SHARMA W/RESULTS NO NUMBER PROVIDEDAB [id number] 15:39:00 Test Item Value Reference Range Interpretation Comments AB TREPONEMA (test code = TREPAB) NONREACTIVE NONREACTIVE PLEASE CALL DR.HAIDAR SHARMA W/RESULTS NO NUMBER PROVIDEDAB HIV 1 15:39:00 Test Item Value Reference Range Interpretation Comments AB HIV 1 2 (test code = JNU81EZ) NONREACTIVE PLEASE CALL DR.HAIDAR SHARMA W/RESULTS NO NUMBER PROVIDEDCBC W/AUTO [id number] 14:37:00 Test Item Value Reference Range Interpretation [...] NORMAL code = PLTMR) PLEASE CALL DR.HAIDAR HSARMA W/RESULTS NO NUMBER PROVIDEDDRUGS OF ABUSE SCREEN [...] code = PHENCU) 25 ng/m L URINALYSIS [id number] 18:10:00 Test Item Value Reference Range Interpretation [...] URINE SAMPLE: CLEAN CATCH- US PREG UT [id number] 17:54:00 Patient Name: WATLER ROSE Unit No: [id number] EXAMS: CPT CODE: [id number] US PREG UT TRANSVAGINAL [address] [facility] [address], [place] [address] BIOPHYSICAL PROFILE ULTRASOUND REPORT Pat. Name: WALTER ROSE Annie. No: [id number] Study Date: 08/04/2019 4:30pm , Age: 01 1985, 33 Pregnancies: 4, Para 2 LMP: Unknown GA by 1st: 33w3d GA Selected: 33w3d (From Known E) SANDRA: 09/19/2019 Referring MD: Junior Tapia Emergency Vehicle Dispatcher: Aashish Lovelace RDMS CPT4: USPRUTTRVG Admitting MD: Junior Tapia Hist/Ind: Decreased FM BPP Scan #2 Cervical Length: 4.0 cm Heart Rate: 139 bpm Amniotic Fluid Index: 13.8cm (08.2- 24.6) Q1: 6.9cm Q2: 4.9cm Q3: 2.0cm Q4: 0.0cm Biophysical Profile: 05/03 Breathin Tone: 2 Movement: 2 AFV: 2 --------- CLINICAL SUMMARY Type of Gestation: Hawkins Intrauterine [...] Electronic Signature 08/04/2019 05:54pm at 1754 Reported andsigned by: Lizbet Saleh MD [facility] NAME: WALTER ROSE KOHLER Radiology Department PHYS: Junior Modi MD [address] : 1985 AGE: 33 SEX: F [place] [address] LOC: EduDENI PHONE #: [phone] EXAM DATE: 08/04/2019 STATUS: DEP ER FAX #: RAD NO: Page 1 Signed Report (CONTINUED) Patient Name: WALTER ROSE Unit No: [id number] EXAMS: CPT CODE: [id number] US PREG UT TRANSVAGINAL [address] (Continued) CC: Junior Tapia MD Technologist: Aashish Lovelace, RDMS Probe: [id number] Trnscrbd D/ (1754) t.CER Orig Print D/T: S: 08/07/2019 (1522) [facility] NAME: WALTER ROSE KOHLER Radiology DepartmentPHYS: Junior Modi MD [address] : 1985 AGE: 33 SEX: F [place] [address] LOC: EduDENI PHONE #: [phone] EXAM DATE: 08/04/2019 STATUS: DEP ER FAX #: [phone] RAD NO: Page 2 Signed Report Patient Name: WALTER ROSE Unit No: [id number] EXAMS: CPT CODE: [id number] US PREG UT TRANSVAGINAL [address]63 (Continued) [facility] NAME: WALTER ROSE JOSE F Radiology Department PHYS: Junior Modi MD [address] : 1985 AGE: 33 SEX:F [place] [address] LOC: EduDENI PHONE #: [phone] EXAM DATE: 08/04/2019 STATUS: DEP ER FAX #: [phone] RAD NO: Page 3 Signed Report- US FET BIO PH RI W/O [id number] 17:54:00 Patient Name: WALTER ROSE Unit No: [id number] EXAMS: CPT CODE: [id number] US FET BIO PH RI W/O NST [address] [facility] [address] [place], [place] [address] BIOPHYSICAL PROFILE ULTRASOUND REPORT Pat. Name: WALTER ROSE Pat. No: [id number] Study Date: 08/04/2019 4:30pm , Age: 01 1985, 33 Pregnancies: 4, Para 2 LMP: Unknown GA by 1st: 33w3d GA Selected: 33w3d (From Known E) SANDRA: 09/19/2019 Referring MD: Junior Tapia M.D. Emergency Vehicle Dispatcher: Aashish Lovelace RDMS CPT4: USBPPWONST Hist/Ind: Decreased FM BPP Scan #2 Cervical Length: 4.0 cm Heart Rate: 139 bpm Amniotic Fluid Index: 13.8cm (08.2- 24.6) Q1: 6.9cm Q2: 4.9cm Q3: 2.0cm Q4: [...] Reported and signed by: Lizbet Saleh MD [facility] NAME: WALTER ROSE Radiology Department PHYS: Jade Levin III, MD [address] : 1985 AGE: 33 SEX: F [place] [address] LOC: dEuDENI PHONE #: [phone] EXAM DATE: 08/04/2019 STATUS: REG ER FAX #: [phone] RAD NO: Page 1 Signed Report (CONTINUED) Patient Name: WALTER ROSE Unit No: [id number] EXAMS: CPT CODE: [id number] USFET BIO PH RI W/O NST 93188 (Continued) CC: Junior Tapia MD; Jade Faustin III, MD Technologist: Aashish Sosa RDMS Probe: Trnscrbd D/ (1753) t.SDR.CER Orig Print D/T: S: 08/04/2019 (1753)[facility] NAME: WALTER ROSE Radiology Department PHYS: Jade Levin III, MD [address] : 1985 AGE: 33 SEX: F [place] [address] LOC: EduDENI PHONE #: [phone] EXAM DATE: 08/04/2019 STATUS: REG ER FAX #: [phone] RAD NO: Page 2 Signed Report Patient Name: WALTER ROSE Unit No: [id number] EXAMS: CPT CODE: [id number] US FET BIO PH RI W/O NST 48447 (Continued) [facility] NAME: WALTER ROSE Radiology Department PHYS: Jade Levin III, MD [address] : 1985 AGE: 33 SEX: [place] [address] LOC: EduDENI PHONE #: [phone] EXAM DATE: 08/04/2019 STATUS: REG ER FAX #: [phone] NO: Page 3 Signed Report- DUP VEIN [id number] 23:45:00 Patient Name: WALTER ROSE Unit No: [id number] EXAMS: CPT CODE: [id number] DUP VEIN IRENA [address] PROCEDURE: BILATERAL LOWER EXTREMITY VENOUS ULTRASOUND DATED [...] Ania Verde RDMS, T Probe: Trnscrbd D/ (2948) t.SDR.DMM Orig Print D/T: S: 07/24/2019 (3023) [facility] NAME: ROSEWALTER Radiology Department PHYS: CAMILO Santiago Austin MD [address] : 1985 AGE: 33 SEX: F [place], [place] [address] LOC: TASHA PHONE #: [phone] EXAM DATE: 07/24/2019 STATUS: DEP ER FAX #: [phone] RAD NO: Page 1 Signed Report Patient Name: WALTER ROSE Unit No: [id number] EXAMS: CPT CODE: [id number] DUP VEIN IRENA [address] (Continued) [facility] NAME: [place] Radiology Department PHYS: Santiago Pastrana MD [address] : 1985 AGE: 33 SEX: F [place], [place] [address] LOC: TASHA PHONE #: [phone] EXAM DATE: 07/24/2019 STATUS: DEP ER FAX #: [phone] RAD NO: Page2 Signed ReportUA RFLX MICR CULT IF [id number] 21:32:00 Test Item Value Reference Range Interpretation [...] NONE SEEN Indication for culture: Flank PainPROTHROMBIN [id number] 21:00:00 Test Item Value Reference Range Interpretation Comments PROTHROMBIN TIME PATIENT (test code 10.2 secs 10.4-12.4 L = PTP) THROMBOPLASTIN TIME [id number] 21:00:00 Test Item Value Reference Range Interpretation Comments THROMBOPLASTIN TIME PARTIAL (test 28.0 secs 22-38 N code = PTT) [id number] 21:00:00 Test Item Value Reference Range Interpretation Comments FIBRINOGEN (test code = FIB) 565 mg/dL 309-518 H D-DIMER [id number] 21:00:00 Test Item Value Reference Range Interpretation [...] is 98% for rulingout DVT. COMPREHENSIVE METABOLIC [id number] 20:38:00 Test Item Value Reference Range Interpretation [...] 46-116 N code = ALKP) CBC W/AUTO [id number] 20:23:00 Test Item Value Reference Range Interpretation [...] NORMAL NORMAL code = PLTMR) CANNABINOIDS CONFIRMATION [id number] 12:33:00 Test Item Value Reference Range Interpretation Comments DRUG CONFIRMATION BY POSITIVE NEGATIVE A Drug(s) Identified: GC/MS (test code = carboxy-t hc amount DRUGCON) 94 ng/mL GC/MS Cutoff: 0. - US PREG UT [id number] 13:17:00 Patient Name: WALTER ROSE Unit No: [id number] EXAMS: CPT CODE: [id number] US PREG UT TRANSVAGINAL [address] [facility] [address] [place], [place] [address] LIMITED OBSTETRICAL ULTRASOUND REPORT Pat. Name: WALTER ROSE Pat. No: [id number] Study Date: 05/21/2019 12:12pm , Age: 01 1985, 33 Pregnancies: 4, Para 2 LMP: Unknown GA Selected: 22w5d (From Known E) SANDRA: 09/19/2019 Referring MD: Jade Faustin Emergency Vehicle Dispatcher: Paramjit Kohli RDMS, RVT CPT4: USPRUTTRVG Admitting [...] MD Technologist: Paramjit Kohli RDMS, RVT Probe: [id number] Trnscrbd D/ (1316) t.ARELISG Orig Print D/T: S: 05/22/2019 (6181) [facility] NAME: WALTER ROSE Radiology Department PHYS: Jade Levin III, MD [address] : 1985 AGE: 33 SEX: F [place] [address] LOC: EduDENI PHONE #: [phone] EXAM DATE: 05/21/2019 STATUS: [facility] ER FAX #: [phone] RAD NO: Page 1 Signed Report Patient Name: WALTER ROSE Unit No: [id number] EXAMS: CPT CODE: [id number] US PREG UT TRANSVAGINAL [address]97 (Continued) [facility] NAME: WALTER ROSE Radiology Department PHYS: Jade Levin III, MD [address] : 1985 AGE: 33 SEX: F [place] [address] LOC: EduDENI PHONE #: [phone] EXAM DATE: 05/21/2019 STATUS: [facility] ER FAX #: [phone] RAD NO: Page 2 Signed Report- US [id number] 13:17:00 Patient Name: WALTER ROSE Unit No: [id number] EXAMS: CPT CODE: [id number] [place] [address] [place] [address] [place], [place] [address] LIMITED OBSTETRICAL ULTRASOUND REPORT ---- Pat. Name: WALTER ROSE Pat. No: [id number] Study Date: 05/21/2019 12:12pm , Age: 01 1985, 33 Pregnancies: 4, Para 2 LMP: Unknown GA Selected: 22w5d (From Known E) SANDRA: 09/19/2019 Referring MD: JADE FAUSTIN Emergency Vehicle Dispatcher: Paramjit Kohli RDMS, RVT CPT4: USPREGLTD Admitting MD: JADE FAUSTIN Hist/Ind: [...] Kohli RDMS, RVT Probe: Trnscrbd D/ (1317) Wily Orig Print D/T: S: 05/21/2019 (1317) [facility] NAME: WALTER ROSE Radiology Department PHYS: Jade Levin III, MD [address] : 1985 AGE: 33SEX: F [place] [address] LOC: EduDENI PHONE #: [phone] EXAM DATE: 05/21/2019 STATUS: REG ER FAX #: [phone] RAD NO: Page 1 Signed Report Patient Name: WALTER ROSE Unit No: [id number] EXAMS: CPT CODE: [id number] LTD [address] (Continued) [facility] NAME: WALTER ROSE Radiology Department PHYS: Jade Levin III, MD [address] : 1985 AGE: 33 SEX: F [place] [address] LOC: EduDENI PHONE #: [phone] EXAM DATE: 05/21/2019 STATUS: REG ER FAX #: [phone] RAD NO: Page 2 Signed ReportDRUGS OF ABUSE [id number] 12:31:00 Test Item Value Reference Range Interpretation Comments UR COCAINE (test code = NEGATIVE NEGATIVE DETE CTION CUT OFF: COCAU) 150 ng/mL UR CANNABINOIDS (test POSITIVE NEGATIVE A RESULT S CALLED TO code = CANU) JESÚS.READ B ACK & CONFIRMED? Y.BY [facility]LAB[facility] 1231. DETECTION CUT OFF: 50 ng/mL [...] code = PHENCU) 25 ng/m L URINALYSIS [id number] 12:17:00 Test Item Value Reference Range Interpretation [...] MUCU) 1+ NONE SEEN URINE SAMPLE: CLEAN CATCHVAGINAL PATHOGENS DNA [id number] 00:00:00 Test Item Value Reference Range Interpretation Comments DALTON SPECIES (test code = ) NEGATIVE G. VAGINALIS (test code = ) POSITIVE T. VAGINALIS (test code = ) NEGATIVE HCG, [id number] 00:00:00 Test Item Value Reference Range Interpretation Comments HCG, QUANTITATIVE (test code = <5 MIU/ML 2506) VAGINAL PATHOGENS DNA [id number] 00:00:00 Test Item Value Reference Range Interpretation Comments DALTON SPECIES (test code = ) NEGATIVE G. VAGINALIS (test code = 20276) POSITIVE T. VAGINALIS (test code = 90236) NEGATIVE HCG, [id number] 00:00:00 Test Item Value Reference Range Interpretation Comments HCG, QUANTITATIVE (test code = <5 MIU/ML 2506) HCG, [id number] 00:00:00 Test Item Value Reference Range Interpretation Comments HCG, QUANTITATIVE (test code = <5 MIU/ML 2506) HCG, [id number] 00:00:00 Test Item Value Reference Range Interpretation Comments HCG, QUANTITATIVE (test code = <5 MIU/ML 2506) VAGINAL PATHOGENS DNA [id number] 00:00:00 Test Item Value Reference Range Interpretation Comments DALTON SPECIES (test code = ) NEGATIVE G. VAGINALIS (test code = 54357) POSITIVE T. VAGINALIS (test code = 34050) NEGATIVE VAGINAL PATHOGENS DNA [id number] 00:00:00 Test Item Value Reference Range Interpretation Comments DALTON SPECIES (test code = ) NEGATIVE G. VAGINALIS (test code = 61017) POSITIVE T. VAGINALIS (test code = ) NEGATIVE PAP TEST, THINPREP, [id number] 00:00:00 Test Item Value Reference Range Interpretation Comments SOURCE: (test code = Cervical/Endocervical 8001) SLIDES: (test code = 1 8011) LMP: (test code = 06/01/2018 8021) SPECIMEN ADEQUACY: (NOTE) (test code = 65194) INTERPRETATION: (test NO EPITHELIAL code = 41982) ABNORMALITY SEE BELOW OTHER COMMENTS: (test (NOTE) code = 8081) CORPORATE TRUST OFFICER: Shreya (test code = 8101) JUNIOR [place](ASCP)IAC LOCATION: (test code (NOTE) = 46500) CPT: (test code = (NOTE) 8140) PAP TEST, THINPREP, [id number] 00:00:00 Test Item Value Reference Range Interpretation Comments SOURCE: (test code = Cervical/Endocervical 8001) SLIDES: (test code = 1 8011) LMP: (test code = 06/01/2018 8021) SPECIMEN ADEQUACY: (NOTE) (test code = 14928) INTERPRETATION: (test NO EPITHELIAL code = 13687) ABNORMALITY SEE BELOW OTHER COMMENTS: (test (NOTE) code = 8081) CORPORATE TRUST OFFICER: Shreya (test code = 8101) JUNOIR [place](ASCP)IAC LOCATION: (test code (NOTE) = 87969) CPT: (test code = (NOTE) 8140) HIV AB/AG COMBO RFLX [id number] 00:00:00 Test Item Value Reference Range Interpretation Comments HIV 1/2 4TH GEN, RFLX CONF (test NON-REACTIVE code = 3514) GC AND CHLAMYDIA AMPLIFIED, [id number] 00:00:00 Test Item Value Reference Range Interpretation Comments GONORRHEA, TMA (test code = 08820) NEGATIVE CHLAMYDIA, TMA (test code = 29329) NEGATIVE [id number] 00:00:00 Test Item Value Reference Range Interpretation Comments RPR RESULT (test code = NON-REACTIVE 3501) RPR TITER (test code = 3500) NOT INDIC. TITER [id number] 00:00:00 Test Item Value Reference Range Interpretation [...] INTERPRETATION HEPATITIS B: (NOTE) (test code = 79933) INTERPRETATION HEPATITIS C: (NOTE) (test code = 79921) HEPATITIS A IgM [REFLEX][id number] 00:00:00 Test Item Value Reference Range Interpretation Comments HEPATITIS A IgM (test code = NON-REACTIVE 2728) VAGINAL PATHOGENS DNA [id number] 00:00:00 Test Item Value Reference Range Interpretation Comments DALTON SPECIES (test code = ) NEGATIVE G. VAGINALIS (test code = 78146) POSITIVE T. VAGINALIS (test code = 49061) NEGATIVE HIV AB/AG COMBO RFLX [id number] 00:00:00 Test Item Value Reference Range Interpretation Comments HIV 1/2 4TH GEN, RFLX CONF (test NON-REACTIVE code = 3514) HPV HIGH RISK WITH GENOTYPE, [id number] 00:00:00 Test Item Value Reference Range Interpretation Comments HPV HIGH RISK INTERP (test code = NEGATIVE 59733) HPV 16 (test code = 59523) NEGATIVE HPV 18 (test code = 76247) NEGATIVE HPV, HR, OTHER GENOTYPES (test code NEGATIVE = 75842) [id number] 00:00:00 Test Item Value Reference Range Interpretation Comments RPR RESULT (test code = NON-REACTIVE 3501) RPR TITER (test code = 3500) NOT INDIC. TITER [id number] 00:00:00 Test Item Value Reference Range Interpretation Comments RPR RESULT (test code = NON-REACTIVE 3501) RPR TITER (test code = 3500) NOT INDIC. TITER GC AND CHLAMYDIA AMPLIFIED, [id number] 00:00:00 Test Item Value Reference Range Interpretation Comments GONORRHEA, TMA (test code = 85961) NEGATIVE CHLAMYDIA, TMA (test code = 76802) NEGATIVE HEPATITIS PROFILE (A,B,C)2018-06-16 00:00:00 Test Item [...] INTERPRETATION HEPATITIS B: (NOTE) (test code = 27649) INTERPRETATION HEPATITIS C: (NOTE) (test code = 63391) HEPATITIS A IgM [REFLEX]2018-06-16 00:00:00 Test Item Value Reference Range Interpretation Comments HEPATITIS A IgM (test code = NON-REACTIVE 8) VAGINAL PATHOGENS DNA [id number] 00:00:00 Test Item Value Reference Range Interpretation Comments DALTON SPECIES (test code = ) NEGATIVE G. VAGINALIS (test code = 41022) POSITIVE T. VAGINALIS (test code = 33484) NEGATIVE HPV HIGH RISK WITH GENOTYPE, [id number] 00:00:00 Test Item Value Reference Range Interpretation Comments HPV HIGH RISK INTERP (test code = NEGATIVE 21052) HPV 16 (test code = 30033) NEGATIVE HPV 18 (test code = 87500) NEGATIVE HPV, HR, OTHER GENOTYPES (test code NEGATIVE = 80944) HERPES SIMPLEX CULTURE AND TYPING [ADDED]2017-12-23 00:00:00 Test Item Value Reference Range Interpretation Comments SPECIMEN SOURCE (test code (NOTE) = 43635) HERPES CULTURE (test code NEGATIVE = 3533) HERPES SIMPLEX TYPE I TEST NOT PERFORMED (test code = 95952) HERPES SIMPLEX TYPE II TEST NOT PERFORMED (test code = 67820) HERPES SIMPLEX CULTURE AND TYPING [ADDED]2017-12-23 00:00:00 Test Item Value Reference Range Interpretation Comments SPECIMEN SOURCE (test code (NOTE) = 19864) HERPES CULTURE (test code NEGATIVE = 3533) HERPES SIMPLEX TYPE I TEST NOT PERFORMED (test code = 62847) HERPES SIMPLEX TYPE II TEST NOT PERFORMED (test code = 40971) HIV AB/AG COMBO RFLX [id number] 00:00:00 Test Item Value Reference Range Interpretation Comments HIV 1/2 4TH GEN, RFLX CONF (test NON-REACTIVE code = 3514) GC AND CHLAMYDIA, AMPLIFIED, [id number] 00:00:00 Test Item Value Reference Range Interpretation Comments GONORRHEA, TMA (test code = 71903) NEGATIVE CHLAMYDIA, TMA (test code = 26100) NEGATIVE [id number] 00:00:00 Test Item Value Reference Range Interpretation Comments RPR RESULT (test code = NON-REACTIVE 3501) RPR TITER (test code = 3500) NOT INDIC. TITER [id number] 00:00:00 Test Item Value Reference Range Interpretation Comments RPR RESULT (test code = NON-REACTIVE 3501) RPR TITER (test code = 3500) NOT INDIC. TITER HIV AB/AG COMBO RFLX [id number] 00:00:00 Test Item Value Reference Range Interpretation Comments HIV 1/2 4TH GEN, RFLX CONF (test NON-REACTIVE code = 3514) GC AND CHLAMYDIA, AMPLIFIED, [id number] 00:00:00 Test Item Value Reference Range Interpretation Comments GONORRHEA, TMA (test code = 74482) NEGATIVE CHLAMYDIA, TMA (test code = 58214) NEGATIVE VAGINAL PATHOGENS DNA [id number] 00:00:00 Test Item Value Reference Range Interpretation Comments DALTON SPECIES (test code = 76625) NEGATIVE G. VAGINALIS (test code = 79864) POSITIVE T. VAGINALIS (test code = ) NEGATIVE VAGINAL PATHOGENS DNA [id number] 00:00:00 Test Item Value Reference Range Interpretation Comments DALTON SPECIES (test code = ) NEGATIVE G. VAGINALIS (test code = ) POSITIVE T. VAGINALIS (test code = ) NEGATIVE [id number] 00:00:00 Test Item Value Reference Range Interpretation Comments RPR RESULT (test code = NON-REACTIVE 3501) RPR TITER (test code = 3500) NOT INDIC. TITER [id number] 00:00:00 Test Item Value Reference Range Interpretation Comments RPR RESULT (test code = NON-REACTIVE 3501) RPR TITER (test code = 3500) NOT INDIC. TITER HCG, [id number] 00:00:00 Test Item Value Reference Range Interpretation Comments HCG, QUANTITATIVE (test code = <5 MIU/ML 2506) HCG, [id number] 00:00:00 Test Item Value Reference Range Interpretation Comments HCG, QUANTITATIVE (test code = <5 MIU/ML 2506) HCG, [id number] 00:00:00 Test Item Value Reference Range Interpretation Comments HCG, QUANTITATIVE (test code = <5 MIU/ML 2506) HCG, [id number] 00:00:00 Test Item Value Reference Range Interpretation Comments HCG, QUANTITATIVE (test code = <5 MIU/ML 2506) PAP TEST, THINPREP, [id number] 00:00:00 Test Item Value Reference Range Interpretation Comments SOURCE: (test code = Cervical/Endocervical 8001) SLIDES: (test code = 1 8011) LMP: (test code = 8021) SPECIMEN ADEQUACY: (NOTE) (test code = 43931) INTERPRETATION: (test NO EPITHELIAL code = 44633) ABNORMALITY SEE BELOW OTHER COMMENTS: (test (NOTE) code = 8081) CORPORATE TRUST OFFICER: Uzma Huffman (test code = 8101) JUNIOR Bautista(ASCP)IAC QC TECHNOLOGIST: GIA (test code = 8111) JUNIOR SAMSON(ASCP)IAC LOCATION: (test code (NOTE) = 14607) CPT: (test code = (NOTE) 8140) PAP TEST, THINPREP, [id number] 00:00:00 Test Item Value Reference Range Interpretation Comments SOURCE: (test code = Cervical/Endocervical 8001) SLIDES: (test code = 1 8011) LMP: (test code = 8021) SPECIMEN ADEQUACY: (NOTE) (test code = 17334) INTERPRETATION: (test NO EPITHELIAL code = 92378) ABNORMALITY SEE BELOW OTHER COMMENTS: (test (NOTE) code = 8081) CORPORATE TRUST OFFICER: Uzma Huffman (test code = 8101) JUNIOR Bautista(ASCP)IAC QC TECHNOLOGIST: GIA (test code = 8111) JUNIOR SAMSON(ASCP)IAC LOCATION: (test code (NOTE) = 98938) CPT: (test code = (NOTE) 8140) CBC W/AUTO [id number] 00:00:00 Test Item Value Reference Range Interpretation [...] 214 K/UL HPV HIGH RISK WITH GENOTYPE, [id number] 00:00:00 Test Item Value Reference Range Interpretation Comments HPV HIGH RISK INTERP (test code = NEGATIVE 81194) HPV 16 (test code = 10562) NEGATIVE HPV 18 (test code = 03369) NEGATIVE HPV, HR, OTHER GENOTYPES (test code NEGATIVE = 24474) HEMOGLOBIN [id number] 00:00:00 Test Item Value Reference Range Interpretation Comments HEMOGLOBIN A1c (test code = 67652) 5.5 % HEMOGLOBIN [id number] 00:00:00 Test Item Value Reference Range Interpretation Comments HEMOGLOBIN A1c (test code = 30968) 5.5 % THYROID II PROFILE (T3U, T4, T7, TSH)2017-04-21 00:00:00 Test Item Value Reference Range Interpretation Comments T3 UPTAKE (test code = 2817) 30.4 % T4 (THYROXINE) (test code = 5.9 UG/DL 281) CALCULATED T7 (FTI) (test code = 1.79 2820) TSH (test code = 2821) 3.100 UIU/ML HIV AB/AG COMBO RFLX [id number] 00:00:00 Test Item Value Reference Range Interpretation Comments HIV 1/2 4TH GEN, RFLX CONF (test NON-REACTIVE code = 3514) HEPATITIS B SURFACE [id number] 00:00:00 Test Item Value Reference Range Interpretation Comments HEPATITIS B SURFACE AB (test code = REACTIVE 2737) [id number] 00:00:00 Test Item Value Reference Range Interpretation Comments RPR RESULT (test code = NON-REACTIVE 3501) RPR TITER (test code = 3500) NOT INDIC. TITER [id number] 00:00:00 Test Item Value Reference Range Interpretation Comments RPR RESULT (test code = NON-REACTIVE 3501) RPR TITER (test code = 3500) NOT INDIC. TITER RUBELLA ANTIBODY [id number] 00:00:00 Test Item Value Reference Range Interpretation Comments RUBELLA ANTIBODY SCREEN (test code 376 IU/ML = 4600) RUBELLA IgG INTERP (test code = REACTIVE 77993) HEPATITIS C REFLEX [id number] 00:00:00 Test Item Value Reference Range Interpretation Comments HEPATITIS C ANTIBODY (test code NON-REACTIVE = 4675) LIPID [id number] 00:00:00 Test Item Value Reference Range Interpretation Comments CHOLESTEROL (test code = 2210) 166 MG/DL TRIGLYCERIDES (test code = 2232) 79 MG/DL HDL CHOLESTEROL (test code = 2220) 44 MG/DL CALC LDL CHOL (test code = 2237) 106 MG/DL RISK RATIO LDL/HDL (test code = 2.41 RATIO 2238) CBC W/AUTO [id number] 00:00:00 Test Item Value Reference Range Interpretation [...] code = 1015) 214 K/UL CBC W/AUTO [id number] 00:00:00 Test Item Value Reference Range Interpretation [...] (test code = 1015) 214 K/UL HEMOGLOBIN [id number] 00:00:00 Test Item Value Reference Range Interpretation Comments HEMOGLOBIN A1c (test code = 24458) 5.5 % HPV HIGH RISK WITH GENOTYPE, [id number] 00:00:00 Test Item Value Reference Range Interpretation Comments HPV HIGH RISK INTERP (test code = NEGATIVE 38794) HPV 16 (test code = 80452) NEGATIVE HPV 18 (test code = 47093) NEGATIVE HPV, HR, OTHER GENOTYPES (test code NEGATIVE = 37923) HEMOGLOBIN [id number] 00:00:00 Test Item Value Reference Range Interpretation Comments HEMOGLOBIN A1c (test code = 07463) 5.5 % THYROID II PROFILE (T3U, T4, T7, TSH)2017-04-21 00:00:00 Test Item Value Reference Range Interpretation Comments T3 UPTAKE (test code = 2817) 30.4 % T4 (THYROXINE) (test code = 5.9 UG/DL 2819) CALCULATED T7 (FTI) (test code = 1.79 2820) TSH (test code = 2821) 3.100 UIU/ML HIV AB/AG COMBO RFLX [id number] 00:00:00 Test Item Value Reference Range Interpretation Comments HIV 1/2 4TH GEN, RFLX CONF (test NON-REACTIVE code = 3514) HEPATITIS B SURFACE [id number] 00:00:00 Test Item Value Reference Range Interpretation Comments HEPATITIS B SURFACE AB (test code = REACTIVE 2737) [id number] 00:00:00 Test Item Value Reference Range Interpretation Comments RPR RESULT (test code = NON-REACTIVE 3501) RPR TITER (test code = 3500) NOT INDIC. TITER [id number] 00:00:00 Test Item Value Reference Range Interpretation Comments RPR RESULT (test code = NON-REACTIVE 3501) RPR TITER (test code = 3500) NOT INDIC. TITER RUBELLA ANTIBODY [id number] 00:00:00 Test Item Value Reference Range Interpretation Comments RUBELLA ANTIBODY SCREEN (test code 376 IU/ML = 4600) RUBELLA IgG INTERP (test code = REACTIVE 85986) HEPATITIS C REFLEX [id number] 00:00:00 Test Item Value Reference Range Interpretation Comments HEPATITIS C ANTIBODY (test code NON-REACTIVE = 4675) GC AND CHLAMYDIA AMPLIFIED, [id number] 00:00:00 Test Item Value Reference Range Interpretation Comments GONORRHEA, TMA (test code = 29456) NEGATIVE CHLAMYDIA, TMA (test code = 87610) NEGATIVE LIPID [id number] 00:00:00 Test Item Value Reference Range Interpretation Comments CHOLESTEROL (test code = 2210) 166 MG/DL TRIGLYCERIDES (test code = 2232) 79 MG/DL HDL CHOLESTEROL (test code = 2220) 44 MG/DL CALC LDL CHOL (test code = 2237) 106 MG/DL RISK RATIO LDL/HDL (test code = 2.41 RATIO 2238) GC AND CHLAMYDIA AMPLIFIED, [id number] 00:00:00 Test Item Value Reference Range Interpretation Comments GONORRHEA, TMA (test code = 85297) NEGATIVE CHLAMYDIA, TMA (test code = 36431) NEGATIVE CBC W/AUTO [id number] 00:00:00 Test Item Value Reference Range Interpretation [...] COUNT (test code = 1015) 214 K/UL GC AND CHLAMYDIA, AMPLIFIED, [id number] 00:00:00 Test Item Value Reference Range Interpretation Comments GONORRHEA, TMA (test code = 90615) NEGATIVE CHLAMYDIA, TMA (test code = 32979) NEGATIVE GC AND CHLAMYDIA, AMPLIFIED, [id number] 00:00:00 Test Item Value Reference Range Interpretation Comments GONORRHEA, TMA (test code = 98168) NEGATIVE CHLAMYDIA, TMA (test code = 27581) NEGATIVE [id number] 00:00:00 Test Item Value Reference Range Interpretation Comments RPR RESULT (test code = NON-REACTIVE 3501) RPR TITER (test code = 3500) NOT INDIC. TITER [id number] 00:00:00 Test Item Value Reference Range Interpretation Comments RPR RESULT (test code = NON-REACTIVE 3501) RPR TITER (test code = 3500) NOT INDIC. TITER HIV AB/AG COMBO RFLX [id number] 00:00:00 Test Item Value Reference Range Interpretation Comments HIV 1/2 4TH GEN, RFLX CONF (test NON-REACTIVE code = 3514) HEPATITIS A IgM [REFLEX]2016-11-26 00:00:00 Test Item Value Reference Range Interpretation Comments HEPATITIS A IgM (test code = NON-REACTIVE 2791) HEPATITIS PROFILE (A,B,C)2016-11-26 00:00:00 Test Item Value [...] INTERPRETATION HEPATITIS B: (NOTE) (test code = 76469) INTERPRETATION HEPATITIS C: (NOTE) (test code = 29809) [id number] 00:00:00 Test Item Value Reference Range Interpretation Comments RPR RESULT (test code = NON-REACTIVE 3501) RPR TITER (test code = 3500) NOT INDIC. TITER [id number] 00:00:00 Test Item Value Reference Range Interpretation Comments RPR RESULT (test code = NON-REACTIVE 3501) RPR TITER (test code = 3500) NOT INDIC. TITER HIV AB/AG COMBO RFLX [id number] 00:00:00 Test Item Value Reference Range Interpretation [...] INTERPRETATION HEPATITIS B: (NOTE) (test code = 80365) INTERPRETATION HEPATITIS C: (NOTE) (test code = 96922) VAGINAL PATHOGENS DNA [id number] 00:00:00 Test Item Value Reference Range Interpretation Comments DALTON SPECIES (test code = ) POSITIVE G. VAGINALIS (test code = ) POSITIVE T. VAGINALIS (test code = ) NEGATIVE VAGINAL PATHOGENS DNA [id number] 00:00:00 Test Item Value Reference Range Interpretation Comments DALTON SPECIES (test code = ) POSITIVE G. VAGINALIS (test code = 93413) POSITIVE T. VAGINALIS (test code = ) NEGATIVE TEST, [id number] 00:00:00 Test Item Value Reference Range Interpretation Comments TEST, SERUM (test code = NEGATIVE 2507) TEST, [id number] 00:00:00 Test Item Value Reference Range Interpretation Comments TEST, SERUM (test code = NEGATIVE 2507) VAGINAL PATHOGENS DNA [id number] 00:00:00 Test Item Value Reference Range Interpretation Comments DALTON SPECIES (test code = ) NEGATIVE G. VAGINALIS (test code = 50779) NEGATIVE T. VAGINALIS (test code = 51554) NEGATIVE VAGINAL PATHOGENS DNA [id number] 00:00:00 Test Item Value Reference Range Interpretation Comments DALTON SPECIES (test code = ) NEGATIVE G. VAGINALIS (test code = 93751) NEGATIVE T. VAGINALIS (test code = 61651) NEGATIVE TEST, [id number] 00:00:00 Test Item Value Reference Range Interpretation Comments TEST, SERUM (test code = NEGATIVE 2507) TEST, [id number] 00:00:00 Test Item Value Reference Range Interpretation Comments TEST, SERUM (test code = NEGATIVE 2507) GC AND CHLAMYDIA, AMPLIFIED, [id number] 00:00:00 Test Item Value Reference Range Interpretation Comments GONORRHEA, AMPLIFIED (test code = NEGATIVE 98305) CHLAMYDIA, AMPLIFIED (test code = POSITIVE 67160) GC AND CHLAMYDIA, AMPLIFIED, [id number] 00:00:00 Test Item Value Reference Range Interpretation Comments GONORRHEA, AMPLIFIED (test code = NEGATIVE 17686) CHLAMYDIA, AMPLIFIED (test code = POSITIVE 41483) VAGINAL PATHOGENS DNA [id number] 00:00:00 Test Item Value Reference Range Interpretation Comments DALTON SPECIES (test code = ) NEGATIVE G. VAGINALIS (test code = 83638) POSITIVE T. VAGINALIS (test code = 63664) NEGATIVE VAGINAL PATHOGENS DNA [id number] 00:00:00 Test Item Value Reference Range Interpretation Comments DALTON SPECIES (test code = 48138) NEGATIVE G. VAGINALIS (test code = 14908) POSITIVE T. VAGINALIS (test code = 54998) NEGATIVE GC, AMPLIFIED, [id number] 00:00:00 Test Item Value Reference Range Interpretation Comments GONORRHEA, AMPLIFIED (test code = NEGATIVE 93203) HEPATITIS PROFILE (A,B,C)2015-08-01 00:00:00 Test Item Value [...] INTERPRETATION HEPATITIS B: (NOTE) (test code = 29562) INTERPRETATION HEPATITIS C: (NOTE) (test code = 30839) TRICHOMONAS, URINE, [id number] 00:00:00 Test Item Value Reference Range Interpretation Comments TRICHOMONAS, URINE, AMP (test code = NEGATIVE 74838) HIV AB/AG COMBO RFLX [id number] 00:00:00 Test Item Value Reference Range Interpretation Comments HIV AB/AG COMBO RFLX CONF (test NON-REACTIVE code = 3514) [id number] 00:00:00 Test Item Value Reference Range Interpretation Comments RPR RESULT (test code = NON-REACTIVE 3501) RPR TITER (test code = 3500) NOT INDIC. TITER [id number] 00:00:00 Test Item Value Reference Range Interpretation Comments RPR RESULT (test code = NON-REACTIVE 3501) RPR TITER (test code = 3500) NOT INDIC. TITER HEPATITIS A IgM [REFLEX]2015-08-01 00:00:00 Test Item Value Reference Range Interpretation Comments HEPATITIS A IgM (test code = NON-REACTIVE 2728) CHLAMYDIA, AMPLIFIED, [id number] 00:00:00 Test Item Value Reference Range Interpretation Comments CHLAMYDIA, AMPLIFIED (test code = NEGATIVE 08416) GC, AMPLIFIED, [id number] 00:00:00 Test Item Value Reference Range Interpretation Comments GONORRHEA, AMPLIFIED (test code = NEGATIVE 54715) HEPATITIS PROFILE (A,B,C)2015-08-01 00:00:00 Test Item Value Reference Range Interpretation Comments HEPATITIS A TOTAL AB (test code REACTIVE = 2725) HEPATITIS B SURF AG (test code = NON-REACTIVE 2739) HEP B CORE TOTAL AB (test code = NON-REACTIVE 9149) HEPATITIS B SURFACE AB (test REACTIVE code = 2737) HEPATITIS C ANTIBODY (test code NON-REACTIVE = 4675) INTERPRETATION HEPATITIS A: (NOTE) (test code = 2552) INTERPRETATION HEPATITIS B: (NOTE) (test code = 64484) INTERPRETATION HEPATITIS C: (NOTE) (test code = 50580) TRICHOMONAS, URINE, [id number] 00:00:00 Test Item Value Reference Range Interpretation Comments TRICHOMONAS, URINE, AMP (test code = NEGATIVE 72052) HIV AB/AG COMBO RFLX [id number] 00:00:00 Test Item Value Reference Range Interpretation Comments HIV AB/AG COMBO RFLX CONF (test NON-REACTIVE code = 3514) [id number] 00:00:00 Test Item Value Reference Range Interpretation Comments RPR RESULT (test code = NON-REACTIVE 3501) RPR TITER (test code = 3500) NOT INDIC. TITER [id number] 00:00:00 Test Item Value Reference Range Interpretation Comments RPR RESULT (test code = NON-REACTIVE 3501) RPR TITER (test code = 3500) NOT INDIC. TITER HEPATITIS A IgM [REFLEX]2015-08-01 00:00:00 Test Item Value Reference Range Interpretation Comments HEPATITIS A IgM (test code = NON-REACTIVE 090) CHLAMYDIA, AMPLIFIED, [id number] 00:00:00 Test Item Value Reference Range Interpretation Comments CHLAMYDIA, AMPLIFIED (test code = NEGATIVE 22529)
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
[2023-01-21 11:21] VITALS: BP 100/46; TEMP 98; O2SAT 98
== END 2023-01-21 11:16 | disposition home or self-care (01) ==
LOC: ER 10:05
DX: O26.891 Other specified pregnancy related conditions, first trimester (principal); M79.601 Pain in right arm; Z3A.14 14 weeks gestation of pregnancy; V43.53XA Car driver injured in collision with pick-up truck in traffic accident, initial encounter

== ENCOUNTER 2023-03-31 21:09 | Emergency (ER) | payer OTHER ==
--- OUTSIDE RECORDS SUMMARY | 2023-03-31 21:15 | XMS REPORT | Continuity of Care Document ---
:1985 Author Organization [facility] t Address [address] [place] [address] [address] [place] [address] Care Team Providers Name Role Phone Ronnie Shelley Primary Care Physician [phone] Junior Tapia Attending Clinician Unavailable ANA TRINIDAD Attending Clinician Unavailable Logan Rashid MD Attending Clinician Ana Trinidad MD Attending Clinician LOGAN RASHID Attending Clinician Unavailable Doctor Unassigned, [place] Attending Clinician Unavailable Jarrett BOYKIN Attending Clinician Unavailable Jarrett Mitchell Attending Clinician RADIOLOGY Attending Clinician Unavailable Radiology Attending Clinician Unavailable Tatyana Adame MD Attending Clinician TATYANA ADAME Attending Clinician Unavailable Only, Adc Test Attending Clinician Unavailable Leatha David Attending Clinician BRENNAN RITCHIE Attending Clinician Unavailable Brennan Ritchie MD Attending Clinician Ultrasound, Adc Mfm Attending Clinician Unavailable Kaila Melchor MD Attending Clinician ANA TRINIDAD Admitting Clinician Unavailable Junior Tapia Admitting Clinician Unavailable Ana Trinidad MD Admitting Clinician TITI DE LUNA Admitting Clinician Unavailable TATYANA ADAME Admitting Clinician Unavailable Tatyana Adame MD Admitting Clinician Payers Payer Name Policy Type Policy Number Effective Date Expiration Date S [place] [employer] [employer] [id number] 2022 00:00:00 [facility] [id number] 2019 2019 00:00:00 00:00:00 Problems Condition Condition Condition Status Onset Resolution Last Treating Co mments Source Name Details Category Date Date Treatment Clinician Date Neck mass Neck mass Disease Active 2020-09 Overview: Univers 10-25 Formattin ity of 00:00: g of this [place] 00 note Medical might be Branch different from the original. Added automatic ally from request for surgery [id number] History of History of Disease Active 2019-0 U nivers diabetes diabetes 5-15 ity of mellitus mellitus 00:00: [place] 00 Medical Branch History of History of Disease Active 2019-0 U nivers bariatric bariatric 5-15 ity of surgery surgery 00:00: [place] 00 Medical Branch Prior Prior Disease Active 2019-0 Univers 5-15 [place]y of [place] demise 00 [place] Previous Previous Disease Active 2019-0 Unive rs 5-15 ity of section section 00:00: [place] 00 Medical Branch History of History of Disease Active 2019-0 U nivers 5-15 ity of delivery delivery 00:00: [place] 00 Medical Branch Vomiting Vomiting Disease Active 2019-0 Unive rs or nausea or nausea 5-15 ity of of of 00:00: [place] 00 [facility] Branch History of History of Disease Active 2019-0 U nivers smoking smoking 5-15 ity of 00:00: [place] 00 Medical Branch Obesity, Obesity, Disease Active 2019-0 Unive rs Class III, Class III, 5-15 it y of BMI BMI 00:00: [place] 40-49.9 40-49.9 Medical (morbid (morbid Branch obesity) obesity) Hypokalemi Hypokalemi Disease Active U nivers a a 2- ity of 00:00: [place] 00 Medical Branch Intractabl Intractabl Disease Active U nivers e nausea e nausea 2- ity of and and 00:00: [place] vomiting vomiting 00 Medica l Branch Intractabl Intractabl Disease Active U nivers e vomiting e vomiting 10-26 it y of 00:00: [place] 00 Medical Branch Allergies, Adverse Reactions, Alerts Allergy Allergy Status Severity Reaction(s) Onset Inactive Treating Comm ents Source Name Type Date Date Clinician Mesna - Propensi Active Intraven ty to 6 ous adverse 00:00: reaction 00 to drug latex DA Active PR 2018-09 [facility] [place] latex DA Active PR RASH-UNKNOWN 2018-09 [facility] 1[facility]18 [facility] [place] No Known DA Active U 2018-09 [facility] Allergie 0-03 [facility] 00:[facility] [place] latex DA Active PR 2018-09 [facility] 0-03 [facility] [place] Flagyl Propensi Active 2017- ty to 1-05 adverse 00:00: reaction 00 to drug Adhesive Propensi Active Rash 0 Univer s ty to 5-09 ity of adverse 00:00: [place] reaction 00 Medical s Branch ADHESIVE Drug Active Rash Univers Class 5-09 ity of 00:00: [place] 00 Medical Branch LATEX DRUG Active Rash Univers INGREDI 5-09 ity of 00:00: [place] 00 Medical Branch Latex Propensi Active Rash Univers ty to 5-09 ity of adverse 00:00: [place] reaction 00 Medical s Branch Adhesive Propensi Active Rash 2017-0 Univer s ty to 5-09 ity of adverse 00:00: [place] reaction 00 Medical s Branch Social History Social Habit Start Date Stop Date Quantity Comments Source ASSERTION 2022-10-22 University of 00:00:00 [place] [facility] History [facility] o f Alcohol Frequency [place] M edical Branch History [facility] University o f Alcohol Std [place] Medical Drinks Branch History [facility] o f Alcohol Binge [place] Medic al Branch Alcohol intake 2023-03-02 2023-03-02 Current University of 00:00:00 00:00:00 non-drinker of [facility] alcohol (finding) Branch Exposure to 2023-01-13 2023-01-23 Not sure University SARS-CoV-2 00:00:00 22:46:00 [place] Medical (event) Branch Alcohol Comment 2019-02-06 2019-02-06 rare Universit y of 00:00:00 00:00:00 [facility] Branch Tobacco use and 2019-02-06 2019-02-06 Smokeless tobacco Un iversity of exposure 00:00:00 00:00:00 non-user [facility] History of 2019-01-12 Cigarette Smoker Universi ty of tobacco use 00:00:00 [facility] Sex [birth year] At [birth year] Universit y of 00:00:00 00:00:00 [facility] Smoking Status Start Date Stop Date Source Ex-smoker 2019-02-06 00:00:00 2019-02-06 00:00:00 Universi ty of [facility] Medications Ordered Filled Start Stop Current Ordering Indication Dosage Frequency Signature Comments Components Source Medication Medication Date Date Medication? Clinician (SIG) Name Name D5W-LR 2022- No 1000mL at 999 Univer s Bolus 03-03-08 mL/hr, ity of infusion 07:15: 07:09 1,000 mL, Jacinto as 1,000 mL 00 :58 IV Medical Infusion, Branch ONCE, 1 dose, On Prisca 03/03/23 at 0215, Routine ondansetron 2022- No 4mg 4 mg, Slow Univers (ZOFRAN 03-03 IV Push, ity of (PF)) 06:15: 06:13 ONCE, On [place] injection 4 00 :00 Prisca 03/03/23 Me dical mg at 0115, Branch For 1 dose
Do ses of ondansetro n 16 mg and above need to be administer ed via IV piggyback. For Dose >=24mg ECG monitoring is advisable.
NaCl 0.9% 2022- No 1000mL at 999 Uni vers (NS) bolus 03-03-08 mL/hr, ity of infusion 06:15: 05:57 1,000 mL, Jacinto as 1,000 mL 00 :34 IV Medical Infusion, Branch ONCE, 1 dose, On Prisca 03/03/23 at 0115, STAT Yes Take by [employer] vit 6-08 mouth. ity of calc,iron,f 04:41: [facility] 05 Medical ( Branch VITAMIN ORAL) acetaminoph 2022- No 1000mg 1,000 mg, Univers en 01-24 Oral, ity of (TYLENOL) 05:30: 04:40 ONCE, 1 [place] tablet 00 :00 dose, On Medical 1,000 mg 01/24/23 Branc h at 0030, Routine methylpredn 2022- No 125mg 125 mg, U nivers isolone sod 11-24 Intramuscu i ty of succ 05:00: 04:14 lar, ONCE, [place] (SOLU-MEDRO 00 :00 1 dose, On Me dical L) Tue Branch injection 11/23/22 at 125 mg 2300, LEONARD predniSONE 2022-0 Yes [id number] 1 PO BID x Univers 20 mg 2-28 4 days ity of tablet 00:00: Medical Branch predniSONE 2022-0 Yes [id number] 1 PO BID x Univers 20 mg 2-28 4 days ity of tablet 00:00: [place] [facility] predniSONE 2022-0 Yes [id number] 1 PO BID x Univers 20 mg 2-28 4 days ity of tablet 00:00: [place] [facility] predniSONE 2022-0 Yes [id number] 1 PO BID x Univers 20 mg 2-28 4 days ity of tablet 00:00: [place] [facility] APPLY A 0 No [id number] THIN LAYER 7-08 TO AFFECTED 00:00: AREA(S) AND 00 RUB IN WELL TWICE DAILY. 2020-09 Yes Take by [employer] vit 2-06 mouth. ity of calc,iron,f 17:03: [facility] 27 Medical ( Branch VITAMIN ORAL) 2020-09 Yes Take by [employer] vit 2-06 mouth. ity of calc,iron,f 17:03: [facility] 27 Medical ( Branch VITAMIN ORAL) 2020-09 Yes Take by [employer] vit 2-06 mouth. ity of calc,iron,f 17:03: [place] [address] Medical ( Branch VITAMIN ORAL) 2020-09 Yes Take by [employer] s vit 2-06 mouth. ity of calc,iron,f 17:03: [place] [address] Medical ( Branch VITAMIN ORAL) 2020-09 Yes Take by [employer] vit 2-06 mouth. ity of calc,iron,f 17:03: [place] [address] Medical ( Branch VITAMIN ORAL) 2020-09 Yes Take by [employer] s vit 2-06 mouth. ity of calc,iron,f 17:03: [place] [address] Medical ( Branch VITAMIN ORAL) 2020-09 Yes Take by [employer] vit 2-06 mouth. ity of calc,iron,f 17:03: [place] [address] Medical ( Branch VITAMIN ORAL) ibuprofen 2020-09 Yes [id number] 800mg Take 1 Univers 800 mg 2-06 tablet by ity of tablet 00:00: mouth [place] 00 every 6 Medical (six) Branch hours as needed for Pain (scale 1-3). acetaminoph 2020-09 Yes [id number] 650mg Take 1 Univers en (TYLENOL 2-06 tablet by ity of 8 HOUR) 650 00:00: mouth [place] mg CR 00 every 8 Medical tablet (eight) Branch hours as needed for Pain. ibuprofen 2020-09 Yes [id number] 800mg Take 1 Univers 800 mg 2-06 tablet by ity of tablet 00:00: mouth [place] 00 every 6 Medical (six) Branch hours as needed for Pain (scale 1-3). acetaminoph 2020-09 Yes [id number] 650mg Take 1 Univers en (TYLENOL 2-06 tablet by ity of 8 HOUR) 650 00:00: mouth [place] mg CR 00 every 8 Medical tablet (eight) Branch hours as needed for Pain. ibuprofen 2020-09 Yes [id number] 800mg Take 1 Univers 800 mg 2-06 tablet by ity of tablet 00:00: mouth [place] 00 every 6 Medical (six) Branch hours as needed for Pain (scale 1-3). acetaminoph 2020-09 Yes [id number] 650mg Take 1 Univers en (TYLENOL 2-06 tablet by ity of 8 HOUR) 650 00:00: mouth [place] mg CR 00 every 8 Medical tablet (eight) Branch hours as needed for Pain. ibuprofen 2020-09 Yes [id number] 800mg Take 1 Univers 800 mg 2-06 tablet by ity of tablet 00:00: mouth [place] 00 every 6 Medical (six) Branch hours as needed for Pain (scale 1-3). acetaminoph 2020-09 Yes [id number] 650mg Take 1 Univers en (TYLENOL 2-06 tablet by ity of 8 HOUR) 650 00:00: mouth [place] mg CR 00 every 8 Medical tablet (eight) Branch hours as needed for Pain. ibuprofen 2020-09 Yes [id number] 800mg Take 1 Univers 800 mg 2-06 tablet by ity of tablet 00:00: mouth [place] 00 every 6 Medical (six) Branch hours as needed for Pain (scale 1-3). acetaminoph 2020-09 Yes [id number] 650mg Take 1 Univers en (TYLENOL 2-06 tablet by ity of 8 HOUR) 650 00:00: mouth [place] mg CR 00 every 8 Medical tablet (eight) Branch hours as needed for Pain. ibuprofen 2020-09 Yes [id number] 800mg Take 1 Univers 800 mg 2-06 tablet by ity of tablet 00:00: mouth [place] 00 every 6 Medical (six) Branch hours as needed for Pain (scale 1-3). acetaminoph 2020-09 Yes [id number] 650mg Take 1 Univers en (TYLENOL 2-06 tablet by ity of 8 HOUR) 650 00:00: mouth [place] mg CR 00 every 8 Medical tablet (eight) Branch hours as needed for Pain. ibuprofen 2020-09 Yes [id number] 800mg Take 1 Univers 800 mg 2-06 tablet by ity of tablet 00:00: mouth [place] 00 every 6 Medical (six) Branch hours as needed for Pain (scale 1-3). acetaminoph 2020-09 Yes [id number] 650mg Take 1 Univers en (TYLENOL 2-06 tablet by ity of 8 HOUR) 650 00:00: mouth [place] mg CR 00 every 8 Medical tablet (eight) Branch hours as needed for Pain. ibuprofen 2020-09 Yes [id number] 800mg Take 1 Univers 800 mg 2-06 tablet by ity of tablet 00:00: mouth [place] 00 every 6 Medical (six) Branch hours as needed for Pain (scale 1-3). acetaminoph 2021-1 Yes [id number] 650mg Take 1 Univers en (TYLENOL 2-06 tablet by ity of 8 HOUR) 650 00:00: mouth [place] mg CR 00 every 8 Medical tablet (eight) Branch hours as needed for Pain. cetirizine Yes 10mg Take 10 mg U nivers 10 mg 7-10 by mouth ity of tablet 00:00: daily. [place] [facility] Branch fluticasone Yes TAKE 2 Univ ers propionate 7-10 SPRAYS IN ity of 50 00:00: EACH [place] mcg/actuati NOSTRIL Medic al on nasal EVERY DAY Branch spray cetirizine Yes 10mg Take 10 mg U nivers 10 mg 7-10 by mouth ity of tablet 00:00: daily. [place] [facility] Branch fluticasone Yes TAKE 2 Univ ers propionate 7-10 SPRAYS IN ity of 50 00:00: EACH [place] mcg/actuati NOSTRIL Medic al on nasal EVERY DAY Branch spray cetirizine Yes 10mg Take 10 mg U nivers 10 mg 7-10 by mouth ity of tablet 00:00: daily. [place] [facility] Branch fluticasone Yes TAKE 2 Univ ers propionate 7-10 SPRAYS IN ity of 50 00:00: EACH [place] mcg/actuati NOSTRIL Medic al on nasal EVERY DAY Branch spray cetirizine Yes 10mg Take 10 mg U nivers 10 mg 7-10 by mouth ity of tablet 00:00: daily. [place] [facility] Branch fluticasone Yes TAKE 2 Univ ers propionate 7-10 SPRAYS IN ity of 50 00:00: EACH [place] mcg/actuati NOSTRIL Medic al on nasal EVERY DAY Branch spray cetirizine Yes 10mg Take 10 mg U nivers 10 mg 7-10 by mouth ity of tablet 00:00: daily. [place] [facility] Branch fluticasone Yes TAKE 2 Univ ers propionate 7-10 SPRAYS IN ity of 50 00:00: EACH [place] mcg/actuati NOSTRIL Medic al on nasal EVERY DAY Branch spray cetirizine Yes 10mg Take 10 mg U nivers 10 mg 7-10 by mouth ity of tablet 00:00: daily. [place] [facility] Branch fluticasone 2019-0 Yes TAKE 2 Univ ers propionate 7-10 SPRAYS IN ity of 50 00:00: EACH [place] mcg/actuati 00 NOSTRIL Medic al on nasal EVERY DAY Branch spray cetirizine 2019-0 Yes 10mg Take 10 mg U nivers 10 mg 7-10 by mouth ity of tablet 00:00: daily. [place] [facility] fluticasone 2019-0 Yes TAKE 2 Univ ers propionate 7-10 SPRAYS IN ity of 50 00:00: EACH [place] mcg/actuati 00 NOSTRIL Medic al on nasal EVERY DAY Branch spray cetirizine 2019-0 Yes 10mg Take 10 mg U nivers 10 mg 7-10 by mouth ity of tablet 00:00: daily. [place] [facility] fluticasone 2019-0 Yes TAKE 2 Univ ers propionate 7-10 SPRAYS IN ity of 50 00:00: EACH [place] mcg/actuati 00 NOSTRIL Medic al on nasal EVERY DAY Branch spray metoclopram 2019-0 Yes 10mg Take 1 Univ ers cleve HCl 10 5-22 tablet by ity of mg tablet 00:00: mouth [place] 00 every 6 Medical (six) Branch hours as needed for Nausea and Vomiting (N/V). metoclopram 2019-0 Yes 10mg Take 1 Univ ers cleve HCl 10 5-22 tablet by ity of mg tablet 00:00: mouth [place] 00 every 6 Medical (six) Branch hours as needed for Nausea and Vomiting (N/V). metoclopram 2019-0 Yes 10mg Take 1 Univ ers cleve HCl 10 5-22 tablet by ity of mg tablet 00:00: mouth [place] 00 every 6 Medical (six) Branch hours [...] by ity of mg tablet 00:00: mouth [place] 00 every 6 Medical (six) Branch hours as needed for Nausea and Vomiting (N/V). metoclopram 2019-0 Yes 10mg Take 1 Univ ers cleve HCl 10 5-22 tablet by ity of mg tablet 00:00: mouth [place] 00 every 6 Medical (six) Branch hours [...] mg tablet 9 00:00: 00 Flagyl 500 2018-0 No 1mg mg tablet 9 00:00: 00 Flagyl 500 2018-0 No 1mg mg tablet 3 00:00: 00 Flagyl 500 2018-0 No 1mg mg tablet 3 00:00: 00 Flagyl 500 2017-0 No 1mg mg tablet 3 00:00: 00 Flagyl 500 2017-0 No 1mg mg tablet 3 00:00: 00 Flagyl 500 2015-0 No 1mg mg tablet 6 00:00: 00 Flagyl 500 2015-0 No 1mg mg tablet 6 00:00: 00 fluconazole 2016-0 No 1mg 150 mg 6-29 tablet 00:00: 00 fluconazole 2016-0 No 1mg 150 mg 6-29 tablet 00:00: 00 azithromyci 2016-0 No 2mg n 500 mg 1-11 tablet 00:00: 00 azithromyci 2015-0 No 2mg n 500 mg 1-11 tablet 00:00: 00 Flagyl 500 2015-0 No 1mg mg tablet 10-01 00:00: 00 Flagyl 500 2015-0 No 1mg mg tablet 10-01 00:00: 00 Vital Signs Vital Name Observation Time Observation Value Comments Source Systolic blood 2023-03-03 07:30:00 102 mm[Hg] Univer sity of pressure [facility] Diastolic blood 2023-03-03 07:30:00 49 mm[Hg] Unive rsity of [facility] Heart rate 2023-03-03 04:42:00 95 /min Universi ty of [place] [facility] [place] Body temperature 2023-03-03 04:42:00 36.5 Katie [facility] [place] [facility] ersity [facility] Branch Respiratory rate 2023-03-03 04:42:00 18 /min Univ ersity of [facility] Body height 2023-03-03 04:42:00 157.5 cm Universi ty of [place] [facility] [place] Body weight 2023-03-03 04:42:00 118.026 kg Universi ty of [place] [facility] [place] BMI 2023-03-03 04:42:00 47.59 kg/m2 Universi ty of [place] [facility] Oxygen saturation in 2023-03-03 04:42:00 98 /min University of Arterial blood by [employer] [facility] Pulse oximetry Branch Systolic blood 2023-01-24 03:35:00 121 mm[Hg] Univer sity of [facility] Diastolic blood 2023-01-24 03:35:00 59 mm[Hg] Unive rsity of [facility] Heart rate 2023-01-24 03:35:00 80 /min Universi ty of [place] [facility] [place] Body temperature 2023-01-24 03:35:00 36.72 Katie [facility] [place] [facility] ersity [facility] Branch Respiratory rate 2023-01-24 03:35:00 16 /min Univ ersity [facility] Body height 2023-01-24 03:35:00 157.5 cm Universi ty of [place] [facility] Body weight 2023-01-24 03:35:00 117.482 kg Universi ty of [place] [facility] BMI 2023-01-24 03:35:00 47.37 kg/m2 Universi ty of [place] [facility] Oxygen saturation in 2023-01-24 03:35:00 100 /min University of Arterial blood by [place] [employer] Pulse oximetry Branch Systolic blood 2022-11-24 02:26:00 113 mm[Hg] Univer sity of pressure [place] [facility] Diastolic blood 2022-11-24 02:26:00 60 mm[Hg] Unive rsity of pressure [place] [facility] Heart rate 2022-11-24 02:26:00 77 /min Universi ty of [place] [facility] Body temperature 2022-11-24 02:26:00 37.11 Katie Univ ersity of [place] [facility] Respiratory rate 2022-11-24 02:26:00 18 /min Univ ersity of [place] [facility] Body height 2022-11-24 02:26:00 162.6 cm Universi ty of [place] [facility] Body weight 2022-11-24 02:26:00 123.514 kg Universi ty of [place] [facility] BMI 2022-11-24 02:26:00 46.74 kg/m2 Universi ty of [place] [facility] Oxygen saturation in 2022-11-24 02:26:00 100 /min University of Arterial blood by [place] [employer] Pulse oximetry Branch Systolic blood 2021-09-04 20:22:00 106 mm[Hg] Univer sity of pressure [place] [facility] Diastolic blood 2021-09-04 20:22:00 71 mm[Hg] Unive rsity of pressure [place] [facility] Heart rate 2021-09-04 20:22:00 73 /min Universi ty of [place] [facility] Body temperature 2021-09-04 20:22:00 36.17 Katie Univ ersity of [place] [facility] Respiratory rate 2021-09-04 20:22:00 18 /min Univ ersity of [place] [facility] Body height 2021-09-04 20:22:00 157.5 cm Universi ty of [place] [facility] Body weight 2021-09-04 20:22:00 130.908 kg Universi ty of [place] [facility] BMI 2021-09-04 20:22:00 52.79 kg/m2 Universi ty of [place] [facility] Oxygen saturation in 2021-09-04 20:22:00 95 /min University of Arterial blood by [place] [employer] Pulse oximetry Branch BP Systolic 2022-04-02 11:30:00 [...] Procedure Date / Time Performed Performing Clinician [facility] e BASIC METABOLIC PANEL 2023-03-03 05:48:00 Adum, Ana [facility] (NA, K, CL, CO2, Medical Branch GLUCOSE, BUN, CREATININE, CA) CBC WITH DIFF 2023-03-03 05:48:00 Adum, Ana Fuchs [place] o f [place] [facility] ASSIGNMENT OF BENEFITS 2023-03-03 03:44:25 Doctor Unassigned, No [facility] Medical Branch CONSENT/REFUSAL FOR 2023-03-03 03:42:11 Doctor Un[facility]igned, [facility] Name Medical Branch TREATMENT ASSIGNMENT OF BENEFITS 2023-01-24 04:45:57 Doctor Unassigned, No [facility] Medical Branch CONSENT/REFUSAL FOR 2023-01-24 03:32:54 [facility] Branch TREATMENT RAPID STREP SCREEN FOR 2022-11-24 02:34:00 Jarrett Boykin [facility] GROUP A Medical Branch COVID-19 (ID NOW RAPID 2022-11-24 02:34:00 Jarrett Boykin Unive [facility] TESTING) Medical Branch NOTICE OF PRIVACY 2022-11-24 02:15:39 Doctor Unassigned, No Univ ersity of [place] PRACTICES Name Medical Branch CONSENT/REFUSAL FOR 2022-11-24 02:15:18 Doctor Unassigned, No Un iversity of [place] DIAGNOSIS AND Name Medical Branch TREATMENT DEXA AXIAL (HIP AND 2022-09-08 16:51:00 Requisition, Paper Unive [facility] SPINE) Medical Branch CONSENT/REFUSAL FOR 2022-09-08 16:34:51 Doctor Unassigned, No Un iversity of [place] DIAGNOSIS AND Name Medical Branch TREATMENT Plan of Care Planned Activity Planned Date Details Comments Source Goal Plan of Care Note [code = 86587-8] Goal Plan of Care Note [code = 58460-9] Goal Plan of Care Note [code = 37721-7] Goal Plan of Care Note [code = 50434-9] Goal Plan of Care Note [code = 93524-5] Goal Plan of Care Note [code = 72764-0] Goal Plan of Care Note [code = 73521-1] Goal Plan of Care Note [code = 39593-9] Goal Plan of Care Note [code = 86137-4] Goal Plan of Care Note [code = 67759-6] Goal Plan of Care Note [code = 34660-7] Goal Plan of Care Note [code = 29706-7] Goal Plan of Care Note [code = 84410-6] Goal Plan of Care Note [code = 98082-5] Goal Plan of Care Note [code = 13998-6] Goal Plan of Care Note [code = 13269-0] Goal Plan of Care Note [code = 81075-3] Goal Plan of Care Note [code = 49790-1] Goal Plan of Care Note [code = 22451-8] Goal Plan of Care Note [code = 69636-4] Goal Plan of Care Note [code = 05283-7] Goal Plan of Care Note [code = 74705-5] Goal Plan of Care Note [code = 51023-9] Goal Plan of Care Note [code = 02556-1] Goal Plan of Care Note [code = 95685-0] Goal Plan of Care Note [code = 76820-8] Goal Plan of Care Note [code = 02504-3] Goal Plan of Care Note [code = 44610-1] Goal Plan of Care Note [code = 18904-3] Goal Plan of Care Note [code = 76044-3] Goal Plan of Care Note [code = 96954-5] Goal Plan of Care Note [code = 06304-7] Goal Plan of Care Note [code = 87251-3] Goal Plan of Care Note [code = 32613-6] Goal Plan of Care Note [code = 00449-1] Goal Plan of Care Note [code = 32383-0] Goal Plan of Care Note [code = 73735-7] Goal Plan of Care Note [code = 90225-9] Goal Plan of Care Note [code = 55157-8] Goal Plan of Care Note [code = 82657-2] Goal Plan of Care Note [code = 70466-5] Goal Plan of Care Note [code = 12910-0] Goal Plan of Care Note [code = 22271-4] Goal Plan of Care Note [code = 62704-1] Goal Plan of Care Note [code = 82280-1] Goal Plan of Care Note [code = 26286-3] Goal Plan of Care Note [code = 15971-0] Goal Plan of Care Note [code = 69548-8] Goal Plan of Care Note [code = 75462-4] Encounters Start End Encounter Admission Attending Care Care Encounter Source Date/Time Date/Time Type Type Clinicians Facility Department ID 2023-03-03 Outpatient P [facility] CANDY [id number] Univers 04:41:19 [facility] 2023-03-03 2023-03-03 Emergency EM KAREEM Tapia DENI [id number] [facility] 11:19:00 13:42:00 [facility] 2023-03-03 Outpatient P FAIZA [facility] CANDY [id number] Univers 22:47:00 04:25:00 ANA vergara [facility] 2023-03-02 2023-03-03 Emergency MaryserosannaLogan [facility] [id number] Univers 22:47:00 04:25:00 Ana Trinidad MASSILLON [id number] [facility] [facility] [id number] [facility] 083 Branch 2023-01-23 2023-01-24 Emergency X GAY, [facility] ERT [id number] Univers 22:52:00 00:09:00 WAKILI ity of [facility] 2023-01-23 2023-01-24 Emergency Gay, [facility] [id number] Univers 22:52:00 00:09:00 Logan S YESSICATON [id number] ity of [place] 4.2.7.2.[address] [facility] [id number] [place] [id number] Branch 2023-01-23 2023-01-23 Orders Doctor MATTIE [id number] Univers 00:00:00 00:00:00 Only Unassigned, ROXY [id number] ity of [place] [facility] 4.2.7.2.686 Jacinto [id number] [facility] 009 Branch 2022-11-23 2022-11-23 Emergency X VIKKI, K [facility] ERT [id number] Univers 20:37:00 22:29:00 ity of [facility] 2022-11-23 2022-11-23 Emergency Vikki, K [facility] 1.2.840.114 [id number] Univers 20:37:00 22:29:00 Alma RAIMUNDO 350.1.13.10 i ty of [place] 4.2.7.2.[address] [facility] [phone] [place] [id number] [place] 2022-09-08 2022-09-08 Outpatient R RADIOLOGY [facility] [id number] Univers 10:36:09 23:59:00 ity of [facility] 2022-09-08 2022-09-08 Hospital Radiology [facility] 1.2.840.114 [id number] Univers 10:10:00 23:59:00 Encounter ANGLEMARCOS 350.1.13.10 ity of [place] 4.2.7.2.[address] [facility] [phone] [facility] [address] 2022-09-08 2022-09-08 Orders Doctor PHELPS 1.2.840.114 [id number] Univers 00:00:00 00:00:00 Only Unassigned, ROXY 350.1.13.10 ity of [place] [facility] 4.2.7.2.686 Jacinto as [phone] [address] 2022-04-02 2022-04-02 Outpatient 72awt372- [id number] ebz458-0 00:00:00 00:00:00 Visit 8038-4c8b 038-4c8b-a -ir51-4a7 k91-0u1aqn kxnjpwb9a bdfc3a 2022-03-30 2022-03-30 Outpatient d71frgxi- [id number] d4 6ddafa-8 00:00:00 00:00:00 Visit 85fa-4740 5fa-4740-a -r49k-bhk 91a-bdb62c 84uxg8358 ad9775 2021-09-04 2021-09-04 Office [facility] 1.2.714.252 [id number] Univers 14:07:27 15:00:35 Visit Tatyana EUBANKS 350.1.13.10 i ty of [place] [address].[place].2.[place] [phone] Az dic[address] 2021-09-04 2021-09-04 Outpatient R [facility] [id number] Univers 14:00:00 15:00:35 TATYANA [facility] 2021-09-04 2021-09-04 Outpatient R [facility] [id number] Univers 14:00:00 14:00:00 TATYANA [facility] 2021-09-04 2021-09-04 Telephone [facility] 1.2.840.114 [id number] Univers 00:00:00 00:00:00 Tatyana EUBANKS 350.1.13.10 i ty of [place] [phone] [address] 2021-08-31 2021-08-31 Outpatient R [facility] [id number] 24706 Univers 12:46:00 17:03:00 TATYANA vergara [facility] 2021-08-31 2021-08-31 [facility] 1.2.840.114 [id number] Univers 12:46:00 17:03:00 Encounter Tatyana EUBANKS 350.1.13.10 ity of [place].2.[place] [phone] [facility] [address] 2021-08-31 2021-08-31 [facility] 1.2.968.020 [id number] Univers 14:15:00 16:10:00 Tatyana EUBANKS 350.1.13.10 i ty of [place] 4.2.7.2.686 [place] [phone] [facility] [address] 2021-08-28 2021-08-28 Laboratory Only, Adc Test [facility] 1.2.840. 114 [id number] Univers 10:48:44 11:03:44 Only AdameFletcherel RAIMUNDO 350.1.13.10 ity of [facility] 4.2.7.2.686 [place] [id number] [facility] [address] [place] 2021-08-28 2021-08-28 [facility] [id number] Univers 08:30:00 08:30:00 TATYANA itkalani of [facility] 2021-08-25 2021-08-25 Prep For [facility] 1.2.840.114 [id number] Univers 00:00:00 00:00:00 Surgery Leatha EUBANKS 350.1.13.10 ity of [place].2.686 [place] [phone] Az dical NAL 204 [facility] 2021-08-18 2021-08-18 Office [facility] 1.2.211.409 [id number] Univers 13:35:01 14:22:15 Visit Tatyana RAIMUNDO 350.1.13.10 i ty of [place] 4.2.7.2.686 [place] [phone] Az dical NAL 188 [facility] 2021-08-18 2021-08-18 [facility] [id number] Univers 13:15:00 14:22:15 TATYANA vergara [facility] 2021-08-18 2021-08-18 Outpatient R BALTAZAR, [facility] 84340 [id number] Univers 13:15:00 14:22:15 TATYANA vergara [facility] 2021-08-18 2021-08-18 Outpatient R BALTAZAR, [facility] 68972 [id number] Univers 13:15:00 13:15:00 TATYANA menjivarkalani [facility] 2021-08-18 2021-08-18 Orders Doctor PHELPS 1.2.840.114 [id number] Univers 00:00:00 00:00:00 Only Unassigned, ROXY 350.1.13.10 ity of [place] [facility] 4.2.7.2.686 Jacinto as [phone] [address] 2021-07-27 2021-07-27 Orders Doctor PHELPS 1.2.840.114 [id number] Univers 00:00:00 00:00:00 Only Unassigned, ROXY 350.1.13.10 ity of [place] [facility] 4.2.7.2.686 Jacinto as [phone] [facility] [address] [place] 2021-07-23 2021-07-23 Hospital Radiology [facility] 1.2.840.114 [id number] Univers 13:52:13 23:59:00 Encounter [place] 350.1.13.10 ity of [place] 4.2.7.2.686 [facility] [phone] [facility] 8[address] [place] 2021-07-23 2021-07-23 Outpatient R RADIOLOGY [facility] [id number] Univers 13:47:32 13:51:00 ity of [facility] 2021-07-23 2021-07-23 Hospital Radiology [facility] 1.2.840.114 [id number] Univers 13:30:00 13:51:00 Encounter [place] 350.1.13.10 ity of [place] 4.2.7.2.686 [place] [facility] [phone] [facility] [address] [place] 2021-07-23 2021-07-23 Orders Doctor PHELPS 1.2.840.114 [id number] Univers 00:00:00 00:00:00 Only Unassigned, ROXY 350.1.13.10 ity of [place] [facility] 4.2.7.2.686 Jacinto as [phone] [address] 2019-06-06 2019-06-06 Outpatient R BRENNAN RITCHIE [facility] [id number] [facility] 16:15:00 16:15:00 ity of [facility] 2019-05-08 2019-05-08 Routine Brennan Ritchie [facility] 1.2.221.598 [id number] [facility] 15:17:40 16:08:51 Cam Lind[place] 350.1.13.10 ity of Visit [place].2.7.2.[place] [phone] [address] 2019-05-08 2019-05-08 Routine Brennan Ritchie [facility] 1.2.069.760 [id number] 0024 15:17:40 16:08:51 Cam Lindon 350.1.13.10 Visit [place] 4.2.7.2.686 Professio [phone] [address] 2019-05-04 2019-05-04 Dispatcher Service Chief Ultrasound, Adc [facility] 1.2 .840.114 [id number] [facility] 14:17:30 15:17:30 Visit Brennan Ritchie Dax [place] 350.1.13.10 ity of [place].2.7.2.[place] [phone] [address] 2019-05-04 2019-05-04 Dispatcher Service Chief Ultrasound, [facility] 1.2.840.114 [id number] 14:17:30 15:17:30 Visit Adc [facility] [place] 350.1.13.10 [place] 4.2.7.2.686 Professio [phone] [address] 2019-05-04 2019-05-04 Orders Doctor MATTIE 1.2.840.[id number] [place] [address] 00:00:00 00:00:00 Only Unassigned, ROXY 350.1.13.10 ity of [place] [facility]ITAL 4.2.7.2.686 Jacinto as [phone] [address] 2019-05-04 2019-05-04 Orders Doctor PHELPS 1.2.840.114 [id number] 00:00:00 00:00:00 Only Unassigned, ROXY 350.1.13.10 [place] [facility] 4.2.7.2.686 [id number] 009 2019-05-02 2019-05-02 Telephone Brennan Ritchie WIMARTIN 1.2.840.114 [id number] [facility] 00:00:00 00:00:00 Cam Lind[place] 350.1.13.10 i ty of [place].7.2.[place] [phone] Az dical [facility] 134 [facility] 2019-05-02 2019-05-02 Telephone Brennan Ritchie WIMARTIN 1.2.840.114 [id number] 00:00:00 00:00:00 Cam [place] 350.1.13.10 [place] 4.2.7.2.686 Professio [phone] [address] 2019-04-18 2019-04-18 [facility] 1.2.840.114 [id number] [facility] 13:01:44 23:59:00 Encounter Kaila Holguin 350.1.13.10 ity of [facility] 4.2.7.2.686 [place] as [phone] [address] 2019-04-18 2019-04-18 [facility] 1.2.840.114 [id number] 13:01:44 23:59:00 Encounter Kaila Holguin 350.1.13.10 [facility] 4.2.7.2.686 [id number] 031 Results Test Description Test Time Test Comments Results Result Comments Source CBC W/AUTO DIFF 2023-03-03 12:55:00 Test Item Value Reference Range Interpretation Comme nts WHITE BLOOD CELL (test code = WBC) 8.3 K/mm3 6.5-12.3 N RED BLOOD CELL (test code = RBC) 4.24 M/mm3 3.51-4.69 N HEMOGLOBIN (test code = HGB) 10.7 g/dL 10.1-13.8 N HEMATOCRIT (test code = HCT) 33.4 % 32.5-41.8 N MEAN CELL VOLUME (test code = MCV) 78.8 fL 84.6-96.6 L MEAN CELL HGB (test code = MCH) 25.2 pg 27.3-33.9 L MEAN CELL HGB CONCETRATION (test code = MCHC) 32.0 gm/dL 32.0-34. 2 N RED CELL DISTRIBUTION WIDTH (test code = RDW) 15.2 % 12.2-16. 3 N PLATELET COUNT (test code = PLT) 164 K/mm3 134-363 N MEAN PLATELET VOLUME (test code = MPV) 10.6 fL 9.2-12.7 N NEUTROPHIL % (test code = NT%) 87.3 % 57.9-77.3 H LYMPHOCYTE % (test code = LY%) 7.8 % 14.5-29.7 L MONOCYTE % (test code = MO%) 4.2 % 3.6-10.2 N EOSINOPHIL % (test code = EO%) 0.1 % 0.0-3.0 N BASOPHIL % (test code = BA%) 0.1 % 0.1-0.9 N NEUTROPHIL # (test code = NT#) 7.2 K/mm3 LYMPHOCYTE # (test code = LY#) 0.7 K/mm3 MONOCYTE # (test code = MO#) 0.4 K/mm3 EOSINOPHIL # (test code = EO#) 0.01 K/mm3 BASOPHIL # (test code = BA#) 0.0 K/mm3 RBC MORPHOLOGY REQUIRED (test code = RBCM) NORMAL NORMAL PLATELET MORPHOLOGY REQUIRED (test code = PLTMR) NORMAL NANDA L COMPREHENSIVE METABOLIC [id number] 12:53:00 Test Item Value Reference Range Interpretation Comments SODIUM (test code = 133 mEq/L 135-145 L NA) POTASSIUM (test code 3.7 mEq/L 3.5-5.0 N = K) CHLORIDE (test code 102 mEq/L 100-115 N = CL) CARBON DIOXIDE (test 22 mEq/L 22-31 N code = CO2) ANION GAP (test code 12.60 10-20 N = GAP) GLUCOSE (test code = 79 mg/dL 65-110 N GLU) BLOOD UREA NITROGEN 8 mg/dL 7-18 N (test code = BUN) GLOMERULAR 125 ml/min >60 N The Glomerular FILTRATION RATE Filtration R ate is a (test code = GFR) calculated parameterbased on serum Creatinine, pat ient age and sex. GFR va luesless than 60 mL/min/ 1.73 square meters a re indicative ofCh ronic Kidney Disease. Values less than 15 mL/min/1.73squa re meters indicate Kidney failure. The calculation for GFR is based on the CK D-EPI (2020) calculat ion. This formulais race indifferent and is the recommended for geraldo for GFRby the [facility] Found[facility] on for Adults.The GFR will not calculate if th e sex is unknown or if thepatient's ag e is <18 years. CREATININE (test 0.5 mg/dL 0.5-1.0 N code = CREAT) TOTAL PROTEIN (test 6.0 gm/dL 6.3-8.2 L code = PROT) ALBUMIN (test code = 2.5 gm/dL 3.4-4.8 L ALB) CALCIUM (test code = 8.3 mg/dL 8.4-10.2 L CA) BILIRUBIN TOTAL 0.6 mg/dL 0.2-1.0 N (test code = BILT) SGOT/AST (test code 14 units/L 15-37 L = AST) SGPT/ALT (test code 24 units/L 12-78 N = ALT) ALKALINE PHOSPHATASE 70 units/L 46-116 N TOTAL (test code = ALKP) URINALYSIS [id number] 12:40:00 Test Item Value Reference Range Interpretation Comments UA COLOR (test code = COLU) YELLOW YELLOW UA APPEARANCE (test code = Slightly-Cloudy CLEAR APPU) UA GLUCOSE DIPSTICK (test NEGATIVE NEG code = DGLUU) UA BILIRUBIN DIPSTICK (test NEGATIVE NEG code = BILU) UA KETONE DIPSTICK (test code NEGATIVE NEG = KETU) UA SPECIFIC GRAVITY (test 1.029 1.001-1.035 N code = SGU) UA BLOOD DIPSTICK (test code NEG NEG = VANI) UA PH DIPSTICK (test code = 5.0 5-9 PIYUSH) UA PROTEIN DIPSTICK (test NEGATIVE NEG code = PROU) UA UROBILINIOGEN DIPSTICK NEGATIVE mg/dL NEG (test code = URO) UA NITRITE DIPSTICK (test NEG NEG code = JUAQUIN) UA LEUKOCYTE ESTERASE NEG NEG DIPSTICK (test code = LEUU) UA WBC (test code = WBCU) 3-5 #/hpf NONE SEEN A UA RBC (test code = RBCU) 3-5 #/hpf NONE SEEN A UA EPITHELIAL CELLS (test RARE #/HPF RARE-FEW code = EPIU) UA BACTERIA (test code = RARE /HPF RARE-FEW BACU) UA MUCUS (test code = MUCU) 4+ NONE SEEN URINE SAMPLE: CLEAN CATCHBASIC METABOLIC PANEL (NA, K, CL, CO2, GLUCOSE, BUN, CREATININE, CA)2023-03-03 06:29:39 Test Item Value Reference Range Interpretation Comments NA (test code = 137 mmol/L 135-145 1868148851) K (test code = 4.0 mmol/L 3.5-5.0 7539316808) CL (test code = 106 mmol/L 98-108 8682576514) CO2 TOTAL (test code = 22 mmol/L 23-31 L 8023355954) AGAP (test code = 9 2-16 7335562913) BUN (test code = 12 mg/dL 7-23 8008967236) GLUCOSE (test code = 147 mg/dL 70-110 H 3428411797) CREATININE (test code = 0.50 mg/dL 0.50-1.04 3224120970) CALCIUM (test code = 8.8 mg/dL 8.6-10.6 6565076324) eGFR (test code = 140.4 mL/min/1.73m2 4351413600) ALEXANDRA (test code = ALEXANDRA) Association of Glomerular Filtration Rate (GFR) and Staging of Kidney Disease* + --+ --+ ------+| GFR (mL/min/1.73 m2) ?| With Kidney Damage ?| ?Without Kidney Damage+ --------+ --------+ +| ?>90 ?| ?Stage one ?| ? Normal ?+ ---+ ---+ -------+| ?60-89 ?| ?Stage two ?| ? Decreased GFR ? + --+ --+ ------+| ?30-59 ?| ?Stage three ?| ? Stage three ? + --+ --+ ------+| ?15-29 ?| ?Stage four ? | ? Stage four ?+ ---+ ---+ -------+| ?<15 (or dialysis) ? ?| ?Stage five ? | ? Stage five ?+ ---+ ---+ -------+ *Each stage assumes the associated GFR level has been in effect for at least three months. ?Stages 1 to 5, with or without kidney disease, indicate chronic kidney disease. Notes: Determination of stages one and two (with eGFR >59mL/min/1.73 m2) requires estimation of kidney damage for at least three months as defined by structural or functional abnormalities of the kidney, manifested by either:Pathological abnormalities or Markers of kidney damage (including abnormalities in the composition of the blood or urine or abnormalities in imaging tests). Lab Interpretation Abnormal (test code = 52733-0) [facility] WITH [id number] 06:15:59 Test Item Value Reference Range Interpretation Comments WBC (test code = 13.94 See_Comment H [Automated 2682-2) message] The system which generated this result transmit holly reference range : 4.30 - 11.10 10*3/?L. The reference range was not used to interpret this result as normal/abnormal . RBC (test code = 4.78 See_Comment [Automated 989-8) message] The system which generated this result transmit holly reference range : 3.93 - 5.25 10*6/?L. The reference range was not used to interpret this result as normal/abnormal . HGB (test code = 12.3 g/dL 11.6-15.0 718-7) HCT (test code = 37.6 % 35.7-45.2 4544-3) MCV (test code = 78.7 fL 80.6-95.5 L 787-2) MCH (test code = 25.7 pg 25.9-32.8 L 785-6) MCHC (test code = 32.7 g/dL 31.6-35.1 786-4) RDW-SD (test code = 43.1 fL 39.0-49.9 35659-9) RDW-CV (test code = 15.2 % 12.0-15.5 788-0) PLT (test code = 191 See_Comment [Automated 537-3) message] The system which generated this result transmit holly reference range : 166 - 358 10*3/ ?L. The reference range was not u sed to interpret th is result as normal/abnormal . MPV (test code = 10.5 fL 9.5-12.9 31882-5) NRBC/100 WBC (test 0.0 See_Comment [Automat ed code = 1502542597) message] The system which generated this result transmit holly reference range : 0.0 - 10.0 /100 WBCs. The reference range was not used to interpret this result as normal/abnormal . NRBC x10^3 (test code See_Comment [Auto mated = 0752177411) message] The system which generated this result transmit holly reference range : 10*3/?L. The reference range was not used to interpret this result as normal/abnormal . GRAN MAT (NEUT) % 92.4 % (test code = 770-8) IMM GRAN % (test code 0.70 % = 4487264702) LYMPH % (test code = 4.3 % 736-9) MONO % (test code = 2.3 % 5905-5) EOS % (test code = 0.1 % 713-8) BASO % (test code = 0.2 % 706-2) GRAN MAT x10^3(ANC) 12.87 10*3/uL 1.88-7.09 H (test code = 2346744646) IMM GRAN x10^3 (test 0.10 10*3/uL 0.00-0.06 H code = 7609292519) LYMPH x10^3 (test code 0.60 10*3/uL 1.32-3.29 L = 731-0) MONO x10^3 (test code 0.32 10*3/uL 0.33-0.92 L = 742-7) EOS x10^3 (test code = 0.03-0.39 L 711-2) BASO x10^3 (test code 0.03 10*3/uL 0.01-0.07 = 704-7) Lab Interpretation Abnormal (test code = 28811-4) [facility] [id number] 12:57:32 Test Item Value Reference Range Interpretation Comments DALTON SPECIES (test NEGATIVE NEGATIVE code = ) G. VAGINALIS (test NEGATIVE NEGATIVE code = ) T. VAGINALIS (test NEGATIVE NEGATIVE UNLESS O THERWISE code = ) INDICATED, ALL TESTING PERFORMED [facility] [address] [place] [address] 4 LABORATORY DIRE CTOR: Stephen DIANEIA NUMBER [id number] [place] [id number] VAGINAL PATHOGENS DNA [id number] 00:00:00 Test Item Value Reference Range Interpretation Comments DALTON SPECIES (test code = ) NEGATIVE G. VAGINALIS (test code = ) NEGATIVE T. VAGINALIS (test code = ) NEGATIVE PLACENTA THIRD [id number] 17:54:00 RUN DATE: 09/04/19 [facility] PAGE 1 RUN TIME: 721 Specimen Inquiry RUN USER: INTERFACE --PATIENT: WALTER ROSE LOC: EduKELLY U #: [id number] AGE/SX: 33/ ROOM: [facility] RE08/16/19REGDR: Junior Tapia MD : 87 BED: A DIS: 08/26/19 STATUS: DIS IN TLOC: SPEC #: [id number] RECD: 08/22/19 STATUS: ALICIA GONZALEZ #: [id number] LAY[place]: 08/22/19- [facility] DR: Junior Tapia MD ENTERED: 08/27/19 SP TYPE: PLACIII OTHR DR: ORDERED: LEVEL V SURGICA CODES: [id number] - PLACENTA, NOS PROCEDURES: LEVEL V SURGICA (Incomplete) TISSUES: PLACENTA, NOS - PLACENTA CLINICAL HISTORY 33 year old, 36 weeks, [id number], section, history of demise, decreased FM, oligo [...] mural fibrin deposition involving a chorionic stem bloodvessel is a nonspecific finding by itself but [...] and inherited or acquired thrombophilias. CPT code(s): 06018 pkg/wpd 08/31/19 CONTINUED ON NEXT PAGE RUN DATE: 09/04/19 [facility] PAGE 2 RUN TIME: 721 Specimen Inquiry RUN USER: INTERFACE SPEC #: [id number] PATIENT: WALTER ROSE#[id number] (Continued) GROSS DESCRIPTION The specimen was received [...] x 3.5 cm in greatest dimension Accessory lobes:None Maternal surface: Lobulated and intact Parenchyma: Red, beefy, and spongy with peripheral fibrosis Parenchyma lesions: None Cassettes: A1 through A4 ramos/wpd 08/28/19 @ 0800 MICROSCOPIC DESCRIPTIONThe placenta is composed of small vascular villi. A stem villous blood vessel contains mural fibrin deposition. No occlusive thrombi are identified. The trivascular umbilical cord and membranes are free of inflammation. mae/patricia 08/31/19 Signed Lucero Vazquez 08/31/19 1754 END OF REPORT HGB [id number] 07:11:00 Test Item Value Reference Range Interpretation Comments HEMOGLOBIN (test code = HGB) 7.4 g/dL 10.7-13.9 L HEMATOCRIT (test code = HCT) 24.6 % 32.1-42.1 L CBC W/AUTO [id number] 05:50:00 Test Item Value Reference Range Interpretation [...] NORMAL NORMAL code = PLTMR) CBC W/AUTO [id number] 05:30:00 Test Item Value Reference Range Interpretation [...] NORMAL NORMAL code = PLTMR) AMNISURE (ROM) [id number] 01:29:00 Test Item Value Reference Range Interpretation Comments AMNISURE (ROM) TEST (test code = NON-RUPTURED NON-RUPTURE AMNI) : *Amnisure QC OK? YESAMNISURE (ROM) [id number] 01:19:00 Test Item Value Reference Range Interpretation Comments AMNISURE (ROM) TEST (test code = NON-RUPTURED NON-RUPTURE AMNI) : *Amnisure QC OK? YESRAPID PLASMA [id number] 18:09:00 Test Item Value Reference Range Interpretation Comments RAPID PLASMA REAGIN (test code = RPR) NON-REACT IS CONSENT FORM SIGNED FOR HIV TESTING? YAG HEPATITIS B [id number] 18:09:00 Test Item Value Reference Range Interpretation Comments AG HEPATITIS B SURFACE (test code NONREACTIVE NONREACTIVE = HBSAG) IS CONSENT FORM SIGNED FOR HIV TESTING? YAB HEPATITIS C [id number] 18:09:00 Test Item Value Reference Range Interpretation Comments AB HEPATITIS C (test code = NONREACTIVE NONREACTIVE HCVAB) SIGNAL TO CUTOFF (test code = <0.02 <0.80 N CUTOFF) IS CONSENT FORM SIGNED FOR HIV TESTING? YAB [id number] 18:09:00 Test Item Value Reference Range Interpretation Comments AB TREPONEMA (test code = TREPAB) NONREACTIVE NONREACTIVE IS CONSENT FORM SIGNED FOR HIV TESTING? YAB HIV 1 18:09:00 Test Item Value Reference Range Interpretation Comments AB HIV 1 2 (test NONREACTIVE NONREACTIVE [facility] code = [id number]) 4th Gen HIV Ag/Ab Combo Screen IS CONSENT FORM SIGNED FOR HIV TESTING? YRAPID PLASMA [id number] 17:45:00 Test Item Value Reference Range Interpretation Comments RAPID PLASMA REAGIN (test code = RPR) NON-REACT IS CONSENT FORM SIGNED FOR HIV TESTING? YAG HEPATITIS B [id number] 17:45:00 Test Item Value Reference Range Interpretation Comments AG HEPATITIS B SURFACE (test code NONREACTIVE NONREACTIVE = HBSAG) IS CONSENT FORM SIGNED FOR HIV TESTING? YAB HEPATITIS C [id number] 17:45:00 Test Item Value Reference Range Interpretation Comments AB HEPATITIS C (test code = HCVAB) NONREACTIVE SIGNAL TO CUTOFF (test code = CUTOFF) <0.80 IS CONSENT FORM SIGNED FOR HIV TESTING? YAB [id number] 17:45:00 Test Item Value Reference Range Interpretation Comments AB TREPONEMA (test code = TREPAB) NONREACTIVE NONREACTIVE IS CONSENT FORM SIGNED FOR HIV TESTING? YAB HIV 1 17:45:00 Test Item Value Reference Range Interpretation Comments AB HIV 1 2 (test code = WNK32SY) NONREACTIVE IS CONSENT FORM SIGNED FOR HIV TESTING? YCBC W/AUTO [id number] 15:54:00 Test Item Value Reference Range Interpretation [...] code = PLTMR) - US PREG UT [id number] 13:50:00 Patient Name: WALTER ROSE Unit No: [id number] EXAMS: CPT CODE: [id number] US PREG UT TRANSVAGINAL [address] [facility] [address] [place] [address] BIOPHYSICAL PROFILE ULTRASOUNDREPORT Pat. Name: WALTER ROSE Pat. No: [id number] Study Date: 08/13/2019 12:07pm , Age: 01 1985, 33 Pregnancies: 4, Para 2 LMP: Unknown GA by 1st: 34w5d GA Selected: 34w5d (From Known E) SANDRA: 09/19/2019 Referring MD: Junior Tapia Nut Sorter: Noy Campos RDMS CPT4: USPRUTTRVG Admitting MD: Regina, Ziad Hist/Ind: 5TH SCAN DFM Cervical Length: 3.8 cm Heart Rate: 159 bpm Amniotic Fluid Index: 12.0cm (08.0- 24.9) Q1: 2.1cm Q2: 6.5cmQ3: 0.0cm Q4: 3.4cm Biophysical Profile: 05/03 Breathin Tone: 2 Movement: 2 AFV: 2 CLINICAL SUMMARY Type of Gestation: SingletonIntrauterine in vertex presentation. motion and organs seen: heart motion seenPlacental location: Anterior Placental maturity : Grade 2 There is no evidence of placenta previa. Amniotic fluid volume is normal. Uterus and adnexa: No significant abnormality is seen. Katerina Escobar M.D. Electronic Signature 08/13/2019 01:50pm at 1350 Reported and signed by: Katerina Escobar MD CC: Junior Tapia MD Technologist: Noy Campos RDMS Probe: [id number] Trnscrbd D/ ([id number]) Wily Orig Print D/T: S: 08/16/2019 (150) [facility] NAME: ROSEWALTER KOHLER Radiology Department PHYS: Junior Modi MD [address] : 1985 AGE: 33 SEX: F [place], [place] [address] [facility] PHONE #: [phone] EXAM DATE: 08/13/2019 STATUS: REG R FAX #: [phone] RAD NO: Page 1 Signed Report Patient Name: WALTER ROSE Unit No: [id number] EXAMS: CPT CODE:[id number] US PREG UT TRANSVAGINAL [id number] (Continued) [facility] NAME: WALTER ROSE Radiology Department PHYS: Junior Modi MD [address] : 1985 AGE: 33 SEX: F [place] [address] LOC: [facility] PHONE #: [phone] EXAM DATE: 08/13/2019 STATUS: REG RCR FAX #: [phone] RAD NO: Page 2 Signed Report- US FET BIO PH DC W/O [id number] 13:50:00 Patient Name: WALTER ROSE Unit No: [id number] EXAMS: CPT CODE: [id number] US FET BIO PH DC W/O NST [id number] [place], [place] [address] BIOPHYSICAL PROFILE ULTRASOUNDREPORT Pat. Name: WALTER ROSE Pat. No: [id number] Study Date: 08/13/2019 12:07pm , Age: 01 1985, 33 Pregnancies: 4, Para 2 LMP: Unknown GA by 1st: 34w5d GA Selected: 34w5d (From Known E) SANDRA: 09/19/2019 Referring MD: Junior Tapia Nut Sorter: Noy Campos RDMS CPT4: USBPPWONST Admitting MD: Junior Tapia Hist/Ind: 5TH SCAN DFM Cervical Length: 3.8 cm Heart Rate: 159 bpm Amniotic Fluid Index: 12.0cm (08.0- 24.9) Q1: 2.1cm Q2: 6.5cmQ3: 0.0cm Q4: 3.4cm Biophysical Profile: 05/03 Breathin Tone: 2 Movement: 2 AFV: 2 CLINICAL SUMMARY Type of Gestation: SingletonIntrauterine in vertex presentation. motion and organs seen: heart motion seenPlacental location: Anterior Placental maturity : Grade 2 There is no evidence of placenta previa. Amniotic fluid volume is normal. Uterus and adnexa: No significant abnormality is seen. Katerina Escobar M.D. Electronic Signature 08/13/2019 01:50pm at 1350 Reported and signed by: Katerina Escobar MD CC: Junior Tapia MD Technologist: Noy Campos RDMS Probe: Trnscrbd D/ (1350) HalinaG Orig Print D/T: S: 08/13/2019 (1350) The [facility] NAME: WALTER ROSE Radiology Department PHYS: Junior Modi MD [address] : 1985 AGE: 33 SEX: [place] [address] LOC: DEANNE PHONE #: [phone] EXAM DATE: 08/13/2019 STATUS: REG RCR FAX #: [phone] RAD NO: Page 1 Signed Report Patient Name: WALTER ROSE Unit No: [id number] EXAMS: CPT CODE: [id number] FET BIO PH DC W/O NST 95350 (Continued) The [facility] NAME: WALTER ROSE Radiology Department PHYS: Junior Modi MD [address] : 1985 AGE: 33 SEX: [place] [address] LOC: EduLDPhoebe PHONE #: [phone] EXAM DATE: 08/13/2019 STATUS: REG RCR FAX #: [phone] RAD NO: Page 2 Signed Report- US FET BIO PH DC W/O NST 2019-08-09 08:39:00 Patient Name: WALTER ROSE Unit No: [id number] EXAMS: CPT CODE: [id number] US FET BIO PH DC W/O NST [address] [facility] [address] [place], [place] [address] BIOPHYSICAL PROFILE ULTRASOUNDREPORT Pat. Name: WALTER ROSE Pat. No: [id number] Study Date: 08/09/2019 7:50am , Age: 01 1985, 33 Pregnancies: 4, Para 2 LMP: Unknown GA by 1st: 34w1d GA Selected: 34w1d (From First S) SANDRA: 09/19/2019 Referring MD: Junior Tapia Nut Sorter: Ro Le RDMS CPT4: USBPPWONST Admitting MD: [...] movements observed tone noted breathing movements observed Placentallocation: Anterior Placental maturity : Grade 2 There is no evidence of placenta previa. Amniotic fluid volume is normal. Thank you for allowing us to participate in the care of this patient. Beau Farfan M.D. Electronic Signature 08/09/2019 08:39am at 0839 Reported and signed by: Beau Farfan MD The [facility] NAME: WALTER ROSE JOSE F Radiology Department PHYS: Junior Modi MD [address] : 1985 AGE: 33 SEX: F [place], [place] [address] [facility] #: [phone] EXAM DATE: 08/09/2019 STATUS: REG RCR FAX #: [phone] RAD NO: Page 1 Signed Report (CONTINUED) Patient Name: WALTER ROSE Unit No: [id number] EXAMS: CPT CODE: [id number] US FET BIO PH DC W/O NST 10028 (Continued) CC: Junior Tapia MD Technologist: Ro Le RDMS Probe: Trnscrbd D/ (0839) Suha Orig Print D/T: S: 08/09/2019 (0839) The [facility] NAME: WALTER ROSE Radiology Department PHYS: Junior Modi MD [address] : 1985 AGE: 33 SEX: F [place], [place] [address] LOC: EduLDT PHONE #: [phone] EXAM DATE: 08/09/2019 STATUS: REG RCR FAX #: [phone] RAD NO: Page 2 Signed Report Patient Name: WALTER ROSE Unit No: [id number] EXAMS: CPT CODE: [id number] [facility] BIO PH DC W/O NST 72223 (Continued) The [facility] NAME: WALTER ROSE Radiology Department PHYS: Junior Modi MD [address] : 1985 AGE: 33 SEX: F [place], [place] [address] LOC: EduLDT PHONE #: [phone] EXAM DATE: 08/09/2019 STATUS: REG RCR FAX #: [phone] RAD NO: Page 3 Signed ReportAB [id number] 15:51:00 Test Item Value Reference Range Interpretation Comments AB TREPONEMA (test code = TREPAB) NONREACTIVE NONREACTIVE PLEASE CALL DR.HAIDAR SHARMA W/RESULTS NO NUMBER PROVIDEDAB HIV 1 15:51:00 Test Item Value Reference Range Interpretation Comments AB HIV 1 2 (test NONREACTIVE NONREACTIVE Done by [facility] code = [id number]) 4th Gen HIV Ag/Ab Combo Screen PLEASE CALL DR.HAIDAR SHARMA W/RESULTS NO NUMBER PROVIDEDAB [id number] 15:39:00 Test Item Value Reference Range Interpretation Comments AB TREPONEMA (test code = TREPAB) NONREACTIVE NONREACTIVE PLEASE CALL DR.HAIDAR SHARMA W/RESULTS NO NUMBER PROVIDEDAB HIV 1 15:39:00 Test Item Value Reference Range Interpretation Comments AB HIV 1 2 (test code = [id number]) NONREACTIVE PLEASE CALL DR.HAIDAR SHARMA W/RESULTS NO NUMBER PROVIDEDCBC W/AUTO [id number] 14:37:00 Test Item Value Reference Range Interpretation [...] code = PHENCU) 25 ng/m L URINALYSIS [id number] 18:10:00 Test Item Value Reference Range Interpretation [...] URINE SAMPLE: CLEAN CATCH- US PREG UT [id number] 17:54:00 Patient Name: WALTER ROSE Unit No: [id number] EXAMS: CPT CODE: [id number] US PREG UT TRANSVAGINAL [address] [facility] [address] [place], [place] [address] BIOPHYSICAL PROFILE ULTRASOUNDREPORT Pat. Name: WALTER ROSE Pat. No: [id number] Study Date: 08/04/2019 4:30pm , Age: 01 1985, 33 Pregnancies: 4, Para 2 LMP: Unknown GA by 1st: 33w3d GA Selected: 33w3d (From Known E) SANDRA: 09/19/2019 Referring MD: Junior Tapia Nut Sorter: Aashish Lovelace RDMS CPT4: USPRUTTRVG Admitting MD: Junior Tapia Hist/Ind: Decreased FM BPP Scan #2 Cervical Length: 4.0 cm Heart Rate: 139 bpm Amniotic Fluid Index: 13.8cm (08.2- 24.6) Q1: 6.9cm Q2: 4.9cm Q3: 2.0cm Q4: 0.0cm Biophysical Profile: 05/03 Breathin Tone: 2 Movement: 2 AFV: 2 ------- CLINICAL SUMMARY Type of Gestation: Hawkins Intrauterine [...] and signed by: Lizbet Saleh MD [facility] NAME: WALTER ROSE JOSE F Radiology Department PHYS: Junior Modi MD [address] : 1985 AGE: 33 SEX: F [place] [address] LOC: EduDENI PHONE #: [phone] EXAM DATE: 08/04/2019 STATUS: DEP ER FAX #: RAD NO: Page 1 Signed Report (CONTINUED) Patient Name: WALTER ROSE Unit No: [id number] EXAMS: CPT CODE: [id number] US PREG UT TRANSVAGINAL [address] (Continued) CC: Junior Tapia MD Technologist: Aashish Lovelace, [facility] Probe: [id number] Trnscrbd D/ (1864) t.CER Orig PrintD/T: S: 08/07/2019 (2522) [facility] NAME: ROSEWALTER KOHLER Radiology Department PHYS: Junior Modi MD [address] : 1985 AGE: 33 SEX: [place] [address] LOC: EduDENI PHONE #: [phone] EXAM DATE: 08/04/2019 STATUS: [facility] ER FAX #: [phone] RAD NO: Page 2 Signed Report Patient Name: WALTER ROSE Unit No: [id number] EXAMS: CPTCODE: [id number] US PREG UT TRANSVAGINAL [address] (Continued) The [facility] NAME: WALTER ROSE JOSE F Radiology Department PHYS: Junior Modi MD [address] : 1985 AGE: 33 SEX: [place] [address] LOC: LEWIS PHONE #: [phone] EXAM DATE: 08/04/2019 STATUS: DEP ER FAX #: [phone] RAD NO: Page 3 Signed Report- US FET BIO PH DC W/O [id number] 17:54:00 Patient Name: WALTER ROSE Unit No: [id number] EXAMS: CPT CODE: [id number] US FET BIO PH DC W/O NST [address] [facility] [address] [place], [place] [address] BIOPHYSICAL PROFILE ULTRASOUND REPORT Pat. Name: WALTER ROSEPat. No: [id number] Study Date: 08/04/2019 4:30pm , Age: 01 1985, 33 Pregnancies: 4, Para 2 LMP: Unknown GA by 1st: 33w3d GA Selected: 33w3d (From Known E) SANDRA: 09/19/2019 Referring MD: Junior Tapia M.D. Nut Sorter: Aashish Lovelace RDMS CPT4: USBPPWONST Hist/Ind: Decreased FM BPP Scan#2 Cervical Length: 4.0 cm Heart Rate: 139 [...] previa. Amniotic fluid volume is normal. Uterus andadnexa: No significant abnormality is seen. Thank you for allowing us to participate in the care of this patient. Nita Saleh M.D. Electronic Signature 08/04/2019 05:54pm at 3504 Reported and signed by: Lizbet Saleh MD [facility] NAME: WALTER ROSE Radiology Department PHYS: Jade Levin III, MD [address] : 1985 AGE: 33 SEX: [place] [address] LOC: Ariel.DENI PHONE #: [phone] EXAM DATE: 08/04/2019 STATUS: REG ER FAX #: [phone] RAD NO: Page 1Signed Report (CONTINUED) Patient Name: WALTER ROSE Unit No: [id number] EXAMS: CPT CODE: [id number] FET BIO PH DC W/O NST 41128 (Continued) CC: Junior Tapia MD; Jade Faustni III, MD Technologist: Aashish Lovelace RDMS Probe: Trnscrbd D/ (1753) t.SDR.CER Orig Print D/T: S: 08/04/2019 (1753) [facility] NAME: WALTER ROSE Radiology Department PHYS: Jade Levin III, MD [address] : 1985 AGE: 33 SEX: [place] [address] LOC: EduDENI PHONE #: [phone] EXAM DATE: 08/04/2019 STATUS: REG ER FAX #: [phone] RAD NO: Page 2 Signed Report Patient Name: WALTER ROSE Unit No: [id number] EXAMS: CPT CODE: [id number] US FET BIO PH DC W/O NST [address]83 (Continued) The [facility] NAME: WALTER ROSE Radiology Department PHYS: Jade Levin III, MD [address] : 1985 AGE: 33 SEX: F [place], [place] [address] LOC: EduDENI PHONE #: [phone] EXAM DATE: 08/04/2019 STATUS: REG ER FAX #: [phone] RAD NO: Page 3 Signed Report- DUP VEIN [id number] 23:45:00 Patient Name: WALTER ROSE Unit No: [id number] EXAMS: CPT CODE: [id number] DUP VEIN IRENA [address] PROCEDURE: BILATERAL LOWER EXTREMITY VENOUS ULTRASOUND DATED [...] and visualized calf veins appear patent with normalcompressibility, augmentation and color flow. Normal venous waveforms. The saphenofemoral junction is unremarkable. IMPRESSION: 1. No sonographic evidence of acute lower extremity deep venous thrombosis. SL:131 at 2345 Reported and signed by: Brody Luo MD CC: Junior Tapia MD; Santiago Austin MD Technologist: Ania Verde RDMS, RVT Probe: Trnscrbd D/ (2345) Kira Orig Print D/T: S: 07/24/2019 (7938) [facility] NAME: WALTER ROSE Radiology Department PHYS: Santiago Pastrana MD [address] : 1985 AGE: 33 SEX: F [place], [place] [address] LOC: TASHA PHONE#: [phone] EXAM DATE: 07/24/2019 STATUS: DEP ER FAX #: [phone] RAD NO: Page 1 Signed Report Patient Name: WALTER ROSE Unit No: [id number] EXAMS: CPT CODE: [id number] DUP VEIN IRENA [address] (Continued) [facility] NAME: WALTER ROSE Radiology Department PHYS: Santiago Pastrana MD [address] : 1985 AGE: 33 SEX: [place], [place] [address] LOC: TASHA PHONE #: [phone] EXAM DATE: 07/24/2019 STATUS: DEP ER FAX #: [phone] RAD NO: Page2 Signed ReportUA RFLX MICR CULT IF [id number] 21:32:00 Test Item Value Reference Range Interpretation [...] NONE SEEN Indication for culture: Flank PainPROTHROMBIN [id number] 21:00:00 Test Item Value Reference Range Interpretation Comments PROTHROMBIN TIME PATIENT (test code 10.2 secs 10.4-12.4 L = PTP) THROMBOPLASTIN TIME [id number] 21:00:00 Test Item Value Reference Range Interpretation Comments THROMBOPLASTIN TIME PARTIAL (test 28.0 secs 22-38 N code = PTT) [id number] 21:00:00 Test Item Value Reference Range Interpretation Comments FIBRINOGEN (test code = FIB) 565 mg/dL 309-518 H D-DIMER [id number] 21:00:00 Test Item Value Reference Range Interpretation Comments D-DIMER QUANT 336 ng/mLDDU <255 H Reference Ra nge in (test code = : <570 DDIMER) ng/ml A positive test d oes not provide a defin itive diagnosis ofDVT and indicates the n eed for follow up clini vasu studies. The pr edictive value of a nega tive test is 98% for rulingout DVT. COMPREHENSIVE METABOLIC [id number] 20:38:00 Test Item Value Reference Range Interpretation [...] 46-116 N code = ALKP) CBC W/AUTO [id number] 20:23:00 Test Item Value Reference Range Interpretation [...] NORMAL NORMAL code = PLTMR) CANNABINOIDS CONFIRMATION [id number] 12:33:00 Test Item Value Reference Range Interpretation Comments DRUG CONFIRMATION BY POSITIVE NEGATIVE A Drug(s) Identified: GC/MS (test code = carboxy-t hc amount DRUGCON) 94 ng/mL GC/MS Cutoff: 0. - US PREG UT [id number] 13:17:00 Patient Name: WALTER ROSE Unit No: [id number] EXAMS: CPT CODE: [id number] US PREG UT TRANSVAGINAL [address] [facility] [address] [place], [place] [address] LIMITED OBSTETRICAL ULTRASOUND REPORT Pat. Name: WALTER ROSE Pat. No: [id number] Study Date: 05/21/2019 12:12pm , Age: 01 1985, 33 Pregnancies: 4, Para 2 LMP: Unknown GA Selected: 22w5d (From Known E) SANDRA: 09/19/2019 Referring MD: Jade Faustin Nut Sorter: Paramjit Kohli RDMS, RVT CPT4: USPRUTTRVG Admitting MD: Jade Faustin Hist/Ind: SCAN 1 22.5 WEEKSVAGINAL PAIN/LESTER CERVICAL LENGTH Cervical Length: 4.3 cm [...] MD Technologist: Paramjit Kohli RDMS, RVT Probe: [id number] Trnscrbd D/ (4828) MargaNMG Orig Print D/T: S: 05/22/2019 (3940) [facility] NAME: ROSEWALTER Radiology Department PHYS: Jade Levin III, MD [address] : 1985 AGE: 33 SEX: [place] [address] LOC: EduDENI PHONE #: [phone] DATE: 05/21/2019 STATUS: [facility] FAX #: [phone] RAD NO: Page 1 Signed Report Patient Name: WALTER MARADIAGA Unit No: [id number] EXAMS: CPT CODE: [id number] [facility] TRANSVAGINAL [address] (Continued) [facility] NAME: ROSEWALTER Radiology Department PHYS: Jade Levin III, MD [address] : 1985 AGE: 33 SEX: [place] [address] LOC: LEWIS PHONE #: [phone] EXAM DATE: 05/21/2019 STATUS: DEP ER FAX #: [phone] RAD NO: Page 2 Signed Report- US [id number] 13:17:00 Patient Name: WALTER ROSE Unit No: [id number] EXAMS: CPT CODE: [id number] [place] [address] [facility] [address] [place], [place] [address] LIMITED OBSTETRICAL ULTRASOUND REPORT ----- Pat. Name: WALTER ROSE Pat. No:[id number] Study Date: 05/21/2019 12:12pm , Age: 01 1985, 33 Pregnancies: 4, Para 2 LMP: Unknown GA Selected: 22w5d (From Known E) SANDRA: 09/19/2019 Referring MD: JADE FAUSTIN Nut Sorter: Paramjit Kohli RDMS, RVT CPT4: USPREGLTD Admitting MD: JADE FAUSTIN Hist/Ind: SCAN 1 22.5 WEEKS VAGINAL PAIN/LESTER CERVICAL LENGTH Cervical Length: 4.3 cm Heart Rate: 142 bpm Amniotic Fluid Index: 10.9cm (09.8- 21.7) Q1: 1.6cm Q2:3.8cm Q3: 2.8cm Q4: 2.7cm CLINICAL SUMMARY Type of Gestation: Hawkins Intrauterine in vertex presentation. motion and organs seen: heart motion seen Placental location: Anterior Placental maturity : Grade 1 There is no evidence of placenta previa. Amniotic fluid volume is normal. Uterus and adnexa: No significant abnormality is seen. Katerina Escobar M.D. Electronic Signature 05/21/201901:17pm at 1317 Reported and signed by:Katerina Escobar MD CC: Jade Faustin III, MD Technologist: Paramjit Kohli RDMS, RVT Probe: Trnscrbd D/ (1317) t.ALIDA.NMG Orig Print D/T: S: 05/21/2019 (1317) [facility] NAME: WALTER ROSE Radiology Department PHYS: Jade Levin III, MD [address] : 1985 AGE: 33 SEX: [place] [address] LOC: EduDENI PHONE #: [phone] EXAM DATE: 05/21/2019 STATUS: REG ER FAX #: [phone] RAD NO: Page 1 Signed Report Patient Name: WALTER ROSE UnitNo: [id number] EXAMS: CPT CODE: [id number] LTD [address] (Continued) [facility] NAME: WALTER ROSE Radiology Department PHYS: Jade Levin III, MD [address] : 1985 AGE: 33 SEX: F [place] [address] LOC: EduDENI PHONE #: [phone] EXAM DATE: 05/21/2019 STATUS: REG ER FAX #: [phone] RAD NO: Page 2 Signed ReportDRUGS OF ABUSE [id number] 12:31:00 Test Item Value Reference Range Interpretation Comments UR COCAINE (test code = NEGATIVE NEGATIVE DETE CTION CUT OFF: COCAU) 150 ng/mL UR CANNABINOIDS (test POSITIVE NEGATIVE A RESULT S CALLED TO code = CANU) D.NELLIE.READ B ACK & CONFIRMED? [place] [place]. DETECTION CUT OFF: 50 ng/mL [...] code = PHENCU) 25 ng/m L URINALYSIS [id number] 12:17:00 Test Item Value Reference Range Interpretation [...] SEEN URINE SAMPLE: CLEAN CATCHVAGINAL PATHOGENS DNA [id number] 00:00:00 Test Item Value Reference Range Interpretation Comments DALTON SPECIES (test code = ) NEGATIVE G. VAGINALIS (test code = ) POSITIVE T. VAGINALIS (test code = ) NEGATIVE HCG, [id number] 00:00:00 Test Item Value Reference Range Interpretation Comments HCG, QUANTITATIVE (test code = <5 MIU/ML 2506) VAGINAL PATHOGENS DNA [id number] 00:00:00 Test Item Value Reference Range Interpretation Comments DALTON SPECIES (test code = ) NEGATIVE G. VAGINALIS (test code = 49767) POSITIVE T. VAGINALIS (test code = 95445) NEGATIVE HCG, [id number] 00:00:00 Test Item Value Reference Range Interpretation Comments HCG, QUANTITATIVE (test code = <5 MIU/ML 2506) HCG, [id number] 00:00:00 Test Item Value Reference Range Interpretation Comments HCG, QUANTITATIVE (test code = <5 MIU/ML 2506) HCG, [id number] 00:00:00 Test Item Value Reference Range Interpretation Comments HCG, QUANTITATIVE (test code = <5 MIU/ML 2506) VAGINAL PATHOGENS DNA [id number] 00:00:00 Test Item Value Reference Range Interpretation Comments DALTON SPECIES (test code = ) NEGATIVE G. VAGINALIS (test code = 20237) POSITIVE T. VAGINALIS (test code = 64637) NEGATIVE VAGINAL PATHOGENS DNA [id number] 00:00:00 Test Item Value Reference Range Interpretation Comments DALTON SPECIES (test code = ) NEGATIVE G. VAGINALIS (test code = 56008) POSITIVE T. VAGINALIS (test code = 28849) NEGATIVE PAP TEST, THINPREP, [id number] 00:00:00 Test Item Value Reference Range Interpretation Comments SOURCE: (test code = Cervical/Endocervical 8001) SLIDES: (test code = 1 8011) LMP: (test code = 06/01/2018 8021) SPECIMEN ADEQUACY: (NOTE) (test code = 17935) INTERPRETATION: (test NO EPITHELIAL code = 17950) ABNORMALITY SEE BELOW OTHER COMMENTS: (test (NOTE) code = 8081) SEWAGE PLANT OPERATOR: Shreya (test code = 8101) JUNIOR [place](ASCP)IAC LOCATION: (test code (NOTE) = 37537) CPT: (test code = (NOTE) 8140) PAP TEST, THINPREP, [id number] 00:00:00 Test Item Value Reference Range Interpretation Comments SOURCE: (test code = Cervical/Endocervical 8001) SLIDES: (test code = 1 8011) LMP: (test code = 06/01/2018 8021) SPECIMEN ADEQUACY: (NOTE) (test code = 24185) INTERPRETATION: (test NO EPITHELIAL code = 02673) ABNORMALITY SEE BELOW OTHER COMMENTS: (test (NOTE) code = 8081) SEWAGE PLANT OPERATOR: Shreya (test code = 8101) JUNIOR [place](ASCP)IAC LOCATION: (test code (NOTE) = 16717) CPT: (test code = (NOTE) 8140) HIV AB/AG COMBO RFLX [id number] 00:00:00 Test Item Value Reference Range Interpretation Comments HIV 1/2 4TH GEN, RFLX CONF (test NON-REACTIVE code = 3514) GC AND CHLAMYDIA AMPLIFIED, [id number] 00:00:00 Test Item Value Reference Range Interpretation Comments GONORRHEA, TMA (test code = 60528) NEGATIVE CHLAMYDIA, TMA (test code = 13749) NEGATIVE [id number] 00:00:00 Test Item Value Reference Range Interpretation Comments RPR RESULT (test code = NON-REACTIVE 3501) RPR TITER (test code = 3500) NOT INDIC. TITER [id number] 00:00:00 Test Item Value Reference Range Interpretation Comments RPR RESULT (test code = NON-REACTIVE 3501) RPR TITER (test code = 3500) NOT INDIC. TITER HEPATITIS PROFILE (A,B,C)2018-06-16 00:00:00 Test Item Value Reference Range Interpretation Comments HEPATITIS A TOTAL AB (test code REACTIVE = 2725) HEPATITIS B SURF AG (test code = NON-REACTIVE 9) HEP B CORE TOTAL AB (test code = NON-REACTIVE 2729) HEPATITIS B SURFACE AB (test REACTIVE code = 2737) HEPATITIS C ANTIBODY (test code NON-REACTIVE = 4675) INTERPRETATION HEPATITIS A: (NOTE) (test code = 2552) INTERPRETATION HEPATITIS B: (NOTE) (test code = 11491) INTERPRETATION HEPATITIS C: (NOTE) (test code = 99807) HEPATITIS A IgM [REFLEX]2018-06-16 00:00:00 Test Item Value Reference Range Interpretation Comments HEPATITIS A IgM (test code = NON-REACTIVE 730) VAGINAL PATHOGENS DNA [id number] 00:00:00 Test Item Value Reference Range Interpretation Comments DALTON SPECIES (test code = ) NEGATIVE G. VAGINALIS (test code = ) POSITIVE T. VAGINALIS (test code = ) NEGATIVE HIV AB/AG COMBO RFLX [id number] 00:00:00 Test Item Value Reference Range Interpretation Comments HIV 1/2 4TH GEN, RFLX CONF (test NON-REACTIVE code = 3514) HPV HIGH RISK WITH GENOTYPE, [id number] 00:00:00 Test Item Value Reference Range Interpretation Comments HPV HIGH RISK INTERP (test code = NEGATIVE 45300) HPV 16 (test code = 60981) NEGATIVE HPV 18 (test code = 63258) NEGATIVE HPV, HR, OTHER GENOTYPES (test code NEGATIVE = 14974) [id number] 00:00:00 Test Item Value Reference Range Interpretation Comments RPR RESULT (test code = NON-REACTIVE 3501) RPR TITER (test code = 3500) NOT INDIC. TITER [id number] 00:00:00 Test Item Value Reference Range Interpretation Comments RPR RESULT (test code = NON-REACTIVE 3501) RPR TITER (test code = 3500) NOT INDIC. TITER GC AND CHLAMYDIA AMPLIFIED, [id number] 00:00:00 Test Item Value Reference Range Interpretation Comments GONORRHEA, TMA (test code = 41799) NEGATIVE CHLAMYDIA, TMA (test code = 50262) NEGATIVE HEPATITIS PROFILE (A,B,C)2018-06-16 00:00:00 Test Item Value Reference Range Interpretation Comments HEPATITIS A TOTAL AB (test code REACTIVE = 2725) HEPATITIS B SURF AG (test code = NON-REACTIVE 9) HEP B CORE TOTAL AB (test code = NON-REACTIVE 9) HEPATITIS B SURFACE AB (test REACTIVE code = 2737) HEPATITIS C ANTIBODY (test code NON-REACTIVE = 4675) INTERPRETATION HEPATITIS A: (NOTE) (test code = 2552) INTERPRETATION HEPATITIS B: (NOTE) (test code = 69606) INTERPRETATION HEPATITIS C: (NOTE) (test code = 59273) HEPATITIS A IgM [REFLEX]2018-06-16 00:00:00 Test Item Value Reference Range Interpretation Comments HEPATITIS A IgM (test code = NON-REACTIVE 2727) VAGINAL PATHOGENS DNA [id number] 00:00:00 Test Item Value Reference Range Interpretation Comments DALTON SPECIES (test code = 08143) NEGATIVE G. VAGINALIS (test code = ) POSITIVE T. VAGINALIS (test code = 68205) NEGATIVE HPV HIGH RISK WITH GENOTYPE, [id number] 00:00:00 Test Item Value Reference Range Interpretation Comments HPV HIGH RISK INTERP (test code = NEGATIVE 37686) HPV 16 (test code = 85151) NEGATIVE HPV 18 (test code = 72444) NEGATIVE HPV, HR, OTHER GENOTYPES (test code NEGATIVE = 32367) HERPES SIMPLEX CULTURE AND TYPING [ADDED]2017-12-23 00:00:00 Test Item Value Reference Range Interpretation Comments SPECIMEN SOURCE (test code (NOTE) = 06265) HERPES CULTURE (test code NEGATIVE = 3533) HERPES SIMPLEX TYPE I TEST NOT PERFORMED (test code = 31539) HERPES SIMPLEX TYPE II TEST NOT PERFORMED (test code = 61084) HERPES SIMPLEX CULTURE AND TYPING [ADDED]2017-12-23 00:00:00 Test Item Value Reference Range Interpretation Comments SPECIMEN SOURCE (test code (NOTE) = 07878) HERPES CULTURE (test code NEGATIVE = 3533) HERPES SIMPLEX TYPE I TEST NOT PERFORMED (test code = 10609) HERPES SIMPLEX TYPE II TEST NOT PERFORMED (test code = 32612) HIV AB/AG COMBO RFLX [id number] 00:00:00 Test Item Value Reference Range Interpretation Comments HIV 1/2 4TH GEN, RFLX CONF (test NON-REACTIVE code = 3514) GC AND CHLAMYDIA, AMPLIFIED, [id number] 00:00:00 Test Item Value Reference Range Interpretation Comments GONORRHEA, TMA (test code = 29438) NEGATIVE CHLAMYDIA, TMA (test code = 02068) NEGATIVE [id number] 00:00:00 Test Item Value Reference Range Interpretation Comments RPR RESULT (test code = NON-REACTIVE 3501) RPR TITER (test code = 3500) NOT INDIC. TITER [id number] 00:00:00 Test Item Value Reference Range Interpretation Comments RPR RESULT (test code = NON-REACTIVE 3501) RPR TITER (test code = 3500) NOT INDIC. TITER HIV AB/AG COMBO RFLX [id number] 00:00:00 Test Item Value Reference Range Interpretation Comments HIV 1/2 4TH GEN, RFLX CONF (test NON-REACTIVE code = 3514) GC AND CHLAMYDIA, AMPLIFIED, [id number] 00:00:00 Test Item Value Reference Range Interpretation Comments GONORRHEA, TMA (test code = 87992) NEGATIVE CHLAMYDIA, TMA (test code = 75861) NEGATIVE VAGINAL PATHOGENS DNA [id number] 00:00:00 Test Item Value Reference Range Interpretation Comments DALTON SPECIES (test code = ) NEGATIVE G. VAGINALIS (test code = ) POSITIVE T. VAGINALIS (test code = ) NEGATIVE VAGINAL PATHOGENS DNA [id number] 00:00:00 Test Item Value Reference Range Interpretation Comments DALTON SPECIES (test code = ) NEGATIVE G. VAGINALIS (test code = ) POSITIVE T. VAGINALIS (test code = ) NEGATIVE [id number] 00:00:00 Test Item Value Reference Range Interpretation Comments RPR RESULT (test code = NON-REACTIVE 3501) RPR TITER (test code = 3500) NOT INDIC. TITER [id number] 00:00:00 Test Item Value Reference Range Interpretation Comments RPR RESULT (test code = NON-REACTIVE 3501) RPR TITER (test code = 3500) NOT INDIC. TITER HCG, [id number] 00:00:00 Test Item Value Reference Range Interpretation Comments HCG, QUANTITATIVE (test code = <5 MIU/ML 2506) HCG, [id number] 00:00:00 Test Item Value Reference Range Interpretation Comments HCG, QUANTITATIVE (test code = <5 MIU/ML 2506) HCG, [id number] 00:00:00 Test Item Value Reference Range Interpretation Comments HCG, QUANTITATIVE (test code = <5 MIU/ML 2506) HCG, [id number] 00:00:00 Test Item Value Reference Range Interpretation Comments HCG, QUANTITATIVE (test code = <5 MIU/ML 2506) PAP TEST, THINPREP, [id number] 00:00:00 Test Item Value Reference Range Interpretation Comments SOURCE: (test code = Cervical/Endocervical 8001) SLIDES: (test code = 1 8011) LMP: (test code = 8021) SPECIMEN ADEQUACY: (NOTE) (test code = 87026) INTERPRETATION: (test NO EPITHELIAL code = 05686) ABNORMALITY SEE BELOW OTHER COMMENTS: (test (NOTE) code = 8081) [employer] OPERATOR: Uzma Huffman (test code = 8101) JUNIOR Bautista(ASCP)IAC QC TECHNOLOGIST: IGA (test code = 8111) JUNIOR SAMSON(ASCP)[facility] LOCATION: (test code (NOTE) = 82771) CPT: (test code = (NOTE) 8140) PAP TEST, THINPREP, [id number] 00:00:00 Test Item Value Reference Range Interpretation Comments SOURCE: (test code = Cervical/Endocervical 8001) SLIDES: (test code = 1 8011) LMP: (test code = 8021) SPECIMEN ADEQUACY: (NOTE) (test code = 68581) INTERPRETATION: (test NO EPITHELIAL code = 43295) ABNORMALITY SEE BELOW OTHER COMMENTS: (test (NOTE) code = 8081) [employer] OPERATOR: Uzma Huffman (test code = 8101) JUNIOR Bautista(ASCP)IAC QC TECHNOLOGIST: GIA (test code = 8111) JUNIOR SAMSON(ASCP)[facility] LOCATION: (test code (NOTE) = 69314) CPT: (test code = (NOTE) 8140) CBC W/AUTO [id number] 00:00:00 Test Item Value Reference Range Interpretation [...] 214 K/UL HPV HIGH RISK WITH GENOTYPE, [id number] 00:00:00 Test Item Value Reference Range Interpretation Comments HPV HIGH RISK INTERP (test code = NEGATIVE 73180) HPV 16 (test code = 22710) NEGATIVE HPV 18 (test code = 08048) NEGATIVE HPV, HR, OTHER GENOTYPES (test code NEGATIVE = 81535) HEMOGLOBIN [id number] 00:00:00 Test Item Value Reference Range Interpretation Comments HEMOGLOBIN A1c (test code = 29282) 5.5 % HEMOGLOBIN [id number] 00:00:00 Test Item Value Reference Range Interpretation Comments HEMOGLOBIN A1c (test code = 71586) 5.5 % THYROID II PROFILE (T3U, T4, T7, TSH)2017-04-21 00:00:00 Test Item Value Reference Range Interpretation Comments T3 UPTAKE (test code = 2817) 30.4 % T4 (THYROXINE) (test code = 5.9 UG/DL 2819) CALCULATED T7 (FTI) (test code = 1.79 2820) TSH (test code = 2821) 3.100 UIU/ML HIV AB/AG COMBO RFLX [id number] 00:00:00 Test Item Value Reference Range Interpretation Comments HIV 1/2 4TH GEN, RFLX CONF (test NON-REACTIVE code = 3514) HEPATITIS B SURFACE [id number] 00:00:00 Test Item Value Reference Range Interpretation Comments HEPATITIS B SURFACE AB (test code = REACTIVE 2737) [id number] 00:00:00 Test Item Value Reference Range Interpretation Comments RPR RESULT (test code = NON-REACTIVE 3501) RPR TITER (test code = 3500) NOT INDIC. TITER [id number] 00:00:00 Test Item Value Reference Range Interpretation Comments RPR RESULT (test code = NON-REACTIVE 3501) RPR TITER (test code = 3500) NOT INDIC. TITER RUBELLA ANTIBODY [id number] 00:00:00 Test Item Value Reference Range Interpretation Comments RUBELLA ANTIBODY SCREEN (test code 376 IU/ML = 4600) RUBELLA IgG INTERP (test code = REACTIVE 22563) HEPATITIS C REFLEX [id number] 00:00:00 Test Item Value Reference Range Interpretation Comments HEPATITIS C ANTIBODY (test code NON-REACTIVE = 4675) LIPID [id number] 00:00:00 Test Item Value Reference Range Interpretation Comments CHOLESTEROL (test code = 2210) 166 MG/DL TRIGLYCERIDES (test code = 2232) 79 MG/DL HDL CHOLESTEROL (test code = 2220) 44 MG/DL CALC LDL CHOL (test code = 2237) 106 MG/DL RISK RATIO LDL/HDL (test code = 2.41 RATIO 2238) CBC W/AUTO [id number] 00:00:00 Test Item Value Reference Range Interpretation [...] code = 1015) 214 K/UL CBC W/AUTO [id number] 00:00:00 Test Item Value Reference Range Interpretation [...] (test code = 1015) 214 K/UL HEMOGLOBIN [id number] 00:00:00 Test Item Value Reference Range Interpretation Comments HEMOGLOBIN A1c (test code = 52220) 5.5 % HPV HIGH RISK WITH GENOTYPE, [id number] 00:00:00 Test Item Value Reference Range Interpretation Comments HPV HIGH RISK INTERP (test code = NEGATIVE 86617) HPV 16 (test code = 70373) NEGATIVE HPV 18 (test code = 99806) NEGATIVE HPV, HR, OTHER GENOTYPES (test code NEGATIVE = 10953) HEMOGLOBIN [id number] 00:00:00 Test Item Value Reference Range Interpretation Comments HEMOGLOBIN A1c (test code = 91053) 5.5 % THYROID II PROFILE (T3U, T4, T7, TSH)2017-04-21 00:00:00 Test Item Value Reference Range Interpretation Comments T3 UPTAKE (test code = 2817) 30.4 % T4 (THYROXINE) (test code = 5.9 UG/DL 2819) CALCULATED T7 (FTI) (test code = 1.79 2820) TSH (test code = 2821) 3.100 UIU/ML HIV AB/AG COMBO RFLX [id number] 00:00:00 Test Item Value Reference Range Interpretation Comments HIV 1/2 4TH GEN, RFLX CONF (test NON-REACTIVE code = 3514) HEPATITIS B SURFACE [id number] 00:00:00 Test Item Value Reference Range Interpretation Comments HEPATITIS B SURFACE AB (test code = REACTIVE 2737) [id number] 00:00:00 Test Item Value Reference Range Interpretation Comments RPR RESULT (test code = NON-REACTIVE 3501) RPR TITER (test code = 3500) NOT INDIC. TITER [id number] 00:00:00 Test Item Value Reference Range Interpretation Comments RPR RESULT (test code = NON-REACTIVE 3501) RPR TITER (test code = 3500) NOT INDIC. TITER RUBELLA ANTIBODY [id number] 00:00:00 Test Item Value Reference Range Interpretation Comments RUBELLA ANTIBODY SCREEN (test code 376 IU/ML = 4600) RUBELLA IgG INTERP (test code = REACTIVE 79419) HEPATITIS C REFLEX [id number] 00:00:00 Test Item Value Reference Range Interpretation Comments HEPATITIS C ANTIBODY (test code NON-REACTIVE = 4675) GC AND CHLAMYDIA AMPLIFIED, [id number] 00:00:00 Test Item Value Reference Range Interpretation Comments GONORRHEA, TMA (test code = 37745) NEGATIVE CHLAMYDIA, TMA (test code = 65075) NEGATIVE LIPID [id number] 00:00:00 Test Item Value Reference Range Interpretation Comments CHOLESTEROL (test code = 2210) 166 MG/DL TRIGLYCERIDES (test code = 2232) 79 MG/DL HDL CHOLESTEROL (test code = 2220) 44 MG/DL CALC LDL CHOL (test code = 2237) 106 MG/DL RISK RATIO LDL/HDL (test code = 2.41 RATIO 2238) GC AND CHLAMYDIA AMPLIFIED, [id number] 00:00:00 Test Item Value Reference Range Interpretation Comments GONORRHEA, TMA (test code = 28411) NEGATIVE CHLAMYDIA, TMA (test code = 59336) NEGATIVE CBC W/AUTO [id number] 00:00:00 Test Item Value Reference Range Interpretation [...] 1015) 214 K/UL GC AND CHLAMYDIA, AMPLIFIED, [id number] 00:00:00 Test Item Value Reference Range Interpretation Comments GONORRHEA, TMA (test code = 57527) NEGATIVE CHLAMYDIA, TMA (test code = 61297) NEGATIVE GC AND CHLAMYDIA, AMPLIFIED, [id number] 00:00:00 Test Item Value Reference Range Interpretation Comments GONORRHEA, TMA (test code = 54448) NEGATIVE CHLAMYDIA, TMA (test code = 41112) NEGATIVE [id number] 00:00:00 Test Item Value Reference Range Interpretation Comments RPR RESULT (test code = NON-REACTIVE 3501) RPR TITER (test code = 3500) NOT INDIC. TITER [id number] 00:00:00 Test Item Value Reference Range Interpretation Comments RPR RESULT (test code = NON-REACTIVE 3501) RPR TITER (test code = 3500) NOT INDIC. TITER HIV AB/AG COMBO RFLX [id number] 00:00:00 Test Item Value Reference Range Interpretation [...] INTERPRETATION HEPATITIS B: (NOTE) (test code = 37712) INTERPRETATION HEPATITIS C: (NOTE) (test code = 18806) [id number] 00:00:00 Test Item Value Reference Range Interpretation Comments RPR RESULT (test code = NON-REACTIVE 3501) RPR TITER (test code = 3500) NOT INDIC. TITER [id number] 00:00:00 Test Item Value Reference Range Interpretation Comments RPR RESULT (test code = NON-REACTIVE 3501) RPR TITER (test code = 3500) NOT INDIC. TITER HIV AB/AG COMBO RFLX [id number] 00:00:00 Test Item Value Reference Range Interpretation [...] INTERPRETATION HEPATITIS B: (NOTE) (test code = 79719) INTERPRETATION HEPATITIS C: (NOTE) (test code = 65709) VAGINAL PATHOGENS DNA [id number] 00:00:00 Test Item Value Reference Range Interpretation Comments DALTON SPECIES (test code = 13335) POSITIVE G. VAGINALIS (test code = 30764) POSITIVE T. VAGINALIS (test code = 62849) NEGATIVE VAGINAL PATHOGENS DNA [id number] 00:00:00 Test Item Value Reference Range Interpretation Comments DALTON SPECIES (test code = 23829) POSITIVE G. VAGINALIS (test code = 65270) POSITIVE T. VAGINALIS (test code = 50313) NEGATIVE TEST, [id number] 00:00:00 Test Item Value Reference Range Interpretation Comments TEST, SERUM (test code = NEGATIVE 2507) TEST, [id number] 00:00:00 Test Item Value Reference Range Interpretation Comments TEST, SERUM (test code = NEGATIVE 2507) VAGINAL PATHOGENS DNA [id number] 00:00:00 Test Item Value Reference Range Interpretation Comments DALTON SPECIES (test code = 39522) NEGATIVE G. VAGINALIS (test code = 79046) NEGATIVE T. VAGINALIS (test code = 26518) NEGATIVE VAGINAL PATHOGENS DNA [id number] 00:00:00 Test Item Value Reference Range Interpretation Comments DALTON SPECIES (test code = 28520) NEGATIVE G. VAGINALIS (test code = 45869) NEGATIVE T. VAGINALIS (test code = 45532) NEGATIVE TEST, [id number] 00:00:00 Test Item Value Reference Range Interpretation Comments TEST, SERUM (test code = NEGATIVE 2507) TEST, [id number] 00:00:00 Test Item Value Reference Range Interpretation Comments TEST, SERUM (test code = NEGATIVE 2507) GC AND CHLAMYDIA, AMPLIFIED, [id number] 00:00:00 Test Item Value Reference Range Interpretation Comments GONORRHEA, AMPLIFIED (test code = NEGATIVE 15040) CHLAMYDIA, AMPLIFIED (test code = POSITIVE 95744) GC AND CHLAMYDIA, AMPLIFIED, [id number] 00:00:00 Test Item Value Reference Range Interpretation Comments GONORRHEA, AMPLIFIED (test code = NEGATIVE 78502) CHLAMYDIA, AMPLIFIED (test code = POSITIVE 01428) VAGINAL PATHOGENS DNA [id number] 00:00:00 Test Item Value Reference Range Interpretation Comments DALTON SPECIES (test code = ) NEGATIVE G. VAGINALIS (test code = 56585) POSITIVE T. VAGINALIS (test code = 31545) NEGATIVE VAGINAL PATHOGENS DNA [id number] 00:00:00 Test Item Value Reference Range Interpretation Comments DALTON SPECIES (test code = ) NEGATIVE G. VAGINALIS (test code = 34571) POSITIVE T. VAGINALIS (test code = 97781) NEGATIVE GC, AMPLIFIED, [id number] 00:00:00 Test Item Value Reference Range Interpretation Comments GONORRHEA, AMPLIFIED (test code = NEGATIVE 61474) HEPATITIS PROFILE (A,B,C)2015-08-01 00:00:00 Test Item Value [...] INTERPRETATION HEPATITIS B: (NOTE) (test code = 61242) INTERPRETATION HEPATITIS C: (NOTE) (test code = 59090) TRICHOMONAS, URINE, [id number] 00:00:00 Test Item Value Reference Range Interpretation Comments TRICHOMONAS, URINE, AMP (test code = NEGATIVE 86156) HIV AB/AG COMBO RFLX [id number] 00:00:00 Test Item Value Reference Range Interpretation Comments HIV AB/AG COMBO RFLX CONF (test NON-REACTIVE code = 3514) [id number] 00:00:00 Test Item Value Reference Range Interpretation Comments RPR RESULT (test code = NON-REACTIVE 3501) RPR TITER (test code = 3500) NOT INDIC. TITER [id number] 00:00:00 Test Item Value Reference Range Interpretation Comments RPR RESULT (test code = NON-REACTIVE 3501) RPR TITER (test code = 3500) NOT INDIC. TITER HEPATITIS A IgM [REFLEX]2015-08-01 00:00:00 Test Item Value Reference Range Interpretation Comments HEPATITIS A IgM (test code = NON-REACTIVE 8578) CHLAMYDIA, AMPLIFIED, [id number] 00:00:00 Test Item Value Reference Range Interpretation Comments CHLAMYDIA, AMPLIFIED (test code = NEGATIVE 99416) GC, AMPLIFIED, [id number] 00:00:00 Test Item Value Reference Range Interpretation Comments GONORRHEA, AMPLIFIED (test code = NEGATIVE 75565) HEPATITIS PROFILE (A,B,C)2015-08-01 00:00:00 Test Item Value [...] INTERPRETATION HEPATITIS B: (NOTE) (test code = 06673) INTERPRETATION HEPATITIS C: (NOTE) (test code = 53765) TRICHOMONAS, URINE, [id number] 00:00:00 Test Item Value Reference Range Interpretation Comments TRICHOMONAS, URINE, AMP (test code = NEGATIVE 27239) HIV AB/AG COMBO RFLX [id number] 00:00:00 Test Item Value Reference Range Interpretation Comments HIV AB/AG COMBO RFLX CONF (test NON-REACTIVE code = 3514) [id number] 00:00:00 Test Item Value Reference Range Interpretation Comments RPR RESULT (test code = NON-REACTIVE 3501) RPR TITER (test code = 3500) NOT INDIC. TITER [id number] 00:00:00 Test Item Value Reference Range Interpretation Comments RPR RESULT (test code = NON-REACTIVE 3501) RPR TITER (test code = 3500) NOT INDIC. TITER HEPATITIS A IgM [REFLEX]2015-08-01 00:00:00 Test Item Value Reference Range Interpretation Comments HEPATITIS A IgM (test code = NON-REACTIVE 2728) CHLAMYDIA, AMPLIFIED, [id number] 00:00:00 Test Item Value Reference Range Interpretation Comments CHLAMYDIA, AMPLIFIED (test code = NEGATIVE 11213) Notes Date/Time Note Provider Source 2023-03-03 13:31:00-00:00 [facility] DENI Evaluation Note REPORT#:[id number] REPORT STATUS: Signed DATE:03/03/23 TIME: 1331 PATIENT: WALTER ROSE UNIT #: [id number] ROOM/BED: : 87 AGE: 37 SEX: F ATTEND: Junior Tapia MD ADM DT: AUTHOR: Miky Alexandra MD * ALL edits or amendments must be made on the el [employer]/computer document * DENI History Family history Relation not specified for: Family History: Cancer Family History: Diabetes Family History: Heart disease Allergies Coded Allergies: latex (Mild, RASH-UNKNOWN 08/13/19) Objective General VS: Last Documented: Result Date Time B/P Mean 69.0 03/03 1207 B/P 99/50 03/03 1207 Pulse 91 03/03 1207 Vital Signs Date Temp Pulse Resp B/P B/P Mean Pulse Ox FiO2 03/03 91-93 86-99/38-50 55.0-69.0 PATIENT WEIGHT: Weight (lb): Weight (oz): Weight (kg): Results Findings/Data: Laboratory Tests: 03/03 03/03 1222 1140 Chemistry Sodium (135 - 145 mEq/L) 133 L Potassium (3.5 - 5.0 mEq/L) 3.7 Chloride (100 - 115 mEq/L) 102 Carbon Dioxide (22 - 31 mEq/L) 22 Anion Gap (10 - 20) 12.60 BUN (7 - 18 mg/dL) 8 Creatinine (0.5 - 1.0 mg/dL) 0.5 Glomerular Filtr Rate (>60 ml/min) 125 Glucose (65 - 110 mg/dL) 79 Calcium (8.4 - 10.2 mg/dL) 8.3 L Total Bilirubin (0.2 - 1.0 mg/dL) 0.6 AST (15 - 37 units/L) 14 L ALT (12 - 78 units/L) 24 Total Alk Phosphatase (46 - 116 units/L) 70 Total Protein (6.3 - 8.2 gm/dL) 6.0 L Albumin (3.4 - 4.8 gm/dL) 2.5 L Hematology WBC (6.5 - 12.3 K/mm3) 8.3 RBC (3.51 - 4.69 M/mm3) 4.24 Hgb (10.1 - 13.8 g/dL) 10.7 Hct (32.5 - 41.8 %) 33.4 MCV (84.6 - 96.6 fL) 78.8 L MCH (27.3 - 33.9 pg) 25.2 L MCHC (32.0 - 34.2 gm/dL) 32.0 RDW (12.2 - 16.3 %) 15.2 Plt Count (134 - 363 K/mm3) 164 MPV (9.2 - 12.7 fL) 10.6 Neut % (Auto) (57.9 - 77.3 %) 87.3 H Lymph % (Auto) (14.5 - 29.7 %) 7.8 L Blount % (Auto) (3.6 - 10.2 %) 4.2 Eos % (Auto) (0.0 - 3.0 %) 0.1 Baso % (Auto) (0.1 - 0.9 %) 0.1 Neut # (Auto) (K/mm3) 7.2 Lymph # (Auto) (K/mm3) 0.7 Blount # (Auto) (K/mm3) 0.4 Eos # (Auto) (K/mm3) 0.01 Baso # (Auto) (K/mm3) 0.0 Urines Urine Color (YELLOW) YELLOW Urine Appearance (CLEAR) Slightly-Cloudy Urine pH (5 - 9) 5.0 Ur Specific Bucklin (1.001 - 1.035) 1.029 Urine Protein (NEG) NEGATIVE Urine Glucose (UA) (NEG) NEGATIVE Urine Ketones (NEG) NEGATIVE Urine Blood (NEG) NEG Urine Nitrite (NEG) NEG Urine Bilirubin (NEG) NEGATIVE Urine Urobilinogen (NEG mg/dL) NEGATIVE Ur Leukocyte Esterase (NEG) NEG Urine RBC (NONE SEEN #/hpf) 3-5 H Urine WBC (NONE SEEN #/hpf) 3-5 H Ur Epithelial Cells (RARE - FEW #/HPF) RARE Urine Bacteria (RARE - FEW /HPF) RARE Urine Mucus (NONE SEEN) 4+ Diagnosis, Assessment Plan Diagnosis, Assessment Plan Free Text A P: 37 y/o EDC 07-15-23 ARNELIA seen in obe d c/o ad pain, n/v since yesterday. also had watery diarrhea. see n at [place] [facility], given zofran, ivf, + fca. reports sympt somewhat improved. no ctx, bl eeding or srom. decr fm since yest PNC w regina, uncomplic POBHx 2005 csect at 43wk iuf d, 2005 rcsect at 36w, 2013 tab, 2018 rcsect at 36 w for palcental insuffic, hosp in apu x 1m PMH- dx w lupus prepregg, but nl kidney and live r testing per pt PSH csect x 3, lapband, sleeve, lap promise NKMA MEDS pnv SH no tob, alc da PE afvss FHT + abd obese, soft non tender LABS as above PLAN- given 1 liter LR, she feel better, dc home , keep next appt w dr regina tapia aware Electronically Signed by Miky Alexandra MD on at 1338 RPT #:[id number] END OF REPORT 2019-09-20 19:30:00-00:00 [id number] [facility] [address] [address] PATIENT NAME: WALTER ROSE ADMIT DATE: ACCOUNT NO: [id number] ROOM NO: [facility] AGE: 33 SEX: F ADMITTING PHYSICIAN: Junior Tapia MD ATTENDING PHYSICIAN: Junior Tapia MD ADMISSION DATE: 08/16/2019 DISCHARGE DATE: 08/26/2019 ADMITTING DIAGNOSES: 1. Decreased movements. 2. Oligohydramnios. 3. Prior history of demise. 4. Prior delivery x2. DISCHARGE DIAGNOSES: 1. Decreased movements. 2. Oligohydramnios. 3. Prior history of demise. 4. Prior delivery x2. 5. Status post repeat low transverse se ction via Pfannenstiel. HPI: Please refer to H and P dictated on admissi on. HOSPITAL COURSE: The patient was admitted. She w as observed due to her previous history and increas ed risk for demise and she underwent a repeat low transverse section at 36 weeks. Her postoperative stay was uneventful. Upon discharge, she was ambulating, tolerating a regular diet, passing flatus. Pain and bleeding were minimal. Physical exam and vitals remained stable within normal limits and she was discharged home. DISCHARGE ORDERS: 1. Discharge home. 2. Follow up in 10 days. 3. Precautions and instructions per routine. Dictated By: Junior Tapia MD WT: DS:FKRISS/CHACORTA/NORA Conf#: [id number]/DID#: [id number] Authenticated by Junior Tapia MD On 09/21/2019 0 9:25:18 AM PATIENT NAME: WALTER ROSE ACCOUNT #: [id number] Electronically Signed by Junior Tapia MD on 08/27 04/13 at 0925 PATIENT NAME: WALTER ROSE ACCOUNT #: [id number] 2019-08-28 07:11:00-00:00 [id number] [facility] [address] [address] PATIENT NAME: WALTER ROSE ADMIT DATE: ACCOUNT NO: [id number] ROOM NO: [facility] AGE: 33 SEX: F ADMITTING PHYSICIAN: Junior Tapia MD ATTENDING PHYSICIAN: Junior Tapia MD OPERATION DATE: 08/22/2019 PREOPERATIVE DIAGNOSIS: 1. Intrauterine at 36 weeks. 2. Prior section. 3. Prior demise. 4. Chronic decreased movements. POSTOPERATIVE DIAGNOSES: 1. Intrauterine at 36 weeks. 2. Prior section. 3. Prior demise. 4. Chronic decreased movements. PROCEDURE: Repeat low transverse sectio n via Pfannenstiel. SURGEON: Junior Tapia MD SPORTS UMPIRE: Nathan Sanchez. COMPLICATIONS: None. ESTIMATED BLOOD LOSS: 950 mL. INTRAVENOUS FLUIDS: 2000 mL LR. URINE OUTPUT: 100 mL clear at the end of the pro cedure. FINDINGS: Female infant, cephalic presentation, Apgars 8 and 9, weight 2900 grams. Placenta 3-vessel cord intact. The uterus , tubes, and ovaries were normal. PROCEDURE IN DETAIL: After t risks, benefits, alternatives, and the nature of the procedure were discussed with the patient at length, she voiced understanding, all her questions were answered t o her satisfaction and she signed consent. She was take n to the operating room where spinal anesthesia was found to be adequate. She was then prepared and draped in the normal sterile fashion in dorsal supine position with a leftwar d tilt. A Pfannenstiel skin incision was done with a scalpel and carried olesya n to the underlying layer of fascia, which was incised in the midline and ext ended laterally with Andre scissors. The fascial borders were serially gras ped with Isa clamps, elevated, and the underlying layer of muscles wa s dissected off bluntly. The muscles were in the midline as well as the peritoneum. The bladder PATIENT NAME: WALTER ROSE ACCOUNT #: [id number] blade was inserted. The vesicouterine peritoneum was entered with Metzenbaum scissors and extended laterally. The bladder fla p was created. The bladder blade was reinserted and the lower segment of th e uterus was incised in the midline and extended laterally with bandage scis sors. Amniotomy was done with clear fluid obtained. The head was delivered thr ough the uterine incision; however, the head would not come out despite usu al maneuvers. Therefore, a vacuum was applied and with 1 pull, no pop-off, the head was delivered atraumatically. The vacuum was released. No head trauma was noticed. The rest of the body was delivered atraumatically. Nose a nd mouth were suctioned. Cord clamped and cut. Baby handed off to the awaiting baby care team. Placenta was delivered spontaneously and the uterus was exteriorized and cleared of all clots and debris. The uterine incision was closed with 1.0 chromic in usual locked fashion. Another layer of the same suture was pl aced to obtain excellent hemostasis. The uterus was returned to the abdom en. The gutters were cleared of all clots and debris. Excellent hemos tasis was noted. The abdominal muscles were reapproximated with interrupted 2.0 chromic stitch incorporating the underlying layer of peritoneum. Excellen t hemostasis was noted. The fascia was closed with 0 PDS in a running fashion. Excellen t hemostasis was noted. Irrigation with warm normal saline was done. Exc ellent hemostasis was noted. The subcutaneous layer was closed with 3.0 Vicry l in a running fashion. Excellent hemostasis was noted. The skin was matt sed with amanda. Pressure dressing was applied. All counts throughout the procedure and after the procedure were correct. The patient was taken to the recovery room in awake and stable condition. PATHOLOGY: Placenta. Dictated By: Junior Tapia MD WT: OP:F.JURGEN/CHACORTA/NORA Conf#: [id number]/DID#: [id number] Authenticated by Junior Tapia MD On 09/20/2019 0 7:11:20 PM Electronically Signed by Junior Tapia MD on 08/27 03/14 at 1911 PATIENT NAME: WALTER ROSE ACCOUNT #: [id number] 2019-08-26 10:31:00-00:00 [facility] ([facility]) OB Postpart Progr Note REPORT#:[id number] REPORT STATUS: Signed DATE:08/26/19 TIME: 1031 PATIENT: WALTER ROSE UNIT #: [id number] ROOM/BED: [address] : 87 AGE: 33 SEX: F ATTEND: Junior Tapia MD ADM AUTHOR: Evelia Baldwin MD * ALL edits or amendments must be made on the [employer]/computer document * Subjective Subjective Status/day: post , post operative, day # 5 Patient reports: Patient reports: Yes: normal lochia, pain management effective, tolerating po well, voiding well, voiding without pain, tolerating ambulatio n, flatus. No: complaints. Objective General VS: Vital Signs Date Temp Pulse Resp B/P B/P Mean Pulse Ox FiO2 08/25-08/26 98.6-98.7 96-109 18 100-109/65-73 Last Documented: Result Date Time B/P 08/26 Temp 98.7 08/26 0745 Pulse 96 08/26 0745 Resp 18 08/26 0745 B/P Mean 84.0 08/22 1100 Pulse Ox 99 08/22 1100 Patient Weight Weight (lb): 278 Weight (oz): Weight (kg): 126.099 Physical Exam Lungs: clear to auscultation Neuro: Exam: alert, oriented x3, normal speech Abdomen: soft, no abnormal tenderness Incision site: well approximated edges, no drain age, no inflammation Uterus: firm, involution appropriate, non-tender Fundus: at the umbilicus Lochia: normal Lower extremities: Edema: none Calf tenderness: negative Diagnosis, Assessment Plan Diagnosis, Assessment Plan Assessment: nml p rogress, anemia r/t: (blood loss, stable), discahrge held last night because of psychosocial issues Plan: routine care, discharge today (follow up [address] Tapia), iron therapy Electronically Signed by Evelia Baldwin MD on 10/14 at 1032 RPT #:[id number] END OF REPORT 2019-08-25 10:42:00-00:[address] [facility] ([facility]) OB Postpart Progr Note REPORT#:[id number] REPORT STATUS: Signed DATE:08/25/19 TIME: 1042 PATIENT: WALTER ROSE UNIT #: [id number] ROOM/BED: [address] : 87 AGE: 33 SEX: F ATTEND: Junior Tapia MD ADM AUTHOR: Evelia Baldwin MD * ALL edits or amendments must be made on the [employer] document * Subjective Subjective Status/day: post , post operative, day # 4 Patient reports: Patient reports: Yes: normal lochia, pain management effective, tolerating po well, voiding well, voiding without pain, tolerating ambulatio n, flatus. No: complaints. Objective General VS: Vital Signs Date Temp Pulse Resp B/P B/P Mean Pulse Ox FiO2 08/24-08/25 98.1-98.8 88-105 18-20 95-109/51-71 Last Documented: Result Date Time B/P 95/64 08/25 0803 Temp 98.1 08/25 0803 Pulse 88 08/25 0803 Resp 18 08/25 0803 B/P Mean 84.0 08/22 1100 Pulse Ox 99 08/22 1100 Patient Weight Weight (lb): 278 Weight (oz): Weight (kg): 126.099 Physical Exam Lungs: clear to auscultation Neuro: Exam: alert, oriented x3, normal speech Abdomen: soft, no abnormal tenderness Incision site: well approximated edges, no drain age, no inflammation Uterus: firm, involution appropriate, non-tender Fundus: at the umbilicus Lochia: normal Lower extremities: Edema: none Calf tenderness: negative Result Findings/data: Laboratory Tests 08/24 08/23 0500 0533 Hematology WBC (6.6 - 12.1 K/mm3) 10.9 RBC (3.45 - 5.01 M/mm3) 2.89 L Hgb (10.7 - 13.9 g/dL) 7.4 L 7.3 L Hct (32.1 - 42.1 %) 24.6 L 23.7 L MCV (84.1 - 94.8 fL) 82 L MCH (27 - 35 pg) 25.3 L MCHC (32.2 - 34.1 gm/dL) 30.8 L RDW (12.4 - 16.5 %) 13.9 Plt Count (133 - 385 K/mm3) 172 MPV (9.1 - 12.7 fl) 9.7 Neut % (Auto) (56.5 - 79.4 %) 72.7 Lymph % (Auto) (14.3 - 34.3 %) 18.2 Blount % (Auto) (5.1 - 10.4 %) 7.2 Eos % (Auto) (0.1 - 3.0 %) 0.3 Baso % (Auto) (0.1 - 1.0 %) 0.1 Neut # (Auto) (K/mm3) 7.9 Lymph # (Auto) (K/mm3) 2.0 Blount # (Auto) (K/mm3) 0.8 Eos # (Auto) (K/mm3) 0.03 Baso # (Auto) (K/mm3) 0.0 Immature Plt Fraction (0.0 - 10.8 %) 0.0 Diagnosis, Assessment Plan Diagnosis, Assessment Plan Assessment: nml progress, anemia r/t: (blood loss, stable) Plan: routine care, discharge today (follow up [address] Tapia), iron therapy Electronically Signed by Evelia Baldwin MD on at 1044 RPT #:[id number] END OF REPORT 2019-08-25 10:42:00-00:00 [facility] OB Postpart Progr Note REPORT#:[id number] REPORT STATUS: Signed DATE:08/25/19 TIME: 1042 PATIENT: WALTER ROSE UNIT #: [id number] ROOM/BED: [address] : 87 AGE: 33 SEX: F ATTEND: Junior Tapia MD ADM AUTHOR: Evelia Baldwin MD * ALL edits or amendments must be made on the [employer]computer document * See Addendum Subjective Subjective Status/day: post , post operative, day # 4 Patient reports: Patient reports: Yes: normal lochia, pain management effective, tolerating po well, voiding well, voiding without pain, tolerating ambulatio n, flatus. No: complaints. Objective General VS: Vital Signs Date Temp Pulse Resp B/P B/P Mean Pulse Ox FiO2 08/24-08/25 98.1-98.8 88-105 18-20 95-109/51-71 Last Documented: Result Date Time B/P 95/64 08/25 0803 Temp 98.1 08/25 0803 Pulse 88 08/25 0803 Resp 18 08/25 0803 B/P Mean 84.0 08/22 1100 Pulse Ox 99 08/22 1100 Patient Weight Weight (lb): 278 Weight (oz): Weight (kg): 126.099 Physical Exam Lungs: clear to auscultation Neuro: Exam: alert, oriented x3, normal speech Abdomen: soft, no abnormal tenderness Incision site: well approximated edges, no drain age, no inflammation Uterus: firm, involution appropriate, non-tender Fundus: at the umbilicus Lochia: normal Lower extremities: Edema: none Calf tenderness: negative Result Findings/data: Laboratory Tests 08/24 08/23 0500 0533 Hematology WBC (6.6 - 12.1 K/mm3) 10.9 RBC (3.45 - 5.01 M/mm3) 2.89 L Hgb (10.7 - 13.9 g/dL) 7.4 L 7.3 L Hct (32.1 - 42.1 %) 24.6 L 23.7 L MCV (84.1 - 94.8 fL) 82 L MCH (27 - 35 pg) 25.3 L MCHC (32.2 - 34.1 gm/dL) 30.8 L RDW (12.4 - 16.5 %) 13.9 Plt Count (133 - 385 K/mm3) 172 MPV (9.1 - 12.7 fl) 9.7 Neut % (Auto) (56.5 - 79.4 %) 72.7 Lymph % (Auto) (14.3 - 34.3 %) 18.2 Blount % (Auto) (5.1 - 10.4 %) 7.2 Eos % (Auto) (0.1 - 3.0 %) 0.3 Baso % (Auto) (0.1 - 1.0 %) 0.1 Neut # (Auto) (K/mm3) 7.9 Lymph # (Auto) (K/mm3) 2.0 Blount # (Auto) (K/mm3) 0.8 Eos # (Auto) (K/mm3) 0.03 Baso # (Auto) (K/mm3) 0.0 Immature Plt Fraction (0.0 - 10.8 %) 0.0 Diagnosis, Assessment Plan Diagnosis, Assessment Plan Assessment: nml progress, anemia r/t: (blood loss, stable) Plan: routine care, discharge today (follow up [address] Tapia), iron therapy Electronically Signed by Evelia Baldwin MD on at 1044 Addendum 1: 08/25/19 1445 by Evelia Baldwin MD Discharge held pending Social Service clearance. Electronically Signed by Evelia Baldwin MD on at 1446 RPT #:[id number] END OF REPORT 2019-08-24 06:46:00-00:[address] [facility] ([facility]) OB Postpart Progr Note REPORT#:[id number] REPORT STATUS: Signed DATE:08/24/19 TIME: 06 PATIENT: WALTER ROSE UNIT #: [id number] ROOM/BED: [address] : 87 AGE: 33 SEX: F ATTEND: Je Tapia MD ADM AUTHOR: Miky Alexandra MD * ALL edits or amendments must be made on the [employer]computer document * Subjective Subjective Status/Day: post operative (day 2) Patient reports: Patient reports: Yes no complaints, Yes normal lochia, Yes pain management effective, Yes tolerating po well, Yes voiding well, Ye s voiding without pain, Yes tolerating ambulation, Yes flatus, No bowel movement Comments: no dizziness when walking Objective General VS: Vital Signs: Date Time Temp Pulse Resp B/P B/P Pulse O2 O2 F low FiO2 Mean Ox Delivery Rate 08/24 407 98.2 97 20 101/67 08/23 2007 98.2 97 20 116/72 08/23 1621 98.3 98 18 10108/23 1221 98.1 95 18 108/69 08/23 0845 97.5 93 18 97/65 Patient Weight Weight (lb): 278 Weight (oz): Weight (kg): 126.099 Physical Exam Cardiac: normal sinus rhythm Lungs: clear to auscultation Abdomen: soft (nl postop tenderness) Incision site: well approximated edges, amanda intact, dry, no drainage, no inflammation Uterus: firm, involution appropriate, non-tender Fundus: firm, below the umbilicus, non-tender Lower extremities: Edema: 2+ pitting Calf tenderness: negative Result Findings/Data: Laboratory Tests: 08/24 0500 Hematology Hgb (10.7 - 13.9 g/dL) 7.4 L Hct (32.1 - 42.1 %) 24.6 L Diagnosis, Assessment Plan Diagnosis, Assessment Plan Free Text A P: POD 2 ZEYNEP (08-22-19 regina, repeat L TCS at 35.5 WEEKS, DECREASED FM, PRIOR DEMISE AT TERM, CD X 2) post op h/h today 7.4/24.6 (stable), 08-23 7.3/23.7 (prev 8.7/28.5, 06/24) clinically doing well PLAN- cpm Pt seen and discussed w dr hawkins Electronically Signed by Miky Alexandra MD on at 0945 RPT #:[id number] END OF REPORT 2019-08-24 06:46:00-00:[address] [facility] Postpart Progr Note REPORT#:[id number] REPORT STATUS: Signed DATE:08/24/19 TIME: 0646 PATIENT: WALTER ROSE UNIT #: [id number] ROOM/BED: [address] : 87 AGE: 33 SEX: F ATTEND: Junior Tapia MD ADM AUTHOR: Miky Alexandra MD * ALL edits or amendments must be made on the [employer]computer document * See Addendum Subjective Subjective Status/Day: post operative (day 2) Patient reports: Patient reports: Yes no complaints, Yes normal lochia, Yes pain management effective, Yes tolerating po well, Yes voiding well, Ye s voiding without pain, Yes tolerating ambulation, Yes flatus, No bowel movement Comments: no dizziness when walking Objective General VS: Vital Signs: Date Time Temp Pulse Resp B/P B/P Pulse O2 O2 F low FiO2 Mean Ox Delivery Rate 08/247 98.2 97 20 101/67 08/23 2007 98.2 97 20 116/72 08/23 1621 98.3 98 18 101/67 08/23 1221 98.1 95 18 108/69 08/23 0845 97.5 93 18 97/65 Patient Weight Weight (lb): 278 Weight (oz): Weight (kg): 126.099 Physical Exam Cardiac: normal sinus rhythm Lungs: clear to auscultation Abdomen: soft (nl postop tenderness) Incision site: well approximated edges, amanda intact, dry, no drainage, no inflammation Uterus: firm, involution appropriate, non-tender Fundus: firm, below the umbilicus, non-tender Lower extremities: Edema: 2+ pitting Calf tenderness: negative Result Findings/Data: Laboratory Tests: 08/24 0500 Hematology Hgb (10.7 - 13.9 g/dL) 7.4 L Hct (32.1 - 42.1 %) 24.6 L Diagnosis, Assessment Plan Diagnosis, Assessment Plan Free Text A P: POD 2 ZEYNEP (08-22-19 regina, repeat L TCS at 35.5 WEEKS, DECREASED FM, PRIOR DEMISE AT TERM, CD X 2) post op h/h today 7.4/24.6 (stable), 08-23 7.3/23.7 (prev 8.7/28.5, 06/24) clinically doing well PLAN- cpm Pt seen and discussed w dr hawkins Electronically Signed by Miky Alexandra MD on at 0945 Addendum 1: 08/24/19 0946 by Miky Alexandra MD po iron suppl ordered Electronically Signed by Miky Alexandra MD on at 0946 RPT #:[id number] END OF REPORT 2019-08-23 15:48:00-00:00 [facility] ([facility]) OB Postpart Progr Note REPORT#:[id number] REPORT STATUS: Signed DATE:08/23/19 TIME: 1547 PATIENT: WALTER ROSE UNIT #: [id number] ROOM/BED: [address] : 87 AGE: 33 SEX: F ATTEND: Junior Tapia MD ADM AUTHOR: Miky Alexandra MD * ALL edits or amendments must be made on the [employer] document * Subjective Subjective Status/Day: post operative (day 1) Patient reports: Patient reports: Yes no complaints, Yes normal lochia, Yes pain management effective (on pomeds, epid was out), Yes tolerating po well, Y es voiding well, Yes voiding without pain, Yes tolerating ambulation, Yes fla tus (min) Objective General VS: Vital Signs: Date Time Temp Pulse Resp B/P B/P Pulse O2 O2 F low FiO2 Mean Ox Delivery Rate 08/23 0845 97.5 93 18 97/65 08/23 0405 98.4 97 18 105/62 08/22 2031 98.4 80 18 108/67 Patient Weight Weight (lb): 278 Weight (oz): Weight (kg): 126.099 Physical Exam Cardiac: normal sinus rhythm Lungs: clear to auscultation Abdomen: soft (nl postop tenderness) Incision site: well approximated edges, amanda intact, dry, no drainage, no inflammation Uterus: firm, involution appropriate, non-tender Fundus: firm, below the umbilicus, non-tender Lower extremities: Edema: 2+ pitting Calf tenderness: negative Result Findings/Data: Laboratory Tests: 08/23 0533 Hematology WBC (6.6 - 12.1 K/mm3) 10.9 RBC (3.45 - 5.01 M/mm3) 2.89 L Hgb (10.7 - 13.9 g/dL) 7.3 L Hct (32.1 - 42.1 %) 23.7 L MCV (84.1 - 94.8 fL) 82 L MCH (27 - 35 pg) 25.3 L MCHC (32.2 - 34.1 gm/dL) 30.8 L RDW (12.4 - 16.5 %) 13.9 Plt Count (133 - 385 K/mm3) 172 MPV (9.1 - 12.7 fl) 9.7 Neut % (Auto) (56.5 - 79.4 %) 72.7 Lymph % (Auto) (14.3 - 34.3 %) 18.2 Blount % (Auto) (5.1 - 10.4 %) 7.2 Eos % (Auto) (0.1 - 3.0 %) 0.3 Baso % (Auto) (0.1 - 1.0 %) 0.1 Neut # (Auto) (K/mm3) 7.9 Lymph # (Auto) (K/mm3) 2.0 Blount # (Auto) (K/mm3) 0.8 Eos # (Auto) (K/mm3) 0.03 Baso # (Auto) (K/mm3) 0.0 Immature Plt Fraction (0.0 - 10.8 %) 0.0 Diagnosis, Assessment Plan Diagnosis, Assessment Plan Free Text A P: POD 1 ARCELLIA (08-22-19 [facility], repeat LTCS at 35.5 WEEKS, DECREASED FM, PRIOR DEMISE AT TERM, CD X 2) postop h/h today 7.3/23. 7 (prev 8.7/28.5, 06/24) clinically doing well PLAN- cpm, agustina h/h in am Pt seen and discussed w dr hawkins Electronically Signed by Miky Alexandra MD on at 1616 RPT #:[id number] END OF REPORT 2019-08-22 19:58:00-00:00 [facility] ([facility]) OB Postpart Progr Note REPORT#:[id number] REPORT STATUS: Signed DATE:08/22/19 TIME: 1957 PATIENT: WALTER ROSE UNIT #: [id number] [facility] : [facility] AGE: 33 SEX: F ATTEND: Junior Tapia MD ADM AUTHOR: Junior Tapia MD * ALL edits or amendments must be made on the [employer] document * Subjective Subjective Patient reports: Patient reports: Yes normal lochia, Yes pain management effective, Yes tolerating po well, Yes voiding well, Yes flatus, No no complaints Objective Physical Exam Abdomen: soft, no abnormal tenderness, no guardi ng Incision site: well approximated edges, amanda intact, dry, no drainage, no inflammation Uterus: firm, involution appropriate, non-tender Fundus: firm, below the umbilicus, non-tender Diagnosis, Assessment Plan Diagnosis, Assessment Plan Assessment: nml progress Plan: routine care Electronically Signed by Junior Tapia MD on 08/22 at 1958 RPT #:[id number] END OF REPORT 2019-08-21 07:55:00-00:00 [facility] ([facility]) OB Antepartum Prog Note REPORT#:[id number] REPORT STATUS: Signed DATE:08/21/19 TIME: 754 PATIENT: WALTER ROSE UNIT #: [id number] ROOM/BED: [facility] : 87 AGE: 33 SEX: F ATTEND: Junior Tapia MD ADM AUTHOR: Junior Tapia MD * ALL edits or amendments must be made on the [employer] document * Subjective Subjective Patient reports: Patient reports: Yes decreased movement, No no com plaints, No abdominal pain, No vaginal bleeding, No leaking fluid, No contractions Objective General VS: Last Documented: Result Date Time Temp 97.9 08/20 2252 Resp 18 08/20 2252 B/P Mean 75.0 08/20 2252 B/P 105/52 08/20 2252 Pulse 94 08/20 2252 Pulse Ox 100 08/19 2011 Vital Signs Date Temp Pulse Resp B/P B/P Mean Pulse Ox FiO2 08/20 97.9-98.1 94-99 18 105-118/52-58 75.0-80. 0 Patient Weight Weight (lb): 278 Weight (oz): Weight (kg): 126.099 Physical Exam HEENT: normocephalic w/o injury Neuro: Exam: alert, oriented x3, normal speech Abdomen: gravid, soft, no abnormal tenderness Baby A: Baby A baseline: 140 bpm Baby A variability: moderate 6-25 bpm Baby A accelerations: 15 X 15 Baby A FHR category: category 1 Diagnosis, Assessment Plan Diagnosis, Assessment Plan Assessment: IUP 35.5 WEEKS, DECREASED FM, PRIOR DEMISE AT TERM, CD X 2 Plan: INPATIENT MANAGEMENT UNTIL DELIVERY NEXT W YUHAAVIATAM, AT RISK FOR DEMISE Electronically Signed by Junior Tapia MD on 08/21 at 0756 RPT #:[id number] END OF REPORT 2019-08-20 21:21:00-00:00 [facility] ([facility]) OB Antepartum Prog Note REPORT#:[id number] REPORT STATUS: Signed DATE:08/20/19 TIME: 2120 PATIENT: WALTER ROSE UNIT #: [id number] ROOM/BED: [address] : 87 AGE: 33 SEX: F ATTEND: Junior Tapia MD ADM AUTHOR: Junior Tapia MD * ALL edits or amendments must be made on the [employer]/computer document * Subjective Subjective Comments: I stopped by around 5pm and she wssnt in her room. Per Rn she was doing well and no FHR issues Electronically Signed by Junior Tapia MD on 08/20 at 2121 RPT #:[id number] END OF REPORT 2019-08-19 12:09:00-00:00 [facility] ([facility]) OB Antepartum Prog Note REPORT#:[id number] REPORT STATUS: Signed DATE:08/19/19 TIME: 1209 PATIENT: WALTER ROSE UNIT #: [id number] ROOM[facility]BED: [facility] : 87 AGE: 33 SEX: F ATTEND: Junior Tapia MD ADM AUTHOR: Junior Tapia MD * ALL edits or amendments must be made on the [employer] document * Subjective Subjective Patient reports: Patient reports: Yes decreased movement, No no com plaints, No abdominal pain, No vaginal bleeding, No leaking fluid, No contractions Objective Physical Exam HEENT: normocephalic w/o injury Neuro: Exam: alert, oriented x3, normal speech Abdomen: gravid, soft, no abnormal tenderness Membranes: Membranes: Intact Baby A: Baby A baseline: 140 bpm Baby A variability: moderate 6-25 bpm Baby A accelerations: 15 X 15 Baby A FHR category: category 1 Diagnosis, Assessment Plan Diagnosis, Assessment Plan Free Text A P: ULTRASOUND: CEPHALIC, EFW 2677 GMS AT 41 %, LESTER 11 CM, BPP 8/8, NL UA DOPPLERS, ANT PLAC Assessment: IUP 35.4 WEEKS, DECREASED FM, PRIOR DEMISE AT TERM, CD X 2 Plan: INPATIENT MANAGEMENT UNTIL DELIVERY NEXT W YUHAAVIATAM, AT RISK FOR DEMISE Electronically Signed by Junior Tapia MD on 08/19 at 1210 RPT #:[id number] END OF REPORT 2019-08-18 18:45:00-00:00 [facility] ([facility]) OB Antepartum Prog Note REPORT#:[id number] REPORT STATUS: Signed DATE:08/18/19 TIME: 1845 PATIENT: WALTER ROSE UNIT #: [id number] ROOM/BED: [facility]-A : 87 AGE: 33 SEX: F ATTEND: Junior Tapia MD ADM AUTHOR: Junior Tapia MD * ALL edits or amendments must be made on the [employer] document * Subjective Subjective Patient reports: Patient reports: Yes normal movement, No no complaints, No abdominal pain, No vaginal bleeding, No leaking fluid, No contractions Objective Physical Exam HEENT: normocephalic w/o injury Neuro: Exam: alert, oriented x3, normal speech Abdomen: gravid, soft, no abnormal tenderness Baby A: Baby A baseline: 140 bpm Baby A variability: moderate 6-25 bpm Baby A accelerations: 15 X 15 Baby A FHR category: category 1 Diagnosis, Assessment Plan Diagnosis, Assessment Plan Assessment: IUP 35.3 WEEKS, DECREASED FM, PRIOR DEMISE AT TERM, CD X 2 Plan: INPATIENT MANAGEMENT UNTIL DELIVERY NEXT W YUHAAVIATAM, AT RISK FOR DEMISE Electronically Signed by Junior Tapia MD on 08/18 at 1846 RPT #:[id number] END OF REPORT 2019-08-17 08:34:00-00:00 [facility] ([facility]) OB Antepartum Prog Note REPORT#:[id number] REPORT STATUS: Signed DATE:08/17/19 TIME: 08 PATIENT: WALTER ROSE UNIT #: [id number] ROOM/BED: [address] : 87 AGE: 33 SEX: F ATTEND: Junior Tapia MD ADM AUTHOR: Junior Tapia MD * ALL edits or amendments must be made on the [employer] document * Subjective Subjective Patient reports: Patient reports: Yes decreased movement, No abdominal pain , No vaginal bleeding, No leaking fluid, No contractions Objective General VS: Last Documented: Result Date Time B/P Mean 77.0 08/16 2005 B/P 106/59 08/16 2005 Temp 97.8 08/16 2005 Pulse 84 08/16 2005 Resp 18 08/16 2005 Pulse Ox 98 08/16 2004 Vital Signs Date Temp Pulse Resp B/P B/P Mean Pulse Ox FiO2 08/16 97.6-97.8 80-89 18 106-110/53-59 77.0 97- 99 Patient Weight Weight (lb): 278 Weight (oz): Weight (kg): 126.099 Physical Exam HEENT: normocephalic w/o injury Neuro: Exam: alert, oriented x3, normal speech Abdomen: gravid, soft, no abnormal tenderness Baby A: Baby A baseline: 140 bpm Baby A variability: moderate 6-25 bpm Baby A accelerations: 15 X 15 Baby A FHR category: category 1 Diagnosis, Assessment Plan Diagnosis, Assessment Plan Assessment: IUP 35.2 WEEKS, DECREASED FM, PRIOR DEMISE AT TERM, CD X 2 Plan: INPATIENT MANAGEMENT UNTIL DELIVERY NEXT W YUHAAVIATAM, AT RISK FOR DEMISE Electronically Signed by Junior Tapia MD on 08/17 at 0835 [facility] #:[id number] END OF REPORT 2019-08-16 21:35:00-00:00 [facility] ([facility]) OB Admission / H P REPORT#:[id number] REPORT STATUS: Signed DATE:08/16/19 TIME: 2134 PATIENT: WALTER ROSE UNIT #: [id number] ROOM/BED: [address] : 87 AGE: 33 SEX: F ATTEND: Junior Tapia MD ADM AUTHOR: Junior Tapia MD * ALL edits or amendments must be made on the [employer]/computer document * OB Admission H P Hx Chief complaint: decreased movement HPI: 33 Y OLD G4 P 2 AT 35 1/7 WE EKS WHO WAS ADMITTED DUE TO DECREASED FM, OLIGO WITH LESTER AT 7 CM TODAY. SHE HAD CD X 2 AND H/O DEMISE AT TERM Past medical history: ANEMIA Past surgical history: GASTRIC SLEEVE Social history: no alcohol use, no tobacco use, no drug use Family history Relation not specified for: Family History: Cancer Family History: Diabetes Family History: Heart disease Medications: Home Medications: PNV/FE FUM/FA ( MULTIVITAMIN) 1 TAB PO D AILY Allergies Coded Allergies: latex (Mild, RASH-UNKNOWN 08/13/19) Review of Systems Constitutional: Denies: chills. Skin: Denies: abrasion. Allergy/Immun: Denies: allergic reaction. Eyes: Denies: discharge. ENT: Denies: ear drainage. Respiratory: Denies: LOCKETT (dyspnea on exertion). Cardiovascular: Denies: chest pain. GI: Denies: abdominal pain. : Denies: dysuria. Objective General VS: Last Documented: Result Date Time B/P Mean 77.0 08/16 2005 B/P 106/59 08/16 2005 Temp 97.8 08/16 2005 Pulse 84 08/16 2005 Resp 18 08/16 2005 Pulse Ox 98 08/16 2004 Vital Signs Date Temp Pulse Resp B/P B/P Mean Pulse Ox FiO2 08/16 97.6-97.8 80-89 18 106-110/53-59 77.0 97- 99 Patient Weight Weight (lb): 278 Weight (oz): Weight (kg): 126.099 Physical Exam HEENT: normocephalic w/o injury Cardiac: regular rate and rhythm Lungs: clear to auscultation Breasts: deferred Neuro: Exam: alert, oriented x3, normal speech Abdomen: gravid, soft, no abnormal tenderness Membranes: Membranes: Intact Diagnosis, Assessment Plan Diagnosis, Assessment Plan Assessment/Impression: mater nal fever, IUP 35 1/7 WEEKS, DECREASED FM, PRIOR FD ATTERM, CD X 2, OLIGO Plan: admit to inpatient (DUE TO RISK OF D EMISE), DELIVERY SCHEDULED NEXT WEEK Electronically Signed by Junior Tapia MD on 08/16 at 2144 RPT #:[id number] END OF REPORT 2019-08-04 18:06:00-00:00 [facility] ([facility]) EMERGENCY PROVIDER REPORT REPORT#:[id number] REPORT STATUS: Signed DATE:08/04/19 TIME: 1806 PATIENT: WALTER ROSE UNIT #: [id number] ROOM/BED: AGE: 33 SEX: F PCP PHYS: Junior Tapia MD SERVICE AUTHOR: Jade Faustin III, MD * ALL edits or amendments must be made on the [employer]/computer document * DENI History Nursing Documentation Review Nursing data: The data set between the solid lines has been im ported from nursing documentation. Any exceptions have been noted be low under Provider comments. Current data Steroids prior to arrival: ROM date: ROM time: EGA (weeks/days): EGA at admit (weeks): EDC date: Prior history : Para: Term: : Abortions spontaneous: Abortions induced: Living children: Ectopic: Stillbirths: Live births: deaths: Number of previous C/S: Reported maternal labs/data Blood type: Rh type: Rubella: Hepatitis B: HIV exposure test: VDRL: Group B beta strep: Rho(D) immune globulin this preg: Monitor mode - UA: Feeding preference: Provider comments on imported nursing data: [] [facility] ER 33 year old female G 4 P1 @ 33.3 wks cc Decreased movements HPI Pt complains of decreased movements si nce about 11 am today. Not karen, no vaginal bleeding, not leaking amniotic fluid, n o abdominal pain. Current care with Dr Tapia. complicated by histor y of 2 previous c/ sections, gastric sleeve surgery/lab band surgery. Recent seen for decre ased movements. States that she her heart tone monitoring has been reassuring . No other complaints. PMH ALLERGY TO LATEX OB TAB 1 previous c/section x 2. First pr egnancy stillborn, postdates, c/section Second repeat c/section at 36 wks Elective termination of PMH Obesity PSH C/section x 2, gastric sleeve, lap band surgery, gallbladder MEDS vitamin FMH Diabetes and hypertension SH No smoke, no et oh, no drugs ROS No shortness of breath, no chest pain, no ab dominal pain, no vaginal bleeding, not leaking amniotic fluid, she is feeling her baby move he re in triage. Family history Relation not specified for: Family History: Cancer Family History: Diabetes Family History: Heart disease Medications: Home Medications: Medication Dose/Rte/Freq Days Qty Entered Last Max Daily Dose Reviewed PNV/FE FUM/FA 1 TAB PO DAILY 05/21/19 08/04/19 ( MULTIVITAMIN) 1129 1655 Strength: 1 TAB TAB Allergies Coded Allergies: latex (Mild, RASH-UNKNOWN 06/28/19) Objective General VS: Patient Weight Weight (lb): Weight (oz): Weight (kg): Allergies Allergy Severity Reaction Updated Coded latex Mild RASH-UNKNOWN 06/28/19 No acute distress, alert, normal affect Afebrile, 118/53, p 94 Chest clear to auscultation CVR RRR Ab gravid and nontender SVE deferred she is not karen Ext no pathological pretibial edema, no calf ten derness, normal reflexes TOCO she is not karen FHT category one, reassuring, accelerations pres ent she is feeling her baby move here in triage Laboratory Tests: 08/04 1725 Urines Urine Color (YELLOW) YELLOW Urine Appearance (CLEAR) CLEAR Urine pH (5 - 9) 6.0 Ur Specific [place] (1.001 - 1.035) 1.010 Urine Protein (NEG) NEGATIVE Urine Glucose (UA) (NEG) NEGATIVE Urine Ketones (NEG) NEGATIVE Urine Blood (NEG) 1+ H Urine Nitrite (NEG) NEG Urine Bilirubin (NEG) NEGATIVE Urine Urobilinogen (NEG mg/dL) NEGATIVE Ur Leukocyte Esterase (NEG) NEG Urine RBC (NONE SEEN #/hpf) 0-2 Urine WBC (NONE SEEN #/hpf) 0-2 Ur Epithelial Cells (RARE - FEW #/HPF) RARE Urine Bacteria (RARE - FEW /HPF) RARE Urine Mucus (NONE SEEN) RARE Recent Impressions: ULTRASOUND - US FET BIO PH DC W/O NST 08/04 1634 Report Impression - Status: SIGNED Entered: 08/04/2019 5263 CLINICAL SUMMARY Type of Gestation: Hawkins Intrauterine [...] care of this patient. Nita Saleh M.D. Impression By: Hayde Saleh MD bpp 05/03 uds negative Result Findings/Data: Laboratory Tests: 08/04 1725 Toxicology Urine Opiates Screen (NEGATIVE) NEGATIVE Ur Barbiturates, Qual (NEGATIVE) NEGATIVE Ur Phencyclidine Scrn (NEGATIVE) NEGATIVE Ur Amphetamines Screen (NEGATIVE) NEGATIVE U Benzodiazepines Scrn (NEGATIVE) NEGATIVE Urine Cocaine Screen (NEGATIVE) NEGATIVE Urine Cannabinoids (NEGATIVE) NEGATIVE Urines Urine Color (YELLOW) YELLOW Urine Appearance (CLEAR) CLEAR Urine pH (5 - 9) 6.0 Ur Specific Bucklin (1.001 - 1.035) 1.010 Urine Protein (NEG) NEGATIVE Urine Glucose (UA) (NEG) NEGATIVE Urine Ketones (NEG) NEGATIVE Urine Blood (NEG) 1+ H Urine Nitrite (NEG) NEG Urine Bilirubin (NEG) NEGATIVE Urine Urobilinogen (NEG mg/dL) NEGATIVE Ur Leukocyte Esterase (NEG) NEG Urine RBC (NONE SEEN #/hpf) 0-2 Urine WBC (NONE SEEN #/hpf) 0-2 Ur Epithelial Cells (RARE - FEW #/HPF) RARE Urine Bacteria (RARE - FEW /HPF) RARE Urine Mucus (NONE SEEN) RARE Recent Impressions: ULTRASOUND - US FET BIO PH DC W/O NST 08/04 1634 Report Impression - Status: SIGNED Entered: 08/04/2019 2846 CLINICAL SUMMARY Type of Gestation: Hawkins Intrauterine [...] care of this patient. Nita Saleh M.D. Impression By: Hayde Saleh MD Diagnosis, Assessment Plan Diagnosis, Assessment Plan Free Text A P: Impression IUP at 33.3 wks Decreased movements reactive nst today, b pp 05/03 Previous c/section X 2 not in labor, reassuring fht History of stillborn, post dates in previous pr egnancy Obesity s/p gastric sleeve, lap band surgery Plan Cleared for discharge. Labor precautions. Ishan bustamante baby kick counts. She has an appt with Dr Tapia in 2 days jr Electronically Signed by Jade Faustin III, MD on 06/14 at 2023 RPT #:[id number] END OF REPORT 2019-07-24 21:15:00-00:00 [facility] ([facility]) EMERGENCY PROVIDER REPORT REPORT#:[id number] REPORT STATUS: Signed DATE:07/24/19 TIME: 2114 PATIENT: WALTER ROSE UNIT #: [id number] ROOM/BED: AGE: 33 SEX: F PCP PHYS: Junior Tapia MD SERVICE AUTHOR: Santiago Austin MD * ALL edits or amendments must be made on the [employer]/computer document * HPI-Back Pain Under 40 General Date/Time Seen by Provider 07/24/191941 Presentation Chief Complaint Pain, lumbar Hx Obtained From Patient )( Sudden in Onset? Yes Onset Occurred Weeks ago Symptom Duration Since onset Progression since Onset Gradually worsening Caused by No trauma by history Location Paraspinal lumbar Quality Burning Radiation Leg R, above knee, Leg L, above knee. Free Text HPI Notes Free Text HPI Notes intermitent back pain with radiation to lower extremities. burning/electricity like pain. intermitent, mild pain on arrival, owrse with movement and palpation of the back. no abdominal pain, no vaginal bleeding, no vagin al discharge. no n/v/d reports bilateral lower extremity swelling, has history of superficial lower extremity thrombus. Review of Systems ROS Statements All systems rev neg except as marked. Basic Review of Systems Basic ROS EYES: No redness, ENT: No sore throat, SKIN: No rash, PSYCH: NL thought content Past Medical History - Adult Stated Complaint LOWER EXTREMITY SWELLING,32 WEE [place] Allergies Coded Allergies: latex (Mild, RASH-UNKNOWN 06/28/19) Home Medications Reported Medications PNV/FE FUM/FA ( MULTIVITAMIN) 1 TAB PO D AILY Review of Nursing Notes Rev avail, and agree Smoking status for patients 13 years old or olde r: Never Smoker Physical Exam Vital Signs Vital Signs First Documented: Result Date Time Pulse Ox 100 07/24 1955 B/P 113/56 07/24 1955 B/P Mean 75 07/24 1955 O2 Delivery Room air 07/24 1955 Temp 98.0 07/24 1955 Pulse 87 07/24 1955 Resp 16 07/24 1955 Last Documented: Result Date Time Pulse Ox 100 07/24 1955 B/P 113/56 07/24 1955 B/P Mean 75 07/24 1955 O2 Delivery Room air 07/24 1955 Temp 98.0 07/24 1955 Pulse 87 07/24 1955 Resp 16 07/24 1955 Review of Vital Signs Reviewed Basic Physical Exam Basic PE HEAD: Atraumatic/NC, EYES: PERRL, conj clear, ENT: Membranes moist, NECK: Supple, RESP: No resp distress, CV: Reg ra te rhythm, EXT: No gross abnormality, SKIN: No rashes, warm/dry, PSYCH: N L thought content Focused PE General/Const General/Const Awake, Alert, No acute distress Abdomen/GI Text/Dict Notes abdomen enlarged and distended 2/2 . Tenderness/Guarding/Rebound Negative: Tender RUQ, Tender LUQ, Tender RLQ, T jaime LLQ, Tender epigastric, Tender periumbilical, Tender suprapubic, Tender diffuse, Tender flank R, Tender flank L, Carey's sign positive, McBurney's poin t tender, Guarding voluntary, Guarding involuntary, Rebound localized, Rebound diffuse, Rigid to palpation. MS Back Back Atraumatic, Inspection NL Flank/Spine/Paraspinal Lumbar paraspinal tend. Muscle Spasm/ROM Lumbar area spasm. Neurologic Neurologic Oriented X3, Speech NL, No motor def icits Interpretation Diagnostics Lab Results Interpretation Results Laboratory Tests 07/24/19 2006: [Embedded Image Not Available] Laboratory Tests: 07/243 Chemistry Sodium (135 - 145 mEq/L) 137 Potassium (3.5 - 5.0 mEq/L) 4.3 Chloride (100 - 115 mEq/L) 105 Carbon Dioxide (22 - 31 mEq/L) 25 Anion Gap (10 - 20) 11.50 BUN (7 - 18 mg/dL) 10 Creatinine (0.5 - 1.0 mg/dL) 0.5 Glomerular Filtr Rate (>60 ml/min) 144 Glucose (65 - 110 mg/dL) 83 Calcium (8.4 - 10.2 mg/dL) 8.4 Total Bilirubin (0.2 - 1.0 mg/dL) 0.2 AST (15 - 37 units/L) 16 ALT (12 - 78 units/L) 35 Total Alk Phosphatase (46 - 116 units/L) 78 Total Protein (6.3 - 8.2 gm/dL) 6.4 Albumin (3.4 - 4.8 gm/dL) 2.2 L Coagulation PT (10.4 - 12.4 secs) 10.2 L PTT (Adeline) (22 - 38 secs) 28.0 Fibrinogen (309 - 518 mg/dL) 565 H D-Dimer (<255 ng/mLDDU) 336 H Hematology WBC (6.6 - 12.1 K/mm3) 9.7 RBC (3.45 - 5.01 M/mm3) 3.71 Hgb (10.7 - 13.9 g/dL) 9.8 L Hct (32.1 - 42.1 %) 31.2 L MCV (84.1 - 94.8 fL) 84 L MCH (27 - 35 pg) 26.4 L MCHC (32.2 - 34.1 gm/dL) 31.4 L RDW (12.4 - 16.5 %) 13.2 Plt Count (133 - 385 K/mm3) 187 MPV (9.1 - 12.7 fl) 10.2 Neut % (Auto) (56.5 - 79.4 %) 69.2 Lymph % (Auto) (14.3 - 34.3 %) 21.0 Blount % (Auto) (5.1 - 10.4 %) 7.4 Eos % (Auto) (0.1 - 3.0 %) 1.0 Baso % (Auto) (0.1 - 1.0 %) 0.3 Neut # (Auto) (K/mm3) 6.7 Lymph # (Auto) (K/mm3) 2.0 Blount # (Auto) (K/mm3) 0.7 Eos # (Auto) (K/mm3) 0.10 Baso # (Auto) (K/mm3) 0.0 Immature Plt Fraction (0.0 - 10.8 %) 0.0 Urines Urine Color (YELLOW) YELLOW Urine Appearance (CLEAR) CLEAR Urine pH (5 - 9) 6.5 Ur Specific Bucklin (1.001 - 1.035) <= 1.005 Urine Protein (NEGATIVE) NEGATIVE Urine Glucose (UA) (NEGATIVE) NEGATIVE Urine Ketones (NEGATIVE) NEGATIVE Urine Blood (NEGATIVE) TRACE H Urine Nitrite (NEGATIVE) NEGATIVE Urine Bilirubin (NEGATIVE) NEGATIVE Urine Urobilinogen (<=1.0 EU/dL) 0.2 Ur Leukocyte Esterase (NEGATIVE) NEG Urine RBC (NONE SEEN #/hpf) 0-2 Urine WBC (NONE SEEN #/hpf) 0-2 Ur Epithelial Cells (NONE SEEN #/hpf) FEW Urine Bacteria (NONE SEEN #/hpf) RARE Urine Mucus (NONE SEEN) 1+ Lab Imaging Statement Laboratory radiographic studies reviewed and con sidered in the medical decision-making. Re-Evaluation MDM Free Text MDM Notes Free Text MDM Notes likely neuropathic pain. stable for d/c Re-Evaluation/Progress Back Pain MDM Note The patient presented with acute back pain. The patient is now resting comfortably and feels better, is alert, talkativ e, interactive and in no distress. The repeat examination is unremarkable and benign. The patient is neurologically intact and is ambulatory in the ED. The patient has no fever, no bowel or bladder incontinenc e, no saddle anesthesia, and is otherwise alert and well-appearing. The history, physical ex amination, and diagnostics (if any) do not suggest the presence of acute spinal epidural abscess, acute spinal epidural bleed, cauda equina syndrome, abdominal aortic a neurysm, aortic dissection or other process requiring further testing, treatme nt or consultation in the emergency department. The vi mathieu signs have been stable. The patient's condition is stable and appropriate for discharge. The pat ient will pursue further outpatient evaluation with the primary care phys ician or other designated or consulting physician as indicated in the dischar ge instructions. Patient Discharge Departure Vital Signs/Condition Vital Signs First Documented: Result Date Time Pulse Ox 100 07/24 1955 B/P 113/56 07/24 1955 B/P Mean 75 07/24 1955 O2 Delivery Room air 07/24 1955 Temp 98.0 07/24 1955 Pulse 87 07/24 1955 Resp 16 07/24 1955 Last Documented: Result Date Time Pulse Ox 100 07/24 1955 B/P 113/56 07/24 1955 B/P Mean 75 07/24 1955 O2 Delivery Room air 07/24 1955 Temp 98.0 07/24 1955 Pulse 87 07/24 1955 Resp 16 07/24 1955 All vital signs available at the time of this en try have been reviewed. Condition Stable Clinical Impression Clinical Impression Primary Impression: Back pain Secondary Impressions: Neuropathic pain Disposition Decision Discharge )( Discharged to Home Yes )( Time 2236 )( Date 07/24/19 Discharge/Care Plan Counseled Regarding Diagnosi s, Lab results, Imaging studies, Need for follow-up, When to return to ED Discharge Note I have spoken with the patie nt and/or caregivers. I have explained the patient's condition, diagnoses and marko atment plan based on the information available to me at this time. I have answered the patient's and/ or caregiver's questions and addressed any concerns. The patient and/or careg magdiel have as good an understanding of the patient 's diagnosis, condition and treatment plan as can be expected at this point. The vital signs have bee n stable. The patient's condition is stable and appr opriate for discharge from the emergency department. The patient will pursue further outpatient evalu ation with the primary care physician or other designated or consulting phys ician as outlined in the discharge instructions. The patient and/or caregivers are agreeable to this plan of care and follow-up instructions have been exp lained in detail. The patient and/or caregivers have received these instructio ns in written format and have expressed an understanding of the discharge inst ructions. The patient and/or caregivers are aware that any significant change in condition or worsening of symptoms should prompt an immediate return to [facility] or the closest emergency department or a call to 911. Quality Measures BP F/U for HTN F/u with PCP/other doc Electronically Signed by Santiago Austin MD on at 2238 RPT #:[id number] END OF REPORT 2019-06-28 21:52:00-00:00 [facility] ([facility]) EMERGENCY PROVIDER REPORT REPORT#:[id number] REPORT STATUS: Signed DATE:06/28/19 TIME: 2151 PATIENT: WALTER ROSE UNIT #: [id number] ROOM/BED: AGE: 33 SEX: F PCP PHYS: Junior Tapia MD SERVICE AUTHOR: Brianne Mehta MD * ALL edits or amendments must be made on the [employer]/computer document * DENI History Chief complaint: lost mucus plug HPI: 33y/o EDC:09/19/19 @ 28weeks 1day GA presents to [facility] with lost of mucus plug. pt states had intercourse earlier and notice mucus discharge with little brown tinged. pt denies ctx/cramping/lof/vb/+fm. pt only complains of pelvic pressure no other discharge or vaginal pruritis history: : 4 Term: 1 : 1 Abortus: 1 Living children: 1 Complications (prev preg): h/o stillbor n in first at 43 weeks GA, h /o ptd at 36 weeks in second Previous : low uterine trans incis Indication for prior : arrest dilatatio n/descent Current : EDC: 09/19/19 EGA (weeks/days): [id number] Conditions of : obesity, h/o gastric sl eeve Past medical history: obesity Past surgical history: C-sec tion, cholecystectomy, lap band and gastric sleeve, tooth extraction Social history: no alcohol use, no tobacco use, no drug use Family history Relation not specified for: Family History: Cancer Family History: Diabetes Family History: Heart disease Medications: Home Medications: Medication Dose/Rte/Freq Days Qty Entered Last Max Daily Dose Reviewed PNV/FE FUM/FA 1 TAB PO DAILY 05/21/19 ( MULTIVITAMIN) 1129 Strength: 1 TAB TAB Allergies Coded Allergies: latex (Mild, RASH-UNKNOWN 06/28/19) Review of Systems Constitutional: Denies: chills, fatigue, fev er, generalized weakness, lethargy, malaise, recent wt loss, other. Skin: Denies: abrasion, bruising, contusion, diaphores is, ecchymosis, itching, laceration, rash, swelling, other. Allergy/Immun: Denies: allergic reaction, anaphylaxis, hives, i tching, rhinorrhea, sneezing, other. Eyes: Denies: redness, discharge, visual loss/blurred, itching, diplopia, eye pain, photophobia, swelling, other. ENT: Denies: ear drainage, ear ringing, earache, hear ing loss, mouth pain, nasal congestion, nose bleeding, sinus problem, sore t hroat, throat pain, throat swelling, tongue pain, tongue swelling, toothach e, voice change, other. Respiratory: Denies: LOCKETT (dyspnea on exertion), hemoptysis, n on productive cough, parox nocturnal dyspnea, pleurisy, pleuritic pain, pneumonia, productive cough (sputum ), SOB, wheezing, other. Cardiovascular: Denies: chest pain, LOCKETT (dyspnea on exer tion), edema, orthopnea, palpitations, parox nocturnal dyspnea, other. GI: Denies: abdominal pain, anorexia, constipation, diarrhea, dysphagia, GERD, hematemesis, hematochezia, h iatal hernia, melena, nausea, rectal pain, vomiting, other. : Reports: . Denies: d ysuria, flank pain, frequency, hematuria, nocturia, pelvic pain, urgency, urinary retention, vaginal bleeding, vaginal discharge, other. Musculoskeletal: other (pelvic discomfort). Denies: arthritis, ex tremity pain, extremity swelling, joint pain, joint swelling, lumbar pain, myalgias, neck pain, thoracic pain. Heme: Denies: adenopathy, bleeding, bruising, petechia e, other. Endocrine: Denies: cold intolerance, heat intolerance, poly dipsia, polyphagia, polyuria, weight gain, weight loss, other. Neuro: Denies: bladder dysfunction, bowel dysfunction, change in LOC, confusion, dizziness, focal weakness, gait problem, headach e, lightheaded, numbness, seizure, slurred speech, spinning sensation, syn cope, unable to speak, vision change, weakness, other. Psych: Denies: agitation, anxiety, auditory hallucinati on, change in mental status, confusion, delusional, depre ssion, homicidal ideation, hostile, insomnia, stress , suicidal ideation, visual hallucination, other . All systems rev neg: except as marked Objective General VS: Last Documented: Result Date Time B/P Mean 80.0 06/28 2113 B/P 116/56 06/28 2113 Temp 98.7 06/28 2113 Pulse 73 06/28 2113 Resp 17 10/03 2113 Vital Signs Date Temp Pulse Resp B/P B/P Mean Pulse Ox FiO2 06/28 98.7 73 17 116/56 80.0 Patient Weight Weight (lb): Weight (oz): Weight (kg): [id number] Physical Exam HEENT: normocephalic w/o injury Cardiac: normal rhythm Lungs: clear to auscultation Breasts: deferred Neuro: Exam: alert, oriented x3, normal speech Abdomen: gravid, soft, no abnormal tenderness, n ormoactive bowel sounds Uterine activity: Monitor: toco Frequency (description): none Cervical/ exam: Dilatation (cm): 0 - closed Effacement (%): 30 station: - 4 FHR evaluation: Baseline: 140 bpm Variability: moderate 6-25 bpm Accelerations: 15 X 15 Decelerations: none FHR category: reactive Membranes: Membranes: Intact Lower extremities: Edema: none Juan's sign: negative Calf tenderness: negative Result Results: vital signs stable Diagnosis, Assessment Plan Diagnosis, Assessment Plan Free Text A P: IUP @[id number] day with post coital discharge no evidence of ptl/pprom. fhr reactive AGA Plan: discharge home ptl warning given f/u primary ob at 2206 RPT #:[id number] END OF REPORT 2019-05-21 12:04:00-00:00 [facility] ([facility]) OB Admission / H P REPORT#:[id number] REPORT STATUS: Signed DATE:05/21/19 TIME: 1204 PATIENT: WALTER ROSE UNIT #: [id number] ROOM/BED: : 87 AGE: 33 SEX: F ATTEND: Jade Faustin II, MD ADM DT: AUTHOR: Jade Faustin III, MD * ALL edits or amendments must be made on the el [employer]/computer document * OB Admission H P Hx Nursing Documentation Review Nursing data: The data set between the solid lines has been im ported from nursing documentation. Any exceptions have been noted be low under Provider comments. Current data Steroids prior to arrival: ROM date: ROM time: EGA (weeks/days): EGA at admit (weeks): EDC date: Prior history : Para: Term: : Abortions spontaneous: Abortions induced: Living children: Ectopic: Stillbirths: Live births: deaths: Number of previous C/S: Reported maternal labs/data Blood type: Rh type: Rubella: Hepatitis B: HIV exposure test: VDRL: Group B beta strep: Rho(D) immune globulin this preg: Monitor mode - UA: Feeding preference: Provider comments on imported nursing data: [] [facility] 33 year old female @ 22.5 wks cc Lower pelvic, upper vaginal pain HPI Pain comes to triage with the recent onset o f lower pelvic/upper vaginal pain of recent onset. Pedro is moderate with no radiation. Her prenata l care has been with Dr Mccray at [facility] [place], since about 8 wks. Claims normal OB USG during pregna ncy. care uncomplicated except for a history of 2 previous c/sections, gastric sleeve and lap band surgery. She is due to see MFM, Dr Tapia, soon due to a high risk prenanc y. Not karen, no abdominal pain, no vaginal bleeding, not leaking amniotic fluid, e ndorses positive movements. The upper vaginal pain occurs mostly with walking. PMH NKDA OB TAB 1 Previous c/section X 2. First pr egnancy, stillborn, postdates, c/section Second repeat c/section at 36 weeks Elective termination of PMH Obesity PSH C/section x2, gastric sleeve, lap band, gallbladder MEDS vitamin, SH No smoke, no etoh, no drugs FMH positive for diabetes and hypertension ROS no shortness of breath, no chest alessia n, no nausea or vomiting, lower pelvic and upper vaginal pain, not leaking amniotic fluid, no vaginal bl eeding, endorses positive movements, not karen, no dysuria, Objective General VS: Last Documented: Result Date Time B/P Mean 74.0 05/21 1121 B/P 109/51 05/21 1121 Temp 98.5 05/21 1121 Pulse 68 05/21 1121 Resp 18 05/21 1121 Vital Signs Date Temp Pulse Resp B/P B/P Mean Pulse Ox FiO 2 05/21 98.5 68 18 109/51 74.0 Patient Weight Weight (lb): Weight (oz): Weight (kg): No acute distress, alert, normal affect Chest is clear to auscultation CVR RRR Ab Gravid and nontender, c/section scar SVE no vaginal bleeding, not leaking amniotic fl uid, cervix is closed/thick/ PPH Ext no pathological pretibial edema, normal refl exes, no calf tenderenes TOCO she is not karen FHT present Laboratory Tests: 05/21 1100 Toxicology Urine Opiates Screen (NEGATIVE) NEGATIVE Ur Barbiturates, Qual (NEGATIVE) NEGATIVE Ur Phencyclidine Scrn (NEGATIVE) NEGATIVE Ur Amphetamines Screen (NEGATIVE) NEGATIVE U Benzodiazepines Scrn (NEGATIVE) NEGATIVE Urine Cocaine Screen (NEGATIVE) NEGATIVE Urine Cannabinoids (NEGATIVE) POSITIVE H Urines Urine Color (YELLOW) YELLOW Urine Appearance (CLEAR) CLEAR Urine pH (5 - 9) 6.0 Ur Specific Bucklin (1.001 - 1.035) 1.017 Urine Protein (NEG) NEGATIVE Urine Glucose (UA) (NEG) NEGATIVE Urine Ketones (NEG) NEGATIVE Urine Blood (NEG) 1+ H Urine Nitrite (NEG) NEG Urine Bilirubin (NEG) NEGATIVE Urine Urobilinogen (NEG mg/dL) NEGATIVE Ur Leukocyte Esterase (NEG) NEG Urine RBC (NONE SEEN #/hpf) 0-2 Urine WBC (NONE SEEN #/hpf) 0-2 Ur Epithelial Cells (RARE - FEW #/HPF) RARE Urine Bacteria (RARE - FEW /HPF) FEW Urine Mucus (NONE SEEN) 1+ Recent Impressions: ULTRASOUND - US LTD 05/21 1205 Report Impression - Status: SIGNED Entered: 05/21/2019 1317 CLINICAL SUMMARY Type of Gestation: Hawkins Intrauterine in vertex presentation. motion and organs seen: heart motion seen Placental location: Anterior Placental maturity : Grade 1 There is no evidence of placenta previa. Amniotic fluid volume is normal. Uterus and adnexa: No significant abnormality is seen. Katerina Escobar M.D. Impression By: Wliy - Katerina Escobar MD USG cervix length is 4.3cm, LESTER is 10.9cm, singl eton vertex Diagnosis, Assessment Plan Diagnosis, Assessment Plan Free Text A P: Impresssion IUP at 22.5 wks Vaginal pain negative pelvic exam, closed cervix with normal cervix length History of stillborn, post dates in previous pr egnancy Previous c/section X 2 not in labor Obesity s/p gastric sleeve, lap band surgery Plan I gave her results of her testing. Cleared for discharge. Recommended pelvic rest, maternity belt. She has an upcoming appointment with Dr Regina hgihtower Electronically Signed by Jade Faustin III, MD on at 1341 RPT #:[id number] END OF REPORT
[2023-03-31] MEDS ORDERED: ACETAMINOPHEN 500 MG TAB ONE (21:53)
--- NOTE | 2023-03-31 21:58 | RAD REPORT ---
EXAM DESCRIPTION: RAD - Knee Left 2 View - 03/31/2023 9:48 pm CLINICAL HISTORY: knee pain L , after a fall COMPARISON: No comparisons TECHNIQUE: Left knee, 2 views. FINDINGS: No fracture, dislocation or periosteal reaction.No joint effusion seen. No joint space eddie rowing. No soft tissue abnormality. Clinical concerns for internal derangement or occult bony injury could be further assessed with MR im aging. IMPRESSION: Negative left knee.
--- NOTE | 2023-03-31 22:01 | RAD REPORT ---
EXAM DESCRIPTION: RAD - Knee Right 2 View - 03/31/2023 9:48 pm CLINICAL HISTORY: PAIN COMPARISON: No comparisons TECHNIQUE: Right knee, 3 views. FINDINGS: No fracture, dislocation or periosteal reaction.No joint effusion seen. No joint space eddie rowing. No soft tissue abnormality. Clinical concerns for internal derangement or occult bony injury could be further assessed with MR im aging. IMPRESSION: Negative right knee.
--- NOTE | 2023-03-31 22:35 | RAD REPORT ---
EXAM DESCRIPTION: US - OB Limited - 03/31/2023 10:10 pm CLINICAL HISTORY: Abd pain;Abd cramping, COMPARISON: OB Limited dated 04/11/2019 TECHNIQUE: Sonographic grayscale and color flow images of a second -trimester were obtaine d through transabdominal approach. FINDINGS: A single live intrauterine is identified. Femur length measures 43.8 millimeters, corresponding to gestational age of 24 weeks, 2 days. Presentation is cephalic. Placenta is formed anteriorly. heart rate: 146 BPM. Adnexal regions are unremarkable. No free fluid. IMPRESSION: 1. Single live intrauterine in cephalic presentation. 2. Calculated gestational age: 24 weeks, 2 days using femur length. Estimated due date by ultrasound: 07/19/2023.
--- NOTE | 2023-04-01 00:50 | EDPHYS ---
Physician Documentation [facility] Name: Sophie Thakkar Age: 37 yrs Sex: Female : 1985 Arrival Date: 03/31/2023 Time: 21:09 Bed 18 Private MD: ED Physician Krish Ascencio HPI: 03/31 21:15 This 37 yrs old Female presents to ER via Unassigned with complaints of EST 24 sp4 WKS GESTATION, Fall Injury, Knee Pain. 21:22 37-year-old female at 24 weeks EGA by ultrasound, with history of systemic sp4 lupus, presents with acute fall at home from standing on the staircase, with bilateral knee pain right worse than left. Also patient reported some abdominal discomfort in the lower abdomen. Patient is determined to be high risk secondary to prior miscarriage. . 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 - Social history:: Smoking status: Patient denies any tobacco usage or history of. Patient/guardian denies using alcohol, street drugs. - Family history:: not pertinent. ROS: 21:22 Constitutional: Negative for fever, chills, and weight loss, Eyes: Negative for injury, sp4 pain, redness, and discharge, ENT: Negative for injury, pain, and discharge, Neck: Negative for injury, pain, and swelling, Cardiovascular: Negative for chest pain, palpitations, and edema, Respiratory: Negative for shortness of breath, cough, wheezing, and pleuritic chest pain, Abdomen/GI: Negative for nausea, vomiting, diarrhea, and constipation, positive for lower abdominal discomfort. Back: Negative for injury and pain, : Negative for injury, bleeding, discharge, and swelling, MS/Extremity: Positive bilateral knee pain, bilateral knee injury, bilateral knee tenderness Skin: Negative for injury, rash, and discoloration, Neuro: Negative for headache, weakness, numbness, tingling, and seizure, Psych: Negative for depression, anxiety, Allergy/Immunology: Negative for hives, rash, and allergies Endocrine: Negative for neck swelling, polydipsia, polyuria, polyphagia, and weight changes Hematologic/Lymphatic: Negative for swollen nodes, abnormal bleeding, and unusual bruising Exam: 21:22 Constitutional: This is a well developed, well nourished patient who is awake, alert, sp4 and in no acute distress. Head/Face: Normocephalic, atraumatic. Eyes: Pupils equal round and reactive to light, extra-ocular motions intact. Lids and lashes normal. Conjunctiva and sclera are not injected. Cornea within normal limits. Periorbital areas with no swelling, redness, or edema. ENT: Nares patent. No nasal discharge, no septal abnormalities noted. Tympanic membranes are normal and external auditory canals are clear. Oropharynx with no redness, swelling, or masses, exudates, or evidence of obstruction, uvula midline. Mucous membranes moist. Neck: Trachea midline, no thyromegaly or masses palpated, and no cervical lymphadenopathy. Supple, full range of motion without nuchal rigidity, or vertebral point tenderness. Chest/axilla: Normal chest wall appearance and motion. Nontender with no deformity. No lesions are appreciated. Cardiovascular: Regular rate and rhythm with a normal S1 and S2. No gallops, murmurs, or rubs. Normal PMI, no JVD. No pulse deficits. Respiratory: Lungs have equal breath sounds bilaterally, clear to auscultation and percussion. No rales, rhonchi or wheezes noted. No increased work of breathing, no retractions or nasal flaring. Abdomen/GI: Soft, non-tender, with normal bowel sounds. No distension or tympany. No guarding or rebound. No evidence of tenderness throughout. Back: No spinal tenderness. No costovertebral tenderness. Skin: Warm, dry with normal turgor. Normal color with no rashes, no lesions, and no evidence of cellulitis. MS/ Extremity: Pulses equal, no cyanosis. Neurovascular intact. Full, normal range of motion. Positive bilateral knee tenderness without swelling or deformity. Neuro: Awake and alert, GCS 15, oriented to person, place, time, and situation. Cranial nerves II-XII grossly intact. Motor strength 5/5 in all extremities. Sensory grossly intact. Psych: Awake, alert, with orientation to person, place and time. Behavior, mood, and affect are within normal limits Vital Signs: 21:20 BP 115 / 97; Pulse 80; Resp 17 S; Temp 98.4(O); Pulse Ox 99% on R/A; Weight 122.02 kg lg3 (R); Height 5 ft. 2 in. (R); 21:39 BP 108 / 43; Pulse 73; Resp 18; Temp 98.1(O); Pulse Ox 100% on R/A; Height 5 ft. 2 in. ;sg5 22:27 BP 95 / 48; Pulse 77; Resp 18; Pulse Ox 99% on R/A; sg5 04/01 00:05 BP 110 / 37; Pulse 70; Resp 16; Pulse Ox 98% on R/A; sg5 03/31 21:39 Body Mass Index 49.20 (122.02 kg, 157.48 cm) sg5 MDM: 03/31 21:26 Patient medically screened. sp4 04/01 00:47 Differential diagnosis: contusion, fracture, multiple trauma, sprain, strain. Data sp4 reviewed: vital signs, nurses notes, radiologic studies, plain films, ultrasound. ED course: Ultrasound reveals normal single gestation at 24 weeks 2 days, heart tones 146 . ED course: Patient has normal bilateral knee x-rays. Probably soft tissue contusion. Patient is stable for discharge home with p.o. as needed Tylenol.. 03/31 21:21 Order name: US OB Limited; Complete Time: 00:07 sp4 03/31 21:22 Order name: Knee Right 2 View XRAY; Complete Time: 00:07 sp4 03/31 21:22 Order name: Knee Left 2 View XRAY; Complete Time: 00:07 sp4 Administered Medications: 03/31 21:46 Drug: Acetaminophen PO 1000 mg Route: PO; sg5 Disposition Summary: 04/01/23 00:49 Discharge Ordered Location: Home sp4 Problem: new sp4 Symptoms: have improved sp4 Condition: Stable sp4 Diagnosis - Contusion of left knee sp4 - Contusion of right knee sp4 - Fall at home, discomfort of . sp4 Followup: sp4 - With: Private Physician - When: 7 - 10 days - Reason: Recheck today's complaints Discharge Instructions: - Discharge Summary Sheet sp4 - Contusion, [id number] sp4 Forms: - [email or web address] sp4 Signatures: Dispatcher [employer] Sneha Bella, RN RN lg3 Krish Ascencio MD MD sp4 Ro Quan RN RN sg5
--- NOTE | 2023-04-01 00:50 | ER ---
Nurse's Notes [facility] Name: Sophie Thakkar Age: 37 yrs Sex: Female : 1985 Arrival Date: 03/31/2023 Time: 21:09 Bed 18 Private MD: Diagnosis: Contusion of left knee;Contusion of right knee;Fall at home, discomfort of . Presentation: 03/31 21:20 Chief complaint: Patient states: tripped and fell forward landing on knees. complaints lg3 of bilateral knee pain. greater on right. mild abdominal pain. denies hitting abdomen. Coronavirus screen: Client denies travel out of the [place] in the last 14 days. At this time, the client does not indicate any symptoms associated with coronavirus-19. Ebola Screen: No symptoms or risks identified at this time. Initial Sepsis Screen: Does the patient meet any 2 criteria? No. Patient's initial sepsis screen is negative. Does the patient have a suspected source of infection? No. Patient's initial sepsis screen is negative. Risk Assessment: Do you want to hurt yourself or someone else? Patient reports no desire to harm self or others. Onset of symptoms was March 31, 2023. 21:20 Method Of Arrival: Wheelchair lg3 21:20 Acuity: JERONIMO 3 lg3 Triage Assessment: 21:24 General: Appears in no apparent distress. comfortable, Behavior is calm, cooperative. lg3 Pain: Complains of pain in bilateral knees. EENT: No deficits noted. No signs and/or symptoms were reported regarding the EENT system. Neuro: No deficits noted. Donis Agitation-Sedation Scale (RASS): 0 - Alert and Calm Level of Consciousness is awake, alert, obeys commands, Oriented to person, place, time, situation. Cardiovascular: No deficits noted. Denies chest pain, shortness of breath, Capillary refill < 3 seconds Clubbing of nail beds is absent JVD is absent Patient's skin is warm and dry. Respiratory: No deficits noted. Airway is patent Respiratory effort is even, unlabored, Respiratory pattern is regular, symmetrical. GI: No deficits noted. No signs and/or symptoms were reported involving the gastrointestinal system. Abdomen is round non-distended, obese. : No deficits noted. No signs and/or symptoms were reported regarding the genitourinary system. Derm: No deficits noted. No signs and/or symptoms reported regarding the dermatologic system. Skin is intact, is healthy with good turgor, Skin is dry, Skin is normal, Skin temperature is warm. Musculoskeletal: Reports pain in bilateral knees. 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 - Social history:: Smoking status: Patient denies any tobacco usage or history of. Patient/guardian denies using alcohol, street drugs. - Family history:: not pertinent. Screenin:39 [facility] ED Fall Risk Assessment (Adult) History of falling in the last 3 months, sg5 including since admission Yes- physiologic fall (2 pts). Abuse screen: Denies threats or abuse. Nutritional screening: No deficits noted. Tuberculosis screening: No symptoms or risk factors identified. Assessment: 21:39 General: Appears uncomfortable, Behavior is calm, cooperative, appropriate for age. sg5 Pain: Complains of pain in right knee, back. Neuro: Level of Consciousness is awake, alert, obeys commands, Oriented to person, place, time, situation, Appropriate for age. Cardiovascular: Capillary refill < 3 seconds Patient's skin is warm and dry. Respiratory: Airway is patent Trachea midline Respiratory effort is even, unlabored. GI: Abdomen is round non-distended. : Reports 24 weeks . EENT: No signs and/or symptoms were reported regarding the EENT system. Derm: No signs and/or symptoms reported regarding the dermatologic system. Musculoskeletal: Reports pain in right knee. Vital Signs: 21:20 BP 115 / 97; Pulse 80; Resp 17 S; Temp 98.4(O); Pulse Ox 99% on R/A; Weight 122.02 kg lg3 (R); Height 5 ft. 2 in. (R); 21:39 BP 108 / 43; Pulse 73; Resp 18; Temp 98.1(O); Pulse Ox 100% on R/A; Height 5 ft. 2 in. ;sg5 22:27 BP 95 / 48; Pulse 77; Resp 18; Pulse Ox 99% on R/A; sg5 04/01 00:05 BP 110 / 37; Pulse 70; Resp 16; Pulse Ox 98% on R/A; sg5 03/31 21:39 Body Mass Index 49.20 (122.02 kg, 157.48 cm) sg5 ED Course: 03/31 21:10 Patient arrived in ED. jj6 21:15 Krish Ascencio MD is Attending Physician. sp4 21:24 Triage completed. lg3 21:24 Arm band placed on right wrist. lg3 21:39 Ro Quan, RN is Primary Nurse. sg5 21:39 Patient has correct armband on for positive identification. Bed in low position. Call sg5 light in reach. Adult w/ patient. Valuables Left with patient. 21:50 Knee Right 2 View XRAY In Process Unspecified. EDMS 21:50 Knee Left 2 View XRAY In Process Unspecified. EDMS 22:11 US OB Limited In Process Unspecified. EDMS 04/01 01:10 No provider procedures requiring assistance completed. Patient did not have IV access sg5 during this emergency room visit. Administered Medications: 03/31 21:46 Drug: Acetaminophen PO 1000 mg Route: PO; sg5 Medication: 04/01 01:10 VIS not applicable for this client. sg5 Outcome: 00:49 Discharge ordered by . sp4 01:10 Discharged to home ambulatory, with significant other. sg5 01:10 Condition: good 01:10 Discharge instructions given to patient, Instructed on discharge instructions, follow up and referral plans. 01:10 Patient left the ED. sg5 Signatures: Dispatcher [employer] EDMS Sneha Breaux, RN RN lg3 Alize Mejia jj6 Krish Ascencio MD MD sp4 Ro Quan, RN RN sg5
[2023-04-01 02:01] VITALS: TEMP 98.1
[2023-04-01 02:04] VITALS: BP 110/37; O2SAT 98
== END 2023-04-01 01:10 | disposition home or self-care (01) ==
LOC: ER 21:09
DX: O9A.212 Injury, poisoning and certain other consequences of external causes complicating pregnancy, second trimester (principal); S80.02XA Contusion of left knee, initial encounter; S80.01XA Contusion of right knee, initial encounter; W18.30XA Fall on same level, unspecified, initial encounter; Y92.009 Unspecified place in unspecified non-institutional (private) residence as the place of occurrence of the external cause; Z3A.24 24 weeks gestation of pregnancy; Z91.040 Latex allergy status; Z91.048 Other nonmedicinal substance allergy status
CPT/HCPCS: 76815; 99283

== ENCOUNTER 2023-05-10 13:21 | Emergency (ER) | payer OTHER ==
--- OUTSIDE RECORDS SUMMARY | 2023-05-10 13:27 | XMS REPORT | Continuity of Care Document ---
:1985 Author Organization [facility] t Address [address] [place] [address] [place] [id number] Care Team Providers Name Role Phone Ronnie Shelley Primary Care Physician [phone] ZULEIKA KING Attending Clinician Unavailable ZULEIKA KING Attending Clinician Unavailable Junior Tapia Attending Clinician Unavailable ANA TRINIDAD Attending Clinician Unavailable Logan Rashid MD Attending Clinician Ana Trinidad MD Attending Clinician LOGAN RASHID Attending Clinician Unavailable Doctor Unassigned, [place] Attending Clinician Unavailable Jarrett BOYKIN Attending Clinician Unavailable Jarrett Mitchell Attending Clinician RADIOLOGY Attending Clinician Unavailable Radiology Attending Clinician Unavailable Tatyana Adame MD Attending Clinician TATYANA ADAME Attending Clinician Unavailable Only, Adc Test Attending Clinician Unavailable Leatha David Attending Clinician BRENNAN RITCHIE Attending Clinician Unavailable Brennan Ritchie MD Attending Clinician Ultrasound, Adc Mfm Attending Clinician Unavailable Kaila Melchor MD Attending Clinician ZULEIKA KING Admitting Clinician Unavailable ANA TRINIDAD Admitting Clinician Unavailable Junior Tapia Admitting Clinician Unavailable Ana Trinidad MD Admitting Clinician TITI DE LUNA Admitting Clinician Unavailable TATYANA ADAME Admitting Clinician Unavailable Tatyana Adame MD Admitting Clinician Payers Payer Name Policy Type Policy Number Effective Date Expiration Date Cristina [employer] [id number] 2022 00:00:00 [facility] [id number] 2019 2019 00:00:00 00:00:00 Problems Condition Condition Condition Status Onset Resolution Last Treating Co mments Source Name Details Category Date Date Treatment Clinician Date Neck mass Neck mass Disease Active 2020-09 Overview: Univers 30 Formatt[facility] ity of 00:00: g of this [place] note Medical might be Branch different from the original. Added automatic ally from request for surgery [id number] History of History of Disease Active 2019-0 U nivers diabetes diabetes 5-15 ity of mellitus mellitus 00:00: [place] [address] Medical Branch History of History of Disease Active 2019-0 U nivers bariatric bariatric 5-15 ity of surgery surgery 00:00: [place] [address] Medical Branch Prior Prior Disease Active 2019-0 Univers 5-15 [place] 00 [facility] Branch Previous Previous Disease Active 2019-0 Unive rs 5-15 ity of section section 00:00: [place] [address] Medical Branch History of History of Disease Active 2019-0 U nivers 5-15 ity of delivery delivery 00:00: [place] [address] Medical Branch Vomiting Vomiting Disease Active 2019-0 Unive rs or nausea or nausea 5-15 ity of of of 00:00: [place] 00 [facility] Branch History of History of Disease Active 2019-0 U nivers smoking smoking 5-15 ity of 00:00: [place] 00 Medical Branch Obesity, Obesity, Disease Active [...] Mesna - Propensi Active Intraven ty to 628 ous adverse 00:00: reaction 00 to drug latex DA Active [place] 2018-09 [facility] [place] latex DA Active [place] RASH-UNKNOWN 2018-09 [facility] [place] No Known DA Active U 2018-09 [facility] Allergie 0-03 [facility] [place] latex DA Active [place] 2018-09 [facility] [place] Flagyl Propensi Active 2017-09 ty to 1-05 adverse 00:00: reaction 00 to drug Adhesive Propensi Active Rash Univer s ty to 5-09 ity of [...] Medical s Branch Adhesive Propensi Active Rash Univer s ty to 5-09 ity of adverse 00:00: [place] reaction 00 Medical s Branch Social History Social Habit Start Date Stop Date Quantity Comments Source ASSERTION 2022-10-22 University of 00:00:00 [facility] Gender identity Universit y of [facility] Sexual orientation Univer sity of [facility] History SDAR University o f Alcohol Frequency [place] M edical Branch History SDAR University o f Alcohol Std Drinks [place] [facility] [place] History [facility] o f Alcohol Binge [place] [facility] al Branch Alcohol intake 2023-05-03 2023-05-03 Current University of 00:00:00 00:00:00 non-drinker of [facility] alcohol Branch (finding) Exposure to 2023-01-13 2023-01-23 Not sure University SARS-CoV-2 (event) 00:00:00 22:46:00 [facility] History of Social 2021-08-31 2021-08-31 Univers ity of function 00:00:00 00:00:00 [facility] Alcohol Comment 2019-02-06 2019-02-06 rare Universit y of 00:00:00 00:00:00 [facility] Tobacco use and 2019-02-06 2019-02-06 Smokeless Universit y of exposure 00:00:00 00:00:00 tobacco non-user [facility] dical [place] History of tobacco 2019-01-12 Cigarette Smoker University of use 00:00:00 [facility] Sex Assigned At [birth year] Universit y of 00:00:00 00:00:00 [facility] Smoking Status Start Date Stop Date Source Ex-smoker 2019-02-06 00:00:00 2019-02-06 00:00:00 Universi ty of [facility] Medications Ordered Filled Start Stop Current Ordering Indication Dosage Frequency Signature Comments Components Source Medication Medication Date Date Medication? Clinician (SIG) Name Name Yes Take by [facility] s vit 05-03 mouth. ity of calc,iron,f 13:21: [place] olic 28 Medical ( Branch VITAMIN ORAL) D5W-LR 2022- No 1000mL at 999 [facility] s Bolus 03-03 mL/hr, ity of infusion 07:15: 07:09 1,000 mL, Jacinto as 1,000 mL 00 :58 IV Medical Infusion, Branch ONCE, 1 dose, On Prisca 03/03/23 at 0215, Routine ondansetron 2022- No 4mg 4 mg, Slow Univers (ZOFRAN 6-08 06-08 IV Push, ity of (PF)) 06:15: 06:13 ONCE, On [place] injection 4 00 :00 Prisca 03/03/23 Me dical mg at 0115, Branch For 1 dose
Do ses of ondansetro n 16 mg and above need to be administer ed via IV piggyback. For Dose >=24mg ECG monitoring is advisable.
NaCl 0.9% 2022- No 1000mL at 999 Uni vers (NS) bolus 03-0308 mL/hr, ity of infusion 06:15: 05:57 1,000 mL, [place] as 1,000 mL 00 :34 IV Medical Infusion, Branch ONCE, 1 dose, On Prisca 03/03/23 at 0115, STAT Yes Take by [facility] s vit 03-03 mouth. ity of calc,iron,f 04:41: [place] [address] Medical ( Branch VITAMIN ORAL) acetaminoph 2022- No 1000mg 1,000 mg, Univers en 01-24 Oral, ity of (TYLENOL) 05:30: 04:40 ONCE, 1 [place] tablet [place] :00 dose, On Medical 1,000 mg 01/24/23 Branc h at 0030, Routine methylpredn 2022- No 125mg 125 mg, U nivers isolone sod 11-24 Intramuscu i ty of succ 05:00: 04:14 lar, ONCE, [place] (SOLU-MEDRO 00 :00 1 dose, On Me dical L) e Branch injection 11/23/22 at 125 mg 2300, LEONARD predniSONE 2022-0 Yes [id number] PO BID x Univers 20 mg 2-28 4 days ity of tablet 00:00: [address] predniSONE 2022-0 Yes [id number] PO BID x Univers 20 mg 2-28 4 days ity of tablet 00:00: [address] predniSONE 2022-0 Yes [id number] PO BID x Univers 20 mg 2-28 4 days ity of tablet 00:00: [address] predniSONE 2022-0 Yes [id number] PO BID x Univers 20 mg 2-28 4 days ity of tablet 00:00: [address] predniSONE 3- No [id number] 1 PO BID x Univers 20 mg -08 4 days ity of tablet 00:00: 00:00 [place] 00 :00 Medical Branch APPLY A No [id number] THIN LAYER - TO AFFECTED 00:00: AREA(S) AND 00 RUB IN WELL TWICE DAILY. 2020-09 Yes Take by [employer] vit 2-06 mouth. ity of calc,iron,f 17:03: [place] [address] Medical ( Branch VITAMIN ORAL) 2020-09 Yes Take by [employer] vit 2-06 mouth. ity of calc,iron,f 17:03: [place] [address] Medical ( Branch VITAMIN ORAL) 2020-09 Yes Take by [employer] vit 2-06 mouth. ity of calc,iron,f 17:03: [place] [address] Medical ( Branch VITAMIN ORAL) 2020-09 Yes Take by [employer] vit 2-06 mouth. ity of calc,iron,f 17:03: [address] ( Branch VITAMIN ORAL) 2020-09 Yes Take by [employer] vit 2-06 mouth. ity of calc,iron,f 17:03: [place] [address] Medical ( Branch VITAMIN ORAL) 2020-09 Yes Take by [employer] vit 2-06 mouth. ity of calc,iron,f 17:03: [place] [address] Medical ( Branch VITAMIN ORAL) 2020-09 Yes Take by [employer] vit 2-06 mouth. ity of calc,iron,f 17:03: [place] [address] Medical ( Branch VITAMIN ORAL) ibuprofen 2020-09 Yes [id number] 800mg Take 1 Univers 800 mg 2-06 tablet by ity of tablet 00:00: mouth [place] 00 every 6 Medical (six) Branch hours as needed for Pain (scale 1-3). acetaminoph 2020-09 Yes [id number] 650mg Take 1 Univers en (TYLENOL 2-06 tablet by ity of 8 HOUR) 650 00:00: mouth [place] mg CR 00 every 8 Medical tablet (eight) Branch hours as needed for Pain. ibuprofen 2020-09 Yes [id number] 800mg Take 1 Univers 800 mg 2-06 tablet by ity of tablet 00:00: mouth [place] 00 every 6 Medical (six) Branch hours as needed for Pain (scale 1-3). acetaminoph 2020-09 Yes [id number] 650mg Take 1 Univers en (TYLENOL 2-06 tablet by ity of 8 HOUR) 650 00:00: mouth [place] mg CR 00 every 8 Medical tablet (eight) Branch hours as needed for Pain. ibuprofen 2020-09 Yes [id number] 800mg Take 1 Univers 800 mg 2-06 tablet by ity of tablet 00:00: mouth [place] 00 every 6 Medical (six) Branch hours as needed for Pain (scale 1-3). acetaminoph 2020-09 Yes [id number] 650mg Take 1 Univers en (TYLENOL 2-06 tablet by ity of 8 HOUR) 650 00:00: mouth [place] mg CR 00 every 8 Medical tablet (eight) Branch hours as needed for Pain. ibuprofen 2020-09 Yes [id number] 800mg Take 1 Univers 800 mg 2-06 tablet by ity of tablet 00:00: mouth [place] 00 every 6 Medical (six) Branch hours as needed for Pain (scale 1-3). acetaminoph 2020-09 Yes [id number] 650mg Take 1 Univers en (TYLENOL 2-06 tablet by ity of 8 HOUR) 650 00:00: mouth [place] mg CR 00 every 8 Medical tablet (eight) Branch hours as needed for Pain. ibuprofen 2020-09 Yes [id number] 800mg Take 1 Univers 800 mg 2-06 tablet by ity of tablet 00:00: mouth [place] 00 every 6 Medical (six) Branch hours as needed for Pain (scale 1-3). acetaminoph 2020-09 Yes [id number] 650mg Take 1 Univers en (TYLENOL 2-06 tablet by ity of 8 HOUR) 650 00:00: mouth [place] mg CR 00 every 8 Medical tablet (eight) Branch hours as needed for Pain. ibuprofen 2020-09 Yes [id number] 800mg Take 1 Univers 800 mg 2-06 tablet by ity of tablet 00:00: mouth [place] 00 every 6 Medical (six) Branch hours as needed for Pain (scale 1-3). acetaminoph 2020-09 Yes [id number] 650mg Take 1 Univers en (TYLENOL 2-06 tablet by ity of 8 HOUR) 650 00:00: mouth [place] mg CR 00 every 8 Medical tablet (eight) Branch hours as needed for Pain. ibuprofen 2020-09 Yes [id number] 800mg Take 1 Univers 800 mg 2-06 tablet by ity of tablet 00:00: mouth [place] 00 every 6 Medical (six) Branch hours as needed for Pain (scale 1-3). acetaminoph 2020-09 Yes [id number] 650mg Take 1 Univers en (TYLENOL 2-06 tablet by ity of 8 HOUR) 650 00:00: mouth [place] mg CR 00 every 8 Medical tablet (eight) Branch hours as needed for Pain. ibuprofen 2020-09 Yes [id number] 800mg Take 1 Univers 800 mg 2-06 tablet by ity of tablet 00:00: mouth [place] 00 every 6 Medical (six) Branch hours as needed for Pain (scale 1-3). acetaminoph 2020-09 Yes [id number] 650mg Take 1 Univers en (TYLENOL 2-06 tablet by ity of 8 HOUR) 650 00:00: mouth [place] mg CR 00 every 8 Medical tablet (eight) Branch hours as needed for Pain. ibuprofen 2020-09- No [id number] 800mg Take 1 Univers 800 mg 2-06 08-08 tablet by ity of tablet 00:00: 00:00 mouth [place] 00 :00 every 6 Medical (six) Branch hours as needed for Pain (scale 1-3). acetaminoph 2020-09- No [id number] 650mg Take 1 Univers en (TYLENOL 2-06 08-08 tablet by it y of 8 HOUR) 650 00:00: 00:00 [place] mg CR 00 :00 every 8 Medical tablet (eight) Branch hours as needed for Pain. cetirizine 0 Yes 10mg Take 10 mg U nivers 10 mg 7-10 by mouth ity of tablet 00:00: daily. [address] Branch fluticasone 2018-0 Yes TAKE 2 Univ ers propionate 7-10 SPRAYS IN ity of 50 00:00: EACH [place] mcg/actuati 00 NOSTRIL Medic al on nasal EVERY DAY Branch spray cetirizine 2018-0 Yes 10mg Take 10 mg U nivers 10 mg 7-10 by mouth ity of tablet 00:00: daily. [address] fluticasone 2018-0 Yes TAKE 2 Univ ers propionate 7-10 SPRAYS IN ity of 50 00:00: EACH [place] mcg/actuati 00 NOSTRIL Medic al on nasal EVERY DAY Branch spray cetirizine Yes 10mg Take 10 mg U nivers 10 mg 7-10 by mouth ity of tablet 00:00: daily. [place] [facility] fluticasone Yes TAKE 2 Univ ers propionate 7-10 SPRAYS IN ity of 50 00:00: EACH [place] mcg/actuati NOSTRIL Medic al on nasal EVERY DAY Branch spray cetirizine Yes 10mg Take 10 mg U nivers 10 mg 7-10 by mouth ity of tablet 00:00: daily. [place] [facility] Branch fluticasone Yes TAKE 2 Univ ers propionate 7-10 SPRAYS IN ity of 50 00:00: EACH [place] mcg/actuati NOSTRIL Medic al on nasal EVERY DAY Branch spray cetirizine Yes 10mg Take 10 mg U nivers 10 mg 7-10 by mouth ity of tablet 00:00: daily. [place] [facility] Branch fluticasone Yes TAKE 2 Univ ers propionate 7-10 SPRAYS IN ity of 50 00:00: EACH [place] mcg/actuati NOSTRIL Medic al on nasal EVERY DAY Branch spray cetirizine Yes 10mg Take 10 mg U nivers 10 mg 7-10 by mouth ity of tablet 00:00: daily. [place] [facility] Branch fluticasone Yes TAKE 2 Univ ers propionate 7-10 SPRAYS IN ity of 50 00:00: EACH [place] mcg/actuati NOSTRIL Medic al on nasal EVERY DAY Branch spray cetirizine Yes 10mg Take 10 mg U nivers 10 mg 7-10 by mouth ity of tablet 00:00: daily. [place] [facility] Branch fluticasone Yes TAKE 2 Univ ers propionate 7-10 SPRAYS IN ity of 50 00:00: EACH [place] mcg/actuati NOSTRIL Medic al on nasal EVERY DAY Branch spray cetirizine 0 Yes 10mg Take 10 mg U nivers 10 mg 7-10 by mouth ity of tablet 00:00: daily. [place] [facility] Branch fluticasone Yes TAKE 2 Univ ers propionate 7-10 SPRAYS IN ity of 50 00:00: EACH [place] mcg/actuati 00 NOSTRIL Medic al on nasal EVERY DAY Branch spray cetirizine 2019-0 Yes 10mg Take 10 mg U nivers 10 mg 7-10 by mouth ity of tablet 00:00: daily. [place] 00 Medical Branch fluticasone 2019-0 Yes TAKE 2 Univ ers propionate 7-10 SPRAYS IN ity of 50 00:00: EACH [place] mcg/actuati 00 NOSTRIL Medic al on nasal EVERY DAY Branch spray metoclopram 2019-0 Yes 10mg Take 1 Univ ers cleve HCl 10 5-22 tablet by ity of mg tablet 00:00: mouth [place] 00 every 6 Medical (six) Branch hours as needed for Nausea and Vomiting (N/V). metoclopram 2019-0 Yes 10mg Take 1 Univ ers cleve HCl 10 5-22 tablet by ity of mg tablet 00:00: mouth [place] 00 every 6 Medical (six) Branch hours as needed for Nausea and Vomiting (N/V). metoclopram 2019-0 Yes 10mg Take 1 Univ ers cleve HCl 10 5-22 tablet by ity of mg tablet 00:00: mouth [place] 00 every 6 Medical (six) Branch hours as needed for Nausea and Vomiting (N/V). metoclopram 2019-0 Yes 10mg Take 1 Univ ers cleve HCl 10 5-22 tablet by ity of mg tablet 00:00: mouth [place] [address] every 6 Medical (six) Branch hours as needed for Nausea and Vomiting (N/V). metoclopram 2019-0 Yes 10mg Take 1 Univ ers cleve HCl 10 5-22 tablet by ity of mg tablet 00:00: mouth [place] [address] every 6 Medical (six) Branch hours as needed for Nausea and Vomiting (N/V). metoclopram 2019-0 Yes 10mg Take 1 Univ ers cleve HCl 10 5-22 tablet by ity of mg tablet 00:00: mouth [place] 00 every 6 Medical (six) Branch hours as needed for Nausea and Vomiting (N/V). metoclopram 2019-0 Yes 10mg Take 1 Univ ers cleve HCl 10 5-22 tablet by ity of mg tablet 00:00: mouth [place] 00 every 6 Medical (six) Branch hours as needed for Nausea and Vomiting (N/V). metoclopram 2019-0 Yes 10mg Take 1 Univ ers cleve HCl 10 5-22 tablet by ity of mg tablet 00:00: mouth [place] 00 every 6 Medical (six) Branch hours as needed for Nausea and Vomiting (N/V). metoclopram 2018-0 2022- No 10mg Take 1 Uni vers cleve HCl 10 02-14 08-08 tablet by ity of mg tablet 00:00: 00:00 mouth [place] 00 :00 every 6 Medical (six) Branch hours as [...] Flagyl 500 2016-0 No 1mg mg tablet 1-06 00:00: 00 Flagyl 500 2015-0 No 1mg mg tablet 1- 00:00: 00 Vital Signs Vital Name Observation Time Observation Value Comments Source Systolic blood 2023-05-03 16:45:00 109 mm[Hg] Univer sity of pressure [place] [facility] Diastolic blood 2023-05-03 16:45:00 54 mm[Hg] Unive rsity of pressure [place] [facility] Heart rate 2023-05-03 16:45:00 96 /min Universi ty of [place] [facility] Body temperature 2023-05-03 16:45:00 36.83 Katie Univ ersity of [place] [facility] Respiratory rate 2023-05-03 16:45:00 18 /min Univ ersity of [place] [facility] Oxygen saturation in 2023-05-03 16:45:00 100 /min University of Arterial blood by [place] [employer] vasu Pulse oximetry Branch Body height 2023-05-03 10:45:00 157.5 cm Universi ty of [place] [facility] Body weight 2023-05-03 10:45:00 129.275 kg Universi ty of [place] [facility] BMI 2023-05-03 10:45:00 52.13 kg/m2 Universi ty of [place] [facility] Systolic blood 2023-03-03 07:30:00 102 mm[Hg] Univer sity of pressure [place] [facility] Diastolic blood 2023-03-03 07:30:00 49 mm[Hg] Unive rsity of pressure [place] [facility] Heart rate 2023-03-03 04:42:00 95 /min Universi ty of [place] [facility] Body temperature 2023-03-03 04:42:00 36.5 Katie Univ ers[facility] of [place] [facility] Respiratory rate 2023-03-03 04:42:00 18 /min Univ ersity of [place] [facility] Body height 2023-03-03 04:42:00 157.5 cm Universi ty of [place] [facility] Body weight 2023-03-03 04:42:00 118.026 kg Universi ty of [place] [facility] BMI 2023-03-03 04:42:00 47.59 kg/m2 Universi ty of [place] [facility] Oxygen saturation in 2023-03-03 04:42:00 98 /min University of Arterial blood by [place] [employer] vasu Pulse oximetry Branch Systolic blood 2023-01-24 03:35:00 121 mm[Hg] Univer sity of pressure [place] [facility] Diastolic blood 2023-01-24 03:35:00 59 mm[Hg] Unive rsity of pressure [place] [facility] Heart rate 2023-01-24 03:35:00 80 /min Universi ty of [place] [facility] Body temperature 2023-01-24 03:35:00 36.72 Katie [facility] [place] [facility] Respiratory rate 2023-01-24 03:35:00 16 /min Univ ersity of [place] [facility] Body height 2023-01-24 03:35:00 157.5 cm Universi ty of [place] [facility] Body weight 2023-01-24 03:35:00 117.482 kg Universi ty of [place] [facility] BMI 2023-01-24 03:35:00 47.37 kg/m2 Universi ty of [place] [facility] Oxygen saturation in 2023-01-24 03:35:00 100 /min University of Arterial blood by [place] [employer] vasu Pulse oximetry Branch Systolic blood 2022-11-24 02:26:00 113 mm[Hg] Univer sity of pressure [place] [facility] Diastolic blood 2022-11-24 02:26:00 60 mm[Hg] Unive rsity of pressure [place] [facility] Heart rate 2022-11-24 02:26:00 77 /min Universi ty of [place] [facility] Body temperature 2022-11-24 02:26:00 37.11 Katie [facility] [place] [facility] Respiratory rate 2022-11-24 02:26:00 18 /min Univ ersity of [place] [facility] Body height 2022-11-24 02:26:00 162.6 cm [facility]i ty [facility] [place] [facility] Body weight 2022-11-24 02:26:00 123.514 kg [facility]i ty [facility] [place] [facility] BMI 2022-11-24 02:26:00 46.74 kg/m2 [facility]i ty [facility] [place] [facility] Oxygen saturation in 2022-11-24 02:26:00 100 /min University of Arterial blood by [place] [employer] vasu Pulse oximetry Branch Systolic blood 2021-09-04 20:22:00 106 mm[Hg] Univer sity of pressure [place] [facility] Diastolic blood 2021-09-04 20:22:00 71 mm[Hg] Unive rsity of pressure [place] [facility] Heart rate 2021-09-04 20:22:00 73 /min [facility] ty [facility] [place] [facility] Body temperature 2021-09-04 20:22:00 36.17 Katie [facility] Respiratory rate 2021-09-04 20:22:00 18 /min [facility] Body height 2021-09-04 20:22:00 157.5 cm [facility] Body weight 2021-09-04 20:22:00 130.908 kg [facility] BMI 2021-09-04 20:22:00 52.79 kg/m2 [facility] Oxygen saturation in 2021-09-04 20:22:00 95 /min [facility] Arterial blood by [facility] Pulse oximetry Branch BP Systolic 2022-04-02 [...] / Time Performed Performing Clinician Sour e COMP. METABOLIC PANEL 2023-05-03 13:38:00 Zuleika King [facility] ([id number]) [facility] Branch CBC WITH DIFF 2023-05-03 13:38:00 Zuleika King [facility] ASSIGNMENT OF BENEFITS 2023-05-03 10:43:51 Doctor Unassigned, No [facility] Medical Branch NOTICE OF PRIVACY 2023-05-03 10:40:25 Doctor Unassigned, No [facility] Name Medical Branch CONSENT/REFUSAL FOR 2023-05-03 10:40:04 Doctor Unassigned, No [facility] [place] DIAGNOSIS AND Name Medical Branch TREATMENT BASIC METABOLIC PANEL 2023-03-03 05:48:00 Adum, Ana Fuchs [facility] (NA, K, CL, CO2, Medical Branch GLUCOSE, BUN, CREATININE, CA) CBC WITH DIFF 2023-03-03 05:48:00 Adum, Ana [facility] Branch ASSIGNMENT OF BENEFITS 2023-03-03 03:44:25 Doctor Unassigned, No [facility] Medical Branch CONSENT/REFUSAL FOR 2023-03-03 03:42:11 [facility], [facility] Medical Branch TREATMENT ASSIGNMENT OF BENEFITS 2023-01-24 04:45:57 Doctor Unassigned, No [facility] Medical Branch CONSENT/REFUSAL FOR 2023-01-24 03:32:54 Doctor Unassigned, No Un iversity [facility] DIAGNOSIS AND Name Medical Branch TREATMENT RAPID STREP SCREEN FOR 2022-11-24 02:34:00 Jarrett Boykin [facility] GROUP A Medical Branch COVID-19 (ID NOW RAPID 2022-11-24 02:34:00 Jarrett Boykin [facility] TESTING) Medical Branch NOTICE OF PRIVACY 2022-11-24 02:15:39 Doctor Unassigned, No [facility] Name Medical Branch CONSENT/REFUSAL FOR 2022-11-24 02:15:18 Doctor Unassigned, No [facility] [place] DIAGNOSIS AND Name Medical Branch TREATMENT DEXA AXIAL (HIP AND 2022-09-08 16:51:00 Requisition, Paper [facility] SPINE) Medical Branch CONSENT/REFUSAL FOR 2022-09-08 16:34:51 Doctor Unassigned, No [facility] [place] DIAGNOSIS AND Name Medical Branch TREATMENT Plan of Care Planned Activity Planned Date Details Comments Source Goal Plan of Care Note [code = 55978-0] Goal Plan of Care Note [code = 67346-0] Goal Plan of Care Note [code = 55376-3] Goal Plan of Care Note [code = 25081-9] Goal Plan of Care Note [code = 53697-8] Goal Plan of Care Note [code = 94699-4] Goal Plan of Care Note [code = 52054-4] Goal Plan of Care Note [code = 06712-8] Goal Plan of Care Note [code = 94992-2] Goal Plan of Care Note [code = 83396-2] Goal Plan of Care Note [code = 75883-0] Goal Plan of Care Note [code = 11862-5] Goal Plan of Care Note [code = 67794-8] Goal Plan of Care Note [code = 34526-0] Goal Plan of Care Note [code = 72638-3] Goal Plan of Care Note [code = 33961-2] Goal Plan of Care Note [code = 04966-2] Goal Plan of Care Note [code = 74010-1] Goal Plan of Care Note [code = 66507-3] Goal Plan of Care Note [code = 61649-5] Goal Plan of Care Note [code = 55578-2] Goal Plan of Care Note [code = 04503-9] Goal Plan of Care Note [code = 52037-2] Goal Plan of Care Note [code = 25470-0] Goal Plan of Care Note [code = 03736-6] Goal Plan of Care Note [code = 07433-1] Goal Plan of Care Note [code = 53358-4] Goal Plan of Care Note [code = 02952-7] Goal Plan of Care Note [code = 27856-9] Goal Plan of Care Note [code = 81947-3] Goal Plan of Care Note [code = 87211-6] Goal Plan of Care Note [code = 49928-1] Goal Plan of Care Note [code = 66609-9] Goal Plan of Care Note [code = 42661-7] Goal Plan of Care Note [code = 39385-5] Goal Plan of Care Note [code = 65094-6] Goal Plan of Care Note [code = 55700-3] Goal Plan of Care Note [code = 68544-6] Goal Plan of Care Note [code = 08068-3] Goal Plan of Care Note [code = 77468-2] Goal Plan of Care Note [code = 94114-5] Goal Plan of Care Note [code = 32691-0] Goal Plan of Care Note [code = 09423-1] Goal Plan of Care Note [code = 54554-5] Goal Plan of Care Note [code = 40649-2] Goal Plan of Care Note [code = 55517-3] Goal Plan of Care Note [code = 78235-6] Goal Plan of Care Note [code = 22568-9] Goal Plan of Care Note [code = 15768-3] Encounters Start End Encounter Admission Attending Care Care Encounter Source Date/Time Date/Time Type Type Clinicians Facility Department ID 2023-05-03 Outpatient X [facility] [id number] Univers 13:21:40 ity [facility] 2023-03-03 Outpatient P [facility] [id number] Univers 04:41:19 [facility]Formerly [facility] 2023-05-03 2023-05-03 Outpatient X DUNLAP-ROSIBEL MORELOSSOL [facility] BY [id number] Univers 05:48:00 12:30:00 ROSIBEL KINGSOL ity [facility] 2023-05-03 2023-05-03 Emergency Dunlap-Ale UT 1.2.840.114 [id number] Univers 05:48:00 12:30:00 Rosibel mckeoned EUBANKS 350.1.13.10 ity [facility] [address] [place] [id number] 2023-03-03 2023-03-03 Emergency LIBRADO Tapia [facility] DENI [id number] [facility] 11:19:00 13:42:00 [facility]ad [facility]23-03-02 2023-03-03 Outpatient P FAIZA, [facility] [id number] Univers 22:47:00 04:25:00 ANA itkalani [facility] 2023-03-02 2023-03-03 Emergency Logan Rashid S [facility] 1.2.840 .114 [id number] Univers 22:47:00 04:25:00 Ana Trinidad 350.1.13.10 ity [facility] 4.[address]7.[address] [place] [address] [id number] [facility] [address] 2023-01-23 2023-01-24 Emergency X GAY, [facility] ERT [id number] Univers 22:52:00 00:09:00 WAKILI ity of [facility] 2023-01-23 2023-01-24 Emergency Gay, [facility] 1.2.449.432 [id number] Univers 22:52:00 00:09:00 Logan S RAIMUNDO 350.1.13.10 ity of [place] 4.2.7.2.686 [facility] [id number] [place] [address] Branch 2023-01-23 2023-01-23 Orders Doctor PHELPS 1.2.840.114 [id number] Univers 00:00:00 00:00:00 Only Unassigned, ROXY 350.1.13.10 ity of [place] [facility] 4.2.7.2.686 Jacinto [phone] [facility] [address] 2022-11-23 2022-11-23 Emergency X VIKKI, K [facility] ERT [id number] Univers 20:37:00 22:29:00 ity of [facility] 2022-11-23 2022-11-23 Emergency Vikki, K [facility] 1.2.840.114 [id number] Univers 20:37:00 22:29:00 Alma RAIMUNDO 350.1.13.10 i ty of [place] 4.2.7.2.686 [facility] [id number] [place] [address] [place] 2022-09-08 2022-09-08 Outpatient R RADIOLOGY [facility] [id number] Univers 10:36:09 23:59:00 ity of [facility] 2022-09-08 2022-09-08 Hospital Radiology [facility] 1.2.840.114 [id number] Univers 10:10:00 23:59:00 Encounter ANGLEMARCOS 350.1.13.10 ity of [place] 4.2.7.2.686 [facility] [id number] [facility] [address] 2022-09-08 2022-09-08 Orders Doctor PHELPS 1.2.840.114 [id number] Univers 00:00:00 00:00:00 Only Unassigned, ROXY 350.1.13.10 ity of [place] [facility] 4.2.7.2.686 Jacinto as [id number] [address] 2022-04-02 2022-04-02 Outpatient 86qbz715- [id number] 16 qoc203-4 00:00:00 00:00:00 Visit 8038-4c8b 038-4c8b-a -ok37-2g9 i56-8x9www fydbzyh0g bdfc3a 2022-03-30 2022-03-30 Outpatient f61gwska- [id number] d4 6ddafa-8 00:00:00 00:00:00 Visit 85fa-4740 5fa-4740-a -t35z-xgx 91a-bdb62c 47lrl2787 qe1744 2021-09-04 2021-09-04 Office [facility] 1.2.124.390 [id number] Univers 14:07:27 15:00:35 Visit Tatyana EUBANKS 350.1.13.10 i ty of [address] [id number] Pr dical NAL [address] [place] [address] 2021-09-04 2021-09-04 Outpatient R [facility] [id number] Univers 14:00:00 15:00:35 TATYANA [facility] 2021-09-04 2021-09-04 Outpatient R [facility] [id number] Univers 14:00:00 14:00:00 TATYANA [facility] 2021-09-04 2021-09-04 Telephone [facility] 1.2.840.114 [id number] Univers 00:00:00 00:00:00 Tatyana EUBANKS 350.1.13.10 i [place] [id number] Pr dical NAL [address] [place] [address] 2021-08-31 2021-08-31 Outpatient R [facility] GIORGIO [id number] Univers 12:46:00 17:03:00 TATYANA kalani [facility] 2021-08-31 2021-08-31 [facility] 1.2.840.114 [id number] Univers 12:46:00 17:03:00 Encounter Tatyana EUBANKS 350.1.13.10 ity of [place] [id number] [facility] [address] 2021-08-31 2021-08-31 Surgery [facility] 1.2.403.256 [id number] Univers 14:15:00 16:10:00 Tatyana EUBANKS 350.1.13.10 i [facility] 4.[place] [id number] [facility] [address] 2021-08-28 2021-08-28 Laboratory Only, Adc Test [facility] 1.2.840. 114 [id number] Univers 10:48:44 11:03:44 Only AdameFletcherel RAIMUNDO 350.1.13.10 ity [facility] 4.2.7.[place] [id number] [address] 2021-08-28 2021-08-28 [facility] [id number] Univers 08:30:00 08:30:00 TATYANA itkalani of [facility] 2021-08-25 2021-08-25 Prep For [facility] 1.2.840.114 [id number] Univers 00:00:00 00:00:00 Surgery Leatha Titus EUBANKS 350.1.13.10 it[place] [id number] Pr dical NAL 204 [facility] 2021-08-18 2021-08-18 Office [facility] 1.2.064.966 [id number] Univers 13:35:01 14:22:15 Visit Tatyana YESSICAMARCOS 350.1.13.10 i ty of [place] [id number] Pr dical NAL 188 [facility] 2021-08-18 2021-08-18 Outpatient R BALTAZAR [facility] 52422 [id number] Univers 13:15:00 14:22:15 TATYANA vergara of [facility] 2021-08-18 2021-08-18 Outpatient R BALTAZAR, [facility] [id number] Univers 13:15:00 14:22:15 TATYANA menjivary of [facility] 2021-08-18 2021-08-18 Outpatient R BALTAZAR, [facility] [id number] [id number] Univers 13:15:00 13:15:00 TATYANA vergara [facility] 2021-08-18 2021-08-18 Orders Doctor PHELPS 1.2.840.114 [id number] Univers 00:00:00 00:00:00 Only Unassigned, ROXY 350.1.13.10 ity of [place] [facility] 4.2.7.2.686 Jacinto as [phone] [facility] [address] 2021-07-27 2021-07-27 Orders Doctor PHELPS 1.2.840.114 [id number] Univers 00:00:00 00:00:00 Only Unassigned, ROXY 350.1.13.10 ity of [place] [facility] 4.2.7.2.686 Jacinto as [id number] [facility] [address] 2021-07-23 2021-07-23 Hospital Radiology [facility] 1.2.840.114 [id number] Univers 13:52:13 23:59:00 Encounter [place] 350.1.13.10 ity of [place] 4.2.7.2.686 [facility] [id number] [facility] [address] 2021-07-23 2021-07-23 Outpatient R RADIOLOGY [facility] [id number] Univers 13:47:32 13:51:00 ity of [facility] 2021-07-23 2021-07-23 Hospital Radiology [facility] 1.2.840.114 [id number] Univers 13:30:00 13:51:00 Encounter [place] 350.1.13.10 ity of [place] [id number] [facility] [address] 2021-07-23 2021-07-23 Orders Doctor PHELPS 1.2.840.114 [id number] Univers 00:00:00 00:00:00 Only Unassigned, ROXY 350.1.13.10 ity of [place] [facility] 4.2.7.2.686 Jacinto as [id number] [address] 2019-06-06 2019-06-06 Outpatient R BRENNAN RITCHIE [facility] [id number] [facility] 16:15:00 16:15:00 ity of [facility] 2019-05-08 2019-05-08 Routine Brennan Ritchie [facility] 1.2.758.577 1230 0024 15:17:40 16:08:51 Cam Blackstock 350.1.13.10 Visit [place] 4.2.7.2.686 Professio [id number] [address] 2019-05-08 2019-05-08 Routine Brennan Ritchie [facility] 1.2.726.916 [id number] 0024 [facility] 15:17:40 16:08:51 Cam Blackstock 350.1.13.10 ity of [place] [phone] [address] 2019-05-04 2019-05-04 Personalized Living Manager Ultrasound, [facility] 1.2 .840.114 [id number] [facility] 14:17:30 15:17:30 Visit Brennan Ritchie Dax [place] 350.1.13.10 ity of [place] [id number] [address] 2019-05-04 2019-05-04 Personalized Living Manager Ultrasound, [facility] 1.2.840.114 [id number] 14:17:30 15:17:30 Visit Adc [facility] [place] 350.1.13.10 [place] 4.2.7.2.686 Professio [phone] [address] 2019-05-04 2019-05-04 Orders Doctor MATTIE 1.2.840.114 [id number] Univers 00:00:00 00:00:00 Only Unassigned, ROXY 350.1.13.10 ity of [place] [facility] 4.2.7.2.686 Jacinto as [id number] [address] 2019-05-04 2019-05-04 Orders Doctor PHELPS 1.2.840.114 [id number] 00:00:00 00:00:00 Only Unassigned, ROXY 350.1.13.10 [place] [facility] 4.2.7.2.686 [id number] [facility] 2019-05-02 2019-05-02 Telephone Brennan Ritchie SDMARTIN 1.2.840.114 [id number] Univers 00:00:00 00:00:00 Dax Blackstock 350.1.13.10 i ty of [place] [phone] Pr dical [address] 2019-05-02 2019-05-02 Telephone Brennan Ritchie SDMARTIN 1.2.840.114 [id number] 00:00:00 00:00:00 Dax Eubanks 350.1.13.10 [place] 4.2.7.2.686 Professio [phone] [address] 2019-04-18 2019-04-18 [facility] 1.2.840.114 [id number] [facility] 13:01:44 23:59:00 Encounter Kaila Holguin 350.1.13.10 ity of [facility] 4.2.7.2.686 [place] as [phone] [address] 2019-04-18 2019-04-18 [facility] 1.2.840.114 [id number] 13:01:44 23:59:00 Encounter Kaila Holguin 350.1.13.10 [facility] 4.2.7.2.686 [id number] 031 Results Test Description Test Time Test Comments Results Result Comments Source COMP. METABOLIC PANEL (73717) 2023-05-03 16:09:14 Test Item Value Reference Range Interpretation Comme nts NA (test code = 3411784081) 134 mmol/L 135-145 L K (test code = 4914292984) 4.1 mmol/L 3.5-5.0 CL (test code = 4133509858) 106 mmol/L 98-108 CO2 TOTAL (test code = 5793072930) 22 mmol/L 23-31 L AGAP (test code = 6162180179) 6 2-16 BUN (test code = 3844684517) 8 mg/dL 7-23 GLUCOSE (test code = 2910316997) 126 mg/dL 70-110 H CREATININE (test code = 0.38 mg/dL 0.50-1.04 L 3461684175) TOTAL BILI (test code = 0.4 mg/dL 0.1-1.8 7676266428) CALCIUM (test code = 8542109750) 8.5 mg/dL 8.6-10.6 L T PROTEIN (test code = 1443010707) 6.7 g/dL 6.3-8.2 ALBUMIN (test code = 2234755899) 3.2 g/dL 3.5-5.0 L ALK PHOS (test code = 7995273782) 90 U/L 34-122 ALTv (test code = 1742-6) 21 U/L 5-35 AST(SGOT) (test code = 9475270440) 21 U/L 13-40 eGFR (test code = 7700362664) 192.7 mL/min/1.73m2 ALEXANDRA (test code = ALEXANDRA) Association of Glomerular Filtration Rate (GFR) and Staging of Kidney Disease* + +-------- + ------+| GFR (mL/min/1.73 m2) ?| With Kidney Damage ?| ?Without Kidney Damage+ +-- + +| ?>90 ?| ?Stage one ?| ? Normal ?+ +------- + -------+| ?60-89 ?| ?Stage two ?| ? Decreased GFR ? + +-------- + ------+| ?30-59 ?| ?Stage three ?| ? Stage three ? + +-------- + ------+| ?15-29 ?| ?Stage four ? | ? Stage four ?+ +------- + -------+| ?<15 (or dialysis) ? ?| ?Stage five ? | ? Stage five ?+ +------- + -------+ *Each stage assumes the associated GFR [...] or abnormalities in imaging tests). Lab Interpretation (test code = Abnormal 37404-1) [facility] WITH [id number] 14:12:19 Test Item Value Reference Range Interpretation Comments WBC (test code = 9.82 See_Comment [Automated 6690-2) message] The sy stem which generated this result transmitted reference range : 4.30 - 11.10 10*3/?L. The reference range was not used to interpret this result as normal/abnormal . RBC (test code = 4.02 See_Comment [Automated 789-8) message] The sy stem which generated this result transmitted reference range : 3.93 - 5.25 10*6/?L. The reference range was not used to interpret this result as normal/abnormal . HGB (test code = 9.8 g/dL 11.6-15.0 L 718-7) HCT (test code = 31.0 % 35.7-45.2 L 4544-3) MCV (test code = 77.1 fL 80.6-95.5 L 787-2) MCH (test code = 24.4 pg 25.9-32.8 L 785-6) MCHC (test code = 31.6 g/dL 31.6-35.1 786-4) RDW-SD (test code = 41.1 fL 39.0-49.9 88043-6) RDW-CV (test code = 14.8 % 12.0-15.5 788-0) PLT (test code = 198 See_Comment [Automated 777-3) message] The sy stem which generated this result transmitted reference range : 166 - 358 10*3/ ?L. The reference r lauren was not used to interpret this result as normal/abnormal . MPV (test code = 9.9 fL 9.5-12.9 69392-4) NRBC/100 WBC (test 0.0 See_Comment [Automat ed code = 2711552922) message] The system which generated this result transmitted reference range : 0.0 - 10.0 /100 WBCs. The refer ence range was not u sed to interpret th is result as normal/abnormal . NRBC x10^3 (test code See_Comment [Auto mated = 9229768057) message] The s mPorttem which generated this result transmitted reference range : 10*3/?L. The reference range was not used to interpret this result as normal/abnormal . GRAN MAT (NEUT) % 76.4 % (test code = 770-8) IMM GRAN % (test code 0.80 % = 8473564811) LYMPH % (test code = 15.8 % 736-9) MONO % (test code = 6.0 % 5905-5) EOS % (test code = 0.8 % 713-8) BASO % (test code = 0.2 % 706-2) GRAN MAT x10^3(ANC) 7.50 10*3/uL 1.88-7.09 H (test code = 4068648368) IMM GRAN x10^3 (test 0.08 10*3/uL 0.00-0.06 H code = 5925331371) LYMPH x10^3 (test code 1.55 10*3/uL 1.32-3.29 = 731-0) MONO x10^3 (test code 0.59 10*3/uL 0.33-0.92 = 742-7) EOS x10^3 (test code = 0.08 10*3/uL 0.03-0.39 711-2) BASO x10^3 (test code 0.01-0.07 = 704-7) Lab Interpretation Abnormal (test code = 11437-8) [facility] W/AUTO [id number] 12:55:00 Test Item Value Reference Range Interpretation Comments [...] 27.3-33.9 L MEAN CELL HGB CONCETRATION (test 32.0 gm/dL 32.0-34.2 N code = MCHC) RED CELL DISTRIBUTION WIDTH (test 15.2 % 12.2-16.3 N code = RDW) PLATELET COUNT (test code = PLT) 164 K/mm3 134-363 N MEAN PLATELET VOLUME (test code = 10.6 fL 9.2-12.7 N MPV) NEUTROPHIL % (test code = NT%) 87.3 [...] REQUIRED (test NORMAL NORMAL code = PLTMR) COMPREHENSIVE METABOLIC [id number] 12:53:00 Test Item Value Reference Range Interpretation [...] the recommended for geraldo for GFRby the [facility] on for Adults.The GFR will [...] N TOTAL (test code = ALKP) URINALYSIS [id number] 12:40:00 Test Item Value Reference Range Interpretation [...] NA (test code = 137 mmol/L 135-145 9256731304) K (test code = 4.0 mmol/L 3.5-5.0 1551997314) CL (test code = 106 mmol/L 98-108 7235124628) CO2 TOTAL (test code = 22 mmol/L 23-31 L 1787807681) AGAP (test code = 9 2-16 7903668408) BUN (test code = 12 mg/dL 7-23 9726613925) GLUCOSE (test code = 147 mg/dL 70-110 H 6214908744) CREATININE (test code = 0.50 mg/dL 0.50-1.04 5126780836) CALCIUM (test code = 8.8 mg/dL 8.6-10.6 1011992851) eGFR (test code = 140.4 mL/min/1.73m2 0486291101) ALEXANDRA (test code = ALEXANDRA) Association of [...] tests). Lab Interpretation Abnormal (test code = 01103-6) [facility] WITH [id number] 06:15:59 Test Item Value Reference Range Interpretation Comments WBC (test code = 13.94 See_Comment H [Automated 1990-2) message] The system which generated this result transmit holly reference range : 4.30 - 11.10 10*3/?L. The reference range was not used to interpret this result as normal/abnormal . RBC (test code = 4.78 See_Comment [Automated 789-8) message] The system which generated this result [...] RDW-SD (test code = 43.1 fL 39.0-49.9 69190-5) RDW-CV (test code = 15.2 % 12.0-15.5 788-0) PLT (test code = 191 See_Comment [Automated 777-3) message] The system which generated this result transmit holly reference range : 166 - 358 10*3/ ?L. The reference range was not u sed to interpret th is result as normal/abnormal . MPV (test code = 10.5 fL 9.5-12.9 93760-4) NRBC/100 WBC (test 0.0 See_Comment [Automat ed code = 8545266641) message] The system which generated this result transmit holly reference range : 0.0 - 10.0 /100 WBCs. The reference range was not used to interpret this result as normal/abnormal . NRBC x10^3 (test code See_Comment [Auto mated = 6415865949) message] The system which generated this result transmit holly reference range : 10*3/?L. The reference range was not used to interpret this result as normal/abnormal . GRAN MAT (NEUT) % 92.4 % (test code = 770-8) IMM GRAN % (test code 0.70 % = 8487280746) LYMPH % (test code = 4.3 % 736-9) MONO % (test code = 2.3 % 5905-5) EOS % (test code = 0.1 % 713-8) BASO % (test code = 0.2 % 706-2) GRAN MAT x10^3(ANC) 12.87 10*3/uL 1.88-7.09 H (test code = 8611000542) IMM GRAN x10^3 (test 0.10 10*3/uL 0.00-0.06 H code = 0817855008) LYMPH x10^3 (test code 0.60 10*3/uL 1.32-3.29 L = 731-0) MONO x10^3 (test code 0.32 10*3/uL 0.33-0.92 L = 742-7) EOS x10^3 (test code = 0.03-0.39 L 711-2) BASO x10^3 (test code 0.03 10*3/uL 0.01-0.07 = 704-7) Lab Interpretation Abnormal (test code = 44114-7) [facility] [id number] 12:57:32 Test Item Value Reference Range Interpretation Comments DALTON SPECIES (test NEGATIVE NEGATIVE code = ) G. VAGINALIS (test NEGATIVE NEGATIVE code = ) T. VAGINALIS (test NEGATIVE NEGATIVE UNLESS O THERWISE code = 97669) INDICATED, ALL TESTING PERFORMED [facility] [address] [place] [address] 4 LABORATORY DIRE CTOR: MIREYA LOPEZ M.D. CLIA NUMBER [id number] [place] [id number] VAGINAL PATHOGENS DNA [id number] 00:00:00 Test Item Value Reference Range Interpretation Comments DALTON SPECIES (test code = 00766) NEGATIVE G. VAGINALIS (test code = 51750) NEGATIVE T. VAGINALIS (test code = 29528) NEGATIVE PLACENTA THIRD [id number] 17:54:00 RUN DATE: 09/04/19 [facility] PAGE 1 RUN TIME: 721 Specimen Inquiry RUN USER: INTERFACE --PATIENT: WALTER ROSE LOC: KRISTEN U #: [id number] AGE/SX: 33/F ROOM: [facility] RE08/16/19REGDR: Junior Tapia MD : 87 BED: A DIS: 08/26/19 STATUS: DIS IN TLOC: SPEC #: [id number] RECD: 08/22/19 STATUS: ALICIA GONZALEZ #: [id number] LAYTON: 08/22/19- SUBM DR: Junior Tapia MD ENTERED: 08/27/19-0716SP TYPE: PLACIII OT DR: ORDERED: LEVEL V SURGICA CODES: QG2606 - PLACENTA, NOS PROCEDURES: LEVEL VSURGICA (Incomplete) TISSUES: PLACENTA, NOS - PLACENTA CLINICAL HISTORY 33 year old, 36 weeks, [id number], section, history of demise, decreased FM, oligo [...] and inherited or acquired thrombophilias. CPT code(s): 04958 pkg/wpd 08/31/19 CONTINUED ON NEXT PAGE RUN DATE: 09/04/19 [facility] PAGE 2 RUN TIME: 721 Specimen Inquiry RUN USER: INTERFACE SPEC #: [id number] PATIENT: WALTER ROSE#[id number] (Continued) GROSS DESCRIPTION The specimen was received [...] are free of inflammation. mae/wpd 08/31/19 Signed Lucero Vazquez 08/31/19 1754 --- --------- END OFREPORT HGB [id number] 07:11:00 Test Item Value Reference Range Interpretation Comments HEMOGLOBIN (test code = HGB) 7.4 g/dL 10.7-13.9 L HEMATOCRIT (test code = HCT) 24.6 % 32.1-42.1 L CBC W/AUTO [id number] 05:50:00 Test Item Value Reference Range Interpretation [...] NORMAL NORMAL code = PLTMR) CBC W/AUTO [id number] 05:30:00 Test Item Value Reference Range Interpretation [...] NORMAL NORMAL code = PLTMR) AMNISURE (ROM) [id number] 01:29:00 Test Item Value Reference Range Interpretation Comments AMNISURE (ROM) TEST (test code = NON-RUPTURED NON-RUPTURE AMNI) : *Amnisure QC OK? YESAMNISURE (ROM) [id number] 01:19:00 Test Item Value Reference Range Interpretation Comments AMNISURE (ROM) TEST (test code = NON-RUPTURED NON-RUPTURE AMNI) : *[employer] QC OK? YESRAPID PLASMA [id number] 18:09:00 Test Item Value Reference Range Interpretation Comments RAPID PLASMA REAGIN (test code = RPR) NON-REACT IS CONSENT FORM SIGNED FOR HIV TESTING? YAG HEPATITIS B [id number] 18:09:00 Test Item Value Reference Range Interpretation Comments AG HEPATITIS B SURFACE (test code NONREACTIVE NONREACTIVE = HBSAG) IS CONSENT FORM SIGNED FOR HIV TESTING? YAB HEPATITIS C [id number] 18:09:00 Test Item Value Reference Range Interpretation Comments AB HEPATITIS C (test code = NONREACTIVE NONREACTIVE HCVAB) SIGNAL TO CUTOFF (test code = <0.02 <0.80 N CUTOFF) IS CONSENT FORM SIGNED FOR HIV TESTING? YAB [id number] 18:09:00 Test Item Value Reference Range Interpretation Comments AB TREPONEMA (test code = TREPAB) NONREACTIVE NONREACTIVE IS CONSENT FORM SIGNED FOR HIV TESTING? YAB HIV 1 18:09:00 Test Item Value Reference Range Interpretation Comments AB HIV 1 2 (test NONREACTIVE NONREACTIVE [facility] code = EZR00NY) 4th Gen HIV Ag/Ab Combo Screen IS CONSENT FORM SIGNED FOR HIV TESTING? YRAPID PLASMA [id number] 17:45:00 Test Item Value Reference Range Interpretation Comments RAPID PLASMA REAGIN (test code = RPR) NON-REACT IS CONSENT FORM SIGNED FOR HIV TESTING? YAG HEPATITIS B [id number] 17:45:00 Test Item Value Reference Range Interpretation Comments AG HEPATITIS B SURFACE (test code NONREACTIVE NONREACTIVE = HBSAG) IS CONSENT FORM SIGNED FOR HIV TESTING? YAB HEPATITIS C [id number] 17:45:00 Test Item Value Reference Range Interpretation Comments AB HEPATITIS C (test code = HCVAB) NONREACTIVE SIGNAL TO CUTOFF (test code = CUTOFF) <0.80 IS CONSENT FORM SIGNED FOR HIV TESTING? YAB [id number] 17:45:00 Test Item Value Reference Range Interpretation Comments AB TREPONEMA (test code = TREPAB) NONREACTIVE NONREACTIVE IS CONSENT FORM SIGNED FOR HIV TESTING? YAB HIV 1 17:45:00 Test Item Value Reference Range Interpretation Comments AB HIV 1 2 (test code = MVY51RK) NONREACTIVE IS CONSENT FORM SIGNED FOR HIV TESTING? YCBC W/AUTO [id number] 15:54:00 Test Item Value Reference Range Interpretation [...] code = PLTMR) - US PREG UT [id number] 13:50:00 Patient Name: WALTER ROSE Unit No: [id number] EXAMS: CPT CODE: [id number] US PREG UT TRANSVAGINAL [address] [facility] [address] [place], [place] [address] BIOPHYSICAL PROFILE ULTRASOUNDREPORT Pat. Name: WALTER ROSE Pat. No: [id number] Study Date: 08/13/2019 12:07pm , Age: 01 1985, 33 Pregnancies: 4, Para 2 LMP: Unknown GA by 1st: 34w5d GA Selected: 34w5d (From Known E) SANDRA: 09/19/2019 Referring MD: Junior Tapia Spinning Machine Tender: Noy Campos RDMS CPT4: USPRUTTRVG Admitting MD: [...] and adnexa: No significant abnormality is seen. Katreina Escobar M.D. Electronic Signature 08/13/2019 01:50pm at 1350 Reported and signed by: Katerina Escobar MD CC: Junior Tapia MD Technologist: Noy Campos RDMS Probe: [id number] Trnscrbd D/ (1350) MargaNMG Orig Print D/T: S: 08/16/2019 (1506) [facility] NAME: WALTER ROSE Radiology Department PHYS: Junior Modi MD [address] : 1985 AGE: 33 SEX: [place], [place] [address] LOC: EduT PHONE #: [phone] EXAM DATE: 08/13/2019 STATUS: REG RCR FAX #: [phone] RAD NO: Page 1 Signed Report Patient Name: WALTER ROSE Unit No: [id number] EXAMS: CPT CODE: [id number] US PREG UT TRANSVAGINAL [address]18 (Continued) [facility] NAME: WALTER ROSE Radiology Department PHYS: Junior Modi MD [address] : 1985 AGE: 33 SEX: [place] [address] LOC: EduLDT PHONE #: [phone] EXAM DATE: 08/13/2019 STATUS: REG RCR FAX #: [phone] RAD NO: Page 2 Signed Report- US FET BIO PH DE W/O [id number] 13:50:00 Patient Name: WALTER ROSE Unit No: [id number] EXAMS: CPT CODE: [id number] US FET BIO PH DE W/O NST [address] [facility] [place] [place] [address] [place], [place] [address] BIOPHYSICAL PROFILE ULTRASOUND REPORT Pat. Name: WALTER ROSE Pat. No: [id number] Study Date: 08/13/2019 12:07pm , Age: 01 1985, 33 Pregnancies: 4, Para 2 LMP: Unknown GA by 1st: 34w5d GA Selected: 34w5d (From Known E) SANDRA: 09/19/2019 Referring MD: Junior Tapia Spinning Machine Tender: Noy Campos RDMS CPT4: USBPPWONST Admitting MD: [...] Noy Campos RDMS Probe: Trnscrbd D/ (1350) MargaNMG Orig Print D/T: S: 08/13/2019 (1350) [facility] NAME: ROSEWALTER KOHLER Radiology Department PHYS: Junior Modi MD [address] : 1985 AGE: 33 SEX: F [place], [place] [address] LOC: DEANNE PHONE #: [phone] EXAM DATE: 08/13/2019 STATUS: REG RCR FAX #: [phone] RAD NO: Page 1 Signed Report Patient Name: WALTER ROSE Unit No: [id number] EXAMS: CPT CODE: [id number] FET BIO PH DE W/O NST 93369 (Continued) [facility] NAME: ROSEWALTER KOHLERRadiology Department PHYS: Junior Modi MD [address] : 1985 AGE: 33 SEX: [place] [address] LOC: DEANNE PHONE #: [phone] EXAM DATE: 08/13/2019 STATUS: REG RCR FAX #: [phone] RAD NO: Page 2 Signed Report- US FET BIO PH DE W/O NST 2019-08-09 08:39:00 Patient Name: WALTER ROSE Unit No: [id number] EXAMS: CPT CODE: [id number] US FET BIO PH DE W/O NST [address] [facility] [place] [place] [address] [place], [place] [address] BIOPHYSICAL PROFILE ULTRASOUND REPORT Pat. Name: WALTER ROSE Pat. No: [id number] Study Date: 08/09/2019 7:50am , Age: 01 1985, 33 Pregnancies: 4, Para 2 LMP: Unknown GA by 1st: 34w1d GA Selected: 34w1d (From First S) SANDRA: 09/19/2019 Referring MD: Junior Tapia Spinning Machine Tender: Ro Le RDMS CPT4: USBPPWONST Admitting MD: [...] Reported and signed by: Beau Farfan MD [facility] NAME: WALTER ROSE Radiology Department PHYS: Junior Modi MD [address] : 1985 AGE: 33 SEX: F [place], [place] [address] LOC: DEANNE PHONE #: [phone] EXAM DATE: 08/09/2019 STATUS: REG RCR FAX #: [phone] RAD NO: Page 1 Signed Report (CONTINUED) Dirk greene Name: ROSEWALTER KOHLER Unit No: [id number] EXAMS: CPT CODE: [id number] FET BIO PH DE W/O NST 37949 (Continued) CC: Junior Tapia MD Technologist: Ro Le RDMS Probe: Trnscrbd D/ (0839) Suha Orig Print D/T: S: 08/09/2019 (0839) [facility] NAME: WALTER KRUGER Radiology Department PHYS: Junior Modi MD [address] : 1985 AGE: 33 SEX: F [place], [place] [address] LOC: EduLDT PHONE #: [phone] EXAM DATE: 08/09/2019 STATUS: REG RCR FAX #: [phone] RAD NO: Page 2 Signed Report Patient Name: WALTER ROSE Unit No: [id number] EXAMS: CPT CODE: [id number] US [facility] BIO PH DE W/O NST 33235 (Continued) [facility] NAME: WALTER ROSE Radiology Department PHYS: Junior Modi MD [address] : 1985 AGE: 33 SEX: F [place] [address] LOC: EduLDT PHONE #: [phone] EXAM DATE: 08/09/2019 STATUS: REG RCR FAX #: [phone] RAD NO: Page 3 Signed ReportAB [id number] 15:51:00 Test Item Value Reference Range Interpretation Comments AB TREPONEMA (test code = TREPAB) NONREACTIVE NONREACTIVE PLEASE CALL DR.HAIDAR SHARMA W/RESULTS NO NUMBER PROVIDEDAB HIV 1 15:51:00 Test Item Value Reference Range Interpretation Comments AB HIV 1 2 (test NONREACTIVE NONREACTIVE [id number] 4th Gen HIV Ag/Ab Combo Screen PLEASE CALL DR.HAIDAR SHARMA W/RESULTS NO NUMBER PROVIDEDAB [id number] 15:39:00 Test Item Value Reference Range Interpretation Comments AB TREPONEMA (test code = TREPAB) NONREACTIVE NONREACTIVE PLEASE CALL DR.HAIDAR SHARMA W/RESULTS NO NUMBER PROVIDEDAB HIV 1 15:39:00 Test Item Value Reference Range Interpretation Comments AB HIV 1 2 (test code = JOS60IF) NONREACTIVE PLEASE CALL DR.HAIDAR SHARMA W/RESULTS NO NUMBER PROVIDEDCBC W/AUTO [id number] 14:37:00 Test Item Value Reference Range Interpretation [...] code = PHENCU) 25 ng/m L URINALYSIS [id number] 18:10:00 Test Item Value Reference Range Interpretation [...] URINE SAMPLE: CLEAN CATCH- US PREG UT [id number] 17:54:00 Patient Name: WALTER ROSE Unit No: [id number] EXAMS: CPT CODE: [id number] US PREG UT TRANSVAGINAL [address] [facility] [address] [place], [place] [address] BIOPHYSICAL PROFILE ULTRASOUND REPORT Pat. Name: WALTER ROSE Pat. No: [id number] Study Date: 08/04/2019 4:30pm , Age: 01 1985, 33 Pregnancies: 4, Para 2 LMP: Unknown GA by 1st: 33w3d GA Selected: 33w3d (From Known E) SANDRA: 09/19/2019 Referring MD: Junior Tapia Spinning Machine Tender: Aashish Lovelace RDMS CPT4: USPRUTTRVG Admitting MD: [...] Reported andsigned by: Lizbet Saleh MD [facility] NAME: WALTER ROSE KOHLER Radiology Department PHYS: Junior Modi MD [address] : 1985 AGE: 33 SEX: F [place] [address] LOC: Ariel.DENI PHONE #: [phone] EXAM DATE: 08/04/2019 STATUS: DEP ER FAX #: [phone] RAD NO: Page 1 Signed Report (CONTINUED) Patient Name: WALTER ROSE Unit No: [id number] EXAMS: CPT CODE: [id number] US PREG UT TRANSVAGINAL 85638 (Continued) CC: Junior Tapia MD Technologist: Aashish Lovelace, [facility] Probe: [id number] Trnscrbd D/ (1754) t.MUSAR.CER Orig Print D/T: S: 08/07/2019 (1522) [facility] NAME: ROSEWALTER KOHLER Radiology Department PHYS: Junior Modi MD [address] : 1985 AGE: 33 SEX: F [place] [address] LOC: EduDENI PHONE #: [phone] EXAM DATE: 08/04/2019 STATUS: DEP ER FAX #: [phone] RAD NO: Page 2 Signed Report Patient Name: WALTER ROSE Unit No: [id number] EXAMS: CPT CODE:[id number] US PREG UT TRANSVAGINAL 72055 (Continued) [facility] NAME: ROSEWALTER Radiology Department PHYS: Junior Modi MD [address] : 1985 AGE: 33 SEX: F [place] [address] LOC: EduDENI PHONE #: [phone] EXAM DATE: 08/04/2019 STATUS: DEP ER FAX #: [phone] RAD NO: Page 3 Signed Report- US FET BIO PH DE W/O [id number] 17:54:00 Patient Name: WALTER ROSE Unit No: [id number] EXAMS: CPT CODE: [id number] US FET BIO PH DE W/O [id number] [facility] [address] [place], [place] [address] BIOPHYSICAL PROFILE ULTRASOUND REPORT Pat. Name: WALTER ROSE Pat. No: [id number] Study Date: 08/04/2019 4:30pm , Age: 01 1985, 33 Pregnancies: 4, Para 2 LMP: Unknown GA by 1st: 33w3d GA Selected: 33w3d (From Known E) SANDRA: 09/19/2019 Referring MD: Junior Tapia M.D. Spinning Machine Tender: Aashish Lovelace RDMS CPT4: USBPPWONST Hist/Ind: Decreased BPP Scan #2 Cervical Length: 4.0 cm FetalHeart Rate: 139 bpm Amniotic Fluid Index: 13.8cm (08.2-24.6) Q1: 6.9cm Q2: 4.9cm Q3: 2.0cm Q4: 0.0cmBiophysical Profile: 05/03 Breathin Tone: 2 Movement: 2 AFV: 2 CLINICAL SUMMARY Type of Gestation: Hawkins Intrauterine in vertex presentation. motion and organs seen: somatic activity observed bodyand limb movements seen Regular cardiac rhythm observed [...] Reported and signed by: Lizbet Saleh MD [facility] NAME: WALTER ROSE Radiology Department PHYS: Jade Levin III, MD [address] : 1985 AGE: 33 SEX: F [place] [address] LOC: EduDENI PHONE #: [phone] EXAM DATE: 08/04/2019 STATUS: REG ER FAX #: [phone] RAD NO: Page 1 Signed Report (CONTINUED) Patient Name: WALTER ROSE Unit No: [id number] EXAMS: CPT CODE: [id number] US FET BIO PH DE W/O NST 03672 (Continued) CC: Junior Tapia MD; Jade Faustin III, MD Technologist: Aashish Lovelace RDMS Probe: Trnscrbd D/ (1753) t.SDR.CER Orig Print D/T: S: 08/04/2019 (1753) [facility] NAME: WALTER ROSE Radiology Department PHYS: Jade Levin III, MD[address] : 1985 AGE: 33 SEX: F [place] [address] LOC: EduDENI PHONE #: [phone] EXAM DATE: 08/04/2019 STATUS: REG ER FAX #: [phone] RAD NO: Page 2 Signed Report Patient Name: WALTER ROSE Unit No: [id number] EXAMS: CPT CODE: [id number] US FET BIO PH DE W/O NST 75656 (Continued) [facility] NAME: WALTER ROSE Radiology Department PHYS: Jade Levin III, MD [address] : 1985 AGE: 33 SEX: F [place] [id number] LOC: EduDENI PHONE #: [phone] EXAM DATE: 08/04/2019 STATUS: REG ER FAX #: [phone] RAD NO: Page 3 Signed Report- DUP VEIN [id number] 23:45:00 Patient Name: WALTER ROSE Unit No: [id number] EXAMS: CPT CODE: [id number] DUP VEIN IRENA [address]46[address] PROCEDURE: BILATERAL LOWER EXTREMITY VENOUS ULTRASOUND DATED [...] evidence of acute lower extremity deep venous thrombosis.SL:131 at 2347 Reported and signed by: Brody Luo MD CC: Junior Tapia MD; Santiago Austin MD Technologist: Ania Verde RDMS, RVT Probe: Trnscrbd D/ (2345) Kira Orig Print D/T: S: 07/24/2019 (2255) [facility] NAME: WALTER ROSE Radiology Department PHYS: Santiago Pastrana MD [address] : 1985 AGE: 33 SEX: F [place] [address] LOC: EduERS PHONE #: [phone] EXAM DATE: 07/24/2019 STATUS: DEP ER FAX #: [phone] RAD NO: Page 1 Signed Report Patient Name: WALTER ROSE Unit No: [id number] EXAMS: CPT CODE: [id number] DUP VEIN IRENA [address] (Continued) [facility] NAME: WALTER ROSE Radiology Department PHYS: Santiago Pastrana MD [address] : 1985 AGE: 33 SEX: F [place], [place] [address] LOC: TASHA PHONE #: [phone] EXAM DATE: 07/24/2019 STATUS: DEP ER FAX #: [phone] RAD NO: Page 2 Signed ReportUA RFLX MICR CULT IF [id number] 21:32:00 Test Item Value Reference Range Interpretation [...] NONE SEEN Indication for culture: Flank PainPROTHROMBIN [id number] 21:00:00 Test Item Value Reference Range Interpretation Comments PROTHROMBIN TIME PATIENT (test code 10.2 secs 10.4-12.4 L = PTP) THROMBOPLASTIN TIME [id number] 21:00:00 Test Item Value Reference Range Interpretation Comments THROMBOPLASTIN TIME PARTIAL (test 28.0 secs 22-38 N code = PTT) [id number] 21:00:00 Test Item Value Reference Range Interpretation Comments FIBRINOGEN (test code = FIB) 565 mg/dL 309-518 H D-DIMER [id number] 21:00:00 Test Item Value Reference Range Interpretation [...] is 98% for rulingout DVT. COMPREHENSIVE METABOLIC [id number] 20:38:00 Test Item Value Reference Range Interpretation [...] 46-116 N code = ALKP) CBC W/AUTO [id number] 20:23:00 Test Item Value Reference Range Interpretation [...] NORMAL NORMAL code = PLTMR) CANNABINOIDS CONFIRMATION [id number] 12:33:00 Test Item Value Reference Range Interpretation Comments DRUG CONFIRMATION BY POSITIVE NEGATIVE A Drug(s) Identified: GC/MS (test code = carboxy-t hc amount DRUGCON) 94 ng/mL GC/MS Cutoff: 0. - US PREG UT [id number] 13:17:00 Patient Name: WALTER ROSE Unit No: [id number] EXAMS: CPT CODE: [id number] US PREG UT TRANSVAGINAL [address] [facility] [address] [place], [place] [address] LIMITED OBSTETRICAL ULTRASOUND REPORT Pat. Name: WALTER ROSE Pat. No: [id number] Study Date: 05/21/2019 12:12pm , Age: 01 1985, 33 Pregnancies: 4, Para 2 LMP: Unknown GA Selected: 22w5d (From Known E) SANDRA: 09/19/2019 Referring MD: Jade Faustin Spinning Machine Tender: Paramjit Kohli RDMS, RVT CPT4: USPRUTTRVG Admitting MD: Jade Faustin Hist/Ind: SCAN 1 22.5 WEEKS VAGINAL PAIN/LESTER CERVICAL LENGTH Cervical Length: 4.3 cm Heart Rate: 142 bpm Amniotic Fluid Index: 10.9cm (09.8- 21.7) Q1:1.6cm Q2: 3.8cm Q3: 2.8cm Q4: 2.7cm CLINICAL SUMMARY Type of Gestation: Hawkins Intrauterine in vertex presentation. motion and organs seen: heart motion seen Placental location: Anterior Placental maturity: Grade 1 There is no evidence of placenta previa. Amniotic fluid volume is normal. Uterus and adnexa: No significant abnormality is seen. Katerina Escobar M.D. Electronic Snnzviozt33/26/2019 01:17pm at 1317 Reported and signed by: Katerina Escobar MD CC: Jade Faustin III, MD Technologist: Paramjit Kohli RDMS, RVT Probe: [id number] Trnscrbd D/ (7928) Wily Orig Print D/T: S: 05/22/2019 (6086) [facility] NAME: WALTER ROSE Radiology Department PHYS: Jade Levin III, MD [address] : 1985 AGE: 33 SEX: F [place] [address] LOC: EduDENI PHONE #: [phone] EXAM DATE: 05/21/2019 STATUS: [facility] ER FAX #: [phone] RAD NO: Page 1 Signed Report Patient Name: WALTER ROSE Unit No: [id number] EXAMS: CPT CODE: [id number] PREG SD TRANSVAGINAL [address]121 (Continued) [facility] NAME: WALTER ROSE Radiology Department PHYS: Jade Levin III, MD [address] : 1985 AGE: 33 SEX: F [place] [address] LOC: Ariel JulioDENI PHONE #: [phone] EXAM DATE: 05/21/2019 STATUS: [facility] ER FAX #: [phone] RAD NO: Page 2 Signed Report- US [id number] 13:17:00 Patient Name: WALTER ROSE Unit No: [id number] EXAMS: CPT CODE: [id number] [place] LTD [address] [facility] [address] [place], [place] [address] LIMITED OBSTETRICAL ULTRASOUND REPORT ---- Pat. Name: WALTER ROSE Pat. No: [id number] Study Date: 05/21/2019 12:12pm , Age: 01 1985, 33 Pregnancies: 4, Para 2 LMP: Unknown GA Selected: 22w5d (From Known E) SANDRA: 09/19/2019 Referring MD: JADE FAUSTIN Spinning Machine Tender: Paramjit Kohli RDMS, T CPT4: USPREGLTD Admitting [...] Kohli RDMS, RVT Probe: Trnscrbd D/ (1317) t.MUSAR.NMG Orig Print D/T: S: 05/21/2019 (1317) [facility] NAME: WALTER ROSE Radiology Department PHYS: Jade Levin III, MD [address] : 1985 AGE:33 SEX: F [place] [address] LOC: EduDENI PHONE #: [phone] EXAM DATE: 05/21/2019 STATUS: REG ER FAX #: [phone] RAD NO: Page 1 Signed Report Patient Name: WALTER ROSE Unit No: [id number] EXAMS: CPT CODE: [id number] LTD 41621 (Continued) [facility] NAME: WALTER ROSE Radiology Department PHYS: Jade Levin III, MD [address] :1985 AGE: 33 SEX: F [place] [address] LOC: EduDENI PHONE #: [phone] EXAM DATE: 05/21/2019 STATUS: REG ER FAX #: [phone] RAD NO: Page 2 Signed ReportDRUGS OF ABUSE [id number] 12:31:00 Test Item Value Reference Range Interpretation Comments UR COCAINE (test code = NEGATIVE NEGATIVE DETE CTION CUT OFF: COCAU) 150 ng/mL UR CANNABINOIDS (test POSITIVE NEGATIVE A RESULT S CALLED TO code = CANU) JESÚS.READ B ACK & CONFIRMED? [facility]/21 1231. DETECTION CUT OFF: 50 ng/mL [...] code = PHENCU) 25 ng/m L URINALYSIS [id number] 12:17:00 Test Item Value Reference Range Interpretation [...] SEEN URINE SAMPLE: CLEAN CATCHVAGINAL PATHOGENS DNA [id number] 00:00:00 Test Item Value Reference Range Interpretation Comments DALTON SPECIES (test code = ) NEGATIVE G. VAGINALIS (test code = ) POSITIVE T. VAGINALIS (test code = ) NEGATIVE HCG, [id number] 00:00:00 Test Item Value Reference Range Interpretation Comments HCG, QUANTITATIVE (test code = <5 MIU/ML 2506) VAGINAL PATHOGENS DNA [id number] 00:00:00 Test Item Value Reference Range Interpretation Comments DALTON SPECIES (test code = 34405) NEGATIVE G. VAGINALIS (test code = 62928) POSITIVE T. VAGINALIS (test code = 61641) NEGATIVE HCG, [id number] 00:00:00 Test Item Value Reference Range Interpretation Comments HCG, QUANTITATIVE (test code = <5 MIU/ML 2506) HCG, [id number] 00:00:00 Test Item Value Reference Range Interpretation Comments HCG, QUANTITATIVE (test code = <5 MIU/ML 2506) HCG, [id number] 00:00:00 Test Item Value Reference Range Interpretation Comments HCG, QUANTITATIVE (test code = <5 MIU/ML 2506) VAGINAL PATHOGENS DNA [id number] 00:00:00 Test Item Value Reference Range Interpretation Comments DALTON SPECIES (test code = 12252) NEGATIVE G. VAGINALIS (test code = 02587) POSITIVE T. VAGINALIS (test code = 21664) NEGATIVE VAGINAL PATHOGENS DNA [id number] 00:00:00 Test Item Value Reference Range Interpretation Comments DALTON SPECIES (test code = 13616) NEGATIVE G. VAGINALIS (test code = 66857) POSITIVE T. VAGINALIS (test code = 28989) NEGATIVE PAP TEST, THINPREP, [id number] 00:00:00 Test Item Value Reference Range Interpretation Comments SOURCE: (test code = Cervical/Endocervical 8001) SLIDES: (test code = 1 8011) LMP: (test code = 06/01/2018 8021) SPECIMEN ADEQUACY: (NOTE) (test code = 78894) INTERPRETATION: (test NO EPITHELIAL code = 78808) ABNORMALITY SEE BELOW OTHER COMMENTS: (test (NOTE) code = 8081) NET DEVELOPER WITH WCF: Shreya (test code = 8101) JUNIOR Galicia(ASCP)IAC LOCATION: (test code (NOTE) = 14753) CPT: (test code = (NOTE) 8140) PAP TEST, THINPREP, [id number] 00:00:00 Test Item Value Reference Range Interpretation Comments SOURCE: (test code = Cervical/Endocervical 8001) SLIDES: (test code = 1 8011) LMP: (test code = 06/01/2018 8021) SPECIMEN ADEQUACY: (NOTE) (test code = 19515) INTERPRETATION: (test NO EPITHELIAL code = 20331) ABNORMALITY SEE BELOW OTHER COMMENTS: (test (NOTE) code = 8081) NET DEVELOPER WITH WCF: Shreya (test code = 8101) JUNIOR Galicia(ASCP)IAC LOCATION: (test code (NOTE) = 76915) CPT: (test code = (NOTE) 8140) HIV AB/AG COMBO RFLX [id number] 00:00:00 Test Item Value Reference Range Interpretation Comments HIV 1/2 4TH GEN, RFLX CONF (test NON-REACTIVE code = 3514) GC AND CHLAMYDIA AMPLIFIED, [id number] 00:00:00 Test Item Value Reference Range Interpretation Comments GONORRHEA, TMA (test code = 77194) NEGATIVE CHLAMYDIA, TMA (test code = 98608) NEGATIVE [id number] 00:00:00 Test Item Value Reference Range Interpretation Comments RPR RESULT (test code = NON-REACTIVE 3501) RPR TITER (test code = 3500) NOT INDIC. TITER [id number] 00:00:00 Test Item Value Reference Range Interpretation [...] INTERPRETATION HEPATITIS B: (NOTE) (test code = 74530) INTERPRETATION HEPATITIS C: (NOTE) (test code = 43419) HEPATITIS A IgM [REFLEX]2018-06-16 00:00:00 Test Item Value Reference Range Interpretation Comments HEPATITIS A IgM (test code = NON-REACTIVE 8) VAGINAL PATHOGENS DNA [id number] 00:00:00 Test Item Value Reference Range Interpretation Comments DALTON SPECIES (test code = ) NEGATIVE G. VAGINALIS (test code = ) POSITIVE T. VAGINALIS (test code = ) NEGATIVE HIV AB/AG COMBO RFLX [id number] 00:00:00 Test Item Value Reference Range Interpretation Comments HIV 1/2 4TH GEN, RFLX CONF (test NON-REACTIVE code = 3514) HPV HIGH RISK WITH GENOTYPE, [id number] 00:00:00 Test Item Value Reference Range Interpretation Comments HPV HIGH RISK INTERP (test code = NEGATIVE 06621) HPV 16 (test code = 10005) NEGATIVE HPV 18 (test code = 12529) NEGATIVE HPV, HR, OTHER GENOTYPES (test code NEGATIVE = 94741) [id number] 00:00:00 Test Item Value Reference Range Interpretation Comments RPR RESULT (test code = NON-REACTIVE 3501) RPR TITER (test code = 3500) NOT INDIC. TITER [id number] 00:00:00 Test Item Value Reference Range Interpretation Comments RPR RESULT (test code = NON-REACTIVE 3501) RPR TITER (test code = 3500) NOT INDIC. TITER GC AND CHLAMYDIA AMPLIFIED, [id number] 00:00:00 Test Item Value Reference Range Interpretation Comments GONORRHEA, TMA (test code = 67101) NEGATIVE CHLAMYDIA, TMA (test code = 49196) NEGATIVE HEPATITIS PROFILE (A,B,C)2018-06-16 00:00:00 Test Item [...] INTERPRETATION HEPATITIS B: (NOTE) (test code = 17240) INTERPRETATION HEPATITIS C: (NOTE) (test code = 93367) HEPATITIS A IgM [REFLEX]2018-06-16 00:00:00 Test Item Value Reference Range Interpretation Comments HEPATITIS A IgM (test code = NON-REACTIVE 8) VAGINAL PATHOGENS DNA [id number] 00:00:00 Test Item Value Reference Range Interpretation Comments DALTON SPECIES (test code = ) NEGATIVE G. VAGINALIS (test code = ) POSITIVE T. VAGINALIS (test code = ) NEGATIVE HPV HIGH RISK WITH GENOTYPE, [id number] 00:00:00 Test Item Value Reference Range Interpretation Comments HPV HIGH RISK INTERP (test code = NEGATIVE 06936) HPV 16 (test code = 54313) NEGATIVE HPV 18 (test code = 34485) NEGATIVE HPV, HR, OTHER GENOTYPES (test code NEGATIVE = 11173) HERPES SIMPLEX CULTURE AND TYPING [ADDED]2017-12-23 00:00:00 Test Item Value Reference Range Interpretation Comments SPECIMEN SOURCE (test code (NOTE) = 66190) HERPES CULTURE (test code NEGATIVE = 3533) HERPES SIMPLEX TYPE I TEST NOT PERFORMED (test code = 20867) HERPES SIMPLEX TYPE II TEST NOT PERFORMED (test code = 53546) HERPES SIMPLEX CULTURE AND TYPING [ADDED]2017-12-23 00:00:00 Test Item Value Reference Range Interpretation Comments SPECIMEN SOURCE (test code (NOTE) = 66614) HERPES CULTURE (test code NEGATIVE = 3533) HERPES SIMPLEX TYPE I TEST NOT PERFORMED (test code = 32735) HERPES SIMPLEX TYPE II TEST NOT PERFORMED (test code = 34701) HIV AB/AG COMBO RFLX [id number] 00:00:00 Test Item Value Reference Range Interpretation Comments HIV 1/2 4TH GEN, RFLX CONF (test NON-REACTIVE code = 3514) GC AND CHLAMYDIA, AMPLIFIED, [id number] 00:00:00 Test Item Value Reference Range Interpretation Comments GONORRHEA, TMA (test code = 96890) NEGATIVE CHLAMYDIA, TMA (test code = 56436) NEGATIVE [id number] 00:00:00 Test Item Value Reference Range Interpretation Comments RPR RESULT (test code = NON-REACTIVE 3501) RPR TITER (test code = 3500) NOT INDIC. TITER [id number] 00:00:00 Test Item Value Reference Range Interpretation Comments RPR RESULT (test code = NON-REACTIVE 3501) RPR TITER (test code = 3500) NOT INDIC. TITER HIV AB/AG COMBO RFLX [id number] 00:00:00 Test Item Value Reference Range Interpretation Comments HIV 1/2 4TH GEN, RFLX CONF (test NON-REACTIVE code = 3514) GC AND CHLAMYDIA, AMPLIFIED, [id number] 00:00:00 Test Item Value Reference Range Interpretation Comments GONORRHEA, TMA (test code = 75827) NEGATIVE CHLAMYDIA, TMA (test code = 80044) NEGATIVE VAGINAL PATHOGENS DNA [id number] 00:00:00 Test Item Value Reference Range Interpretation Comments DALTON SPECIES (test code = ) NEGATIVE G. VAGINALIS (test code = ) POSITIVE T. VAGINALIS (test code = ) NEGATIVE VAGINAL PATHOGENS DNA [id number] 00:00:00 Test Item Value Reference Range Interpretation Comments DALTON SPECIES (test code = ) NEGATIVE G. VAGINALIS (test code = ) POSITIVE T. VAGINALIS (test code = ) NEGATIVE [id number] 00:00:00 Test Item Value Reference Range Interpretation Comments RPR RESULT (test code = NON-REACTIVE 3501) RPR TITER (test code = 3500) NOT INDIC. TITER [id number] 00:00:00 Test Item Value Reference Range Interpretation Comments RPR RESULT (test code = NON-REACTIVE 3501) RPR TITER (test code = 3500) NOT INDIC. TITER HCG, [id number] 00:00:00 Test Item Value Reference Range Interpretation Comments HCG, QUANTITATIVE (test code = <5 MIU/ML 2506) HCG, [id number] 00:00:00 Test Item Value Reference Range Interpretation Comments HCG, QUANTITATIVE (test code = <5 MIU/ML 2506) HCG, [id number] 00:00:00 Test Item Value Reference Range Interpretation Comments HCG, QUANTITATIVE (test code = <5 MIU/ML 2506) HCG, [id number] 00:00:00 Test Item Value Reference Range Interpretation Comments HCG, QUANTITATIVE (test code = <5 MIU/ML 2506) PAP TEST, THINPREP, [id number] 00:00:00 Test Item Value Reference Range Interpretation Comments SOURCE: (test code = Cervical/Endocervical 8001) SLIDES: (test code = 1 8011) LMP: (test code = 8021) SPECIMEN ADEQUACY: (NOTE) (test code = 44483) INTERPRETATION: (test NO EPITHELIAL code = 02328) ABNORMALITY SEE BELOW OTHER COMMENTS: (test (NOTE) code = 8081) NET DEVELOPER WITH WCF: Uzma Huffman (test code = 8101) JUNIOR Bautista(ASCP)IAC QC TECHNOLOGIST: GIA (test code = 8111) JUNIOR SAMSON(ASCP)IAC LOCATION: (test code (NOTE) = 18765) CPT: (test code = (NOTE) 8140) PAP TEST, THINPREP, [id number] 00:00:00 Test Item Value Reference Range Interpretation Comments SOURCE: (test code = Cervical/Endocervical 8001) SLIDES: (test code = 1 8011) LMP: (test code = 8021) SPECIMEN ADEQUACY: (NOTE) (test code = 09107) INTERPRETATION: (test NO EPITHELIAL code = 99694) ABNORMALITY SEE BELOW OTHER COMMENTS: (test (NOTE) code = 8081) NET DEVELOPER WITH WCF: Uzma Huffman (test code = 8101) JUNIOR Bautista(ASCP)IAC QC TECHNOLOGIST: GIA (test code = 8111) JUNIOR SAMSON(ASCP)AZAEL LOCATION: (test code (NOTE) = 68780) CPT: (test code = (NOTE) 8140) CBC W/AUTO [id number] 00:00:00 Test Item Value Reference Range Interpretation [...] 214 K/UL HPV HIGH RISK WITH GENOTYPE, [id number] 00:00:00 Test Item Value Reference Range Interpretation Comments HPV HIGH RISK INTERP (test code = NEGATIVE 76399) HPV 16 (test code = 05759) NEGATIVE HPV 18 (test code = 09237) NEGATIVE HPV, HR, OTHER GENOTYPES (test code NEGATIVE = 38388) HEMOGLOBIN [id number] 00:00:00 Test Item Value Reference Range Interpretation Comments HEMOGLOBIN A1c (test code = 26979) 5.5 % HEMOGLOBIN [id number] 00:00:00 Test Item Value Reference Range Interpretation Comments HEMOGLOBIN A1c (test code = 11481) 5.5 % THYROID II PROFILE (T3U, T4, T7, TSH)2017-04-21 00:00:00 Test Item Value Reference Range Interpretation Comments T3 UPTAKE (test code = 2817) 30.4 % T4 (THYROXINE) (test code = 5.9 UG/DL 2819) CALCULATED T7 (FTI) (test code = 1.79 2820) TSH (test code = 2821) 3.100 UIU/ML HIV AB/AG COMBO RFLX [id number] 00:00:00 Test Item Value Reference Range Interpretation Comments HIV 1/2 4TH GEN, RFLX CONF (test NON-REACTIVE code = 3514) HEPATITIS B SURFACE [id number] 00:00:00 Test Item Value Reference Range Interpretation Comments HEPATITIS B SURFACE AB (test code = REACTIVE 2737) [id number] 00:00:00 Test Item Value Reference Range Interpretation Comments RPR RESULT (test code = NON-REACTIVE 3501) RPR TITER (test code = 3500) NOT INDIC. TITER [id number] 00:00:00 Test Item Value Reference Range Interpretation Comments RPR RESULT (test code = NON-REACTIVE 3501) RPR TITER (test code = 3500) NOT INDIC. TITER RUBELLA ANTIBODY [id number] 00:00:00 Test Item Value Reference Range Interpretation Comments RUBELLA ANTIBODY SCREEN (test code 376 IU/ML = 4600) RUBELLA IgG INTERP (test code = REACTIVE 82786) HEPATITIS C REFLEX [id number] 00:00:00 Test Item Value Reference Range Interpretation Comments HEPATITIS C ANTIBODY (test code NON-REACTIVE = 4675) LIPID [id number] 00:00:00 Test Item Value Reference Range Interpretation Comments CHOLESTEROL (test code = 2210) 166 MG/DL TRIGLYCERIDES (test code = 2232) 79 MG/DL HDL CHOLESTEROL (test code = 2220) 44 MG/DL CALC LDL CHOL (test code = 2237) 106 MG/DL RISK RATIO LDL/HDL (test code = 2.41 RATIO 2238) CBC W/AUTO [id number] 00:00:00 Test Item Value Reference Range Interpretation [...] code = 1015) 214 K/UL CBC W/AUTO [id number] 00:00:00 Test Item Value Reference Range Interpretation [...] (test code = 1015) 214 K/UL HEMOGLOBIN [id number] 00:00:00 Test Item Value Reference Range Interpretation Comments HEMOGLOBIN A1c (test code = 97395) 5.5 % HPV HIGH RISK WITH GENOTYPE, [id number] 00:00:00 Test Item Value Reference Range Interpretation Comments HPV HIGH RISK INTERP (test code = NEGATIVE 17014) HPV 16 (test code = 40820) NEGATIVE HPV 18 (test code = 79075) NEGATIVE HPV, HR, OTHER GENOTYPES (test code NEGATIVE = 78901) HEMOGLOBIN [id number] 00:00:00 Test Item Value Reference Range Interpretation Comments HEMOGLOBIN A1c (test code = 81867) 5.5 % THYROID II PROFILE (T3U, T4, T7, TSH)[id number] 00:00:00 Test Item Value Reference Range Interpretation Comments T3 UPTAKE (test code = 2817) 30.4 % T4 (THYROXINE) (test code = 5.9 UG/DL 2819) CALCULATED T7 (FTI) (test code = 1.79 2820) TSH (test code = 2821) 3.100 UIU/ML HIV AB/AG COMBO RFLX [id number] 00:00:00 Test Item Value Reference Range Interpretation Comments HIV 1/2 4TH GEN, RFLX CONF (test NON-REACTIVE code = 3514) HEPATITIS B SURFACE [id number] 00:00:00 Test Item Value Reference Range Interpretation Comments HEPATITIS B SURFACE AB (test code = REACTIVE 2737) [id number] 00:00:00 Test Item Value Reference Range Interpretation Comments RPR RESULT (test code = NON-REACTIVE 3501) RPR TITER (test code = 3500) NOT INDIC. TITER [id number] 00:00:00 Test Item Value Reference Range Interpretation Comments RPR RESULT (test code = NON-REACTIVE 3501) RPR TITER (test code = 3500) NOT INDIC. TITER RUBELLA ANTIBODY [id number] 00:00:00 Test Item Value Reference Range Interpretation Comments RUBELLA ANTIBODY SCREEN (test code 376 IU/ML = 4600) RUBELLA IgG INTERP (test code = REACTIVE 15637) HEPATITIS C REFLEX [id number] 00:00:00 Test Item Value Reference Range Interpretation Comments HEPATITIS C ANTIBODY (test code NON-REACTIVE = 4675) GC AND CHLAMYDIA AMPLIFIED, [id number] 00:00:00 Test Item Value Reference Range Interpretation Comments GONORRHEA, TMA (test code = 31613) NEGATIVE CHLAMYDIA, TMA (test code = 72437) NEGATIVE LIPID [id number] 00:00:00 Test Item Value Reference Range Interpretation Comments CHOLESTEROL (test code = 2210) 166 MG/DL TRIGLYCERIDES (test code = 2232) 79 MG/DL HDL CHOLESTEROL (test code = 2220) 44 MG/DL CALC LDL CHOL (test code = 2237) 106 MG/DL RISK RATIO LDL/HDL (test code = 2.41 RATIO 2238) GC AND CHLAMYDIA AMPLIFIED, [id number] 00:00:00 Test Item Value Reference Range Interpretation Comments GONORRHEA, TMA (test code = 73487) NEGATIVE CHLAMYDIA, TMA (test code = 39247) NEGATIVE CBC W/AUTO [id number] 00:00:00 Test Item Value Reference Range Interpretation [...] 1015) 214 K/UL GC AND CHLAMYDIA, AMPLIFIED, [id number] 00:00:00 Test Item Value Reference Range Interpretation Comments GONORRHEA, TMA (test code = 76178) NEGATIVE CHLAMYDIA, TMA (test code = 97836) NEGATIVE GC AND CHLAMYDIA, AMPLIFIED, [id number] 00:00:00 Test Item Value Reference Range Interpretation Comments GONORRHEA, TMA (test code = 93218) NEGATIVE CHLAMYDIA, TMA (test code = 73550) NEGATIVE [id number] 00:00:00 Test Item Value Reference Range Interpretation Comments RPR RESULT (test code = NON-REACTIVE 3501) RPR TITER (test code = 3500) NOT INDIC. TITER [id number] 00:00:00 Test Item Value Reference Range Interpretation Comments RPR RESULT (test code = NON-REACTIVE 3501) RPR TITER (test code = 3500) NOT INDIC. TITER HIV AB/AG COMBO RFLX [id number] 00:00:00 Test Item Value Reference Range Interpretation [...] INTERPRETATION HEPATITIS B: (NOTE) (test code = 55977) INTERPRETATION HEPATITIS C: (NOTE) (test code = 61293) [id number] 00:00:00 Test Item Value Reference Range Interpretation Comments RPR RESULT (test code = NON-REACTIVE 3501) RPR TITER (test code = 3500) NOT INDIC. TITER [id number] 00:00:00 Test Item Value Reference Range Interpretation Comments RPR RESULT (test code = NON-REACTIVE 3501) RPR TITER (test code = 3500) NOT INDIC. TITER HIV AB/AG COMBO RFLX [id number] 00:00:00 Test Item Value Reference Range Interpretation [...] INTERPRETATION HEPATITIS B: (NOTE) (test code = 19382) INTERPRETATION HEPATITIS C: (NOTE) (test code = 44712) VAGINAL PATHOGENS DNA [id number] 00:00:00 Test Item Value Reference Range Interpretation Comments DALTON SPECIES (test code = 23511) POSITIVE G. VAGINALIS (test code = 10700) POSITIVE T. VAGINALIS (test code = 87710) NEGATIVE VAGINAL PATHOGENS DNA [id number] 00:00:00 Test Item Value Reference Range Interpretation Comments DALTON SPECIES (test code = 16471) POSITIVE G. VAGINALIS (test code = 13520) POSITIVE T. VAGINALIS (test code = 46465) NEGATIVE TEST, [id number] 00:00:00 Test Item Value Reference Range Interpretation Comments TEST, SERUM (test code = NEGATIVE 2507) TEST, [id number] 00:00:00 Test Item Value Reference Range Interpretation Comments TEST, SERUM (test code = NEGATIVE 2507) VAGINAL PATHOGENS DNA [id number] 00:00:00 Test Item Value Reference Range Interpretation Comments DALTON SPECIES (test code = 09418) NEGATIVE G. VAGINALIS (test code = 86128) NEGATIVE T. VAGINALIS (test code = 39638) NEGATIVE VAGINAL PATHOGENS DNA [id number] 00:00:00 Test Item Value Reference Range Interpretation Comments DALTON SPECIES (test code = 61749) NEGATIVE G. VAGINALIS (test code = 30262) NEGATIVE T. VAGINALIS (test code = 96523) NEGATIVE TEST, [id number] 00:00:00 Test Item Value Reference Range Interpretation Comments TEST, SERUM (test code = NEGATIVE 2507) TEST, [id number] 00:00:00 Test Item Value Reference Range Interpretation Comments TEST, SERUM (test code = NEGATIVE 2507) GC AND CHLAMYDIA, AMPLIFIED, [id number] 00:00:00 Test Item Value Reference Range Interpretation Comments GONORRHEA, AMPLIFIED (test code = NEGATIVE 63481) CHLAMYDIA, AMPLIFIED (test code = POSITIVE 80416) GC AND CHLAMYDIA, AMPLIFIED, [id number] 00:00:00 Test Item Value Reference Range Interpretation Comments GONORRHEA, AMPLIFIED (test code = NEGATIVE 84304) CHLAMYDIA, AMPLIFIED (test code = POSITIVE 53423) VAGINAL PATHOGENS DNA [id number] 00:00:00 Test Item Value Reference Range Interpretation Comments DALTON SPECIES (test code = 36767) NEGATIVE G. VAGINALIS (test code = 27606) POSITIVE T. VAGINALIS (test code = ) NEGATIVE VAGINAL PATHOGENS DNA [id number] 00:00:00 Test Item Value Reference Range Interpretation Comments DALTON SPECIES (test code = ) NEGATIVE G. VAGINALIS (test code = ) POSITIVE T. VAGINALIS (test code = ) NEGATIVE GC, AMPLIFIED, [id number] 00:00:00 Test Item Value Reference Range Interpretation Comments GONORRHEA, AMPLIFIED (test code = NEGATIVE 91837) HEPATITIS PROFILE (A,B,C)2015-08-01 00:00:00 Test Item Value [...] INTERPRETATION HEPATITIS B: (NOTE) (test code = 55255) INTERPRETATION HEPATITIS C: (NOTE) (test code = 95720) TRICHOMONAS, URINE, [id number] 00:00:00 Test Item Value Reference Range Interpretation Comments TRICHOMONAS, URINE, AMP (test code = NEGATIVE 12002) HIV AB/AG COMBO RFLX [id number] 00:00:00 Test Item Value Reference Range Interpretation Comments HIV AB/AG COMBO RFLX CONF (test NON-REACTIVE code = 3514) [id number] 00:00:00 Test Item Value Reference Range Interpretation Comments RPR RESULT (test code = NON-REACTIVE 3501) RPR TITER (test code = 3500) NOT INDIC. TITER [id number] 00:00:00 Test Item Value Reference Range Interpretation Comments RPR RESULT (test code = NON-REACTIVE 3501) RPR TITER (test code = 3500) NOT INDIC. TITER HEPATITIS A IgM [REFLEX]2015-08-01 00:00:00 Test Item Value Reference Range Interpretation Comments HEPATITIS A IgM (test code = NON-REACTIVE 8) CHLAMYDIA, AMPLIFIED, [id number] 00:00:00 Test Item Value Reference Range Interpretation Comments CHLAMYDIA, AMPLIFIED (test code = NEGATIVE 15326) GC, AMPLIFIED, [id number] 00:00:00 Test Item Value Reference Range Interpretation Comments GONORRHEA, AMPLIFIED (test code = NEGATIVE 43226) HEPATITIS PROFILE (A,B,C)2015-08-01 00:00:00 Test Item Value [...] INTERPRETATION HEPATITIS B: (NOTE) (test code = 74181) INTERPRETATION HEPATITIS C: (NOTE) (test code = 06018) TRICHOMONAS, URINE, [id number] 00:00:00 Test Item Value Reference Range Interpretation Comments TRICHOMONAS, URINE, AMP (test code = NEGATIVE 14156) HIV AB/AG COMBO RFLX [id number] 00:00:00 Test Item Value Reference Range Interpretation Comments HIV AB/AG COMBO RFLX CONF (test NON-REACTIVE code = 3514) [id number] 00:00:00 Test Item Value Reference Range Interpretation Comments RPR RESULT (test code = NON-REACTIVE 3501) RPR TITER (test code = 3500) NOT INDIC. TITER [id number] 00:00:00 Test Item Value Reference Range Interpretation Comments RPR RESULT (test code = NON-REACTIVE 3501) RPR TITER (test code = 3500) NOT INDIC. TITER HEPATITIS A IgM [REFLEX]2015-08-01 00:00:00 Test Item Value Reference Range Interpretation Comments HEPATITIS A IgM (test code = NON-REACTIVE 2728) CHLAMYDIA, AMPLIFIED, [id number] 00:00:00 Test Item Value Reference Range Interpretation Comments CHLAMYDIA, AMPLIFIED (test code = NEGATIVE 82780) Notes Date/Time Note Provider Source 2023-05-03 Formatting of this note might be differe nt from the original. Nidia Kohli RN [facility] 05:40:57-00:00 Pt arrives ambulatory to ED reporting to be having contractions, 5-10 min apart, & becoming stronger throughout the night, also feeling lots of pressure. Reports 30 weeks . Scheduled c-secti on Jun 23, reports she is h igh risk . See[facility] Dr Tripathi [facility] in [place]. 2023-03-03 [facility] 13:31:00-00:[address] [facility] [place] [place] ([facility]) DENI Evaluation Note REPORT#:[id number] REPORT STATUS: Signed DATE:03/03/23 TIME: 1331 PATIENT: WALTER ROSE UNIT #: [id number] ROOM/BED: : 87 AGE: 37 SEX: F ATTEND: Junior Tapia MD ADM DT: AUTHOR: Miky Alexandra MD * ALL edits or amendments must be made on the Urge/Plum (Formerly Ube) document * DENI History Family history Relation [...] (Auto) (14.5 - 29.7 %) 7.8 L [place] % (Auto) (3.6 - 10.2 %) 4.2 Eos % (Auto) (0.0 - 3.0 %) 0.1 Baso % (Auto) (0.1 - 0.9 %) 0.1 Neut # (Auto) (K/mm3) 7.2 Lymph # (Auto) (K/mm3) 0.7 [place] # (Auto) (K/mm3) 0.4 Eos # (Auto) (K/mm3) 0.01 Baso # (Auto) (K/mm3) 0.0 Urines Urine Color (YELLOW) YELLOW Urine Appearance (CLEAR) Slightly-Cloudy Urine pH (5 - 9) 5.0 Ur Specific [place] (1.001 - 1.035) 1.029 Urine Protein (NEG) [...] also had watery diarrhea. see n at [facility], given zofran, ivf, + fca. reports [...] Miky Alexandra MD on at 1338 RPT #:[id number] END OF REPORT 2019-09-20 [id number] [facility] 19:30:00-00:00 [address] [place], [place] [address] PATIENT NAME: WALTER ROSE ADMIT DATE: ACCOUNT NO: [id number] ROOM NO: [facility] AGE: 33 SEX: F ADMITTING PHYSICIAN: Junior [...] routine. Dictated By: Junior Tapia MD WT: DS:MONTRELL/CHACORTA/NORA Conf#: [id number]#: [id number] Authenticated by Junior Tapia MD On 09/21/2019 0 9:25:18 AM PATIENT NAME: WALTER ROSE ACCOUNT #: [id number] Electronically Signed by Junior Tapia MD on 08/27 04/13 at 0925 PATIENT NAME: WALTER ROSE ACCOUNT #: [id number] 2019-08-28 [id number] [facility] 07:11:00-00:00 [address] [place], [place] [address] PATIENT NAME: WALTER ROSE ADMIT DATE: ACCOUNT NO: [id number] ROOM NO: F.4652 AGE: 33 SEX: F ADMITTING PHYSICIAN: Junior Tapia MD ATTENDING PHYSICIAN: Junior Tapia MD OPERATION DATE: 08/22/2019 PREOPERATIVE DIAGNOSIS: 1. Intrauterine at 36 weeks. 2. Prior section. 3. Prior demise. 4. Chronic decreased movements. POSTOPERATIVE DIAGNOSES: 1. Intrauterine at 36 weeks. 2. Prior section. 3. Prior demise. 4. Chronic decreased movements. PROCEDURE: Repeat low transverse sectio n via Pfannenstiel. SURGEON: Junior Tapia MD MINE ENGINEER: Nathan Sanchez. COMPLICATIONS: None. ESTIMATED BLOOD LOSS: 950 mL. INTRAVENOUS FLUIDS: 2000 mL LR. URINE OUTPUT: 100 mL clear at the end of the pro cedure. FINDINGS: Female , cephalic presentation, Apgars 8 and 9, weight 2900 grams. Placenta 3-vessel cord intact. The uterus , tubes, and ovaries were normal. PROCEDURE IN DETAIL: After t he risks, benefits, alternatives, and the nature of [...] PATIENT NAME: WALTER ROSE ACCOUNT #: [id number] blade was inserted. The vesicouterine peritoneum was [...] Placenta. Dictated By: Junior Tapia MD WT: OP:FKRISS/CHACORTA/NORA Conf#: [id number]/DID#: [id number] Authenticated by Junior Tapia MD On 09/20/2019 0 7:11:20 PM Electronically Signed by Junior Tapia MD on 08/27 03/14 at 1911 PATIENT NAME: WALTER ROSE ACCOUNT #: [id number] 2019-08-26 [facility] 10:31:00-00:[address] [facility] [place] [place] ([facility]) OB Postpart Progr Note REPORT#:[id number] REPORT STATUS: Signed DATE:08/26/19 TIME: 1031 PATIENT: WALTER ROSE UNIT #: [id number] ROOM/BED: [address] : 89 AGE: 33 SEX: F ATTEND: Junior Tapia MD ADM AUTHOR: Evelia Baldwin MD * ALL edits or amendments must be made on the Urge/computer document * Subjective Subjective Status/day: post , post operative, day # 5 Patient reports: Patient reports: Yes: normal lochia, pain management effective, tolerating po well, voiding well, voiding without pain, tolerating ambulatio n, flatus. No: complaints. Objective General VS: Vital Signs Date Temp Pulse Resp B/P B/P Mean Pulse Ox FiO2 08/25-08/26 98.6-98.7 96-109 18 100-109/65-73 Last Documented: Result Date Time B/P 08/26 0745 Temp 98.7 08/26 0745 Pulse 96 08/26 [...] Baldwin MD on 10/14 at 1032 RPT #:[id number] END OF REPORT 2019-08-25 [facility] 10:42:00-00:[address] [facility] [place] [place] ([facility]) OB Postpart Progr Note REPORT#:[id number] REPORT STATUS: Signed DATE:08/25/19 TIME: 1042 PATIENT: WALTER ROSE UNIT #: [id number] ROOM/BED: [address] : 87 AGE: 33 SEX: F ATTEND: Junior Tapia MD ADM AUTHOR: Evelia Baldwin MD * ALL edits or amendments must be made on the Urge/computer document * Subjective Subjective Status/day: post , [...] % (Auto) (14.3 - 34.3 %) 18.2 [place] % (Auto) (5.1 - 10.4 %) 7.2 Eos % (Auto) (0.1 - 3.0 %) 0.3 Baso % (Auto) (0.1 - 1.0 %) 0.1 Neut # (Auto) (K/mm3) 7.9 Lymph # (Auto) (K/mm3) 2.0 [place] # (Auto) (K/mm3) 0.8 Eos # (Auto) (K/mm3) 0.03 Baso # (Auto) (K/mm3) 0.0 Immature Plt Fraction (0.0 - 10.8 %) 0.0 Diagnosis, Assessment Plan Diagnosis, Assessment Plan Assessment: nml progress, anemia r/t: (blood loss, stable) Plan: routine care, discharge today (follow up [address] Tapia), iron therapy Electronically Signed by Evelia Baldwin MD on at 1044 RPT #:[id number] END OF REPORT 2019-08-25 [facility] 10:42:00-[facility]:[address] [facility] [place] [place] ([facility]) OB Postpart Progr Note REPORT#:[id number] REPORT STATUS: Signed DATE:08/25/19 TIME: 1042 PATIENT: WALTER ROSE UNIT #: [id number] ROOM/BED: [address] : 87 AGE: 33 SEX: F ATTEND: Junior Tapia MD ADM AUTHOR: Evelia Baldwin MD * ALL edits or amendments must be made on the Urge/computer document * See Addendum Subjective Subjective Status/day: [...] % (Auto) (14.3 - 34.3 %) 18.2 [place] % (Auto) (5.1 - 10.4 %) 7.2 Eos % (Auto) (0.1 - 3.0 %) 0.3 Baso % (Auto) (0.1 - 1.0 %) 0.1 Neut # (Auto) (K/mm3) 7.9 Lymph # (Auto) (K/mm3) 2.0 [place] # (Auto) (K/mm3) 0.8 Eos # (Auto) [...] Signed by Evelia Baldwin MD on at 1448 RPT #:[id number] END OF REPORT 2019-08-24 [facility] 06:46:00-00:[address] [facility] [place] [place] ([facility]) OB Postpart Progr Note REPORT#:[id number] REPORT STATUS: Signed DATE:08/24/19 TIME: 0646 PATIENT: WALTER ROSE UNIT #: [id number] ROOM/BED: [address] : 87 AGE: 33 SEX: F ATTEND: Je Tapia MD ADM AUTHOR: Miky Alexandra MD * ALL edits or amendments must be made on the Urge/Plum (Formerly Ube) document * Subjective Subjective Status/Day: post operative [...] low FiO2 Mean Ox Delivery Rate 08/24 0407 98.2 97 20 101/67 08/23 2007 98.2 [...] Miky Alexandra MD on at 0945 RPT #:[id number] END OF REPORT 2019-08-24 [facility] 06:46:00-00:[address] [facility] [place] [place] ([facility]) OB Postpart Progr Note REPORT#:[id number] REPORT STATUS: Signed DATE:08/24/19 TIME: 0646 PATIENT: WALTER ROSE UNIT #: [id number] ROOM/BED: [address] : 87 AGE: 33 SEX: F ATTEND: Junior Tapia MD ADM AUTHOR: Miky Alexandra MD * ALL edits or amendments must be made on the Urge/computer document * See Addendum Subjective Subjective Status/Day: [...] Pulse Resp B/P B/P Pulse O2 O2 Flow FiO2 Mean Ox Delivery Rate 08/24 407 [...] MD on at 0945 Addendum 1: 08/24/19 09 by Miky Alexandra MD po iron suppl ordered Electronically Signed by Miky Alexandra MD on at 0946 RPT #:[id number] END OF REPORT 2019-08-23 [facility] 15:48:00-00:[address] [facility] [place] [place] ([facility]) OB Postpart Progr Note REPORT#:[id number] REPORT STATUS: Signed DATE:08/23/19 TIME: 1548 PATIENT: WALTER ROSE UNIT #: [id number] ROOM/BED: [address] : 87 AGE: 33 SEX: F ATTEND: Junior Tapia MD ADM AUTHOR: Miky Alexandra MD * ALL edits or amendments must be made on the Urge/Plum (Formerly Ube) document * Subjective Subjective Status/Day: post operative [...] % (Auto) (14.3 - 34.3 %) 18.2 [place] % (Auto) (5.1 - 10.4 %) 7.2 Eos % (Auto) (0.1 - 3.0 %) 0.3 Baso % (Auto) (0.1 - 1.0 %) 0.1 Neut # (Auto) (K/mm3) 7.9 Lymph # (Auto) (K/mm3) 2.0 [place] # (Auto) (K/mm3) 0.8 Eos # (Auto) (K/mm3) 0.03 Baso # (Auto) (K/mm3) 0.0 Immature Plt Fraction (0.0 - 10.8 %) 0.0 Diagnosis, Assessment Plan Diagnosis, Assessment Plan Free Text A P: POD 1 ARCELLIA (08-22-19 mel nickolas, repeat LTCS at 35.5 WEEKS, DECREASED FM, PRIOR DEMISE AT TERM, CD X 2) postop h/h today 7.3/23. 7 (prev 8.7/28.5, 06/24) clinically doing well PLAN- cpm, agustina h/h in am Pt seen and discussed w dr hawkins at 1616 RPT #:[id number] END OF REPORT 2019-08-22 [facility] 19:58:00-00:[address] [facility] [place] [place] ([facility]) OB Postpart Progr Note REPORT#:[id number] REPORT STATUS: Signed DATE:08/22/19 TIME: 1957 PATIENT: WALTER ROSE UNIT #: [id number] [address] AGE: 33 SEX: F ATTEND: Junior Tapia MD ADM AUTHOR: Junior Tapia MD * ALL edits or amendments must be made on the Urge/computer document * Subjective Subjective Patient reports: Patient [...] by Junior Tapia MD on 08/22 at 1959 RPT #:[id number] END OF REPORT 2019-08-21 [facility] 07:55:00-00:[address] [facility] [place] [place] ([facility]) OB Antepartum Prog Note REPORT#:[id number] REPORT STATUS: Signed DATE:08/21/19 TIME: 754 PATIENT: WALTER ROSE UNIT #: [id number] [address] AGE: 33 SEX: F ATTEND: Junior Tapia MD ADM AUTHOR: Junior Tapia MD * ALL edits or amendments must be made on the Urge/Plum (Formerly Ube) document * Subjective Subjective Patient reports: Patient reports: Yes decreased movement, No no com plaints, No abdominal pain, No vaginal bleeding, No leaking fluid, No contractions Objective General VS: Last Documented: Result Date Time Temp 97.9 08/202 Resp 18 08/20 2252 B/P Mean 75.0 [...] Plan: INPATIENT MANAGEMENT UNTIL DELIVERY NEXT W MENTASTA, AT RISK FOR DEMISE Electronically Signed by Junior Tapia MD on 08/21 at 0756 RPT #:[id number] END OF REPORT 2019-08-20 [facility] 21:21:00-00:00 [facility] ([facility]) OB Antepartum Prog Note REPORT#:[id number] REPORT STATUS: Signed DATE:08/20/19 TIME: 2120 PATIENT: WALTER ROSE UNIT #: [id number] ROOM/BED: [address] : 87 AGE: 33 SEX: F ATTEND: Junior Tapia MD ADM AUTHOR: Junior Tapia MD * ALL edits or amendments must be made on the Urge/Plum (Formerly Ube) document * Subjective Subjective Comments: I stopped by around 5pm and she wssnt in her room. Per Rn she was doing well and no FHR issues Electronically Signed by Junior Tapia MD on 08/20 at 2121 RPT #:[id number] END OF REPORT 2019-08-19 [facility] 12:09:00-00:[address] [facility] [place] [place] ([facility] OB Antepartum Prog Note REPORT#:[id number] REPORT STATUS: Signed DATE:08/19/19 TIME: 1209 PATIENT: WALTER ROSE UNIT #: [id number] ROOM/BED: [address] : 87 AGE: 33 SEX: F ATTEND: Junior Tapia MD ADM AUTHOR: Junior Tapia MD * ALL edits or amendments must be made on the Urge/computer document * Subjective Subjective Patient reports: Patient [...] Plan: INPATIENT MANAGEMENT UNTIL DELIVERY NEXT W [place], AT RISK FOR DEMISE Electronically Signed by Junior Tapia MD on 08/19 at 1210 RPT #:[id number] END OF REPORT 2019-08-18 [facility] 18:45:00-00:[address] [facility] [place] [place] OB Antepartum Prog Note REPORT#:[id number] REPORT STATUS: Signed DATE:08/18/19 TIME: 1845 PATIENT: WALTER ROSE UNIT #: [id number] [address] AGE: 33 SEX: F ATTEND: Junior Tapia MD ADM AUTHOR: Junior Tapia MD * ALL edits or amendments must be made on the Urge/Plum (Formerly Ube) document * Subjective Subjective Patient reports: Patient [...] Plan: INPATIENT MANAGEMENT UNTIL DELIVERY NEXT W MENTASTA, AT RISK FOR DEMISE Electronically Signed by Junior Tapia MD on 08/18 at 1846 RPT #:[id number] END OF REPORT 2019-08-17 [facility] 08:34:00-00:[address] [facility] [place] ([facility]) OB Antepartum Prog Note REPORT#:[id number] REPORT STATUS: Signed DATE:08/17/19 TIME: 833 PATIENT: WALTER ROSE UNIT #: [id number] [address] AGE: 33 SEX: F ATTEND: Junior Tapia MD ADM AUTHOR: Junior Tapia MD * ALL edits or amendments must be made on the [employer] document * Subjective Subjective Patient reports: Patient [...] Plan: INPATIENT MANAGEMENT UNTIL DELIVERY NEXT W MENTASTA, AT RISK FOR DEMISE Electronically Signed by Junior Tapia MD on 08/17 at 0835 RPT #:[id number] END OF REPORT 2019-08-16 [facility] 21:35:00-00:[address] [facility] [place] ([facility]) OB Admission / H P REPORT#:[id number] REPORT STATUS: Signed DATE:08/16/19 TIME: 2134 PATIENT: WALTER ROSE UNIT #: [id number] ROOM/BED: [address] : [birth year] AGE: 33 SEX: F ATTEND: Junior Tapia MD ADM AUTHOR: Junior Tapia MD * ALL edits or amendments must be made on the Urge/computer document * OB Admission H P Hx Chief complaint: decreased movement HPI: 33 Y OLD G4 P 2 AT 35 1 WE EKS WHO WAS ADMITTED DUE TO [...] Tapia MD on 08/16 at 2144 RPT #:[id number] END OF REPORT 2019-08-04 [facility] 18:06:00-00:00 [facility] ([facility]) EMERGENCY PROVIDER REPORT REPORT#:[id number] REPORT STATUS: Signed DATE:08/04/19 TIME: 180 PATIENT: WALTER ROSE UNIT #: [id number] ROOM/BED: AGE: 33 SEX: F PCP PHYS: Junior Tapia MD SERVICE AUTHOR: Jade Faustin III, MD * ALL edits or amendments must be made on the el e-[employer]/computer document * DENI History Nursing Documentation Review [...] TAB PO DAILY 05/21/19 08/04/19 ( MULTIVITAMIN) 1121 1655 Strength: 1 TAB TAB Allergies Coded [...] pH (5 - 9) 6.0 Ur Specific Ravia (1.001 - 1.035) 1.010 Urine Protein (NEG) [...] Impressions: ULTRASOUND - US FET BIO PH DE W/O NST 08/04 1634 Report Impression - Status: SIGNED Entered: 08/04/20191753 CLINICAL SUMMARY Type of Gestation: Hawkins Intrauterine [...] pH (5 - 9) 6.0 Ur Specific Ravia (1.001 - 1.035) 1.010 Urine Protein (NEG) [...] Impressions: ULTRASOUND - US FET BIO PH DE W/O NST 08/04 1634 Report Impression - Status: SIGNED Entered: 08/04/20191753 CLINICAL SUMMARY Type of Gestation: Hawkins Intrauterine [...] History of stillborn, post dates in previous p regnancy Obesity s/p gastric sleeve, lap band surgery Plan Cleared for discharge. Labor precautions. C ontinue baby kick counts. She has an appt with Dr Tapia in 2 days jr Electronically Signed by Jade Faustin III, MD on 06/14 at 2023 RPT #:[id number] END OF REPORT 2019-07-24 [facility] 21:15:00-00:00 [facility] ([facility]) EMERGENCY PROVIDER REPORT REPORT#:[id number] REPORT STATUS: Signed DATE:07/24/19 TIME: 2114 PATIENT: WALTER ROSE UNIT #: [id number] ROOM/BED: AGE: 33 SEX: F PCP PHYS: Junior Tapia MD SERVICE AUTHOR: Santiago Austin MD * ALL edits or amendments must be made on the Urge/computer document * HPI-Back Pain Under 40 General Date/Time Seen by Provider 07/24/19 194 Presentation Chief Complaint Pain, lumbar Hx Obtained [...] 2006: [Embedded Image Not Available] Laboratory Tests: 07/24 1943 Chemistry Sodium (135 - 145 mEq/L) 137 [...] % (Auto) (14.3 - 34.3 %) 21.0 [place] % (Auto) (5.1 - 10.4 %) 7.4 Eos % (Auto) (0.1 - 3.0 %) 1.0 Baso % (Auto) (0.1 - 1.0 %) 0.3 Neut # (Auto) (K/mm3) 6.7 Lymph # (Auto) (K/mm3) 2.0 [place] # (Auto) (K/mm3) 0.7 Eos # (Auto) (K/mm3) 0.10 Baso # (Auto) (K/mm3) 0.0 Immature Plt Fraction (0.0 - 10.8 %) 0.0 Urines Urine Color (YELLOW) YELLOW Urine Appearance (CLEAR) CLEAR Urine pH (5 - 9) 6.5 Ur Specific Ravia (1.001 - 1.035) <= 1.005 Urine Protein [...] symptoms should prompt an immediate return to [facility] or the closest emergency department or a call to 911. Quality Measures BP F/U for HTN F/u with PCP/other doc Electronically Signed by Santiago Austin MD on at 2238 RPT #:[id number] END OF REPORT 2019-06-28 [facility] 21:52:00-00:00 [facility] ([facility]) EMERGENCY PROVIDER REPORT REPORT#:[id number] REPORT STATUS: Signed DATE:06/28/19 TIME: 2151 PATIENT: WALTER ROSE UNIT #: [id number] ROOM/BED: AGE: 33 SEX: F PCP PHYS: Junior Tapia MD SERVICE AUTHOR: Brianne Mehta * ALL edits or amendments must be made on the Urge/computer document * DENI History Chief complaint: lost mucus plug HPI: 33y/o EDC:09/19/19 @ 28weeks 1day GA presents to [facility] with lost of mucus plug. pt states [...] trans incis Indication for prior : arrest dilatati on/descent Current : EDC: 09/19/19 EGA (weeks/days): [id number] Conditions of : obesity, h/o gastric sl [...] 2113 Pulse 73 06/28 2113 Resp 17 06/28 2113 Vital Signs Date Temp Pulse Resp B/P B/P Mean Pulse Ox FiO2 06/28 98.7 73 17 116/56 80.0 Patient Weight Weight (lb): Weight (oz): Weight (kg): 113.774248 Physical Exam HEENT: normocephalic w/o injury Cardiac: [...] Assessment Plan Free Text A P: IUP @45lsief0 day with post coital discharge no evidence of ptl/pprom. fhr reactive AGA Plan: discharge home ptl warning given f/u primary ob at 2206 RPT #:[id number] END OF REPORT 2019-05-21 [facility] 12:04:00-00:[address] [facility] [place] [place] ([facility]) OB Admission / H P REPORT#:[id number] REPORT STATUS: Signed DATE:05/21/19 TIME: 1204 PATIENT: WALTER ROSE UNIT #: [id number] ROOM/BED: : 87 AGE: 33 SEX: F ATTEND: Jade Faustin II, MD ADM DT: AUTHOR: Jade Faustin III, MD * ALL edits or amendments must be made on the el ectronic/computer document * OB Admission H P Hx [...] care has been with Dr Mccray at [facility], since about 8 wks. Claims normal OB [...] pH (5 - 9) 6.0 Ur Specific Ravia (1.001 - 1.035) 1.017 Urine Protein (NEG) [...] is seen. Katerina Escobar M.D. Impression By: [email or web address] - Katerina Escobar MD USG cervix length [...] has an upcoming appointment with Dr Regina hightower Electronically Signed by Jade Faustin III, MD on at 1348 RPT #:[id number] END OF REPORT
[2023-05-10 14:42] LABS: Specific Gravity 1.022 (1.005-1.030); Urine Bacteria <20 /HPF (<20); Urine Bilirubin NEGATIVE (Negative); Urine Blood Negative (Negative); Urine Clarity Turbid (Clear); Urine Color Yellow (Yellow); Urine Glucose NEGATIVE (Negative); Urine Mucus 1+ /HPF (None Seen); Urine Protein TRACE (Negative); Urine RBC <5 /HPF (None Seen); Urine Urobilinogen 1+ (Normal)
[2023-05-10 14:53] LABS: SARS-CoV-2 Antigen Rapid Res Negative (Negative)
--- NOTE | 2023-05-10 15:17 | RAD REPORT ---
EXAM DESCRIPTION: US - OB Limited - 05/10/2023 2:24 pm CLINICAL HISTORY: decreased movement COMPARISON: OB Limited dated 03/31/2023 TECHNIQUE: Sonographic grayscale and color flow images of a first-trimester were obtained through transabdominal approach. FINDINGS: A single live intrauterine is identified. Placenta has formed anteriorly, and demonstrates normal appearance given gestational age. motion was observed. heart rate: 129 BPM. dating was not performed. Amniotic fluid subjectively normal. No free fluid. IMPRESSION: 1. Single live intrauterine .
--- NOTE | 2023-05-10 15:25 | ER ---
Nurse's Notes [facility] Name: Sophie Thakkar Age: 37 yrs Sex: Female : 1985 Arrival Date: 05/10/2023 Time: 13:21 Bed 17 Private MD: Diagnosis: Decreased movements, third trimester Presentation: 05/10 13:38 Chief complaint: Patient states: she has been having decreased movement since ap3 approx 0200. patient states she was sick yesterday and thought the baby was tired this morning. patient is reportedly approx 30 weeks. Coronavirus screen: At this time, the client does not indicate any symptoms associated with coronavirus-19. Ebola Screen: No symptoms or risks identified at this time. Initial Sepsis Screen: Does the patient meet any 2 criteria? No. Patient's initial sepsis screen is negative. Does the patient have a suspected source of infection? No. Patient's initial sepsis screen is negative. Risk Assessment: Do you want to hurt yourself or someone else? Patient reports no desire to harm self or others. Onset of symptoms was May 10, 2023 at 02:00. 13:38 Method Of Arrival: Ambulatory ap3 13:38 Acuity: JERONIMO 3 ap3 Triage Assessment: 13:40 General: Appears distressed, Behavior is cooperative, crying. Pain: Denies pain. Neuro: ap3 Level of Consciousness is awake, alert, obeys commands, Oriented to person, place, time, situation. Cardiovascular: Patient's skin is warm and dry. Respiratory: Airway is patent Respiratory effort is even, unlabored, Respiratory pattern is regular, symmetrical. : Reports decreased movement since approx 0200. 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 - Social history:: Smoking status: Patient denies any tobacco usage or history of. - Family history:: not pertinent. - Hospitalizations: : No recent hospitalization is reported. Screenin:41 [facility] ED Fall Risk Assessment (Adult) History of falling in the last 3 months, ap3 including since admission No falls in past 3 months (0 pts). Abuse screen: Denies threats or abuse. Nutritional screening: No deficits noted. Tuberculosis screening: No symptoms or risk factors identified. Assessment: 14:00 General: Appears comfortable, Behavior is calm, cooperative. Pain: Complains of pain in aa5 abdomen Pain currently is 0 out of 10 on a pain scale. Quality of pain is described as crampy, Pain began last night Is intermittent. Neuro: Level of Consciousness is awake, alert, obeys commands, Oriented to person, place, time, situation. Cardiovascular: Heart tones S1 S2 present Rhythm is regular. Respiratory: Airway is patent Respiratory effort is even, unlabored, Respiratory pattern is regular, symmetrical. GI: Abdomen is round Reports nausea and 4 vomiting episodes yesterday, 1 episode of watery diarrhea. Pt states "my kids were also complaining of a stomach ache and vomiting yesterday". : No signs and/or symptoms were reported regarding the genitourinary system. EENT: No signs and/or symptoms were reported regarding the EENT system. Derm: Skin is pink, warm \\T\\ dry. Musculoskeletal: Range of motion: intact in all extremities. 14:35 Reassessment: Pt given orange juice and peanut butter/jelly sandwich, pt states "I have aa5 not eaten since yesterday". Pt states "I felt one baby movement during the ultrasound" . Vital Signs: 13:38 Pulse 90; Resp 19; Temp 98.8; Pulse Ox 100% ; Weight 127.01 kg; ap3 13:41 BP 104 / 49; Pulse 74; Resp 17; Temp 98.1; Pulse Ox 99% ; rs5 15:00 BP 108 / 54; Pulse 78; Resp 18 S; Pulse Ox 99% on R/A; aa5 ED Course: 13:22 Patient arrived in ED. kj1 13:28 Ramin Coreas MD is Attending Physician. rn 13:40 Triage completed. ap3 13:41 Arm band placed on left wrist. ap3 14:00 Patient has correct armband on for positive identification. Bed in low position. Call aa5 light in reach. Side rails up X 1. Adult w/ patient. Pulse ox on. NIBP on. 14:20 Urine collected: clean catch specimen, clear, haile colored. rs5 14:20 COVID swab sent to lab. Flu and/or RSV swab sent to lab. rs5 14:23 Treva West, RN is Primary Nurse. aa5 14:26 US OB Limited In Process Unspecified. EDMS 15:30 No provider procedures requiring assistance completed. aa5 15:30 Patient did not have IV access during this emergency room visit. aa5 Administered Medications: No medications were administered Medication: 15:30 VIS not applicable for this client. aa5 Point of Care Testing: Blood Glucose: 14:00 Blood Glucose: 75 mg/dL; rs5 Ranges: Outcome: 15:24 Discharge ordered by . rn 15:30 Discharged to home ambulatory. aa5 15:30 Condition: stable 15:30 Discharge instructions given to patient, Instructed on discharge instructions, follow up and referral plans. Demonstrated understanding of instructions, follow-up care. 15:36 Patient left the ED. aa5 Signatures: Dispatcher [employer] EDOK Ramin Coreas MD MD rn Calderon, Audri, RN RN aa5 Nidia Lira RN RN [email or web address] Raegan Moreno kj1 Artur Alcazar, RN RN rs5
--- NOTE | 2023-05-10 15:25 | EDPHYS ---
Physician Documentation [facility] Name: Sophie Thakkar Age: 37 yrs Sex: Female : 1985 Arrival Date: 05/10/2023 Time: 13:21 Bed 17 Private MD: ED Physician Ramin Coreas HPI: 05/10 13:34 This 37 yrs old Female presents to ER via Unassigned with complaints of rn decreased movement 30 weeks pg. 13:34 The patient presents to the emergency department with nausea and vomiting, no rn movement, last felt the baby move approximately 12 hour(s) ago. The estimated gestational age is 30 weeks. course: care: private OB physician, Leakage of Fluid: none appreciated, Ultrasound: the patient had an ultrasound. Previous pregnancies: in previous pregnancies patient has had. The patient has not experienced similar symptoms in the past. The patient has not recently seen a physician. Pt reports feeling "weird last night", with nausea/vomiting, and since 0200 today no movement. Came here to make sure baby was ok. at 30 weeks. No complications during this . . 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 - Social history:: Smoking status: Patient denies any tobacco usage or history of. - Family history:: not pertinent. - Hospitalizations: : No recent hospitalization is reported. ROS: 13:34 Constitutional: Negative for fever, chills, and weight loss, Eyes: Negative for injury, rn pain, redness, and discharge, Cardiovascular: Negative for chest pain, palpitations, and edema, Respiratory: Negative for shortness of breath, cough, wheezing, and pleuritic chest pain, Abdomen/GI: Negative for diarrhea, and constipation MS/Extremity: Negative for injury and deformity, Skin: Negative for injury, rash, and discoloration, Neuro: Negative for numbness, tingling, and seizure. Exam: 13:34 Constitutional: This is a well developed, well nourished patient who is awake, alert, rn and in no acute distress. Cardiovascular: Regular rate and rhythm. No pulse deficits. Respiratory: No increased work of breathing, no retractions or nasal flaring. Abdomen/GI: soft, no focal tenderness Vital Signs: 13:38 Pulse 90; Resp 19; Temp 98.8; Pulse Ox 100% ; Weight 127.01 kg; ap3 13:41 BP 104 / 49; Pulse 74; Resp 17; Temp 98.1; Pulse Ox 99% ; rs5 15:00 BP 108 / 54; Pulse 78; Resp 18 S; Pulse Ox 99% on R/A; aa5 MDM: 13:28 Patient medically screened. rn 15:23 Differential diagnosis: threatened Ab. Data reviewed: vital signs, nurses notes, recyclable materials collector test result(s), radiologic studies, ultrasound, and as a result, I will discharge patient. Counseling: I had a detailed discussion with the patient and/or guardian regarding: the historical points, exam findings, and any diagnostic results supporting the discharge/admit diagnosis, lab results, radiology results, the need for outpatient follow up, to return to the emergency department if symptoms worsen or persist or if there are any questions or concerns that arise at home. Special discussion: I discussed with the patient/guardian in detail that at this point there is no indication for admission to the hospital. It is understood, however, that if the symptoms persist or worsen the patient needs to return immediately for re-evaluation. 15:23 ED course: U/S read by radiology as single live IUP with FHTs noted. . rn 05/10 13:32 Order name: SARS RAPID; Complete Time: 15:04 rn 05/10 13:32 Order name: Flu; Complete Time: 15:04 rn 05/10 13:32 Order name: Urinalysis w/ reflexes; Complete Time: 15:04 rn 05/10 14:39 Order name: Glucose, Ancillary Testing; Complete Time: 15:04 EDMS 05/10 13:25 Order name: US OB Limited; Complete Time: 15:21 snw 05/10 13:25 Order name: FSBS; Complete Time: 14:29 snw Administered Medications: No medications were administered Point of Care Testing: Blood Glucose: 14:00 Blood Glucose: 75 mg/dL; rs5 Ranges: Critical Glucose Levels:Adult <50 mg/dl or >400 mg/dl <40 mg/dl or >180 mg/dl Disposition Summary: 05/10/23 15:24 Discharge Ordered Location: Home rn Problem: new rn Symptoms: have improved rn Condition: Stable rn Diagnosis - Decreased movements, third trimester rn Followup: rn - With: Private Physician - When: As needed - Reason: Recheck today's complaints, Re-evaluation by your physician Discharge Instructions: - Discharge Summary Sheet rn - Third Trimester of rn Forms: - Medication Reconciliation Form rn - Thank You Letter rn - Antibiotic fingernail former - Prescription Opioid Use rn - Patient Portal Instructions rn - Leadership Thank You Letter rn Signatures: Dispatcher [employer] Radhika Moreau, TRAINING ADMINISTRATOR-C TRAINING ADMINISTRATOR-Csnw Ramin Coreas MD MD rn Prokisch, Amanda, RN RN ap3 Corrections: (The following items were deleted from the chart) 15:25 15:24 Encounter for supervision of normal first , third trimester rn rn
[2023-05-10 16:20] VITALS: BP 104/49; TEMP 98.1; O2SAT 99
== END 2023-05-10 15:36 | disposition home or self-care (01) ==
LOC: ER 13:21
DX: O36.8130 Decreased fetal movements, third trimester, not applicable or unspecified (principal); Z3A.30 30 weeks gestation of pregnancy; Z20.822 Contact with and (suspected) exposure to COVID-19; Z91.040 Latex allergy status; Z91.048 Other nonmedicinal substance allergy status
CPT/HCPCS: 36415; 76815; 81001; 82947; 87804; 87811; 99284

== ENCOUNTER 2025-07-04 09:25 | Emergency (ER) | payer OTHER ==
[2025-07-04] MEDS ORDERED: ONDANSETRON 4 MG/2 ML VIAL ONE (09:52)
[2025-07-04] MEDS ORDERED: MORPHINE 4 MG/ML SYR ONE (09:52)
[2025-07-04] MEDS ORDERED: FAMOTIDINE 20 MG/2 ML VIAL IV ONE (09:53)
[2025-07-04] MEDS ORDERED: NA CHLORIDE 0.9% 1,000 ML ONE (09:53)
[2025-07-04 09:55] LABS: Absolute Lymphocytes (CBC) 2.5 K/uL (0.7-4.9); Hematocrit 41.7 % (36.0-45.0); Hemoglobin 13.2 g/dL (12.0-15.0); MCH 21.8 pg (27.0-35.0); MCHC 31.7 g/dL (32.0-36.0); MCV 68.8 fL (80-100); MPV 8.7 fL (7.6-11.3); Nucleated RBC Absolute Count 0.0 (0-0); Nucleated Red Blood Cells % 0.1 % (0-0); RBC Red Blood Cell Count 6.06 M/uL (3.86-4.86); White Blood Count 11.40 thou/uL (4.3-10.9)
[2025-07-04 10:13] LABS: ALT/SGPT 30.0 U/L (13-56); AST/SGOT 20.0 U/L (15-37); Albumin 3.6 g/dL (3.4-5.0); Albumin/Globulin Ratio 0.8 (1.1-1.8); Alkaline Phosphatase 92.0 U/L (45-117); Anion Gap 14.7 mEq/L (5.0-15.0); BUN Blood Urea Nitrogen 9.0 mg/dL (7-18); Globulin 4.6 g/dL (2.3-3.5); Glucose Level 121.0 mg/dL (74-106); Lipase 24.0 U/L (13-75); Potassium 3.7 mEq/L (3.5-5.1)
--- NOTE | 2025-07-04 11:11 | RAD REPORT ---
EXAMINATION: CT ABDOMEN AND PELVIS WITH CONTRAST CLINICAL INDICATION: ABD PAIN TECHNIQUE: CT abdomen and pelvis was performed, after the administration of IV contrast, as per depar tment protocol. Axial, sagittal and coronal reconstructions were obtained. One or more of the following dose reduction techniques were used: Automated exposure control, adjustment of the mA and k V according to patient size, and iterative reconstruction. Unless otherwise specified, incidental findings do not require dedicated imaging follow-up. COMPARISON: No prior exam. FINDINGS: LOWER CHEST: The visualized lung bases are clear. Postsurgical changes about the stomach. LIVER: Mild fatty liver is present. No focal lesion or biliary dilatation is seen. Cholecystectomy clips. SPLEEN: Normal size. No focal lesion. PANCREAS: No mass, ductal dilation, or darrell-pancreatic fluid. ADRENALS: Normal; no mass. KIDNEYS: 4.4 x 3.2 cm solid mass anterior lower right kidney. Normal left kidney appearance. GASTROINTESTINAL TRACT: No evidence of free air, significant intra-abdominal free fluid, bowel obstru ction or abscess. APPENDIX: Normal appendix. LYMPH NODES: No lymphadenopathy. MUSCULOSKELETAL: No acute or suspicious osseous abnormality. ADDITIONAL FINDINGS: Small fat-containing bleb or hernia. IMPRESSION: No acute abnormalities seen in the abdomen or pelvis. 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 Recommend nonemergent urologic consultation follow-up.
[2025-07-04 11:47] LABS: Blood Morphology Comment NOTED (NOT SEEN); Hypochromasia 1+; Microcytosis 1+; White Blood Cell Scan OK (OK)
--- NOTE | 2025-07-04 12:12 | ER ---
Nurse's Notes [facility] Name: Sophie Thakkar Age: 39 yrs Sex: Female : 1985 Arrival Date: 07/04/2025 Time: 09:25 Bed 16 Private MD: Diagnosis: Abdominal pain, Generalized;Right kidney tumor Presentation: 07/04 09:33 Chief complaint: EMS states: ABD PAIN UPPER ABD PAIN WITH N/V. "CRAMPING" PAIN. db VOMITING BILE. Coronavirus screen: Client denies travel out of the [place] in the last 14 days. At this time, the client does not indicate any symptoms associated with coronavirus-19. Ebola Screen: Patient negative for fever greater than or equal to 101.5 degrees Fahrenheit, and additional compatible Ebola Virus Disease symptoms Patient denies exposure to infectious person. Patient denies travel to an Ebola-affected area in the 21 days before illness onset. No symptoms or risks identified at this time. Initial Sepsis Screen: Does the patient meet any 2 criteria? No. Patient's initial sepsis screen is negative. Does the patient have a suspected source of infection? No. Patient's initial sepsis screen is negative. Risk Assessment: Do you want to hurt yourself or someone else? Patient reports no desire to harm self or others. Onset of symptoms was July 04, 2025. 09:33 Method Of Arrival: EMS: [facility] db 09:33 Acuity: JERONIMO 3 db Triage Assessment: :28 General: Appears in no apparent distress. uncomfortable, Behavior is cooperative, db anxious. Pain: Complains of pain in abdomen. Neuro: Level of Consciousness is awake, alert, obeys commands, Oriented to person, place, time. Respiratory: Airway is patent Respiratory effort is even, unlabored, Respiratory pattern is regular, symmetrical. GI: Reports upper abdominal pain, cramping, nausea, vomiting. 10: GI: Pt is actively vomiting. 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 - Infectious Disease History:: Denies. - Social history:: Smoking status: unknown Patient uses street drugs, marijuana. Screenin:45 [facility] ED Fall Risk Assessment (Adult) History of falling in the last 3 months, db including since admission No falls in past 3 months (0 pts) Confusion or Disorientation No (0 pts) Intoxicated or Sedated No (0 pts) Impaired Gait No (0 pts) Mobility Assist Device Used No (0 pt) Altered Elimination No (0 pt) Score/Fall Risk Level 0 - 2 = Low Risk Oriented to surroundings, Maintained a safe environment. Abuse screen: Denies threats or abuse. Denies injuries from another. Nutritional screening: No deficits noted. Tuberculosis screening: No symptoms or risk factors identified. Assessment: 10:06 Reassessment: Patient appears in no apparent distress at this time. Patient and/or db family updated on plan of care and expected duration. Pain level reassessed. Patient is alert, oriented x 3, equal unlabored respirations, skin warm/dry/pink. Reassessment: Patient states feeling better. Patient states symptoms have improved. General: Appears in no apparent distress. comfortable, Behavior is calm, cooperative. Neuro: Level of Consciousness is awake, alert, obeys commands, Oriented to person, place, time, situation. 10:57 Reassessment: Patient appears in no apparent distress at this time. Patient and/or db family updated on plan of care and expected duration. Pain level reassessed. Patient is alert, oriented x 3, equal unlabored respirations, skin warm/dry/pink. 11:45 Reassessment: Patient appears in no apparent distress at this time. Patient and/or db family updated on plan of care and expected duration. Pain level reassessed. Patient is alert, oriented x 3, equal unlabored respirations, skin warm/dry/pink. Patient states feeling better. Patient states symptoms have improved. 12:54 Reassessment: Patient appears in no apparent distress at this time. Patient and/or iw family updated on plan of care and expected duration. Pain level reassessed. Patient is alert, oriented x 3, equal unlabored respirations, skin warm/dry/pink. pt requesting to speak to MD. 14:01 Reassessment: DC PENDING RADIOLOGY DISC. db 14:15 Reassessment: Patient appears in no apparent distress at this time. Patient and/or db family updated on plan of care and expected duration. Pain level reassessed. Patient is alert, oriented x 3, equal unlabored respirations, skin warm/dry/pink. Vital Signs: 08:48 BP 132 / 110; Pulse 99; Resp 18; Pulse Ox 98% on R/A; db 09:33 Pulse 75; Resp 16; Temp 96.5(TE); Pulse Ox 100% ; Weight 120.2 kg; Height 5 ft. 2 in. ; db 10:00 BP 102 / 55; Pulse 69; Resp 16; Pulse Ox 98% ; db 11:00 BP 116 / 64; Pulse 68; Resp 16; Pulse Ox 100% on R/A; db 11:30 BP 115 / 91; Pulse 65; Resp 16; Pulse Ox 99% on R/A; db 12:30 BP 111 / 70; Pulse 98; Resp 16; Pulse Ox 100% on R/A; db 13:00 BP 115 / 66; Pulse 72; Resp 16; Pulse Ox 100% on R/A; db 14:00 BP 125 / 97; Pulse 79; Resp 16; Pulse Ox 100% ; db 09:33 Body Mass Index 48.47 (120.20 kg, 157.48 cm) db ED Course: 09:28 Arm band placed on Patient placed in an exam room. db 09:32 Patient arrived in ED. db 09:34 Veto Shore DO is Attending Physician. ms3 09:35 Triage completed. db 09:45 Patient has correct armband on for positive identification. Bed in low position. Call db light in reach. Side rails up X 1. Provided Education on: . Pulse ox on. NIBP on. Pillow given. 09:45 Initial lab(s) drawn, by me, sent to lab. Inserted saline lock: 20 gauge in right db antecubital area, using aseptic technique. Blood collected. Flushed with 10 mL NS. 10:07 Sydnee Patton, RN is Primary Nurse. db 10:45 CT Abd/Pelvis - IV Contrast Only In Process Unspecified. EDMS 10:[address] db 12:10 David Saleh MD is Referral Physician. ms3 13:05 No provider procedures requiring assistance completed. IV discontinued, intact, db bleeding controlled, No redness/swelling at site. Administered Medications: 09:50 Drug: Famotidine IVP 20 mg IVP once; dilute with 10 mL 0.9% NaCl; give over 2 minutes db Route: IVP; Site: right antecubital; 14:15 Follow up: Response: No adverse reaction db 09:50 Drug: Ondansetron IVP 4 mg IVP once; over 2 minutes Route: IVP; Site: right antecubital;db 14:15 Follow up: Response: No adverse reaction db 09:50 Drug: morphine IVP or IV 4 mg IVP once over 4 mins Route: IVP; Infused Over: 4 mins; db Site: right antecubital; 14:15 Follow up: Response: No adverse reaction db 09:50 Drug: NS 0.9% IV 1000 ml IV at 1 bolus Per protocol; to be given as a bolus over 60 db minutes Route: IV; Rate: 1 bolus; Site: right antecubital; 14:29 Follow up: Response: No adverse reaction; IV Status: Completed infusion; IV Intake: db 1000ml 13:30 Drug: Promethazine IM 25 mg IM once Route: IM; Site: right deltoid; db 14:29 Follow up: Response: No adverse reaction db Medication: 09:45 VIS not applicable for this client. db Intake: 14:29 IV: 1000ml; Total: 1000ml. db Outcome: 12:11 Discharge ordered by . ms3 13:05 Discharged to home ambulatory, db 13:05 Condition: stable 13:05 Discharge instructions given to patient, Instructed on discharge instructions, follow up and referral plans. 14:31 Patient left the ED. db Signatures: Dispatcher [employer] Zuleima Anderson RN RN iw Sims, Marcus, DO DO ms3 Sydnee Patton RN RN db Corrections: (The following items were deleted from the chart) 10:09 09:28 Respiratory: Airway is patent Respiratory effort is even, unlabored, Respiratory db pattern is regular, symmetrical, db
--- NOTE | 2025-07-04 12:12 | EDPHYS ---
Physician Documentation [facility] Name: Sophie Thakkar Age: 39 yrs Sex: Female : 1985 Arrival Date: 07/04/2025 Time: 09:25 Bed 16 Private MD: ED Physician Veto Shore HPI: 07/04 10:16 This 39 yrs old Female presents to ER via EMS with complaints of Abdominal ms3 Cramping, Nausea/Vomiting. 10:16 39-year-old female with past medical history of lupus presents to the emergency ms3 department for abdominal pain that began 2 days ago and initially was intermittent. Patient states her pain is currently 10/10 located in the upper abdomen. Patient endorses nausea, vomiting, constipation. Patient denies diarrhea. Patient denies any alleviating or inciting factors.. 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 - Infectious Disease History:: Denies. - Social history:: Smoking status: unknown Patient uses street drugs, marijuana. ROS: 10:16 Constitutional: Negative for fever, and chills. Cardiovascular: Negative for chest ms3 pain, and palpitations. Respiratory: Negative for shortness of breath, cough, wheezing, and pleuritic chest pain, MS/Extremity: Negative for injury and deformity, Skin: Negative for injury, rash, and discoloration, 10:16 Abdomen/GI: Positive for abdominal pain, nausea and vomiting, Negative for constipation, Exam: 10:16 Constitutional: This is a well developed, well nourished patient who is awake, alert, ms3 and in no acute distress. Cardiovascular: Regular rate and rhythm with a normal S1 and S2. No gallops, murmurs, or rubs. Normal PMI, no JVD. No pulse deficits. Respiratory: Lungs have equal breath sounds bilaterally, clear to auscultation and percussion. No rales, rhonchi or wheezes noted. No increased work of breathing, no retractions or nasal flaring. Skin: Warm, dry with normal turgor. Normal color with no rashes, no lesions, and no evidence of cellulitis. 10:16 Abdomen/GI: Inspection: obese Bowel sounds: normal, Palpation: moderate abdominal tenderness, in the epigastric area, right upper quadrant and left upper quadrant, Vital Signs: 08:48 BP 132 / 110; Pulse 99; Resp 18; Pulse Ox 98% on R/A; db 09:33 Pulse 75; Resp 16; Temp 96.5(TE); Pulse Ox 100% ; Weight 120.2 kg; Height 5 ft. 2 in. ; db 10:00 BP 102 / 55; Pulse 69; Resp 16; Pulse Ox 98% ; db 11:00 BP 116 / 64; Pulse 68; Resp 16; Pulse Ox 100% on R/A; db 11:30 BP 115 / 91; Pulse 65; Resp 16; Pulse Ox 99% on R/A; db 12:30 BP 111 / 70; Pulse 98; Resp 16; Pulse Ox 100% on R/A; db 13:00 BP 115 / 66; Pulse 72; Resp 16; Pulse Ox 100% on R/A; db 14:00 BP 125 / 97; Pulse 79; Resp 16; Pulse Ox 100% ; db 09:33 Body Mass Index 48.47 (120.20 kg, 157.48 cm) db MDM: 09:34 Medical Screening Exam initiated ms3 10:19 Differential diagnosis: bowel obstruction, non-specific abd pain, pancreatitis. ms3 13:18 Data reviewed: vital signs, nurses notes, lab test result(s), radiologic studies, and ms3 as a result, I will discharge patient. I considered the following discharge prescriptions or medication management in the emergency department Medications were administered in the Emergency Department. See MAR. Counseling: I had a detailed discussion with the patient and/or guardian regarding the historical points, exam findings, and any diagnostic results supporting the discharge/admit diagnosis, lab results, radiology results, the need for outpatient follow up, to return to the emergency department if symptoms worsen or persist or if there are any questions or concerns that arise at home. Special discussion: Based on the patient's Hx, exam, and Dx evaluation, there is no indication for emergent surgery or inpatient Tx. It is understood by the patient/guardian that if the Sx's persist or worsen they need to return immediately for re-evaluation. ED course: discussed CT abdomen pelvis with right renal mass concerning for renal carcinoma. Patient currently seeing [facility] gastroenterology for her abdominal pain. Patient with chronic marijuana use and discussed possibility of cannabinoid hyperemesis syndrome with patient. Discussed necessity for follow-up with urology regarding right kidney mass. Patient, her mother, her significant other, her aunt all understand and agree the necessity for follow-up and biopsy. Patient to follow-up with Dr. Saleh in 2 to 3 days. Return precautions were discussed include worsening symptoms, or any other concerns. On reevaluation patient symptoms improved, patient is alert and orient x 4, in no apparent distress, nontoxic-appearing, speaking full sentences.. 07/04 09:34 Order name: CBC with Diff; Complete Time: 11:59 ms3 07/04 09:34 Order name: CMP; Complete Time: 10:16 ms3 07/04 09:34 Order name: Lipase; Complete Time: 10:16 ms3 07/04 09:59 Order name: CBC Smear Scan; Complete Time: 11:59 EDMS 07/04 09:34 Order name: CT Abd/Pelvis - IV Contrast Only; Complete Time: 11:39 ms3 07/04 09:34 Order name: IV Saline Lock; Complete Time: 10:08 ms3 07/04 09:34 Order name: Labs collected and sent; Complete Time: 10:08 ms3 Administered Medications: 09:50 Drug: Famotidine IVP 20 mg IVP once; dilute with 10 mL 0.9% NaCl; give over 2 minutes db Route: IVP; Site: right antecubital; 14:15 Follow up: Response: No adverse reaction db 09:50 Drug: Ondansetron IVP 4 mg IVP once; over 2 minutes Route: IVP; Site: right antecubital;db 14:15 Follow up: Response: No adverse reaction db 09:50 Drug: morphine IVP or IV 4 mg IVP once over 4 mins Route: IVP; Infused Over: 4 mins; db Site: right antecubital; 14:15 Follow up: Response: No adverse reaction db 09:50 Drug: NS 0.9% IV 1000 ml IV at 1 bolus Per protocol; to be given as a bolus over 60 db minutes Route: IV; Rate: 1 bolus; Site: right antecubital; 14:29 Follow up: Response: No adverse reaction; IV Status: Completed infusion; IV Intake: db 1000ml 13:30 Drug: Promethazine IM 25 mg IM once Route: IM; Site: right deltoid; db 14:29 Follow up: Response: No adverse reaction db Disposition Summary: 07/04/25 12:11 Discharge Ordered Notes: Location: Home ms3 Condition: Stable ms3 Diagnosis - Abdominal pain, Generalized ms3 - Right kidney tumor ms3 Followup: ms3 - With: David Saleh MD - When: 2 - 3 days - Reason: Recheck today's complaints Discharge Instructions: - Discharge Summary Sheet ms3 - Abdominal Pain, Adult ms3 - Incidental Abnormal Radiological Finding ms3 Forms: - Medication Reconciliation Form ms3 - Antibiotic Education ms3 - Prescription Opioid Use ms3 - Patient Portal Instructions ms3 - Leadership Thank You Letter ms3 Prescriptions: - promethazine 25 mg Rectal suppository - insert 1 suppository RECTAL route every 6 hours as needed for nausea and ms3 vomiting; 15 suppository; Refills: 0, Product Selection Permitted Signatures: Dispatcher [employer] EDMS Veto Shore DO DO ms3 Sydnee Patton RN RN db Corrections: (The following items were deleted from the chart) 09:35 09:35 CBC+H.LAB.BRZ ordered. EDMS EDMS 09:35 09:35 COMPREHENSIVE METABOLIC PANEL+C.LAB.BRZ ordered. EDMS EDMS 09:35 09:35 LIPASE+C.LAB.BRZ ordered. EDMS EDMS 09:35 09:35 Abdomen Pelvis W Con+CT.RAD.BRZ ordered. EDMS EDMS
[2025-07-04] MEDS ORDERED: PROMETHAZINE INJ 25 MG/ML AMP ONE (13:22)
[2025-07-04 15:00] VITALS: TEMP 96.5
[2025-07-04 15:05] VITALS: O2SAT 100
[2025-07-04 15:07] VITALS: BP 125/97
== END 2025-07-04 14:31 | disposition home or self-care (01) ==
LOC: ER 09:25
DX: R10.84 Generalized abdominal pain (principal); D49.511 Neoplasm of unspecified behavior of right kidney; R11.2 Nausea with vomiting, unspecified
CPT/HCPCS: 96361; 85025; 36415; 83690; 80053; 74177; 96375; 96372; 96374; 99285; Q9967; J2550; J2405; J7030